=== PATIENT | male | born 1955 | race Caucasian/White ===

== ENCOUNTER → 2023-03-12 10:29 | Outpatient (REF) | payer MEDICARE, SELFPAY | LOC: RAD 10:29 | PROVIDERS: ATTENDING PHYSICIAN Family Medicine | DX: R05.9 Cough, unspecified (principal) | CPT/HCPCS: 71046 ==

== ENCOUNTER → 2023-03-16 10:35 | Outpatient (REF) | payer MEDICARE, SELFPAY ==
[2023-03-16 11:30] LABS: % Basophils 0.3 % (0-2); % Eosinophils 0.1 % (0-6); % Immature Granulocytes 4.2 % (0-0.5); % Lymphocytes 2.5 % (20.5-51.1); % Monocytes 6.2 % (1.7-9.3); % Neutrophils 86.7 % (42.2-75.2); Absolute Basophils 0.1 10^3/uL (0-0.2); Absolute Immature Granulocytes 0.8 10^3/uL (0-0.05); Absolute Lymphocytes 0.5 10^3/uL (1.2-3.4); Absolute Monocytes 1.1 10^3/uL (0.1-0.6); Absolute Neutrophils 15.3 10^3/uL (1.4-6.5); Hematocrit 38.5 % (39.0-52.0); Hemoglobin 12.8 g/dL (13.0-18.0); Mean Corp Hgb Conc. 33.2 g/dL (33.0-37.0); Mean Corpuscular Hgb 32.2 pg (27.0-31.0); Mean Platelet Volume 9.4 fL (7.4-10.4); Nucleated Red Blood Cells % 0 % (-); Platelet Count 159 10^3/uL (130-400); Red Blood Cell Count 3.97 10^6/uL (4.70-6.10); Red Cell Dist. Width 14.1 % (11.5-14.5); White Blood Cell Count 17.7 10^3/uL (4.8-10.8)
[2023-03-16 11:59] LABS: Iron 88 ug/dl (49-181)
[2023-03-16 12:08] LABS: Percent Saturation 44 % (20-50); Total Iron Binding Capacity 197 ug/dl (261-462)
== END ==
LOC: RAD 10:35
PROVIDERS: ATTENDING PHYSICIAN Surgery Vascular Surgery; FAMILY PHYSICIAN Family Medicine; REFERRING PHYSICIAN Internal Medicine Hematology & Oncology
DX: D63.8 Anemia in other chronic diseases classified elsewhere (principal); D63.1 Anemia in chronic kidney disease; D50.0 Iron deficiency anemia secondary to blood loss (chronic); N18.4 Chronic kidney disease, stage 4 (severe); I65.23 Occlusion and stenosis of bilateral carotid arteries
CPT/HCPCS: 36415; 82728; 83540; 83550; 85025; 93880

== ENCOUNTER 2023-04-22 14:27 | Inpatient (IN) | payer MEDICARE, SELFPAY ==
[2023-04-22] VITALS (14 sets, daily range): BP systolic 97–136; BP diastolic 48–71
--- NOTE | 2023-04-22 10:29 | ED.GENMED ---
History of Present Illness
<Josiah Waters PA-C - Last Filed: 04/22/23 12:35>
General
Chief Complaint: Breathing Problem
Source: patient
Exam Limitations: none
Time Seen by Provider: 04/22/23 10:01
Travel History
Have you had any contact with someone who has COVID-19?: No
Do you have any symptoms of coronavirus? Fever > 100 degrees, chills, cough, shortness of breath, sore throat, loss of taste or smell, muscle aches, or headache?: No
History of Present Illness
History of Present Illness:
68-year-old male with history of scleroderma, A-fib status post watchman's procedure, CHF presents complaining of fatigue shortness of breath and nausea worsening over the past several days. He has been losing weight. He notes increasing
difficulty swallowing secondary to scleroderma. No known sick contacts. No fever. No other complaints at this time. He has 1 functional kidney remaining secondary to his scleroderma
Past History
<Josiah Waters PA-C - Last Filed: 04/22/23 12:35>
Past History
ED Past Medical History: Arrthythmia, CAD, CHF, COPD, HTN, Hypercholesterolemia, Renal failure, Psychiatric (scleroderma, RA, CREST, Reynauds.) and Other (Scleroderma, crest syndrome)
ED Past Surgical History: Bowel resection, Cardiac (Watchman) and Orthopedic
Social History
Tobacco: Former smoker (Quit 6 years ago)
Alcohol: None
Drug: None
Personal:
Living: with family
Employment: Disabled
Family History
Family History: Other
Phy Exam
<Josiah Waters PA-C - Last Filed: 04/22/23 12:35>
Physical Exam
Physical Exam:
General: Well-appearing male no acute respiratory distress
HEENT: Normocephalic atraumatic
Heart: Regular rate and rhythm no murmurs
Lungs: Clear to auscultation bilaterally no wheezing
Abdomen is soft mildly diffusely tender no guarding or rebound normal bowel sounds
Extremities: No cyanosis or edema
Scores
<Josiah Waters PA-C - Last Filed: 04/22/23 12:35>
Heart Failure Risk
Heart Failure Risk Score: Not Applicable
Course
<Josiah Waters PA-C - Last Filed: 04/22/23 12:35>
Orders/Labs/Results
Orders:
Orders
04/22/23 10:03
Electrocardiogram (*1) Urgent
Reason for Study: Shortness of Breath
EKG- Treatment ONCE
04/22/23 10:28
CR Chest - 2 Views Urgent
Comment:
Reason For Exam: sob
04/22/23 10:37
COVID-19 Antigen Urgent
Source: Nasal Swab
Influenza A+B Rapid Molecular Urgent
GERTRUDE Source: Nasal Swab
Specimen Description:
04/22/23 10:42
Complete Blood Count/With Diff Urgent
Comprehensive Metabolic Panel Urgent
Lipase Urgent
NT-proBNP Urgent
04/22/23 12:11
Ondansetron Injectable [Zofran] 4 mg IV NOW STA
04/22/23 12:12
Electrocardiogram (*1) Urgent
Reason for Study: Fatigue / Weakness
04/22/23 12:16
ABG [Arterial Blood Gas] Urgent
%Oxygen/Room Air: room air
04/22/23 12:30
Dextrose 5%/Water 1000 ml [D5w] 1,000 ml Sodium Bicarbonate 150 meq IV 250 mls/hr
04/22/23 13:00
Dextrose 5%/0.45%Sodchl 500 ml [D5/0.45%NaCl] 500 ml IV 250 mls/hr
Abnormal Lab Results
04/22/23
10:42
RBC 3.31 L 10^6/uL
(4.70-6.10)
Hgb 10.4 L g/dL
(13.0-18.0)
Hct 31.3 L %
(39.0-52.0)
MCV 94.6 H fL
(80.0-94.0)
MCH 31.4 H pg
(27.0-31.0)
RDW 14.9 H %
(11.5-14.5)
Abs Immat Gran (auto) 0.3 H 10^3/uL
(0-0.05)
Absolute Neuts (auto) 8.5 H 10^3/uL
(1.4-6.5)
Absolute Lymphs (auto) 0.2 L 10^3/uL
(1.2-3.4)
Absolute Monos (auto) 0.8 H 10^3/uL
(0.1-0.6)
Immature Gran % 3.0 H %
(0-0.5)
Neutrophils % 86.2 H %
(42.2-75.2)
Lymphocytes % 2.3 L %
(20.5-51.1)
Sodium 131 L mmol/L
(135-145)
Carbon Dioxide 11 L* mmol/L
(22-30)
BUN 65 H mg/dl
(9-20)
Creatinine 2.3 H mg/dL
(0.7-1.3)
Glucose 64 L mg/dl
(70-99)
Total Protein 5.1 L g/dl
(6.3-8.2)
Albumin 3.1 L g/dl
(3.5-5.0)
04/22/23 10:42
04/22/23 10:42
Vital Signs
Initial and Last Documented VS:
Initial Vital Signs
Temp Pulse Resp BP Pulse Ox
99.1 F 76 18 136/59 97
04/22/23 09:45 04/22/23 09:45 04/22/23 09:45 04/22/23 09:45 04/22/23 09:45
Last Documented Vital Signs
Temp Pulse Resp BP Pulse Ox
99.1 F 64 16 110/50 97
04/22/23 09:45 04/22/23 11:48 04/22/23 11:48 04/22/23 11:48 04/22/23 11:48
<Sohan Mccain, DO - Last Filed: 04/22/23 12:30>
Orders/Labs/Results
Orders:
Orders
04/22/23 10:03
Electrocardiogram (*1) Urgent
Reason for Study: Shortness of Breath
EKG- Treatment ONCE
04/22/23 10:28
CR Chest - 2 Views Urgent
Comment:
Reason For Exam: sob
04/22/23 10:37
COVID-19 Antigen Urgent
Source: Nasal Swab
Influenza A+B Rapid Molecular Urgent
GERTRUDE Source: Nasal Swab
Specimen Description:
04/22/23 10:42
Complete Blood Count/With Diff Urgent
Comprehensive Metabolic Panel Urgent
Lipase Urgent
NT-proBNP Urgent
04/22/23 12:11
Ondansetron Injectable [Zofran] 4 mg IV NOW STA
04/22/23 12:12
Electrocardiogram (*1) Urgent
Reason for Study: Fatigue / Weakness
04/22/23 12:16
ABG [Arterial Blood Gas] Urgent
%Oxygen/Room Air: room air
04/22/23 12:30
Dextrose 5%/Water 1000 ml [D5w] 1,000 ml Sodium Bicarbonate 150 meq IV 250 mls/hr
04/22/23 13:00
Dextrose 5%/0.45%Sodchl 500 ml [D5/0.45%NaCl] 500 ml IV 250 mls/hr
Abnormal Lab Results
04/22/23
10:42
RBC 3.31 L 10^6/uL
(4.70-6.10)
Hgb 10.4 L g/dL
(13.0-18.0)
Hct 31.3 L %
(39.0-52.0)
MCV 94.6 H fL
(80.0-94.0)
MCH 31.4 H pg
(27.0-31.0)
RDW 14.9 H %
(11.5-14.5)
Abs Immat Gran (auto) 0.3 H 10^3/uL
(0-0.05)
Absolute Neuts (auto) 8.5 H 10^3/uL
(1.4-6.5)
Absolute Lymphs (auto) 0.2 L 10^3/uL
(1.2-3.4)
Absolute Monos (auto) 0.8 H 10^3/uL
(0.1-0.6)
Immature Gran % 3.0 H %
(0-0.5)
Neutrophils % 86.2 H %
(42.2-75.2)
Lymphocytes % 2.3 L %
(20.5-51.1)
Sodium 131 L mmol/L
(135-145)
Carbon Dioxide 11 L* mmol/L
(22-30)
BUN 65 H mg/dl
(9-20)
Creatinine 2.3 H mg/dL
(0.7-1.3)
Glucose 64 L mg/dl
(70-99)
Total Protein 5.1 L g/dl
(6.3-8.2)
Albumin 3.1 L g/dl
(3.5-5.0)
04/22/23 10:42
04/22/23 10:42
Vital Signs
Initial and Last Documented VS:
Initial Vital Signs
Temp Pulse Resp BP Pulse Ox
99.1 F 76 18 136/59 97
04/22/23 09:45 04/22/23 09:45 04/22/23 09:45 04/22/23 09:45 04/22/23 09:45
Last Documented Vital Signs
Temp Pulse Resp BP Pulse Ox
99.1 F 64 16 110/50 97
04/22/23 09:45 04/22/23 11:48 04/22/23 11:48 04/22/23 11:48 04/22/23 11:48
<Josiah Waters PA-C - Last Filed: 04/22/23 12:35>
MDM/Problems Addressed
Differential Diagnosis Includes:
Shortness of breath nausea and fatigue. Consider viral illness for CHF flare versus pancreatitis. Consider dehydration as well. Will check labs test for COVID and flu, BNP and chest x-ray
<Sohan Mccain DO - Last Filed: 04/22/23 12:30>
MDM/Problems Addressed
Chronic conditions affecting care: Kidney disease
Acute Exacerbation and/or Progression of Chronic Illness: Kidney disease
<Sohan Mccain DO - Last Filed: 04/22/23 12:30>
*Pulse Oximetry
Patient hypoxic: no
*Critical Care Note
Total Time (30-74mins, 75-104mins- exclusive of procedures): 30
<Josiah Waters PA-C - Last Filed: 04/22/23 12:35>
Update Note
Update Note:
Patient with complicated medical history. Labs demonstrate acute on chronic kidney disease with a creatinine of 2.3. He is acidotic with a bicarb of 11. Looks quite dry but chest x-ray shows cardiomegaly with increased pulmonary edema and BNP is
elevated. Patient does have a history of heart failure. Discussed with emergency room attending. Nephrology involved. D5W with 150 mill equivalents of sodium bicarbonate was ordered. Will admit to hospital for further evaluation
ED Attending Note
<Josiah Waters PA-C - Last Filed: 04/22/23 12:35>
-
Portions of this chart may have been created with voice recognition software.� Occasional wrong word or��sound alike� substitutions may have occurred due to the inherent limitations of voice recognition software.
<Sohan Mccain DO - Last Filed: 04/22/23 12:30>
ED Attending Note
Patient seen and examined by attending physician: Yes
I performed the substantive portion of visit, reviewed & personally made and approve the management plan that is documented in note by myself or EVERETT.: Yes
ED Attending Note:
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 intake, here looks dry looks like his metabolic acidosis, blood pressure soft,
will require admission, briefly reviewed with nephrology message sent to hospitalist family updated
Discharge Plan
Departure
Patient Disposition: Admit
Date of Disposition: 04/22/23
Time of Disposition: 12:34
Admit to: Telemetry
Presentation/result/management discussed w/ accepting MD/DO: Hospitalist
Discharge Problem:
SOLEDAD (acute kidney injury)
Prescriptions:
No Action
ferrous sulfate [FeroSul] 325 MG tablet
325 mg PO MOWEFR@2200
polyethylene glycol 3350 17 GRAMS powder in packet
17 grams PO DAILYPRN PRN (Reason: constipation)
methadone 10 MG tablet
10 mg PO TID
Patient Comments:
11/18/2022: last filled 10/21/22, 120 tabs for 30 days from [facility]
rosuvastatin 10 MG tablet
10 mg PO HS
tamsulosin 0.4 MG capsule
0.4 mg PO QPM
ondansetron HCl 4 MG tablet
4 mg PO DAILY
pentoxifylline 400 MG tablet extended release
400 mg PO HS
aspirin 81 MG tablet,chewable
81 mg PO DAILY
hydrocodone-acetaminophen 7.5-325 mg tablet
1 tab PO TID
Patient Comments:
11/18/2022: last filled 10/21/22, 135 tabs for 17 days from [facility]
prednisone 10 mg Tablet
10 mg PO BID
Hold Instructions: Resume on 09/22/22.
methadone 10 mg Tablet
10 mg PO DAILY PRN (Reason: severe pain)
Patient Comments:
11/18/2022: last filled 10/21/22, 120 tabs for 30 days from [facility]
diltiazem HCl 240 mg Capsule,Extended Release 24hr
240 mg PO DAILY
nitroglycerin 0.4 MG tablet, sublingual
0.4 mg sublingual [id number] PRN (Reason: chest pain ) Qty: 25 3RF
levalbuterol tartrate [Xopenex HFA] 45 mcg/actuation Hfa Aerosol Inhaler
1 puff INHALATION R Q6HPRN PRN (Reason: sob)
ipratropium-albuterol 0.5 mg-3 mg(2.5 mg base)/3 mL solution for nebulization
3 ml inhalation R QIDPRN PRN (Reason: sob)
sertraline 50 MG tablet
50 mg PO DAILY
ondansetron HCl 4 mg tablet
4 mg PO TID PRN (Reason: nausea/vomiting)
hydrocodone-acetaminophen 7.5-325 mg tablet
1 tab PO DAILY PRN (Reason: breakthrough pain)
Patient Comments:
11/18/2022: last filled 10/21/22, 135 tabs for 17 days from [facility]
metoprolol succinate 50 mg tablet extended release 24 hr
50 mg PO DAILY
furosemide 20 mg tablet
20 mg PO DAILY PRN (Reason: sob/weight gain)
famotidine 20 mg tablet
20 mg PO HS
hydralazine 50 mg Tablet
100 mg PO TID 30 Days Qty: 180 0RF
ciprofloxacin HCl 0.3 % Drops
4 drp otic (ear) BID 14 Days Qty: 10 0RF
Rx Instructions:
f/u ENT recs for continuation of otic drops
Referrals:
Arun Ibrahim DO [Family Provider] -
Interventions
Interventions:
*Risk Screen - Suicide Last Done: 04/22/23 09:48
*General Assessment Last Done: 04/22/23 09:48
*Neglect/Abuse Screening Last Done: 04/22/23 09:48
*ED COVID-19 Vaccine History Last Done: 04/22/23 09:54
ED- Cardiac Assessment Last Done: 04/22/23 10:00
ED- Pulmonary Assessment Last Done: 04/22/23 10:00
[2023-04-22 10:52] LABS: % Basophils 0.3 % (0-2); % Eosinophils 0.3 % (0-6); % Lymphocytes 2.3 % (20.5-51.1); % Monocytes 7.9 % (1.7-9.3); % Neutrophils 86.2 % (42.2-75.2); Absolute Immature Granulocytes 0.3 10^3/uL (0-0.05); Absolute Lymphocytes 0.2 10^3/uL (1.2-3.4); Absolute Monocytes 0.8 10^3/uL (0.1-0.6); Absolute Neutrophils 8.5 10^3/uL (1.4-6.5); Hematocrit 31.3 % (39.0-52.0); Hemoglobin 10.4 g/dL (13.0-18.0); Mean Corp Hgb Conc. 33.2 g/dL (33.0-37.0); Mean Corpuscular Hgb 31.4 pg (27.0-31.0); Mean Corpuscular Volume 94.6 fL (80.0-94.0); Mean Platelet Volume 8.8 fL (7.4-10.4); Nucleated Red Blood Cells % 0 % (-); Platelet Count 143 10^3/uL (130-400); Red Blood Cell Count 3.31 10^6/uL (4.70-6.10); Red Cell Dist. Width 14.9 % (11.5-14.5); White Blood Cell Count 9.9 10^3/uL (4.8-10.8)
[2023-04-22 11:05] LABS: COVID-19 Antigen Negative (Negative)
[2023-04-22 11:10] LABS: ALT (SGPT) 13 U/L (0-50); AST (SGOT) 17 U/L (17-59); Albumin 3.1 g/dl (3.5-5.0); Alkaline Phosphatase 116 U/L (38-126); Blood Urea Nitrogen 65 mg/dl (9-20); Calcium 8.4 mg/dl (8.4-10.2); Glucose 64 mg/dl (70-99); Total Bilirubin 0.7 mg/dl (0.2-1.3); Total Protein 5.1 g/dl (6.3-8.2); eGFR 30.17
[2023-04-22 11:14] LABS: Carbon Dioxide 11 mmol/L (22-30)
[2023-04-22 11:16] LABS: NT-proBNP 12300 pg/ml
[2023-04-22 11:40] LABS: Chloride 103 mmol/L (98-107); Lipase 43 U/L (23-300); Potassium 4.4 mmol/L (3.5-5.1); Sodium 131 mmol/L (135-145)
[2023-04-22] MEDS: ZOFRAN 4 MG IV (12:22)
[2023-04-22] MEDS: D5/0.45%NACL 500 IV (12:23)
[2023-04-22] MEDS: SODIUM BICARBONATE 1150 MEQ IV ×2 (12:45→18:48)
[2023-04-22 13:09] LABS: B.E. -14.3 mmol/L; O2 Saturation % 98.4 % (94-98); PCO2 23 mmHg (35-48); PO2 134 mmHg (83-108); pH 7.28 (7.35-7.45)
[2023-04-22 13:11] LABS: HCO3 10.8 mmol/L (21-28)
--- NOTE | 2023-04-22 14:05 | HPS.HSE ---
Family Physician
-
Family Physician: Arun Ibrahim
Chief Complaint
-
nausea and weakness
History of Present Illness
68-year-old male past medical history who was presented with nausea and abdominal discomfort. Patient stated symptoms ongoing for the past few days. Mild epigastric discomfort. Denies any vomiting. Had regular solid bowel movement yesterday. No
sick contact at home. Denies any fevers or chills. States of dyspnea on exertion. Denies any chest pain. History of chronic PND. Denies lower extremity edema. Also states of chronic dysphagia due to scleroderma.
Medical History
Past Medical History
Past Medical History: Reports Other
Additional Past Medical History:
Scleroderma / CREST / Raynaud's
Rheumatoid Arthritis
Paroxysmal Atrial Fibrillation
Essential Hypertension
Chronic Hyponatremia
Peripheral Arterial Disease s/p Left Subclavian Stent
Chronic Opioid Dependence
COPD, not acute exacerbation
Depression
Chronic opiate dependent daily basis
Past Surgical History: Reports Other
Additional Past Surgical History:
CAD s/p stents
R shoulder surgery
B/L Hand fingers amputation
Social History
Tobacco: Former Smoker
Alcohol: None
Personal:
Living: With Family
Family History
Family History: Not pertinent
Allergies / Home Medications
Allergies reflects when Allergies were last updated in [employer].
Home Medications with original date entered in [employer]
Allergy/Medication List:
Allergies
Allergy/AdvReac Type Severity Reaction Status Date / Time
morphine Allergy severe Verified 04/22/23 09:45
itching
Home Medications
ferrous sulfate 325 mg (65 mg iron) tablet (FeroSul) 325 mg PO MOWEFR@2200 Supplement 12/30/18
methadone 10 mg tablet 10 mg PO BID Pain 04/05/19
polyethylene glycol 3350 17 gram oral powder packet 17 grams PO DAILYPRN PRN constipation 04/05/19
rosuvastatin 10 mg tablet 10 mg PO HS High cholesterol 04/05/19
tamsulosin 0.4 mg capsule 0.4 mg PO QPM Urinary issue 09/29/19
pentoxifylline 400 mg tablet,extended release 400 mg PO BID CIRCULATION 08/14/20
methadone 10 mg tablet 10 mg PO BIDPRN PRN severe pain 07/23/22
prednisone 10 mg tablet 15 mg PO DAILY Anti-Inflammatory 07/23/22
ipratropium 0.5 mg-albuterol 3 mg (2.5 mg base)/3 mL nebulization soln 3 ml inhalation R Q6HPRN PRN sob 10/09/22
sertraline 50 mg tablet 50 mg PO DAILY Depression 10/09/22
furosemide 20 mg tablet 20 mg PO DAILY PRN sob/weight gain 11/18/22
hydrocodone 7.5 mg-acetaminophen 325 mg tablet 1 tab PO Q6HPRN PRN severe pain 11/18/22
metoprolol succinate 50 mg tablet,extended release 24 hr 50 mg PO DAILY Blood Pressure 11/18/22
albuterol sulfate 90 mcg/actuation aerosol inhaler 2 puff inhalation R Q4HPRN PRN sob 04/22/23
aspirin 81 mg tablet,delayed release 81 mg PO DAILY 04/22/23
diltiazem HCl 240 mg capsule,extended release 24 hr, controlled (DILT-XR) 240 mg PO DAILY 04/22/23
famotidine 40 mg tablet 40 mg PO QPM 04/22/23
hydralazine 100 mg tablet 100 mg PO TID 04/22/23
levalbuterol tartrate 45 mcg/actuation aerosol inhaler 2 inh inhalation R Q6HPRN PRN sob 04/22/23
ondansetron 8 mg disintegrating tablet 8 mg PO TIDPRN PRN nausea/vomiting 04/22/23
tizanidine 2 mg tablet 2 mg PO TID PRN muscle spasms 04/22/23
Review of Systems
-
A 12 point ROS was completed and negative except as noted: Yes
Physical Exam
Vital Signs
Vital Signs
Temp Pulse Resp BP Pulse Ox
99.1 F 61 14 117/70 100
04/22/23 09:45 04/22/23 13:00 04/22/23 13:00 04/22/23 13:00 04/22/23 12:45
Physical Exam
General: Well Developed, Well Nourished and No Apparent Distress
HEENT: NormoCephalic, Moist mucous membranes and Atraumatic
Respiratory: Clear
Cardiac: S1/S2 and Regular Rhythm; No Murmur or Rub
GI: Soft, Non Tender, Non Distended and Normal Bowel Sounds; No Organomegaly
Rectal: Deferred by Provider
Musculoskeletal: No Clubbing, No Cyanosis and No Edema
Skin: No Rash
Neuro: Awake, Alert, Oriented, No Motor Deficits and Nonfocal/grossly intact
Psych: Calm
Laboratory Results
-
04/22/23 10:42
04/22/23 10:42
Laboratory Results
pH 7.28 (7.35-7.45) L 04/22/23 12:45
pCO2 23 mmHg (35-48) L 04/22/23 12:45
pO2 134 mmHg (83-108) H 04/22/23 12:45
HCO3 10.8 mmol/L (21-28) L* 04/22/23 12:45
Total Bilirubin 0.7 mg/dl (0.2-1.3) 04/22/23 10:42
AST 17 U/L (17-59) 04/22/23 10:42
ALT 13 U/L (0-50) 04/22/23 10:42
Alkaline Phosphatase 116 U/L (38-126) 04/22/23 10:42
Lipase 43 U/L (23-300) 04/22/23 10:42
Impression/Plan
-
#Nausea and epigastric discomfort
#Chronic dysphagia
-on chronic opioids
-Check abdominal x-ray
-Start diet and monitor for tolerance
-Pepcid
-If no improvement can consider CT scan abd w/o IV contrast
#SOLEDAD on CKD3b
#Severe metabolic acidosis
#Mild hyponatremia
-Patient started on bicarbonate infusion per nephrology
-Trend creatinine at 2.3 from 1.3 03/04
-Monitor urinary output
-Bladder scan protocol
-States only has solitary renal function as other kidney damage due to scleroderma
-Nephrology consulted by ER-await further recs.
#Mild dyspnea
#Chronic HFpEF
-Diuretics on hold in setting of SOLEDAD
-Monitor I's and O's and daily weights
-Currently dry on exam. Hold diuretics.
#Primary HTN
-Continue metoprolol and Cardizem
-Hydralazine 100 mg 3 times daily with hold parameters
-Holding diuretics
#Paroxysmal Atrial Fibrillation
-Continue metoprolol and diltiazem for rate control
-Patient is not on anticoagulation as outpatient
-Follows with [facility] cardiology
#Scleroderma / CREST / Raynaud's
#Rheumatoid Arthritis
-Patient is not on any disease modifying agents
-Continue prednisone
Peripheral Arterial Disease s/p Left Subclavian Stent
-Continue aspirin
-Continue pentoxifylline
Chronic Opioid Dependence
-Continue methadone standing and as needed.
-Continue with bowel regimen.
-Continue with hydrocodone.
COPD, not acute exacerbation
-Continue bronchodilators prn
Depression
-Continue sertraline
DVT Proph: SC Heparin
Code Status: Full Code
I spent a total of 78 minutes with the patient or on the floor. More than 50% of this time involved counseling and coordination of care.
--- NOTE | 2023-04-22 15:37 | W.CON.NEPH ---
Consultation
-
Date/Time Consultation Requested: 04/22/2023
Date/Time Consultation Performed: 04/22/2023
Requesting Provider: Philippe Cruz
Performing Provider: Ailyn Atkins
Reason for Consultation: SOLEDAD on CKD
Medical History
-
Chief Complaint: nausea and wekaness
History of Present Illness:
Mr. Salgado is a 68YOM with PMH of scleroderma/CREST, RA, pAfib, HTN, hyponatremia (bl Na 125-130), HTN, PAD s/p L subclavian stent, chronic opiod dependence, COPD, depression, chronic opiate dependence who presnets to the hospital for nausea and
weakness since Thursday. The patient states that he has not had a meal since Thursday. Denies vomitting or diarrhea. Denies fevers or chills. Does have some TORRES and a cough with mucous production for 1-2days. States that he has a history of bronchitis.
Has a history of PND, denies LE edema. He has noted that his blood pressures have been low, he typically runs quite high. Has chronic back pain, does not take NSAIDs but has been taking hydrocodone. Yesterday, he took a dose of lasix for SOB and did
not urinate as much as normal. Denies trouble emptying his bladder. Recently saw his marbleizing machine tender for scleroderma and stated everything is stable.
Nephrology is consulted for his acidosis and SOLEDAD on CKD (bl Cr around 1.5).
Past Medical History
Scleroderma / CREST / Raynaud's
Rheumatoid Arthritis
Paroxysmal Atrial Fibrillation
Essential Hypertension
Chronic Hyponatremia
Peripheral Arterial Disease s/p Left Subclavian Stent
Chronic Opioid Dependence
COPD, not acute exacerbation
Depression
Chronic opiate dependent daily basis
Past Surgical History: Other (CAD s/p stent, R shoulder surgery, finger amputations)
Social History
Tobacco: Former Smoker (quit 14 years ago)
Alcohol: None
Drug: None
Personal:
Living: With Family
Family History
no one with CKD
Allergies / Home Medications
Allergy/AdvReac Type Severity Reaction Status Date / Time
morphine Allergy severe Verified 04/22/23 09:45
itching
Medication Instructions Recorded Confirmed Type
ferrous sulfate 325 mg (65 mg 325 mg PO MOWEFR@2200 Supplement 12/30/18 04/22/23 History
iron) tablet (FeroSul)
methadone 10 mg tablet 10 mg PO BID Pain 04/05/19 04/22/23 History
polyethylene glycol 3350 17 gram 17 grams PO DAILYPRN PRN 04/05/19 04/22/23 History
oral powder packet constipation
rosuvastatin 10 mg tablet 10 mg PO HS High cholesterol 04/05/19 04/22/23 History
tamsulosin 0.4 mg capsule 0.4 mg PO QPM Urinary issue 09/29/19 04/22/23 History
pentoxifylline 400 mg 400 mg PO BID CIRCULATION 08/14/20 04/22/23 History
tablet,extended release
methadone 10 mg tablet 10 mg PO BIDPRN PRN severe pain 07/23/22 04/22/23 History
prednisone 10 mg tablet 15 mg PO DAILY Anti-Inflammatory 07/23/22 04/22/23 History
ipratropium 0.5 mg-albuterol 3 mg 3 ml inhalation R Q6HPRN PRN sob 10/09/22 04/22/23 History
(2.5 mg base)/3 mL nebulization
soln
sertraline 50 mg tablet 50 mg PO DAILY Depression 10/09/22 04/22/23 History
furosemide 20 mg tablet 20 mg PO DAILY PRN sob/weight gain 11/18/22 04/22/23 History
hydrocodone 7.5 mg-acetaminophen 1 tab PO Q6HPRN PRN severe pain 11/18/22 04/22/23 History
325 mg tablet
metoprolol succinate 50 mg 50 mg PO DAILY Blood Pressure 11/18/22 04/22/23 History
tablet,extended release 24 hr
albuterol sulfate 90 mcg/actuation 2 puff inhalation R Q4HPRN PRN sob 04/22/23 04/22/23 History
aerosol inhaler
aspirin 81 mg tablet,delayed 81 mg PO DAILY 04/22/23 04/22/23 History
release
diltiazem HCl 240 mg 240 mg PO DAILY 04/22/23 04/22/23 History
capsule,extended release 24 hr,
controlled (DILT-XR)
famotidine 40 mg tablet 40 mg PO QPM 04/22/23 04/22/23 History
hydralazine 100 mg tablet 100 mg PO TID 04/22/23 04/22/23 History
levalbuterol tartrate 45 2 inh inhalation R Q6HPRN PRN sob 04/22/23 04/22/23 History
mcg/actuation aerosol inhaler
ondansetron 8 mg disintegrating 8 mg PO TIDPRN PRN nausea/vomiting 04/22/23 04/22/23 History
tablet
tizanidine 2 mg tablet 2 mg PO TID PRN muscle spasms 04/22/23 04/22/23 History
Review of Systems
-
History Source: Patient
All other systems: Negative unless noted
Constitutional: Fatigue
Respiratory: Cough
Abdomen/GI: Nausea
Neurological: Weakness
Physical Exam
Vital Signs
Vital Signs
Temp Pulse Resp BP Pulse Ox
99.1 F 51 17 97/55 97
04/22/23 09:45 04/22/23 14:15 04/22/23 14:15 04/22/23 14:00 04/22/23 13:15
Lab Results
WBC 9.9 10^3/uL (4.8-10.8) 04/22/23 10:42
RBC 3.31 10^6/uL (4.70-6.10) L 04/22/23 10:42
Hgb 10.4 g/dL (13.0-18.0) L 04/22/23 10:42
Hct 31.3 % (39.0-52.0) L 04/22/23 10:42
Plt Count 143 10^3/uL (130-400) 04/22/23 10:42
Sodium 131 mmol/L (135-145) L 04/22/23 10:42
Potassium 4.4 mmol/L (3.5-5.1) 04/22/23 10:42
Chloride 103 mmol/L (98-107) 04/22/23 10:42
Carbon Dioxide 11 mmol/L (22-30) L* 04/22/23 10:42
BUN 65 mg/dl (9-20) H 04/22/23 10:42
Creatinine 2.3 mg/dL (0.7-1.3) H 04/22/23 10:42
eGFR 30.17 04/22/23 10:42
Glucose 64 mg/dl (70-99) L 04/22/23 10:42
Calcium 8.4 mg/dl (8.4-10.2) 04/22/23 10:42
Vik-I-Hnhcmyfbfcx Pept 20212 pg/ml 04/22/23 10:42
Albumin 3.1 g/dl (3.5-5.0) L 04/22/23 10:42
Physical Exam
General: AOx3
HEENT: PERRL, EOMI, Anicteric, Conjunctivae Clear, Ear/Nose Intact and Hearing Normal
Respiratory: Clear and Normal Excursion
Cardiac: S1/S2 and Regular Rate/Rhythm
Breast: N/A
Abdomen: Soft, Nontender, Nondistended and Normal Bowel Sounds
Rectal: Deferred by Provider
Musculoskeletal: No Edema
Skin: No Rash, Warm and Dry
Neuro: Nonfocal/Grossly Intact
Psych: Mood/afflect pleasant and Insight/judgement good
Assessment/Plan
-
Assessment:
Nausea
Chronic dysphagia
SOLEDAD on CKD3b
HAGMA + NAGMA
chronic hyponatremia
chronic HFpEF
HTN
PAfib
Scleroderma
RA
PAD
chronic opiod dependence
COPD
Depression
Plan:
SOLEDAD
- known solitary functioning R kidney given L kidney atrophy. follows with Dr. Jain in outpatient
- Cr baseline 1.5, currently 2.3. most likely ATN vs pre-renal injury
- encouraged sodium bicarbonate fluids at 65cc/hr. please continue until tomorrow AM
- OK with bladder scan
- if no improvement with fluids, can consider renal ultrasound
- monitor I/Os
Hyponatremia
- chronic, at baseline
HAGMA + NAGMA
- HAGMA likely in the setting of ARF
- NAGMA --> noted to have some form of acidosis since 2022 as well as urine pH 6.0. --> distal RTA in the setting of CREST/scleroderma/RA?
- sodium bicarbonate will assist in treatment
Data Reviewed
-
Radiology: Image Personally Visualized and interpreted (CXR with some concern for PNA in R lung base) and Report Reviewed by me (abd xray with large stool burden)
[2023-04-22] MEDS: MILK OF MAGNESIA 30 ML PO (17:02)
[2023-04-22] MEDS: FLOMAX 0.400000000000000022 MG PO (18:50)
[2023-04-22] MEDS: APRESOLINE PO (19:06)
[2023-04-22] MEDS: HEPARIN 5000 UNITS SC (20:53)
[2023-04-22] MEDS: SENOKOT-S 1 TABLET PO (20:53)
[2023-04-22] MEDS: DOLOPHINE 10 MG PO (21:57)
[2023-04-22] MEDS: APRESOLINE 100 MG PO (21:57)
[2023-04-22] MEDS: CRESTOR 10 MG PO (21:57)
[2023-04-22] MEDS: TRENTAL 400 MG PO (22:57)
[2023-04-23] VITALS (7 sets, daily range): BP systolic 114–160; BP diastolic 52–76; BMI 17.6
[2023-04-23 05:52] LABS: % Basophils 0.3 % (0-2); % Eosinophils 0.9 % (0-6); % Immature Granulocytes 2.8 % (0-0.5); % Lymphocytes 4.5 % (20.5-51.1); % Monocytes 10.1 % (1.7-9.3); % Neutrophils 81.4 % (42.2-75.2); Absolute Eosinophils 0.1 10^3/uL (0-0.7); Absolute Immature Granulocytes 0.2 10^3/uL (0-0.05); Absolute Lymphocytes 0.3 10^3/uL (1.2-3.4); Absolute Monocytes 0.7 10^3/uL (0.1-0.6); Absolute Neutrophils 5.7 10^3/uL (1.4-6.5); Hematocrit 27.7 % (39.0-52.0); Hemoglobin 9.5 g/dL (13.0-18.0); Mean Corp Hgb Conc. 34.3 g/dL (33.0-37.0); Mean Corpuscular Hgb 31.1 pg (27.0-31.0); Mean Corpuscular Volume 90.8 fL (80.0-94.0); Nucleated Red Blood Cells % 0 % (-); Platelet Count 152 10^3/uL (130-400); Red Blood Cell Count 3.05 10^6/uL (4.70-6.10); Red Cell Dist. Width 14.8 % (11.5-14.5)
[2023-04-23 06:12] LABS: Blood Urea Nitrogen 68 mg/dl (9-20); Calcium 7.1 mg/dl (8.4-10.2); Carbon Dioxide 30 mmol/L (22-30); Chloride 94 mmol/L (98-107); Estimated Creatinine Clearance 21 ml/min; Glucose 90 mg/dl (70-99); Potassium 3.8 mmol/L (3.5-5.1); Sodium 127 mmol/L (135-145); eGFR 28.67
[2023-04-23] MEDS: SENOKOT-S 1 TABLET PO ×2 (08:41→20:57)
[2023-04-23] MEDS: CARDIZEM CD 240 MG PO (08:41)
[2023-04-23] MEDS: ASPIR LOW (ENTERIC COATED) 81 MG PO (08:41)
[2023-04-23] MEDS: TRENTAL 400 MG PO ×2 (08:42→20:57)
[2023-04-23] MEDS: PEPCID 20 MG PO (08:42)
[2023-04-23] MEDS: DELTASONE 15 MG PO (08:42)
[2023-04-23] MEDS: DOLOPHINE 10 MG PO ×2 (08:43→21:01)
[2023-04-23] MEDS: TOPROL XL 50 MG PO (08:43)
[2023-04-23] MEDS: HEPARIN 5000 UNITS SC ×2 (08:43→21:01)
[2023-04-23] MEDS: APRESOLINE 100 MG PO ×3 (08:43→23:22)
[2023-04-23] MEDS: ZOLOFT 50 MG PO (08:43)
--- NOTE | 2023-04-23 10:00 | W.PN.HOSP.TC ---
Today's Communication/Plan
-
Bowel regimen
Repeat two-view chest x-ray
Will defer diuretics to nephrology
Monitor creatinine
Renal bladder ultrasound
Assessment / Plan
Assessment / Plan
General: Well Developed, Well Nourished and No Apparent Distress
HEENT: NormoCephalic, Moist mucous membranes and Atraumatic
Respiratory: Dec aeration. no wheezing
Cardiac: S1/S2 and Regular Rhythm; No Murmur or Rub
GI: Soft, Non Tender, Non Distended and Normal Bowel Sounds; No Organomegaly
Rectal: Deferred by Provider
Musculoskeletal: No Clubbing, No Cyanosis and No Edema, digital amputation of B/L hands
Skin: No Rash
Neuro: Awake, Alert, Oriented, No Motor Deficits and Nonfocal/grossly intact
Psych: Calm
#Nausea and epigastric discomfort 2/2 severe constipation 2/2 opiates
#Chronic dysphagia
-on� chronic opioids
-abdominal x-ray-Large colonic stool burden, which can be seen with constipation.
-Start diet and monitor for tolerance
-Pepcid
-Senna/colace/miralax. Dose of dulcolax today.
#SOLEDAD on CKD3b
#Severe metabolic acidosis
#Mild hyponatremia
-Status post bicarb infusion.
-Trend creatinine at 2.4 from 1.3 03/04
-Monitor urinary output
-Bladder scan protocol
-States only has solitary renal function as other kidney damage due to scleroderma
- acidosis resolved.
-Renal bladder ultrasound pending.
-proBNP elevated. Nephrology recs.
#Mild dyspnea
#Chronic HFpEF
-Diuretics on hold in setting of SOLEDAD
-Monitor I's and O's and daily weights
-Chest x-ray two-view post fluid infusion.
#Primary HTN
-Continue metoprolol and Cardizem
-Hydralazine 100 mg 3 times daily with hold parameters
-Holding diuretics
#Paroxysmal Atrial Fibrillation
-Continue metoprolol and diltiazem for rate control
-Patient is not on anticoagulation as outpatient
-Follows with [facility] cardiology
#Scleroderma / CREST / Raynaud's
#Rheumatoid Arthritis
-Patient is not on any disease modifying agents
-Continue prednisone
Peripheral Arterial Disease s/p Left Subclavian Stent
History of fusiform aneurysm of descending aorta
-Continue aspirin
-Continue pentoxifylline
Chronic Opioid Dependence
-Continue methadone standing and as needed.
-Continue with bowel regimen.
-Continue with hydrocodone.
COPD, with moderate emphysema/chronic fibrotic changes bilateral
Right lower lobe lung malignancy 3 cm
-Continue bronchodilators�standing/prn
Depression
-Continue sertraline
DVT Proph: SC Heparin
Code Status: Full Code
Anticipated Discharge: > 48 hours
Subjective/Interval History
-
Date of Service: April 23, 2023
Head bowel movement earlier today
States of shortness of breath
Denies cough
States of decreased appetite
Objective Data
-
Labs:
Laboratory Results
04/23/23
05:29
WBC 7.0
Hgb 9.5 L
Hct 27.7 L
Plt Count 152
Sodium 127 L
Potassium 3.8
Chloride 94 L
Carbon Dioxide 30
BUN 68 H
Creatinine 2.4 H
Glucose 90
Calcium 7.1 L
Vital Signs:
Vital Signs
Temp Pulse Resp BP Pulse Ox
98.1 F 82 16 160/70 99
04/23/23 07:45 04/23/23 08:41 04/23/23 07:45 04/23/23 08:43 04/23/23 07:45
I&O
04/22/23 04/23/23 04/24/23
06:59 06:59 06:59
Output Total 200 / 200
Balance -200 / -200
Data Reviewed
-
Total Time Spent with Patient (in minutes): 56
[2023-04-23] MEDS: DULCOLAX 10 MG PO (10:25)
[2023-04-23] MEDS: MIRALAX 17 GRAMS PO ×2 (10:25→20:57)
--- NOTE | 2023-04-23 10:32 | W.PN.NEPH.PH ---
Today's Communication / Plan
-
- KUS, UA
Assessment/Plan
-
Assessment:
Nausea
Chronic dysphagia
SOLEDAD on CKD3b
HAGMA + NAGMA
chronic hyponatremia
chronic HFpEF
HTN
PAfib
Scleroderma
RA
PAD
chronic opiod dependence
COPD
Depression
Plan:
SOLEDAD
- known solitary functioning R kidney given L kidney atrophy. follows with Dr. Jain in outpatient
- Cr baseline 1.5, currently 2.3. most likely ATN vs pre-renal injury
- s/p sodium bicarbonate, only 200cc UOP
- OK with bladder scan
- KUS, UA today
- monitor I/Os
Hyponatremia
- chronic, at baseline
HAGMA + NAGMA
- HAGMA likely in the setting of ARF
- NAGMA --> noted to have some form of acidosis since 2022 as well as urine pH 6.0. --> distal RTA in the setting of CREST/scleroderma/RA?
- s/p sodium bicarbonate with significant improvement
-
-
Date of Service: April 23, 2023
CC / HPI / ROS
-
Chief Complaint:
SOLEDAD on CKD
History of Present Illness:
Cr increase to 2.4, bl 1.5
endorsing some SOB
minimal UOP
Review of Systems:
feels nauseous this AM
Labs
-
Labs:
WBC 7.0 10^3/uL (4.8-10.8) 04/23/23 05:29
RBC 3.05 10^6/uL (4.70-6.10) L 04/23/23 05:29
Hgb 9.5 g/dL (13.0-18.0) L 04/23/23 05:29
Hct 27.7 % (39.0-52.0) L 04/23/23 05:29
Plt Count 152 10^3/uL (130-400) 04/23/23 05:29
Sodium 127 mmol/L (135-145) L 04/23/23 05:29
Potassium 3.8 mmol/L (3.5-5.1) 04/23/23 05:29
Chloride 94 mmol/L (98-107) L 04/23/23 05:29
Carbon Dioxide 30 mmol/L (22-30) 04/23/23 05:29
BUN 68 mg/dl (9-20) H 04/23/23 05:29
Creatinine 2.4 mg/dL (0.7-1.3) H 04/23/23 05:29
eGFR 28.67 04/23/23 05:29
Glucose 90 mg/dl (70-99) 04/23/23 05:29
Calcium 7.1 mg/dl (8.4-10.2) L 04/23/23 05:29
Mgj-M-Aoirhuiosfz Pept [id number] pg/ml 04/22/23 10:42
Albumin 3.1 g/dl (3.5-5.0) L 04/22/23 10:42
Physical Exam
-
Vital Signs:
Vital Signs
Temp Pulse Resp BP Pulse Ox
98.1 F 82 16 160/70 99
04/23/23 07:45 04/23/23 08:41 04/23/23 07:45 04/23/23 08:43 04/23/23 07:45
Cardiovascular:: Regular rate and rhythm
Respiratory:: Bilateral: Coarse
Lung Excursion:: Normal
Abdomen:: Nontender and Soft
Bowel Sounds:: Normal
Extremity Edema:: None: Bilateral:
Gupta Catheter: No
--- NOTE | 2023-04-23 10:44 | CM ---
Reviewed the chart notes and spoke with the patient the bedside. The patient resides with his spouse in a two story home with one step to enter. The patient reports having in the home a cane, shower chair, and rails. The patient has had [facility] in
the past, but no SNF. The patient confirmed his pharmacy of choice is the [facility]. continues to be available to patient/family and is monitoring medical plan for needs at discharge.
Plan: Discharge plans will depend on the patient's progress.
[2023-04-23] MEDS: DUONEB 3 ML INH ×3 (11:27→19:20)
--- NOTE | 2023-04-23 11:49 | PTOTSP ---
Speech Therapy Swallowing Assessment
Very limited assessment of swallowing due to nausea and patient request for only a few sips of thin liquid. Low risk for significant oral/pharyngeal dysphagia based on functional oral motor skills and tolerance with liquid trials. However, he does
exhibit symptoms of esophageal dysphagia associated with scleroderma.
Recommend
1. No changes to diet - allow regular solids and thin liquids.
2. Meds with liquid as tolerated.
3. ST will assess solids as able once patient is less nauseous and accepting of trials.
4. Reflux precautions.
5. Alternate sip of liquid after every 2-3 bites of solid.
6. Rest breaks as needed when feeling sternal retention.
7. Upright during meals and for at least 30 minutes after.
[2023-04-23 14:34] LABS: Urine Albumin Trace (Neg - Trace); Urine Bilirubin 1+ (Negative); Urine Character Clear (Clear); Urine Color Yellow; Urine Glucose Negative (Negative); Urine Ketone 1+ (Negative); Urine Leukocyte 1+ (Negative); Urine Nitrite Negative (Negative); Urine Occult Blood Negative (Negative); Urine Urobilinogen Negative (Neg - 1+)
[2023-04-23 14:46] LABS: Urine Bacteria Few (Negative); Urine Squamous Cell 21-25 /LPF (Few)
[2023-04-23 14:47] LABS: Urine Hyaline Cast 0-2 /LPF (0-2)
[2023-04-23 14:49] LABS: Urine Red Blood Cell 0-2 /HPF (0-2)
[2023-04-23] MEDS: FLOMAX 0.400000000000000022 MG PO (17:17)
[2023-04-23] MEDS: CRESTOR 10 MG PO (23:22)
[2023-04-24] VITALS (7 sets, daily range): BP systolic 118–156; BP diastolic 57–84; PULSE 86; O2SAT 99; BMI 17.3
[2023-04-24 06:47] LABS: % Basophils 0.2 % (0-2); % Eosinophils 0.3 % (0-6); % Immature Granulocytes 2.2 % (0-0.5); % Lymphocytes 3.8 % (20.5-51.1); % Monocytes 9.8 % (1.7-9.3); % Neutrophils 83.7 % (42.2-75.2); Absolute Immature Granulocytes 0.1 10^3/uL (0-0.05); Absolute Lymphocytes 0.2 10^3/uL (1.2-3.4); Absolute Monocytes 0.6 10^3/uL (0.1-0.6); Absolute Neutrophils 5.2 10^3/uL (1.4-6.5); Hematocrit 28.8 % (39.0-52.0); Hemoglobin 9.8 g/dL (13.0-18.0); Mean Corpuscular Hgb 31.5 pg (27.0-31.0); Mean Corpuscular Volume 92.6 fL (80.0-94.0); Mean Platelet Volume 9.4 fL (7.4-10.4); Nucleated Red Blood Cells % 0 % (-); Platelet Count 163 10^3/uL (130-400); Red Blood Cell Count 3.11 10^6/uL (4.70-6.10); Red Cell Dist. Width 14.7 % (11.5-14.5); White Blood Cell Count 6.2 10^3/uL (4.8-10.8)
[2023-04-24 06:53] LABS: Blood Urea Nitrogen 66 mg/dl (9-20); Calcium 7.7 mg/dl (8.4-10.2); Carbon Dioxide 29 mmol/L (22-30); Chloride 94 mmol/L (98-107); Estimated Creatinine Clearance 24 ml/min; Glucose 86 mg/dl (70-99); Sodium 127 mmol/L (135-145); eGFR 35.68
[2023-04-24] MEDS: DUONEB 3 ML INH ×4 (07:20→19:17)
[2023-04-24] MEDS: TRENTAL 400 MG PO ×2 (08:57→19:37)
[2023-04-24] MEDS: DELTASONE 15 MG PO (08:57)
[2023-04-24] MEDS: SENOKOT-S 1 TABLET PO ×2 (08:57→19:37)
[2023-04-24] MEDS: ASPIR LOW (ENTERIC COATED) 81 MG PO (08:57)
[2023-04-24] MEDS: DOLOPHINE 10 MG PO ×2 (08:58→19:37)
[2023-04-24] MEDS: APRESOLINE 100 MG PO ×3 (08:58→21:51)
[2023-04-24] MEDS: HEPARIN 5000 UNITS SC ×2 (08:58→19:37)
[2023-04-24] MEDS: CARDIZEM CD 240 MG PO (08:58)
[2023-04-24] MEDS: MIRALAX 17 GRAMS PO ×2 (08:58→19:39)
[2023-04-24] MEDS: TOPROL XL 50 MG PO (08:58)
[2023-04-24] MEDS: ZOLOFT 50 MG PO (09:07)
--- NOTE | 2023-04-24 09:50 | W.PN.HOSP.TC ---
Today's Communication/Plan
-
Cont with bowel regimen
Nephro recs
trend bmp
Assessment / Plan
Assessment / Plan
General: Well Developed, Well Nourished and No Apparent Distress
HEENT: NormoCephalic, Moist mucous membranes and Atraumatic
Respiratory: Dec aeration. no wheezing
Cardiac: S1/S2 and Regular Rhythm; No Murmur or Rub
GI: Soft, Non Tender, Non Distended and Normal Bowel Sounds; No Organomegaly
Rectal: Deferred by Provider
Musculoskeletal: No Clubbing, No Cyanosis and No Edema, digital amputation of B/L hands
Skin: No Rash
Neuro: Awake, Alert, Oriented, No Motor Deficits and Nonfocal/grossly intact
Psych: Calm
#Nausea and epigastric discomfort 2/2 severe constipation 2/2 opiates
#Chronic dysphagia
-on� chronic opioids
-abdominal x-ray-Large colonic stool burden, which can be seen with constipation.
-Start diet and monitor for tolerance
-Pepcid
-Senna/colace/miralax.
-Improved.
#SOLEDAD on CKD3b
#Severe metabolic acidosis
#Mild hyponatremia
-Status post bicarb infusion.
-Trend creatinine at 2 from 1.3 03/04
-Monitor urinary output
-Bladder scan protocol
-States only has solitary renal function as other kidney damage due to scleroderma
-acidosis resolved.
-Renal bladder ultrasound neg for hydro.
-proBNP elevated.
-Na remains at 127. Nephrology recs.
#Mild dyspnea
#Chronic HFpEF
-Diuretics on hold in setting of SOLEDAD
-Monitor I's and O's and daily weights
-Chest x-ray two-view post fluid infusion.
#Primary HTN
-Continue metoprolol and Cardizem
-Hydralazine 100 mg 3 times daily with hold parameters
-Holding diuretics
#Paroxysmal Atrial Fibrillation
-Continue metoprolol and diltiazem for rate control
-Patient is not on anticoagulation as outpatient
-Follows with [facility] cardiology
#Scleroderma / CREST / Raynaud's
#Rheumatoid Arthritis
-Patient is not on any disease modifying agents
-Continue prednisone
Peripheral Arterial Disease s/p Left Subclavian Stent
History of fusiform aneurysm of descending aorta
-Continue aspirin
-Continue pentoxifylline
Chronic Opioid Dependence
-Continue methadone standing and as needed.
-Continue with bowel regimen.
-Continue with hydrocodone.
COPD, with moderate emphysema/chronic fibrotic changes bilateral
Right lower lobe lung malignancy 3 cm
-Continue bronchodilators�standing/prn
Depression
-Continue sertraline
DVT Proph: SC Heparin
Code Status: Full Code
Anticipated Discharge: > 48 hours
Subjective/Interval History
-
Date of Service: April 24, 2023
states breathing has improved
tolerating diet
had couple of BM yesterday
Objective Data
-
Labs:
Laboratory Results
04/24/23
05:54
WBC 6.2
Hgb 9.8 L
Hct 28.8 L
Plt Count 163
Sodium 127 L
Potassium 4.0
Chloride 94 L
Carbon Dioxide 29
BUN 66 H
Creatinine 2.0 H
Glucose 86
Calcium 7.7 L
Vital Signs:
Vital Signs
Temp Pulse Resp BP Pulse Ox
97.6 F 93 17 129/72 97
04/24/23 07:46 04/24/23 07:46 04/24/23 07:46 04/24/23 08:58 04/24/23 07:46
I&O
04/23/23 04/24/23 04/25/23
06:59 06:59 06:59
Intake Total 1580 / 1580
Output Total 200 / 200
Balance -200 / -200 1580 / 1580
--- NOTE | 2023-04-24 12:21 | PN.CDI ---
CDI
- -
CDI:
Physician Documentation Request
Admit Date: 04/22/23 14:27
Dear Doctor Anthony,
Please review the following and provide your response in the progress notes.
Clinical Indicators:
Pt admitted with SOLEDAD likely ATN on CKD 3b /BMI 17.3
Documented per Nutrition note 04/23, ' ...weight loss from reported UBW 112-116lb. CBW (04/22) 109lb BMI 17.9 underwt/ht. Wt hx per records- (11/22/22) 105lb, (11/18/22) 101lb. Unclear wt loss per records...... Pt meets criteria for severe protein
malnutrition of chronic illness with prolonged inadequate po intake prior to hospital admission resulting in low BMI, observed severe loss subcutaneous fat (tricep, orbital) and severe loss of muscle (temporal, buccal, clavicle). RD encouraged pt to
increase caloric intake of meals, snacks and/or try supplementing intake with Ensure.... Refused Ensure supplementation at this time. Will try ordering fortified pudding BId with lunch and dinner in effort to increase calories, protein provided.
Nutrition to follow as per level of care.....'
Based on the information, which of the following most accurately represents the patient's nutritional status?
Severe Protein Calorie Malnutrition
Other ( Please Specify)
Unable to determine
[place] Criteria ([employer] Hospitalist 2017)
2 or more criteria must be present for either
non severe or severe malnutrition
Note that the criteria differs related to the
presence of an acute or chronic illness
Acute Illness Chronic Illness
Energy Intake Non Severe: <75% for >7 days Non Severe: <75% for >1 month
Severe: <50% for >5 days Severe: <75% for >1 month
Weight Loss Non Severe: 1-2% over 1 week Non Severe: 5% over 1 month
5% over 1 month 7.5% over 3 months
7.5% over 3 months 10% over 6 months
1 year N/A 20% over 1 year
Severe: >2% over 1 week Severe: >5% over 1 month
>5% over 1 month >7.5% over 3 months
>7.5% over 3 months >10% over 6 months
1 year N/A >20% over 1 year
Body Fat Non Severe: Mild Decrease Non Severe: Mild Loss
Severe: Moderate Decrease Severe: Severe Loss
Muscle Mass Non Severe: Mild Decrease Non Severe: Mild Loss
Severe: Moderate Decrease Severe: Severe Loss
Fluid Accumulation Non Severe: Mild Accumulation Non Severe: Mild Accumulation
Severe: Moderate to severe Severe: Moderate to severe
accumulation accumulation
Reduced [employer] Vehicle [employer] Strength Non Severe: N/A Non Severe: N/A
Severe: Measurably reduced Severe: Measurably reduced
Use of terms such as suspected, likely, concern for, or probable (associated with a specific diagnosis that is being evaluated, monitored, or treated as if it exists) are acceptable and can be coded in the inpatient setting, when documented at the
time of discharge.
Thank you,
Laura Garcia RN
CDI Specialist
[facility]
Please use your independent medical judgment in providing your response.
--- NOTE | 2023-04-24 12:36 | CM ---
Patient seen at bedside. Patient to be assessed by PT/OT for level of care needs. Patient reported that he was being followed at home by [facility] and would like to have them again if appropriate. CM will follow for discharge planning needs.
Plan; home with family; [facility] re[facility] referral pending PT/OT assessment
--- NOTE | 2023-04-24 12:53 | W.PN.NEPH.PH ---
Addendum entered and electronically signed by Ela Landry MD 04/24/23 13:03:
bladder scan only 109cc, wt decreasing
Original Note:
Today's Communication / Plan
-
observe with FR
Assessment/Plan
-
Assessment:
Nausea
Chronic dysphagia
SOLEDAD on CKD3b
HAGMA + NAGMA
chronic hyponatremia
chronic HFpEF
HTN
PAfib
Scleroderma
RA
PAD
chronic opiod dependence
COPD
Depression
3cm right lung mass chronic present 2014?-noted on CXR
Plan:
SOLEDAD-suspect prerenal UA bland
- known solitary functioning R kidney given L kidney atrophy. follows with Dr. Jain in outpatient
- Cr baseline 1.5, slowly improving cr to 2 with IVF
renal US no hydro and symmetric size
met acidosis improved with bicarb IVF now off, U pH 5
CXR shows no change from old cephalization of pulm vasculature
also 3cm right lung mass chronic present 2014?-noted on CXR
Hyponatremia-multifactorial, monitor with FR 48 ounces/day
may need samsca once cr improves
BP stable on meds
-
-
Date of Service: April 24, 2023
CC / HPI / ROS
-
Chief Complaint:
SOLEDAD on CKD
History of Present Illness:
Cr better at 2, bl 1.5
UOP not measured, BP stable
Review of Systems:
no cp or sob
feels at his baseline
Labs
-
Labs:
WBC 6.2 10^3/uL (4.8-10.8) 04/24/23 05:54
RBC 3.11 10^6/uL (4.70-6.10) L 04/24/23 05:54
Hgb 9.8 g/dL (13.0-18.0) L 04/24/23 05:54
Hct 28.8 % (39.0-52.0) L 04/24/23 05:54
Plt Count 163 10^3/uL (130-400) 04/24/23 05:54
Sodium 127 mmol/L (135-145) L 04/24/23 05:54
Potassium 4.0 mmol/L (3.5-5.1) 04/24/23 05:54
Chloride 94 mmol/L (98-107) L 04/24/23 05:54
Carbon Dioxide 29 mmol/L (22-30) 04/24/23 05:54
BUN 66 mg/dl (9-20) H 04/24/23 05:54
Creatinine 2.0 mg/dL (0.7-1.3) H 04/24/23 05:54
eGFR 35.68 04/24/23 05:54
Glucose 86 mg/dl (70-99) 04/24/23 05:54
Calcium 7.7 mg/dl (8.4-10.2) L 04/24/23 05:54
Ngb-M-Uhotzfxvufw Pept [id number] pg/ml 04/22/23 10:42
Albumin 3.1 g/dl (3.5-5.0) L 04/22/23 10:42
Physical Exam
-
Vital Signs:
Vital Signs
Temp Pulse Resp BP Pulse Ox
98.0 F 80 16 134/72 96
04/24/23 11:03 04/24/23 11:14 04/24/23 11:14 04/24/23 11:03 04/24/23 11:03
Cardiovascular:: Regular rate and rhythm
Lung Excursion:: Normal (decreased)
Abdomen:: Nontender and Soft
Extremity Edema:: None: Bilateral:
Gupta Catheter: No
[2023-04-24] MEDS: ZOFRAN 4 MG IV ×2 (13:11→21:58)
[2023-04-24 15:46] LABS: Osmolality Urine 518 mOsm/kg (300-900)
[2023-04-24 16:04] LABS: Urine Sodium 62 mmol/L (30-90)
[2023-04-24] MEDS: FLOMAX 0.400000000000000022 MG PO (17:19)
[2023-04-24] MEDS: CRESTOR 10 MG PO (21:55)
[2023-04-25 06:00] VITALS: BMI 17.2
[2023-04-25 07:25] VITALS: BP 159/79
[2023-04-25] MEDS: DUONEB 3 ML INH ×4 (07:25→19:53)
[2023-04-25 07:45] LABS: % Eosinophils 0.5 % (0-6); % Immature Granulocytes 2.5 % (0-0.5); % Lymphocytes 4.7 % (20.5-51.1); % Neutrophils 81.3 % (42.2-75.2); Absolute Immature Granulocytes 0.2 10^3/uL (0-0.05); Absolute Lymphocytes 0.3 10^3/uL (1.2-3.4); Absolute Monocytes 0.7 10^3/uL (0.1-0.6); Hematocrit 30.6 % (39.0-52.0); Hemoglobin 9.9 g/dL (13.0-18.0); Mean Corp Hgb Conc. 32.4 g/dL (33.0-37.0); Mean Corpuscular Hgb 30.5 pg (27.0-31.0); Mean Corpuscular Volume 94.2 fL (80.0-94.0); Mean Platelet Volume 8.7 fL (7.4-10.4); Nucleated Red Blood Cells % 0 % (-); Platelet Count 162 10^3/uL (130-400); Red Blood Cell Count 3.25 10^6/uL (4.70-6.10); Red Cell Dist. Width 14.6 % (11.5-14.5); White Blood Cell Count 6.1 10^3/uL (4.8-10.8)
[2023-04-25 08:19] LABS: Blood Urea Nitrogen 55 mg/dl (9-20); Carbon Dioxide 28 mmol/L (22-30); Chloride 95 mmol/L (98-107); Estimated Creatinine Clearance 27 ml/min; Glucose 86 mg/dl (70-99); Potassium 4.1 mmol/L (3.5-5.1); Sodium 127 mmol/L (135-145); eGFR 40.49
[2023-04-25] MEDS: APRESOLINE 100 MG PO ×3 (09:55→21:36)
[2023-04-25] MEDS: ASPIR LOW (ENTERIC COATED) 81 MG PO (09:59)
[2023-04-25] MEDS: ZOLOFT 50 MG PO (10:00)
[2023-04-25] MEDS: DELTASONE 15 MG PO (10:00)
[2023-04-25] MEDS: CARDIZEM CD 240 MG PO (10:00)
[2023-04-25] MEDS: TOPROL XL 50 MG PO (10:00)
[2023-04-25] MEDS: DOLOPHINE 10 MG PO ×2 (10:01→20:11)
[2023-04-25] MEDS: TRENTAL 400 MG PO ×2 (10:01→20:11)
[2023-04-25] MEDS: SENOKOT-S 1 TABLET PO (10:01)
[2023-04-25] MEDS: HEPARIN 5000 UNITS SC ×2 (10:01→20:11)
[2023-04-25] MEDS: PEPCID 20 MG PO (10:01)
[2023-04-25] MEDS: MIRALAX 17 GRAMS PO (10:02)
[2023-04-25] MEDS: ZOFRAN 4 MG IV (10:15)
--- NOTE | 2023-04-25 10:53 | W.PN.HOSP.TC ---
Today's Communication/Plan
-
Trend BMP
FR
PT/OT
Nephro recs
Bowel regimen
Assessment / Plan
Assessment / Plan
General: Well Developed, Well Nourished and No Apparent Distress
HEENT: NormoCephalic, Moist mucous membranes and Atraumatic
Respiratory: Dec aeration. no wheezing
Cardiac: S1/S2 and Regular Rhythm; No Murmur or Rub
GI: Soft, Non Tender, Non Distended and Normal Bowel Sounds; No Organomegaly
Rectal: Deferred by Provider
Musculoskeletal: No Clubbing, No Cyanosis and No Edema, digital amputation of B/L hands
Skin: No Rash
Neuro: Awake, Alert, Oriented, No Motor Deficits and Nonfocal/grossly intact
Psych: Calm
#Nausea and epigastric discomfort 2/2 severe constipation 2/2 opiates
#Chronic dysphagia
-on� chronic opioids
-abdominal x-ray-Large colonic stool burden, which can be seen with constipation.
-Start diet and monitor for tolerance
-Pepcid
-Senna/colace/miralax.
-Improved.
#SOLEDAD on CKD3b
#Severe metabolic acidosis
#Mild acute on chronic hyponatremia
-Status post bicarb infusion.
-Trend creatinine at 1.8 from 1.3 03/04
-Monitor urinary output
-Bladder scan protocol
-States only has solitary renal function as other kidney damage due to scleroderma
-acidosis resolved.
-Renal bladder ultrasound neg for hydro.
-proBNP elevated. FR 480z
-Na remains at 127. Nephrology recs.
#Mild dyspnea
#Chronic HFpEF
-Diuretics on hold in setting of SOLEDAD
-Monitor I's and O's and daily weights
-Chest x-ray two-view post fluid infusion.
#Primary HTN
-Continue metoprolol and Cardizem
-Hydralazine 100 mg 3 times daily with hold parameters
-Holding diuretics
#Paroxysmal Atrial Fibrillation
-Continue metoprolol and diltiazem for rate control
-Patient is not on anticoagulation as outpatient
-Follows with [facility] cardiology
#Scleroderma / CREST / Raynaud's
#Rheumatoid Arthritis
-Patient is not on any disease modifying agents
-Continue prednisone
Peripheral Arterial Disease s/p Left Subclavian Stent
History of fusiform aneurysm of descending aorta
-Continue aspirin
-Continue pentoxifylline
Chronic Opioid Dependence
-Continue methadone standing and as needed.
-Continue with bowel regimen.
-Continue with hydrocodone.
COPD, with moderate emphysema/chronic fibrotic changes bilateral
Right lower lobe lung malignancy 3 cm
-Continue bronchodilators�standing/prn
Depression
-Continue sertraline
severe protein malnutrition of chronic illness�
-Dietary on board
DVT Proph: SC Heparin
Code Status: Full Code
Anticipated Discharge: 24 - 48 hours
Subjective/Interval History
-
Date of Service: April 25, 2023
having bm
feeling better
Objective Data
-
Labs:
Laboratory Results
04/25/23
07:18
WBC 6.1
Hgb 9.9 L
Hct 30.6 L
Plt Count 162
Sodium 127 L
Potassium 4.1
Chloride 95 L
Carbon Dioxide 28
BUN 55 H
Creatinine 1.8 H
Glucose 86
Calcium 8.0 L
Vital Signs:
Vital Signs
Temp Pulse Resp BP Pulse Ox
97.9 F 94 16 159/79 96
04/25/23 07:25 04/25/23 10:00 04/25/23 07:27 04/25/23 10:00 04/25/23 07:27
I&O
04/24/23 04/25/23 04/26/23
06:59 06:59 06:59
Intake Total 1580 / 1580 660 / 660
Output Total 1075 / 1075
Balance 1580 / 1580 -415 / -415
[2023-04-25 13:04] VITALS: PULSE 90
[2023-04-25] MEDS: NORCO 7.5/325 1 TABLET PO (13:19)
[2023-04-25 14:13] VITALS: BP 168/79
--- NOTE | 2023-04-25 15:18 | W.PN.NEPH.PH ---
Today's Communication / Plan
-
sasmca
labs in am
Assessment/Plan
-
Assessment:
Nausea
Chronic dysphagia
SOLEDAD on CKD3b
HAGMA + NAGMA
chronic hyponatremia
chronic HFpEF
HTN
PAfib
Scleroderma
RA
PAD
chronic opiod dependence
COPD
Depression
3cm right lung mass chronic present 2014?-noted on CXR
Plan:
SOLEDAD-suspect prerenal UA bland
- known solitary functioning R kidney given L kidney atrophy. follows with Dr. Jain in outpatient
- Cr baseline 1.5, slowly improving cr to 1.8
renal US no hydro and symmetric size
met acidosis improved with bicarb IVF now off, U pH 5
CXR shows no change from old cephalization of pulm vasculature
also 3cm right lung mass chronic present 2014?-noted on CXR
Hyponatremia-multifactorial, monitor with FR 48 ounces/day , will give samsca today
BP stable on meds
-
-
Date of Service: April 25, 2023
CC / HPI / ROS
-
Chief Complaint:
SOLEDAD on CKD
History of Present Illness:
Cr better at 1.8, bl 1.5
UOP not measured, BP stable
wt stable
sodium low at 127
Review of Systems:
no cp or sob
feels at his baseline
Labs
-
Labs:
WBC 6.1 10^3/uL (4.8-10.8) 04/25/23 07:18
RBC 3.25 10^6/uL (4.70-6.10) L 04/25/23 07:18
Hgb 9.9 g/dL (13.0-18.0) L 04/25/23 07:18
Hct 30.6 % (39.0-52.0) L 04/25/23 07:18
Plt Count 162 10^3/uL (130-400) 04/25/23 07:18
Sodium 127 mmol/L (135-145) L 04/25/23 07:18
Potassium 4.1 mmol/L (3.5-5.1) 04/25/23 07:18
Chloride 95 mmol/L (98-107) L 04/25/23 07:18
Carbon Dioxide 28 mmol/L (22-30) 04/25/23 07:18
BUN 55 mg/dl (9-20) H 04/25/23 07:18
Creatinine 1.8 mg/dL (0.7-1.3) H 04/25/23 07:18
eGFR 40.49 04/25/23 07:18
Glucose 86 mg/dl (70-99) 04/25/23 07:18
Calcium 8.0 mg/dl (8.4-10.2) L 04/25/23 07:18
Cax-I-Fviereejdbf Pept [id number] pg/ml 04/22/23 10:42
Albumin 3.1 g/dl (3.5-5.0) L 04/22/23 10:42
Physical Exam
-
Vital Signs:
Vital Signs
Temp Pulse Resp BP Pulse Ox
97.9 F 100 16 159/79 96
04/25/23 07:25 04/25/23 11:29 04/25/23 11:29 04/25/23 10:00 04/25/23 14:07
Cardiovascular:: Regular rate and rhythm
Respiratory:: Bilateral: CTA
Lung Excursion:: Normal
Abdomen:: Nontender and Soft
Extremity Edema:: None: Bilateral:
Gupta Catheter: No
[2023-04-25 15:40] VITALS: BP 144/67
[2023-04-25] MEDS: SAMSCA 15 MG PO (16:17)
[2023-04-25] MEDS: MYLICON 80 MG PO (16:36)
[2023-04-25] MEDS: FLOMAX 0.400000000000000022 MG PO (17:23)
[2023-04-25] MEDS: CRESTOR 10 MG PO (21:36)
[2023-04-25 21:56] VITALS: BP 164/94
[2023-04-26 07:20] VITALS: BP 116/69
[2023-04-26] MEDS: DUONEB 3 ML INH ×2 (07:44→11:46)
[2023-04-26] MEDS: CARDIZEM CD 240 MG PO (07:54)
[2023-04-26] MEDS: APRESOLINE 100 MG PO (07:54)
[2023-04-26] MEDS: ZOLOFT 50 MG PO (07:54)
[2023-04-26] MEDS: ASPIR LOW (ENTERIC COATED) 81 MG PO (07:54)
[2023-04-26] MEDS: DELTASONE 15 MG PO (07:55)
[2023-04-26] MEDS: TOPROL XL 50 MG PO (07:56)
[2023-04-26] MEDS: TRENTAL 400 MG PO (07:56)
[2023-04-26] MEDS: HEPARIN 5000 UNITS SC (07:56)
[2023-04-26] MEDS: DOLOPHINE 10 MG PO (07:56)
[2023-04-26 07:57] LABS: % Basophils 0.2 % (0-2); % Eosinophils 0.7 % (0-6); % Lymphocytes 4.7 % (20.5-51.1); % Monocytes 7.2 % (1.7-9.3); % Neutrophils 85.2 % (42.2-75.2); Absolute Eosinophils 0.1 10^3/uL (0-0.7); Absolute Immature Granulocytes 0.2 10^3/uL (0-0.05); Absolute Lymphocytes 0.4 10^3/uL (1.2-3.4); Absolute Monocytes 0.6 10^3/uL (0.1-0.6); Absolute Neutrophils 7.4 10^3/uL (1.4-6.5); Hematocrit 33.6 % (39.0-52.0); Hemoglobin 10.9 g/dL (13.0-18.0); Mean Corp Hgb Conc. 32.4 g/dL (33.0-37.0); Mean Corpuscular Hgb 31.1 pg (27.0-31.0); Mean Platelet Volume 8.9 fL (7.4-10.4); Nucleated Red Blood Cells % 0 % (-); Platelet Count 173 10^3/uL (130-400); Red Cell Dist. Width 14.8 % (11.5-14.5); White Blood Cell Count 8.7 10^3/uL (4.8-10.8)
[2023-04-26 08:50] LABS: Blood Urea Nitrogen 45 mg/dl (9-20); Calcium 8.7 mg/dl (8.4-10.2); Carbon Dioxide 28 mmol/L (22-30); Chloride 98 mmol/L (98-107); Estimated Creatinine Clearance 30 ml/min; Glucose 98 mg/dl (70-99); Potassium 4.4 mmol/L (3.5-5.1); Sodium 134 mmol/L (135-145); eGFR 46.64
--- NOTE | 2023-04-26 10:58 | W.PN.HOSP.TC ---
Addendum entered and electronically signed by Philippe Cruz MD 04/26/23 11:19:
In regards lung lesion patient is being followed by pulmonary and rheumatology as outpatient. Patient states due to his scleroderma. Has not increased in size and he notes a size of 3 cm.
Original Note:
Today's Communication/Plan
-
dc home
OP bmp
bowel regimen
Assessment / Plan
Assessment / Plan
General: Well Developed, Well Nourished and No Apparent Distress
HEENT: NormoCephalic, Moist mucous membranes and Atraumatic
Respiratory: Dec aeration. no wheezing
Cardiac: S1/S2 and Regular Rhythm; No Murmur or Rub
GI: Soft, Non Tender, Non Distended and Normal Bowel Sounds; No Organomegaly
Rectal: Deferred by Provider
Musculoskeletal: No Clubbing, No Cyanosis and No Edema, digital amputation of B/L hands
Skin: No Rash
Neuro: Awake, Alert, Oriented, No Motor Deficits and Nonfocal/grossly intact
Psych: Calm
#Nausea and epigastric discomfort 2/2 severe constipation 2/2 opiates
#Chronic dysphagia
-on� chronic opioids
-abdominal x-ray-Large colonic stool burden, which can be seen with constipation.
-Start diet and monitor for tolerance
-Pepcid
-Senna/colace/miralax.
-Improved.
#SOLEDAD on CKD3b
#Severe metabolic acidosis
#Mild acute on chronic hyponatremia
-Status post bicarb infusion.
-Trend creatinine at 1.6 from 1.3 03/04
-Monitor urinary output
-Bladder scan protocol
-States only has solitary renal function as other kidney damage due to scleroderma
-acidosis resolved.
-Renal bladder ultrasound neg for hydro.
-proBNP elevated. FR 480z
-Na improved to 134 s/p samsca.
-Await nephro recs
#Mild dyspnea
#Chronic HFpEF
-Takes lasix 20mg prn at home.
-Monitor I's and O's and daily weights
-resolved.
#Primary HTN
-Continue metoprolol and Cardizem
-Hydralazine 100 mg 3 times daily with hold parameters
#Paroxysmal Atrial Fibrillation
-Continue metoprolol and diltiazem for rate control
-Patient is not on anticoagulation as outpatient
-Follows with [facility]
#Scleroderma / CREST / Raynaud's
#Rheumatoid Arthritis
-Patient is not on any disease modifying agents
-Continue prednisone
Peripheral Arterial Disease s/p Left Subclavian Stent
History of fusiform aneurysm of descending aorta
-Continue aspirin
-Continue pentoxifylline
Chronic Opioid Dependence
-Continue methadone standing and as needed.
-Continue with bowel regimen.
-Continue with hydrocodone.
COPD, with moderate emphysema/chronic fibrotic changes bilateral
Right lower lobe lung malignancy 3 cm
-Continue bronchodilators�standing/prn
Depression
-Continue sertraline
severe protein malnutrition of chronic illness�
-Dietary on board
DVT Proph: SC Heparin
Code Status: Full Code
Discussed with nephrology okay for discharge.
PT Home VN.
More than 30 minutes spent in discharge including
Final examination of the patient
Summarizing hospital stay
Instructions for continuing care to all relevant caregivers
Preparation of discharge records, prescriptions, and referral forms
Total time spent (in minutes): 40
Anticipated Discharge: Today
Subjective/Interval History
-
Date of Service: April 26, 2023
Abd cramps resolved
tolerating diet
had multiple bm yesterday
Patient eager to go home
Objective Data
-
Labs:
Laboratory Results
04/26/23
07:48
WBC 8.7
Hgb 10.9 L
Hct 33.6 L
Plt Count 173
Sodium 134 L
Potassium 4.4
Chloride 98
Carbon Dioxide 28
BUN 45 H
Creatinine 1.6 H
Glucose 98
Calcium 8.7
Vital Signs:
Vital Signs
Temp Pulse Resp BP Pulse Ox
98.3 F 103 16 116/69 100
04/26/23 07:20 04/26/23 07:56 04/26/23 07:45 04/26/23 07:56 04/26/23 07:20
I&O
04/25/23 04/26/23 04/27/23
06:59 06:59 06:59
Intake Total 660 / 660 600 / 600
Output Total 1075 / 1075 1640 / 1640
Balance -415 / -415 -1040 / -1040
--- NOTE | 2023-04-26 11:16 | W.DCSUMMARY ---
Discharge Summary
Discharge Data
Date of Admission: 04/22/23
Date of Discharge: 04/26/23
-
Pending Results: No
Hospital Course
68-year-old male past medical history of scleroderma, crest, Raynaud's, atrial fibrillation, hypertension, chronic HFpEF, CKD 3B, solitary functioning kidney, chronic dysphagia, chronic opioid dependent daily basis, COPD who is presenting from home
with nausea and epigastric discomfort and decreased oral intake. Abdominal x-ray with large colonic stool burden. Patient was on aggressive bowel regimen with resolution of constipation. Patient was also found to have a acute kidney injury.
Renal bladder ultrasound was negative for hydronephrosis. Nephrology was consulted. Patient creatinine slowly down trended. Patient also with hyponatremia and fluid restriction was implemented. Without much improvement in sodium patient received
Samsca. Sodium stabilized at 134. Patient complaining of dyspnea which resolved with bronchodilators. Patient was eval by physical and Occupational Therapy for discharge home with VN. Patient was recommended repeat BMP in 1 week and follow-up
with primary doctor and Dr. Jain his primary tube builder airplane.
Discharge Plan
-
Patient Disposition: Home with Home Care
Discharge Diagnosis/Procedures: Nausea and epigastric discomfort secondary to severe constipation
Acute kidney injury on chronic kidney disease
Severe metabolic acidosis
Mild acute on chronic hyponatremia
Condition: Fair
Diet: Regular
Activity: With assistance and As tolerated
Driving Restrictions: As prior to admission
Blood Work: Repeat BMP in 1 week with primary doctor
Other Services: VN
Referrals:
Arun Ibrahim DO [Family Provider] - in less than 1 week
Additional Discharge Medication Instructions: Pepcid dose has been decreased to 20 mg every 2 days.
Prescriptions:
New
bisacodyl [Dulcolax (bisacodyl)] 5 mg tablet,delayed release (DR/EC)
10 mg PO DAILY PRN (Reason: Constipation) 14 Days Qty: 28 0RF
Continued
ferrous sulfate [FeroSul] 325 MG tablet
325 mg PO MOWEFR@2200
methadone 10 MG tablet
10 mg PO BID
Patient Comments:
04/22/2023, pt. filled this med. on 04/17/2023 for 120 tablets per PDMP.
rosuvastatin 10 MG tablet
10 mg PO HS
tamsulosin 0.4 MG capsule
0.4 mg PO QPM
pentoxifylline 400 MG tablet extended release
400 mg PO BID
prednisone 10 mg Tablet
15 mg PO DAILY
Hold Instructions: Resume on 09/22/22.
methadone 10 mg Tablet
10 mg PO BIDPRN PRN (Reason: severe pain)
Patient Comments:
04/22/2023, pt. filled this med. on 04/17/2023 for 120 tablets per PDMP.
sertraline 50 MG tablet
50 mg PO DAILY
hydrocodone-acetaminophen 7.5-325 mg tablet
1 tab PO Q6HPRN PRN (Reason: severe pain)
Patient Comments:
04/22/2023, pt. filled this med. on 04/17/2023 for 135 tablets per PDMP.
metoprolol succinate 50 mg tablet extended release 24 hr
50 mg PO DAILY
furosemide 20 mg tablet
20 mg PO DAILY PRN (Reason: sob/weight gain)
tizanidine 2 mg Tablet
2 mg PO TID PRN (Reason: muscle spasms)
diltiazem HCl [DILT-XR] 240 mg Capsule,Ext.Rel 24h Degradable
240 mg PO DAILY
aspirin 81 mg Tablet,Delayed Release (Dr/Ec)
81 mg PO DAILY
ondansetron 8 mg Tablet,Disintegrating
8 mg PO TIDPRN PRN (Reason: nausea/vomiting)
albuterol sulfate 90 mcg/actuation Hfa Aerosol Inhaler
2 puff INHALATION R Q4HPRN PRN (Reason: sob)
ipratropium-albuterol 0.5 mg-3 mg(2.5 mg base)/3 mL solution for nebulization
3 ml inhalation R Q6HPRN PRN (Reason: sob) Qty: 90 0RF
hydralazine 100 mg Tablet
100 mg PO TID Qty: 90 0RF
levalbuterol tartrate 45 mcg/actuation Hfa Aerosol Inhaler
2 inh INHALATION R Q6HPRN PRN (Reason: sob) 30 Days Qty: 15 0RF
Changed
polyethylene glycol 3350 17 GRAMS powder in packet
17 grams PO DAILY Qty: 0 0RF
famotidine 40 mg Tablet
20 mg PO Q48H Qty: 0 0RF
Discharge Orders:
Discharge Patient (As Directed); Ordered 04/26/23
Ordered By: Philippe Cruz
Discharge Date and Time
Discharge Date/Time: 04/26/23 13:35
--- NOTE | 2023-04-26 13:04 | W.PN.NEPH.PH ---
Addendum entered and electronically signed by Ela Landry MD 04/28/23 21:48:
hyponatremia high ADH mediated from underlying copd, chr pain, chf-probably SIADH component
Original Note:
Today's Communication / Plan
-
ok to d/c
Assessment/Plan
-
Assessment:
Nausea
Chronic dysphagia
SOLEDAD on CKD3b
HAGMA + NAGMA
chronic hyponatremia
chronic HFpEF
HTN
PAfib
Scleroderma
RA
PAD
chronic opiod dependence
COPD
Depression
3cm right lung mass chronic present 2014?-noted on CXR
Plan:
SOLEDAD-suspect prerenal UA bland
- known solitary functioning R kidney given L kidney atrophy. follows with Dr. Dixon in outpatient
- Cr baseline 1.5, slowly improving cr to 1.6
renal US no hydro and symmetric size
CXR shows no change from old cephalization of pulm vasculature
also 3cm right lung mass chronic present 2014?-noted on CXR
Hyponatremia-multifactorial, monitor with FR 48 ounces/day , improved with samsca 04/24
BP stable on meds
ok to d/c today
BMP in 1week
f/u Dr Dixon
d/w pt and at bedside
-
-
Date of Service: April 26, 2023
CC / HPI / ROS
-
Chief Complaint:
SOLEDAD on CKD
History of Present Illness:
Cr better at 1.6, bl 1.5
UOP not measured, BP stable
wt was stable
sodium better at 134 post samsca 04/24
Review of Systems:
no cp or sob
feels at his baseline
Labs
-
Labs:
WBC 8.7 10^3/uL (4.8-10.8) 04/26/23 07:48
RBC 3.50 10^6/uL (4.70-6.10) L 04/26/23 07:48
Hgb 10.9 g/dL (13.0-18.0) L 04/26/23 07:48
Hct 33.6 % (39.0-52.0) L 04/26/23 07:48
Plt Count 173 10^3/uL (130-400) 04/26/23 07:48
Sodium 134 mmol/L (135-145) L 04/26/23 07:48
Potassium 4.4 mmol/L (3.5-5.1) 04/26/23 07:48
Chloride 98 mmol/L (98-107) 04/26/23 07:48
Carbon Dioxide 28 mmol/L (22-30) 04/26/23 07:48
BUN 45 mg/dl (9-20) H 04/26/23 07:48
Creatinine 1.6 mg/dL (0.7-1.3) H 04/26/23 07:48
eGFR 46.64 04/26/23 07:48
Glucose 98 mg/dl (70-99) 04/26/23 07:48
Calcium 8.7 mg/dl (8.4-10.2) 04/26/23 07:48
Kxf-S-Ljujllywbjm Pept 63024 pg/ml 04/22/23 10:42
Albumin 3.1 g/dl (3.5-5.0) L 04/22/23 10:42
Physical Exam
-
Vital Signs:
Vital Signs
Temp Pulse Resp BP Pulse Ox
98.3 F 100 20 116/69 100
04/26/23 07:20 04/26/23 11:45 04/26/23 11:45 04/26/23 07:56 04/26/23 11:15
Cardiovascular:: Regular rate and rhythm
Respiratory:: Bilateral: CTA
Lung Excursion:: Normal
Abdomen:: Nontender and Soft
Extremity Edema:: None: Bilateral:
Gupta Catheter: No
--- NOTE | 2023-04-26 13:27 | PTCARENOTE ---
Patient discharged home. Case management consult placed; patient to have VN through [facility]. This RN reviewed patient's discharge instructions and medications, patient and spouse at bedside both verbalized understanding. Patient requesting scripts
be sent to pharmacy on file for PO hydralazine, ipratropium-albuterol nebulizer solution, and levalbuterol tartrate inhaler; MD made aware, electronic scripts sent. IV removed by this RN, patient dressed and belongings gathered by spouse. Patient
taken down to spouse's car at main lobby via staff escort and wheelchair.
--- NOTE | 2023-04-26 13:27 | CM ---
Patient seen at bedside, [facility] completed and signed form placed on chart. Patient requesting [facility] PT/OT and no VN. CM sent referral to [facility] via all scripts. Patient for transport home with family. CM will continue to follow for discharge planning
needs.
Plan; home with [facility]
--- NOTE | 2023-04-27 10:02 | PN.CDI ---
CDI
- -
CDI:
Physician Documentation Request
Admit Date: 04/22/23 14:27
Dear Doctor ,
Please review the following and provide your response in the progress notes.
Clinical Indicators:
Pt admitted with SOLEDAD on CKD 3b
Documented HX of chronic Hyponatremia
Progress notes 04/23 & 04/24, ' Hyponatremia-multifactorial, monitor with FR 48 ounces/day ...'
Progress note 04/25 ,'Hyponatremia-multifactorial, monitor with FR 48 ounces/day , improved with samsca 04/24...'
04/24/23
15:33
Urine Osmolality 518
Urine Sodium 62
Please provide the Suspected Etiology of the documented Hyponatremia:
SIADH
Chronic Hyponatremia due to
Other
Use of terms such as suspected, likely, concern for, or probable (associated with a specific diagnosis that is being evaluated, monitored, or treated as if it exists) are acceptable and can be coded in the inpatient setting, when documented at the
time of discharge.
Thank you,
Laura Garcia RN
CDI Specialist
[place] [facility]
Please use your independent medical judgment in providing your response.
== END 2023-04-26 13:35 | disposition home health service (06) | DRG 682 ==
LOC: 2 NORTH 14:27
PROVIDERS: Internal Medicine; Physician Assistant; ADMITTING PHYSICIAN Hospitalist; CONSULT PHYSICIAN Student in an Organized Health Care Education/Training Program; EMERGENCY PHYSICIAN Emergency Medicine; FAMILY PHYSICIAN Family Medicine
DX: N17.9 Acute kidney failure, unspecified (principal); E43 Unspecified severe protein-calorie malnutrition; I50.32 Chronic diastolic (congestive) heart failure; I13.0 Hypertensive heart and chronic kidney disease with heart failure and stage 1 through stage 4 chronic kidney disease, or unspecified chronic kidney disease; E87.20 Acidosis, unspecified; F11.20 Opioid dependence, uncomplicated; Z68.1 Body mass index [BMI] 19.9 or less, adult; E22.2 Syndrome of inappropriate secretion of antidiuretic hormone; M34.81 Systemic sclerosis with lung involvement; I48.0 Paroxysmal atrial fibrillation; R13.10 Dysphagia, unspecified; E78.00 Pure hypercholesterolemia, unspecified; N18.32 Chronic kidney disease, stage 3b; I25.10 Atherosclerotic heart disease of native coronary artery without angina pectoris; G89.29 Other chronic pain; J43.9 Emphysema, unspecified; M54.9 Dorsalgia, unspecified; M34.89 Other systemic sclerosis; N26.1 Atrophy of kidney (terminal); M34.1 CR(E)ST syndrome; I73.9 Peripheral vascular disease, unspecified; K59.03 Drug induced constipation; F32.A Depression, unspecified; M06.9 Rheumatoid arthritis, unspecified; Z79.82 Long term (current) use of aspirin; Z79.52 Long term (current) use of systemic steroids; Z87.891 Personal history of nicotine dependence; Z95.5 Presence of coronary angioplasty implant and graft; Z88.5 Allergy status to narcotic agent; Z11.52 Encounter for screening for COVID-19; Z95.818 Presence of other cardiac implants and grafts
CPT/HCPCS: 71046; 74019; 76770; 80048; 80053; 81003; 81015; 82570; 82805; 83690; 83880; 83935; 84300; 85025; 87502; 87811; 92526; 92610; 93005; 94640; 96365; 96366; 96375; 97116; 97162; 97166; 99291

== ENCOUNTER → 2023-05-05 11:58 | Outpatient (REF) | payer MEDICARE, SELFPAY ==
[2023-05-05 13:38] LABS: Blood Urea Nitrogen 57 mg/dl (9-20); Carbon Dioxide 22 mmol/L (22-30); Chloride 105 mmol/L (98-107); Glucose 116 mg/dl (70-99); Potassium 5.4 mmol/L (3.5-5.1); Sodium 135 mmol/L (135-145); eGFR 54.75
== END ==
LOC: REG 11:58
PROVIDERS: ATTENDING PHYSICIAN Family Medicine
DX: N17.9 Acute kidney failure, unspecified (principal); E87.20 Acidosis, unspecified
CPT/HCPCS: 36415; 80048

== ENCOUNTER → 2023-05-13 13:55 | Outpatient (REF) | payer MEDICARE, SELFPAY ==
[2023-05-13 19:12] LABS: Potassium 4.7 mmol/L (3.5-5.1)
== END ==
LOC: CLAB 13:55
PROVIDERS: ATTENDING PHYSICIAN Family Medicine
DX: E87.5 Hyperkalemia (principal)
CPT/HCPCS: 36415; 84132

== ENCOUNTER → 2023-06-15 13:52 | Outpatient (REF) | payer MEDICARE, SELFPAY ==
[2023-06-15 15:02] LABS: % Basophils 0.2 % (0-2); % Eosinophils 0.3 % (0-6); % Immature Granulocytes 3.8 % (0-0.5); % Lymphocytes 2.3 % (20.5-51.1); % Monocytes 5.8 % (1.7-9.3); % Neutrophils 87.6 % (42.2-75.2); Absolute Immature Granulocytes 0.5 10^3/uL (0-0.05); Absolute Lymphocytes 0.3 10^3/uL (1.2-3.4); Absolute Monocytes 0.7 10^3/uL (0.1-0.6); Absolute Neutrophils 10.9 10^3/uL (1.4-6.5); Hematocrit 31.5 % (39.0-52.0); Mean Corp Hgb Conc. 31.7 g/dL (33.0-37.0); Mean Corpuscular Hgb 32.2 pg (27.0-31.0); Mean Corpuscular Volume 101.3 fL (80.0-94.0); Mean Platelet Volume 9.1 fL (7.4-10.4); Nucleated Red Blood Cells % 0 % (-); Platelet Count 192 10^3/uL (130-400); Red Blood Cell Count 3.11 10^6/uL (4.70-6.10); Red Cell Dist. Width 14.6 % (11.5-14.5); White Blood Cell Count 12.4 10^3/uL (4.8-10.8)
[2023-06-15 15:37] LABS: ALT (SGPT) 12 U/L (0-50); AST (SGOT) 16 U/L (17-59); Albumin 3.7 g/dl (3.5-5.0); Alkaline Phosphatase 109 U/L (38-126); Blood Urea Nitrogen 44 mg/dl (9-20); Calcium 9.1 mg/dl (8.4-10.2); Carbon Dioxide 24 mmol/L (22-30); Chloride 102 mmol/L (98-107); Glucose 106 mg/dl (70-99); Potassium 4.9 mmol/L (3.5-5.1); Sodium 137 mmol/L (135-145); Total Bilirubin 0.4 mg/dl (0.2-1.3); Total Protein 5.9 g/dl (6.3-8.2); eGFR 54.75
== END ==
LOC: REG 13:52
PROVIDERS: ATTENDING PHYSICIAN Internal Medicine Cardiovascular Disease; FAMILY PHYSICIAN Specialist
DX: I25.10 Atherosclerotic heart disease of native coronary artery without angina pectoris (principal); R06.09 Other forms of dyspnea; I34.0 Nonrheumatic mitral (valve) insufficiency
CPT/HCPCS: 36415; 80053; 85025

== ENCOUNTER 2023-06-20 12:31 | Emergency (ER) | payer MEDICARE, SELFPAY ==
[2023-06-20 12:32] VITALS: BMI 18.2
[2023-06-20 12:36] VITALS: BP 145/71
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
[2023-06-20 14:30] VITALS: BP 127/83
[2023-06-20 15:21] VITALS: BP 128/83
== END 2023-06-20 15:22 | disposition home or self-care (01) ==
LOC: EMR 12:31
PROVIDERS: EMERGENCY PHYSICIAN Emergency Medicine; FAMILY PHYSICIAN Family Medicine
DX: S01.01XA Laceration without foreign body of scalp, initial encounter (principal); S09.90XA Unspecified injury of head, initial encounter; V00.811A Fall from moving wheelchair (powered), initial encounter; Z87.891 Personal history of nicotine dependence
CPT/HCPCS: 99284; 12001; 70450; 72110

== ENCOUNTER → 2023-06-22 13:10 | Outpatient (REF) | payer MEDICARE, SELFPAY | LOC: HWRCS 13:10 | PROVIDERS: ATTENDING PHYSICIAN Nurse Practitioner; FAMILY PHYSICIAN Family Medicine | DX: Z95.5 Presence of coronary angioplasty implant and graft (principal); I25.10 Atherosclerotic heart disease of native coronary artery without angina pectoris; R06.09 Other forms of dyspnea; N18.32 Chronic kidney disease, stage 3b; I48.19 Other persistent atrial fibrillation; I34.0 Nonrheumatic mitral (valve) insufficiency | CPT/HCPCS: 93306 ==

== ENCOUNTER 2023-06-29 06:18 | Day surgery (SDC) | payer MEDICARE, SELFPAY ==
[2023-06-29] VITALS (12 sets, daily range): BP systolic 128–179; BP diastolic 63–80; BMI 17.7
[2023-06-29] MEDS: NSS 149 ML IV (07:21)
[2023-06-29 08:56] LABS: ACT-LR - POC 334 Seconds (116-155)
--- NOTE | 2023-06-29 09:00 | ITS.CL.CATH ---
[employer] - Catheterization
Cardiac Catheterization
Procedure Report:
CARDIAC CATHETERIZATION REPORT
Date of Procedure: 06/29/2023
Referring: JOSE EDUARDO Mayorga
Indication: Known ASCVD, dyspnea on exertion.
PROCEDURE:
1. Right heart catheterization.
2. Left heart catheterization.
3. Coronary angiography.
4. Successful IFR of the proximal circumflex.
ACCESS:
6 Cambodian right radial artery.
5 Cambodian right antecubital vein.
CATHETERS:
1. 5 Cambodian balloon wedge.
2. 5 Cambodian JL 3.5.
3. 5 Cambodian JR4.
4. 6 Cambodian JL 3.5 guiding catheter.
HEMODYNAMIC DATA
Weight (kg): 49.8
AO (s/d/x mmHg): 169/79/113
LV (s/x mmHg): 171/21
PCWP (a/v/x mmHg): 32/27/22
PA (s/d/x mmHg): 48/24/32
RV (s/x mmHg): 48/12
RA (a/v/x mmHg): 15//12
SVC SvO2 (%): 68.7
PA SvO2 (%): 60.5
SaO2 (%): 93.6
Hbg (g/dL): 10.2
CO (L/min): 5.25
CI (L/min/m2): 3.38
TPG (mmHg): 10
PVR (Kim Units): 1.90
SVR (dynes*seconds*cm^-5): 1539
AVO2 Diff (Volume %): 4.59
AV gradient (x, mmHg): None.
AV area (cm2): Normal.
LEFT VENTRICULOGRAPHY: Not performed.
CORONARY ANGIOGRAPHY
Dominance: Right.
Left Main: Normal size, trifurcating vessel. There is a 30% ostial tapering
LAD: Normal size vessel giving rise to several small diagonals. There are minor luminal irregularities.
Ramus: Relatively small vessel which quickly bifurcates into 2 subsequent daughter vessels. There is no coronary artery disease.
Circumflex: Normal size, nondominant vessel giving rise to 1 significant marginal before terminating as several vestigial branches. There is a 70% lesion in the ostial/proximal circumflex.
RCA: Large size, dominant vessel with a large posterolateral arcade. There is a densely calcified, 30% lesion in the proximal vessel, immediately proximal to the downward turn.
INTERVENTIONS
1. Successful IFR of the 70% ostial/proximal circumflex lesion, demonstrating nonocclusive disease (IFR = 0.95).
Narrative:
The decision was made to perform physiologic testing. The diagnostic catheter was removed over a wire and exchanged for a(n) 6 Cambodian JL 3.5 guiding catheter. The guiding catheter was advanced into the ascending aorta and seated in the left main
coronary artery. An iFR wire was zeroed outside of the body, then inserted into the guiding sheath. The wire was advanced and the transducer was normalized just outside of the guiding catheter tip. The wire was advanced into the LAD repeatedly, in
spite of multiple reshaping's. A BMW wire was advanced through the guide and advanced into the LAD to maintain catheter and wire position. The Omni wire was withdrawn and reshaped with a large primary and secondary curve. The wire was readvanced.
The guide was slightly backed out of the artery. With this improved guide position and the curve on the wire, the Omni wire was able to advance into the left circumflex. The wire was renormalized in the left main then advanced into the distal
vessel. Three iFR measurements were taken. The lesion was determined to be nonocclusive (0.95).
Closure Device: Vascular band for the right radial artery, manual pressure for the right antecubital vein.
Radiation dose (mGy): 558.57
DAP (cm2.Gy): 37.3664
Fluoroscopy time (minutes): 11.6
Sedation time (minutes): 32
CONCLUSIONS:
1. Right dominant circulation with a densely calcified, 30% proximal RCA lesion, luminal irregularities in the LAD, a 30% tapering of the ostial left main and a nonocclusive 70% ostial/proximal circumflex lesion (IFR = 0.95).
2. Moderately elevated filling pressures (LVEDP = 21 mmHg, PCWP = 22 mmHg at 49.8 kg).
3. Mild postcapillary pulmonary hypertension (mean PAP = 32 mmHg, PCWP = 22 mmHg, PVR = 1.90 Kim units), WHO group 2.
RECOMMENDATIONS:
1. Expectant management after cardiac catheterization via right radial/right antecubital approach.
2. Limited weight bearing on the right wrist for one week.
3. Increase furosemide to 20 mg daily.
4. Aggressive primary prevention. Increase rosuvastatin to 20 mg daily. Goal LDL <55.
5. Continue to treat other causes of dyspnea, including severe primary pulmonary disease.
Copy to: Arun Ibrahim D.O., JOSE EDUARDO Mayorga
Calvin Baxter, DO, FACC, FACP
[2023-06-29] MEDS: NSS 225 IV (09:41)
[2023-06-29] MEDS: DOLOPHINE 10 MG PO (10:53)
== END 2023-06-29 13:26 | disposition home or self-care (01) ==
LOC: CATH 06:18
PROVIDERS: ATTENDING PHYSICIAN Internal Medicine Cardiovascular Disease; FAMILY PHYSICIAN Family Medicine; OTHER PHYSICIAN Nurse Practitioner
DX: I25.10 Atherosclerotic heart disease of native coronary artery without angina pectoris (principal); Z95.5 Presence of coronary angioplasty implant and graft; R06.09 Other forms of dyspnea; I48.19 Other persistent atrial fibrillation; I34.0 Nonrheumatic mitral (valve) insufficiency; I12.9 Hypertensive chronic kidney disease with stage 1 through stage 4 chronic kidney disease, or unspecified chronic kidney disease; N18.32 Chronic kidney disease, stage 3b; I27.29 Other secondary pulmonary hypertension; J44.9 Chronic obstructive pulmonary disease, unspecified; K21.9 Gastro-esophageal reflux disease without esophagitis; Z87.891 Personal history of nicotine dependence; Z79.82 Long term (current) use of aspirin
CPT/HCPCS: C1769 ×2; C1894; 85347; 93460; 93571; Q9967

== ENCOUNTER → 2023-08-10 08:30 | Outpatient (REF) | payer MEDICARE, SELFPAY | LOC: MRI 08:30 | PROVIDERS: ATTENDING PHYSICIAN Student in an Organized Health Care Education/Training Program; FAMILY PHYSICIAN Family Medicine | DX: S32.000A Wedge compression fracture of unspecified lumbar vertebra, initial encounter for closed fracture (principal) | CPT/HCPCS: 72148 ==

== ENCOUNTER → 2023-09-03 11:03 | Outpatient (REF) | payer MEDICARE, SELFPAY | LOC: RAD 11:03 | PROVIDERS: ATTENDING PHYSICIAN Internal Medicine Rheumatology; FAMILY PHYSICIAN Family Medicine | DX: M81.0 Age-related osteoporosis without current pathological fracture (principal) | CPT/HCPCS: 77080; 77081 ==

== ENCOUNTER → 2023-09-19 11:25 | Outpatient (REF) | payer MEDICARE, SELFPAY ==
[2023-09-19 12:40] LABS: % Basophils 0.3 % (0-2); % Eosinophils 0.3 % (0-6); % Immature Granulocytes 1.8 % (0-0.5); % Monocytes 6.5 % (1.7-9.3); % Neutrophils 88.1 % (42.2-75.2); Absolute Basophils 0.1 10^3/uL (0-0.2); Absolute Immature Granulocytes 0.3 10^3/uL (0-0.05); Absolute Lymphocytes 0.5 10^3/uL (1.2-3.4); Absolute Neutrophils 13.9 10^3/uL (1.4-6.5); Hematocrit 28.5 % (39.0-52.0); Hemoglobin 9.4 g/dL (13.0-18.0); Mean Corpuscular Volume 96.9 fL (80.0-94.0); Mean Platelet Volume 8.7 fL (7.4-10.4); Nucleated Red Blood Cells % 0 % (-); Platelet Count 195 10^3/uL (130-400); Red Blood Cell Count 2.94 10^6/uL (4.70-6.10); Red Cell Dist. Width 14.6 % (11.5-14.5); White Blood Cell Count 15.8 10^3/uL (4.8-10.8)
[2023-09-19 13:05] LABS: ALT (SGPT) < 10 U/L (0-50); AST (SGOT) 16 U/L (17-59); Albumin 3.6 g/dl (3.5-5.0); Alkaline Phosphatase 99 U/L (38-126); Blood Urea Nitrogen 34 mg/dl (9-20); Calcium 9.1 mg/dl (8.4-10.2); Carbon Dioxide 25 mmol/L (22-30); Chloride 101 mmol/L (98-107); Glucose 100 mg/dl (70-99); Iron 49 ug/dl (49-181); Potassium 4.1 mmol/L (3.5-5.1); Sodium 137 mmol/L (135-145); Total Bilirubin 0.4 mg/dl (0.2-1.3); Total Protein 5.6 g/dl (6.3-8.2); eGFR 54.75
[2023-09-19 13:14] LABS: Percent Saturation 24 % (20-50); Total Iron Binding Capacity 203 ug/dl (261-462)
== END ==
LOC: REG 11:25
PROVIDERS: ATTENDING PHYSICIAN Internal Medicine Hematology & Oncology; FAMILY PHYSICIAN Family Medicine
DX: D63.8 Anemia in other chronic diseases classified elsewhere (principal); D63.1 Anemia in chronic kidney disease; D50.0 Iron deficiency anemia secondary to blood loss (chronic); N18.4 Chronic kidney disease, stage 4 (severe)
CPT/HCPCS: 36415; 80053; 82728; 83540; 83550; 85025

== ENCOUNTER 2023-09-28 09:56 | Emergency (ER) | payer MEDICARE, SELFPAY ==
[2023-09-28 10:04] VITALS: BP 150/78
[2023-09-28] MEDS: NSS 1000 IV ×2 (11:31→13:32)
[2023-09-28 11:37] VITALS: BP 133/77
[2023-09-28 11:39] LABS: % Basophils 0.1 % (0-2); % Eosinophils 0.1 % (0-6); % Immature Granulocytes 1.2 % (0-0.5); % Lymphocytes 2.4 % (20.5-51.1); % Monocytes 4.9 % (1.7-9.3); % Neutrophils 91.3 % (42.2-75.2); Absolute Immature Granulocytes 0.2 10^3/uL (0-0.05); Absolute Lymphocytes 0.4 10^3/uL (1.2-3.4); Absolute Monocytes 0.7 10^3/uL (0.1-0.6); Absolute Neutrophils 13.3 10^3/uL (1.4-6.5); Hematocrit 31.3 % (39.0-52.0); Hemoglobin 9.9 g/dL (13.0-18.0); Mean Corp Hgb Conc. 31.6 g/dL (33.0-37.0); Mean Corpuscular Hgb 30.9 pg (27.0-31.0); Mean Corpuscular Volume 97.8 fL (80.0-94.0); Mean Platelet Volume 8.4 fL (7.4-10.4); Nucleated Red Blood Cells % 0.2 % (-); Platelet Count 231 10^3/uL (130-400); Red Cell Dist. Width 16.3 % (11.5-14.5); White Blood Cell Count 14.6 10^3/uL (4.8-10.8)
--- NOTE | 2023-09-28 11:40 | ED.GENMED ---
History of Present Illness
General
Chief Complaint: Failure to Thrive
Time Seen by Provider: 09/28/23 10:51
History of Present Illness
History of Present Illness:
68-year-old male with history of scleroderma, hypertension, crest syndrome on chronic steroids, rheumatoid arthritis, CHF, CAD, COPD, A-fib status post watchman's procedure presenting to the emergency department for concern of dehydration. Patient
reports for the past week he has had decreased appetite and decreased p.o. intake. He notes that he has had this in the past. He reports generalized weakness and fatigue. Denies any specific symptoms such as chest pain, difficulty breathing.
Does note some palpitations. Denies abdominal pain. Denies any known sick contacts. Reports that he takes Lasix Thursday and Thursday, which often contributes to fluid imbalance. Denies additional acute medical complaints.
Past History
Past History
ED Past Medical History: Arrthythmia, CAD, CHF, COPD, HTN, Hypercholesterolemia, Renal failure, Psychiatric (scleroderma, RA, CREST, Reynauds.) and Other (Scleroderma, crest syndrome)
ED Past Surgical History: Bowel resection, Cardiac (Watchman) and Orthopedic
Social History
Tobacco: Former smoker (Quit 6 years ago)
Alcohol: None
Drug: None
Personal:
Living: with family
Employment: Disabled
Family History
Family History: Other
Phy Exam
Physical Exam
Physical Exam:
General: Well-appearing, no clinical signs of dehydration, nontoxic and in no acute distress
HEENT: protecting airway
Neck: appears supple
CV: Normal heart rate, irregularly irregular rhythm, no evidence of cyanosis
Resp: No accessory muscle use, no increased work of breathing, lungs clear to auscultation bilaterally
Abd: Soft and non-distended, no tenderness to palpation, normal bowel sounds
Extremities: No deformities, no swelling, no erythema, amputations of bilateral digits of the hands
Neuro: alert, no focal neurologic deficit
: deferred
Rectal: deferred
Psych: Normal affect
Skin: Intact
Course
Orders/Labs/Results
Orders:
Orders
09/28/23 10:06
ECG [Electrocardiogram (*1)] Urgent
Reason for Study: Atrial Fibrillation
09/28/23 10:07
EKG- Treatment ONCE
09/28/23 11:10
0.9% Sodium Chloride 1000 ml [Nss] 1,000 ml IV BOLUS
09/28/23 11:25
COVID-19 Antigen Urgent
Source: Nasal Swab
Complete Blood Count/With Diff Urgent
Comprehensive Metabolic Panel Urgent
Magnesium Urgent
Troponin I Urgent
Urinalysis Reflex To Culture Urgent
Date Specimen was Collected: 09/28/23
Time Specimen was Collected: 11:14
09/28/23 12:56
Calcium Gluconate 1 gram/100mL [Calcium Gluconate] 1 gram in 100 ml IV ONCE
09/28/23 13:18
0.9% Sodium Chloride 1000 ml [Nss] 1,000 ml IV BOLUS
Abnormal Lab Results
09/28/23
11:25
WBC 14.6 H 10^3/uL
(4.8-10.8)
RBC 3.20 L 10^6/uL
(4.70-6.10)
Hgb 9.9 L g/dL
(13.0-18.0)
Hct 31.3 L %
(39.0-52.0)
MCV 97.8 H fL
(80.0-94.0)
MCHC 31.6 L g/dL
(33.0-37.0)
RDW 16.3 H %
(11.5-14.5)
Abs Immat Gran (auto) 0.2 H 10^3/uL
(0-0.05)
Absolute Neuts (auto) 13.3 H 10^3/uL
(1.4-6.5)
Absolute Lymphs (auto) 0.4 L 10^3/uL
(1.2-3.4)
Absolute Monos (auto) 0.7 H 10^3/uL
(0.1-0.6)
Immature Gran % 1.2 H %
(0-0.5)
Neutrophils % 91.3 H %
(42.2-75.2)
Lymphocytes % 2.4 L %
(20.5-51.1)
BUN 28 H mg/dl
(9-20)
Creatinine 1.6 H mg/dL
(0.7-1.3)
Glucose 110 H mg/dl
(70-99)
Calcium 7.0 L mg/dl
(8.4-10.2)
Total Protein 5.8 L g/dl
(6.3-8.2)
09/28/23 11:25
09/28/23 11:25
Vital Signs
Initial and Last Documented VS:
Initial Vital Signs
Temp Pulse Resp BP Pulse Ox
99 F 80 18 150/78 99
09/28/23 10:04 09/28/23 10:04 09/28/23 10:04 09/28/23 10:04 09/28/23 10:04
Last Documented Vital Signs
Temp Pulse Resp BP Pulse Ox
99 F 64 19 133/77 97
09/28/23 10:04 09/28/23 13:45 09/28/23 12:45 09/28/23 11:37 09/28/23 13:00
MDM/Problems Addressed
MDM/Problems Addressed:
68-year-old male with history of scleroderma, hypertension, crest syndrome on chronic steroids, rheumatoid arthritis, CHF, CAD, COPD, A-fib status post watchman's procedure presenting to the emergency department for generalized fatigue and concern
for dehydration. Vital signs are normal.
On exam, patient is in no acute distress or discomfort. He does appear cachectic, however suspect chronicity to this. is at bedside, reports that he has had this issue before with fluid balance, is on Lasix, and has history of CHF so often
has issues with fluid retention versus fluid loss. Patient otherwise afebrile, nontoxic with lower suspicion for systemic cause of symptoms. Will obtain laboratory analysis and start patient on gentle fluids. EKG shows A-fib, without change from
prior. Patient notes that he has been in A-fib for a while.
13:00 -patient's labs are relatively unremarkable. Slight leukocytosis, however patient is on daily steroids, again afebrile, nontoxic without infectious symptoms. Kidney function appears to be at baseline. Normal sodium. No signs of urinary
tract infection. Patient's calcium is low, has been low in the past. Will administer calcium gluconate. Patient would prefer to go home, feels better after IV fluids. Would like second liter of fluids.
14:40 - After second liter fluids, continues to report improvement. Feel stable for discharge, is able to tolerate p.o. Encouraged continued hydration and nutrition. Also advise close outpatient primary care follow-up. Return precautions
discussed and patient verbalized understanding
*EKG
Interpreted by ED Provider?: Yes
EKG Intrepretation Date: 09/28/23
EKG Intrepretation Time: 11:45
Interpretation: normal
Comparison EKG: no changes (04/22/23)
Heart Rate: 85
Rate: normal
Rhythm: a-fib
[place]: normal axis
Interval: long QT
QRS Pattern: normal QRS
Ischemia: no ischemia
*Critical Care Note
Total Time (30-74mins, 75-104mins- exclusive of procedures): Not Applicable
ED Attending Note
-
Portions of this chart may have been created with voice recognition software.� Occasional wrong word or��sound alike� substitutions may have occurred due to the inherent limitations of voice recognition software.
Discharge Plan
Departure
Prescriptions:
No Action
ferrous sulfate [FeroSul] 325 MG tablet
325 mg PO MOWEFR@2200
methadone 10 MG tablet
10 mg PO BID
tamsulosin 0.4 MG capsule
0.4 mg PO QPM
pentoxifylline 400 MG tablet extended release
400 mg PO BID
prednisone 10 mg Tablet
15 mg PO DAILY
methadone 10 mg Tablet
10 mg PO BIDPRN PRN (Reason: severe pain)
sertraline 50 MG tablet
50 mg PO DAILY
hydrocodone-acetaminophen 7.5-325 mg tablet
1 tab PO Q6HPRN PRN (Reason: severe pain)
metoprolol succinate 50 mg tablet extended release 24 hr
50 mg PO DAILY
tizanidine 2 mg Tablet
2 mg PO TIDPRN PRN (Reason: muscle spasms)
diltiazem HCl [DILT-XR] 240 mg Capsule,Ext.Rel 24h Degradable
240 mg PO DAILY
aspirin 81 mg Tablet,Delayed Release (Dr/Ec)
81 mg PO DAILY
ondansetron 8 mg Tablet,Disintegrating
8 mg PO TIDPRN PRN (Reason: nausea/vomiting)
albuterol sulfate 90 mcg/actuation Hfa Aerosol Inhaler
2 puff INHALATION R Q4HPRN PRN (Reason: sob)
polyethylene glycol 3350 17 GRAMS powder in packet
17 grams PO DAILY Qty: 0 0RF
famotidine 40 mg Tablet
20 mg PO Q48H Qty: 0 0RF
bisacodyl [Dulcolax (bisacodyl)] 5 mg tablet,delayed release (DR/EC)
10 mg PO DAILY PRN (Reason: Constipation) 14 Days Qty: 28 0RF
ipratropium-albuterol 0.5 mg-3 mg(2.5 mg base)/3 mL solution for nebulization
3 ml inhalation R Q6HPRN PRN (Reason: sob) Qty: 90 0RF
levalbuterol tartrate 45 mcg/actuation Hfa Aerosol Inhaler
2 inh INHALATION R Q6HPRN PRN (Reason: sob) 30 Days Qty: 15 0RF
lisinopril 10 mg Tablet
10 mg PO DAILY
hydralazine 100 mg tablet
100 mg PO BID
rosuvastatin 20 mg tablet
20 mg PO DAILY Qty: 90 3RF
furosemide 20 mg tablet
20 mg PO DAILY Qty: 90 3RF
Referrals:
Arun Ibrahim DO [Family Provider] -
Interventions
Interventions:
*Risk Screen - Suicide Last Done: 09/28/23 10:04
*General Assessment Last Done: 09/28/23 10:04
*Neglect/Abuse Screening Last Done: 09/28/23 10:04
*ED COVID-19 Vaccine History Last Done: 09/28/23 11:38
Discharge Date and Time
Print Language: SLOVAK
[2023-09-28 11:51] LABS: Urine Albumin Negative (Neg - Trace); Urine Bilirubin Negative (Negative); Urine Character Clear (Clear); Urine Color Yellow; Urine Glucose Negative (Negative); Urine Ketone Negative (Negative); Urine Leukocyte Negative (Negative); Urine Nitrite Negative (Negative); Urine Occult Blood Negative (Negative); Urine Urobilinogen Negative (Neg - 1+); Urine pH 6.5 (5.0-9.0)
[2023-09-28 11:54] LABS: ALT (SGPT) 12 U/L (0-50); AST (SGOT) 17 U/L (17-59); Albumin 3.7 g/dl (3.5-5.0); Alkaline Phosphatase 76 U/L (38-126); Blood Urea Nitrogen 28 mg/dl (9-20); Carbon Dioxide 25 mmol/L (22-30); Chloride 104 mmol/L (98-107); Glucose 110 mg/dl (70-99); Magnesium 1.6 mg/dl (1.6-2.3); Potassium 4.2 mmol/L (3.5-5.1); Sodium 137 mmol/L (135-145); Total Bilirubin 0.5 mg/dl (0.2-1.3); Total Protein 5.8 g/dl (6.3-8.2); eGFR 46.64
[2023-09-28 12:01] LABS: COVID-19 Antigen Negative (Negative)
[2023-09-28 12:09] LABS: Troponin I 0.013 ng/ml
[2023-09-28] MEDS: CALCIUM GLUCONATE 100 IV (13:05)
[2023-09-28 14:49] VITALS: BP 155/90
== END 2023-09-28 15:12 | disposition home or self-care (01) ==
LOC: EMR 09:56
PROVIDERS: EMERGENCY PHYSICIAN Student in an Organized Health Care Education/Training Program; FAMILY PHYSICIAN Family Medicine
DX: E86.0 Dehydration (principal); E83.51 Hypocalcemia; I11.0 Hypertensive heart disease with heart failure; I50.9 Heart failure, unspecified; I25.10 Atherosclerotic heart disease of native coronary artery without angina pectoris; J44.9 Chronic obstructive pulmonary disease, unspecified; I48.91 Unspecified atrial fibrillation; M34.1 CR(E)ST syndrome; E78.00 Pure hypercholesterolemia, unspecified; M06.9 Rheumatoid arthritis, unspecified; Z79.52 Long term (current) use of systemic steroids; Z87.891 Personal history of nicotine dependence
CPT/HCPCS: 99283; 96374; 96361; 80053; 81003; 83735; 84484; 85025; 87811; 93005

== ENCOUNTER → 2023-10-03 11:34 | Outpatient (REF) | payer MEDICARE, SELFPAY ==
[2023-10-03 12:40] LABS: % Basophils 0.2 % (0-2); % Eosinophils 0.2 % (0-6); % Immature Granulocytes 0.5 % (0-0.5); % Lymphocytes 1.9 % (20.5-51.1); % Monocytes 5.7 % (1.7-9.3); % Neutrophils 91.5 % (42.2-75.2); Absolute Immature Granulocytes 0.1 10^3/uL (0-0.05); Absolute Lymphocytes 0.3 10^3/uL (1.2-3.4); Absolute Monocytes 0.8 10^3/uL (0.1-0.6); Absolute Neutrophils 12.5 10^3/uL (1.4-6.5); Hemoglobin 10.3 g/dL (13.0-18.0); Mean Corp Hgb Conc. 33.2 g/dL (33.0-37.0); Mean Corpuscular Hgb 30.9 pg (27.0-31.0); Mean Corpuscular Volume 93.1 fL (80.0-94.0); Mean Platelet Volume 8.9 fL (7.4-10.4); Nucleated Red Blood Cells % 0 % (-); Platelet Count 222 10^3/uL (130-400); Red Blood Cell Count 3.33 10^6/uL (4.70-6.10); Red Cell Dist. Width 16.2 % (11.5-14.5); White Blood Cell Count 13.7 10^3/uL (4.8-10.8)
== END ==
LOC: REG 11:34
PROVIDERS: ATTENDING PHYSICIAN Internal Medicine Hematology & Oncology; FAMILY PHYSICIAN Family Medicine
DX: D63.8 Anemia in other chronic diseases classified elsewhere (principal); D63.1 Anemia in chronic kidney disease; D50.0 Iron deficiency anemia secondary to blood loss (chronic); N18.4 Chronic kidney disease, stage 4 (severe)
CPT/HCPCS: 36415; 85025

== ENCOUNTER → 2023-10-29 09:58 | Outpatient (REF) | payer MEDICARE, SELFPAY ==
[2023-10-29 10:41] LABS: % Basophils 0.2 % (0-2); % Eosinophils 0.1 % (0-6); % Immature Granulocytes 0.7 % (0-0.5); % Lymphocytes 1.4 % (20.5-51.1); % Monocytes 6.3 % (1.7-9.3); % Neutrophils 91.3 % (42.2-75.2); Absolute Immature Granulocytes 0.1 10^3/uL (0-0.05); Absolute Lymphocytes 0.3 10^3/uL (1.2-3.4); Absolute Monocytes 1.2 10^3/uL (0.1-0.6); Absolute Neutrophils 16.8 10^3/uL (1.4-6.5); Hematocrit 38.7 % (39.0-52.0); Hemoglobin 12.4 g/dL (13.0-18.0); Mean Corpuscular Hgb 30.8 pg (27.0-31.0); Mean Corpuscular Volume 96.3 fL (80.0-94.0); Mean Platelet Volume 9.3 fL (7.4-10.4); Nucleated Red Blood Cells % 0 % (-); Platelet Count 193 10^3/uL (130-400); Red Blood Cell Count 4.02 10^6/uL (4.70-6.10); Red Cell Dist. Width 15.4 % (11.5-14.5); White Blood Cell Count 18.4 10^3/uL (4.8-10.8)
== END ==
LOC: REG 09:58
PROVIDERS: ATTENDING PHYSICIAN Internal Medicine Hematology & Oncology; FAMILY PHYSICIAN Family Medicine; REFERRING PHYSICIAN Internal Medicine Rheumatology
DX: D63.8 Anemia in other chronic diseases classified elsewhere (principal); D63.1 Anemia in chronic kidney disease; D50.0 Iron deficiency anemia secondary to blood loss (chronic); N18.4 Chronic kidney disease, stage 4 (severe)
CPT/HCPCS: 36415; 85025

== ENCOUNTER → 2023-11-14 11:35 | Outpatient (REF) | payer MEDICARE, SELFPAY ==
[2023-11-14 12:16] LABS: % Basophils 0.4 % (0-2); % Eosinophils 0.9 % (0-6); % Immature Granulocytes 0.7 % (0-0.5); % Lymphocytes 5.4 % (20.5-51.1); % Monocytes 11.5 % (1.7-9.3); % Neutrophils 81.1 % (42.2-75.2); Absolute Eosinophils 0.1 10^3/uL (0-0.7); Absolute Immature Granulocytes 0.1 10^3/uL (0-0.05); Absolute Lymphocytes 0.6 10^3/uL (1.2-3.4); Absolute Monocytes 1.3 10^3/uL (0.1-0.6); Absolute Neutrophils 9.3 10^3/uL (1.4-6.5); Hematocrit 37.9 % (39.0-52.0); Hemoglobin 12.4 g/dL (13.0-18.0); Mean Corp Hgb Conc. 32.7 g/dL (33.0-37.0); Mean Corpuscular Hgb 30.5 pg (27.0-31.0); Mean Corpuscular Volume 93.1 fL (80.0-94.0); Mean Platelet Volume 9.6 fL (7.4-10.4); Nucleated Red Blood Cells % 0 % (-); Platelet Count 206 10^3/uL (130-400); Red Blood Cell Count 4.07 10^6/uL (4.70-6.10); Red Cell Dist. Width 15.2 % (11.5-14.5); White Blood Cell Count 11.4 10^3/uL (4.8-10.8)
== END ==
LOC: REG 11:35
PROVIDERS: ATTENDING PHYSICIAN Internal Medicine Hematology & Oncology; FAMILY PHYSICIAN Family Medicine
DX: D63.8 Anemia in other chronic diseases classified elsewhere (principal); D63.1 Anemia in chronic kidney disease; D50.0 Iron deficiency anemia secondary to blood loss (chronic); N18.4 Chronic kidney disease, stage 4 (severe)
CPT/HCPCS: 36415; 85025

== ENCOUNTER → 2023-11-24 10:25 | Outpatient (REF) | payer MEDICARE, SELFPAY | LOC: DHVS 10:25 | PROVIDERS: ATTENDING PHYSICIAN Registered Nurse; FAMILY PHYSICIAN Family Medicine; OTHER PHYSICIAN Surgery Vascular Surgery | DX: I77.1 Stricture of artery (principal); I65.23 Occlusion and stenosis of bilateral carotid arteries | CPT/HCPCS: 93880; 93923; 93930 ==

== ENCOUNTER → 2023-12-05 11:23 | Outpatient (REF) | payer MEDICARE, SELFPAY ==
[2023-12-05 11:44] LABS: % Basophils 0.4 % (0-2); % Eosinophils 0.7 % (0-6); % Lymphocytes 7.2 % (20.5-51.1); % Monocytes 10.8 % (1.7-9.3); % Neutrophils 79.9 % (42.2-75.2); Absolute Basophils 0.1 10^3/uL (0-0.2); Absolute Eosinophils 0.1 10^3/uL (0-0.7); Absolute Immature Granulocytes 0.1 10^3/uL (0-0.05); Absolute Monocytes 1.5 10^3/uL (0.1-0.6); Absolute Neutrophils 10.9 10^3/uL (1.4-6.5); Hematocrit 36.9 % (39.0-52.0); Hemoglobin 11.7 g/dL (13.0-18.0); Mean Corp Hgb Conc. 31.7 g/dL (33.0-37.0); Mean Corpuscular Hgb 29.5 pg (27.0-31.0); Mean Corpuscular Volume 92.9 fL (80.0-94.0); Mean Platelet Volume 8.8 fL (7.4-10.4); Nucleated Red Blood Cells % 0 % (-); Platelet Count 182 10^3/uL (130-400); Red Blood Cell Count 3.97 10^6/uL (4.70-6.10); Red Cell Dist. Width 15.1 % (11.5-14.5); White Blood Cell Count 13.7 10^3/uL (4.8-10.8)
== END ==
LOC: REG 11:23
PROVIDERS: ATTENDING PHYSICIAN Internal Medicine Hematology & Oncology; FAMILY PHYSICIAN Family Medicine
DX: D63.8 Anemia in other chronic diseases classified elsewhere (principal); D63.1 Anemia in chronic kidney disease; D50.0 Iron deficiency anemia secondary to blood loss (chronic); N18.4 Chronic kidney disease, stage 4 (severe)
CPT/HCPCS: 36415; 85025

== ENCOUNTER → 2023-12-19 11:14 | Outpatient (REF) | payer MEDICARE, SELFPAY ==
[2023-12-19 12:06] LABS: Urine Albumin Negative (Neg - Trace); Urine Bilirubin Negative (Negative); Urine Character Clear (Clear); Urine Color Yellow; Urine Glucose Negative (Negative); Urine Ketone Negative (Negative); Urine Leukocyte Negative (Negative); Urine Nitrite Negative (Negative); Urine Occult Blood Negative (Negative); Urine Urobilinogen Negative (Neg - 1+)
[2023-12-19 12:19] LABS: % Basophils 0.4 % (0-2); % Eosinophils 0.6 % (0-6); % Immature Granulocytes 1.2 % (0-0.5); % Lymphocytes 3.9 % (20.5-51.1); % Monocytes 8.3 % (1.7-9.3); % Neutrophils 85.6 % (42.2-75.2); Absolute Basophils 0.1 10^3/uL (0-0.2); Absolute Eosinophils 0.1 10^3/uL (0-0.7); Absolute Immature Granulocytes 0.2 10^3/uL (0-0.05); Absolute Lymphocytes 0.5 10^3/uL (1.2-3.4); Absolute Monocytes 1.2 10^3/uL (0.1-0.6); Absolute Neutrophils 11.9 10^3/uL (1.4-6.5); Hematocrit 34.9 % (39.0-52.0); Mean Corp Hgb Conc. 31.5 g/dL (33.0-37.0); Mean Corpuscular Volume 92.1 fL (80.0-94.0); Mean Platelet Volume 8.8 fL (7.4-10.4); Nucleated Red Blood Cells % 0 % (-); Platelet Count 212 10^3/uL (130-400); Red Blood Cell Count 3.79 10^6/uL (4.70-6.10); Red Cell Dist. Width 15.4 % (11.5-14.5); White Blood Cell Count 13.9 10^3/uL (4.8-10.8)
[2023-12-19 12:32] LABS: Protein/creatinine Ratio 0.3; Urine Protein 9 mg/dl
[2023-12-19 12:33] LABS: Erythrocyte Sed Rate 9 mm/hour (0-20)
[2023-12-20 23:27] LABS: Complement C3 96 mg/dl (88-165)
[2023-12-22 00:24] LABS: ANA, IgG Reflex to HEp-2 Detected (None Detected)
[2023-12-22 06:35] LABS: Scleroderma Antibody (Scl-70) 18 AU/mL (0-40)
== END ==
LOC: REG 11:14
PROVIDERS: ATTENDING PHYSICIAN Physician Assistant; FAMILY PHYSICIAN Family Medicine; REFERRING PHYSICIAN Internal Medicine Hematology & Oncology
DX: D63.8 Anemia in other chronic diseases classified elsewhere (principal); G89.4 Chronic pain syndrome; I25.10 Atherosclerotic heart disease of native coronary artery without angina pectoris; I50.9 Heart failure, unspecified; I70.90 Unspecified atherosclerosis; I73.9 Peripheral vascular disease, unspecified; M06.9 Rheumatoid arthritis, unspecified; M25.511 Pain in right shoulder; M25.572 Pain in left ankle and joints of left foot; M34.1 CR(E)ST syndrome; M34.89 Other systemic sclerosis; M34.9 Systemic sclerosis, unspecified; M80.00XS Age-related osteoporosis with current pathological fracture, unspecified site, sequela; M94.1 Relapsing polychondritis; R06.02 Shortness of breath; R11.0 Nausea; R53.81 Other malaise; R63.4 Abnormal weight loss; R69 Illness, unspecified; R76.0 Raised antibody titer; T45.515D Adverse effect of anticoagulants, subsequent encounter; U07.1 COVID-19; Z22.1 Carrier of other intestinal infectious diseases; Z68.1 Body mass index [BMI] 19.9 or less, adult; Z68.20 Body mass index [BMI] 20.0-20.9, adult; Z71.89 Other specified counseling; Z79.891 Long term (current) use of opiate analgesic; D63.1 Anemia in chronic kidney disease; D50.0 Iron deficiency anemia secondary to blood loss (chronic); N18.4 Chronic kidney disease, stage 4 (severe)
CPT/HCPCS: 36415; 81003; 82570; 84156; 85025; 85652; 86038; 86140; 86147; 86160; 86225; 86235

== ENCOUNTER → 2024-01-02 11:37 | Outpatient (REF) | payer MEDICARE, SELFPAY ==
[2024-01-02 12:34] LABS: % Basophils 0.2 % (0-2); % Eosinophils 0.7 % (0-6); % Immature Granulocytes 1.2 % (0-0.5); % Lymphocytes 3.5 % (20.5-51.1); % Monocytes 9.1 % (1.7-9.3); % Neutrophils 85.3 % (42.2-75.2); Absolute Eosinophils 0.1 10^3/uL (0-0.7); Absolute Immature Granulocytes 0.2 10^3/uL (0-0.05); Absolute Lymphocytes 0.6 10^3/uL (1.2-3.4); Absolute Monocytes 1.5 10^3/uL (0.1-0.6); Absolute Neutrophils 14.1 10^3/uL (1.4-6.5); Hematocrit 34.4 % (39.0-52.0); Hemoglobin 11.2 g/dL (13.0-18.0); Mean Corp Hgb Conc. 32.6 g/dL (33.0-37.0); Mean Corpuscular Hgb 29.9 pg (27.0-31.0); Mean Corpuscular Volume 91.7 fL (80.0-94.0); Nucleated Red Blood Cells % 0 % (-); Platelet Count 211 10^3/uL (130-400); Red Blood Cell Count 3.75 10^6/uL (4.70-6.10); Red Cell Dist. Width 15.5 % (11.5-14.5); White Blood Cell Count 16.6 10^3/uL (4.8-10.8)
== END ==
LOC: REG 11:37
PROVIDERS: ATTENDING PHYSICIAN Internal Medicine Hematology & Oncology; FAMILY PHYSICIAN Family Medicine
DX: D63.8 Anemia in other chronic diseases classified elsewhere (principal); D63.1 Anemia in chronic kidney disease; D50.0 Iron deficiency anemia secondary to blood loss (chronic); N18.4 Chronic kidney disease, stage 4 (severe)
CPT/HCPCS: 36415; 85025

== ENCOUNTER → 2024-01-15 18:26 | Outpatient (REF) | payer MEDICARE, SELFPAY | LOC: MRI 18:26 | PROVIDERS: ATTENDING PHYSICIAN Podiatrist; FAMILY PHYSICIAN Family Medicine; REFERRING PHYSICIAN Internal Medicine Rheumatology | DX: M86.9 Osteomyelitis, unspecified (principal) | CPT/HCPCS: 73718 ==

== ENCOUNTER 2024-02-04 09:02 | Day surgery (SDC) | payer MEDICARE, SELFPAY ==
--- NOTE | 2024-01-29 13:55 | PTCARENOTE ---
Abnormal EKG 10/30/[address] Armas, no further testing needed.
[2024-02-04] VITALS (14 sets, daily range): BP systolic 104–164; BP diastolic 51–95; BMI 17.9
[2024-02-04 09:30] LABS: Hematocrit 34.4 % (39.0-52.0); Hemoglobin 11.1 g/dL (13.0-18.0); Mean Corp Hgb Conc. 32.3 g/dL (33.0-37.0); Mean Corpuscular Hgb 30.1 pg (27.0-31.0); Mean Corpuscular Volume 93.2 fL (80.0-94.0); Mean Platelet Volume 8.7 fL (7.4-10.4); Platelet Count 219 10^3/uL (130-400); Red Blood Cell Count 3.69 10^6/uL (4.70-6.10); Red Cell Dist. Width 15.6 % (11.5-14.5); White Blood Cell Count 15.1 10^3/uL (4.8-10.8)
[2024-02-04 09:38] LABS: INR 0.98; PT 13.5 Sec (11.4-14.6)
[2024-02-04 09:39] LABS: APTT 31.5 Sec (23.4-35.0)
[2024-02-04 09:40] LABS: Blood Urea Nitrogen 40 mg/dl (9-20); Carbon Dioxide 28 mmol/L (22-30); Estimated Creatinine Clearance 33 ml/min; Glucose 87 mg/dl (70-99); eGFR 50.08
--- NOTE | 2024-02-04 10:00 | W.SUR.PREOP ---
Pre-Operative Surgical Note
-
I have examined this patient prior to the performance of the scheduled procedure.
The patient's condition is unchanged from the time of the current History and
Physical and the patient is able to undergo the scheduled procedure.
[2024-02-04] MEDS: NSS 500 IV (10:01)
[2024-02-04 10:06] LABS: Chloride 100 mmol/L (98-107); Potassium 4.5 mmol/L (3.5-5.1); Sodium 137 mmol/L (135-145)
--- NOTE | 2024-02-04 12:33 | W.SUR.POST ---
Surgical Immediate Post Op
Note
Pre Op Diagnosis: PAD
Post Op Diagnosis: PAD
Procedure Performed: Bilateral femoral puncture under ultrasound guidance, aortogram, bilateral common iliac kissing balloon and stent placement, left lower extremity angiogram
Primary Surgeon: Dionicio Toro MD
Secondary Surgeons: N/A
Anesthesia: MAC
Estimated Blood Loss: 2 mL
Fluids: See anesthesia flowsheet
Drains/Shunts: N/A
Specimens/Cultures: N/A
Doppler/Duplex/Angio (Y/N):
Complications: None
Operative Findings: Successful stenting of bilateral common iliac arterial disease
[2024-02-04] MEDS: NSS 1000 IV (12:45)
[2024-02-04] MEDS: PLAVIX 150 MG PO (13:02)
--- NOTE | 2024-02-04 13:39 | OR.RPT ---
Operative Report
Operative Report
PROCEDURE DATE: 02/04/2024
Preoperative diagnosis: Chronic limb threatening ischemia left lower extremity
Postoperative diagnosis: Same
Procedure:
1. Duplex assisted right common femoral artery cannulation.
2. Aortogram and pelvic angiogram.
3. Left lower extremity arteriogram via right common femoral artery puncture.
4. Duplex assisted left common femoral artery cannulation.
5. Kissing balloon angioplasty of bilateral common iliac artery stenosis with 4 mm and 6 mm angioplasty balloons.
6. Kissing balloon expandable covered stent placement bilateral common iliac arteries with Gilbert VBX 7 mm x 39 mm kissing covered stents.
7. Supervision and interpretation.
Surgeon: Cortez
[employer] Front Desk Attendant: None
Complications: None
Anesthesia: Local, sedation
Fluoroscopy:
14.5 min
73 mGy
14.79 Gy.cm2
Indications for procedure:
Osteomyelitis with tissue loss left foot. Risk/benefit/alternatives of angiography/attempted revascularization were all fully discussed. Patient understood all to proceed.
Description of procedure:
Patient was identified, brought to the operating room. Placed on the table in the supine position. After the adequate administration of anesthesia, the patient was prepped and draped in the standard surgical fashion. A standard preoperative
timeout was undertaken and everybody was in agreement with the plan.
The right common femoral artery was accessed with a micropuncture kit under direct duplex ultrasound guidance. A 5 Gibraltarian sheath was then advanced over a 0.035 inch wire, and a wade's hook catheter was advanced into the abdominal aorta.
Getting the wade's the catheter into the abdominal aorta was very challenging. The proximal right common iliac artery had significant plaque and there was moderate plaque in the external iliac artery. I had great difficulty maneuvering wire
initially through the common iliac artery, but finally using a flopping of hydrophilic wire and a glide catheter was able to gain wire access into the abdominal aorta. Aortogram and pelvic angiogram was obtained. Findings as follows:
Infrarenal aorta: Patent with diffuse severe eccentric calcifications. Mildly ectatic in its proximal course, but at the distal abdominal aorta/bifurcation it was not ectatic. There is a mild stenosis at the bifurcation.
Right common iliac artery: Extensive eccentric plaque with severe proximal right common iliac artery stenosis. Diffuse eccentric plaque noted.
Right external iliac artery: Likely moderate stenosis with diffuse luminal irregularities in the mid to distal segment. The internal iliac artery origin was not well-visualized and may have been occluded.
Left common iliac artery: Patent with severe bulky plaque at the origin resulting in a severe stenosis that spilled into a couple centimeters beyond the origin. Tortuous beyond here. But no severe stenosis beyond there.
Left external iliac artery: Patent with no significant stenosis, but luminal irregularities noted. At this point, I had great difficulty cannulating through the left common iliac artery origin stenosis. But was finally able to pass a flopping on
hydrophilic wire and using a torque device was able to steer into the external iliac artery and then down through the common femoral into the SFA. However, I could not advance any catheters including a 4 Gib[place]tarian glide catheter, and even initially a
CXI catheter. Finally with some manipulation is able to get the CXI catheter into the external iliac artery but could not get it beyond there. Therefore performed runoff angiography through the catheter position and the external iliac artery.
Runoff demonstrated a patent left common femoral artery with some luminal irregularities and moderate plaque but no severe stenosis. Profundus patent. SFA appeared patent but in the mid to distal segment there is 1 focal area of at least moderate
stenosis relatively focally. Beyond here the above-knee, behind knee, below-knee popliteal artery was patent with no significant stenosis. Runoff consisted of anterior tibial and peroneal artery that were very diminutive and small and occluded
very shortly beyond the origins. The posterior tibial artery, however, was the dominant patent vessel to the foot. Across the ankle to give rise to some collaterals but there was no really well-formed plantar artery. There is no other real named
vessels in the foot. Therefore there was limited inframalleolar perfusion.
At this point I knew that I could not advance catheters up and over, and nor did I think it definitively needed to be done. There was an SFA stenosis that was moderate but not severe. Therefore I felt that treating the common iliac arteries may be
sufficient for enhancing perfusion for wound healing. Therefore at this point under duplex assisted guidance I was able to cannulate the left common femoral artery using a micropuncture kit (again after infiltrating the skin subcutaneous tissue
with 1% lidocaine as I had done on the other side). A 6 Gibraltarian sheath was then advanced over a 0.035 inch wire. My right sided wire access I had withdrawn out of the left's iliac system and advanced back into the aorta and exchanged for a Storq
wire. Now through the left sided 6 Gibraltarian system, I used a flopping of hydrophilic wire and a glide catheter and with some difficulty was finally able to gain wire access into the abdominal aorta and again with difficulty was finally able to
advance my glide catheter and then exchanged for a Storq wire. Now exchanged on the right side for a 6 Gib[place]tarian sheath as well. Therefore I had Storq wire access into the abdominal aorta from bilateral groin puncture sites with 6 Gibraltarian sheaths in
both groins at this point. The patient was given 4000 of intravenous heparin. Once this had circulated, I performed kissing balloon angioplasty of the severe bilateral common iliac artery proximal stenoses with a 4 mm angioplasty balloon to create
a flow channel. I felt that this was undersizing, however, and therefore then exchanged for a 6 mm angioplasty balloon on both sides to perform kissing angioplasty. Next, I exchanged on the left side for a 6 [place] 23 cm sheath that advanced into
the aorta. (I did this because the left sided catheters would not get held up on the plaque and I did not want to my balloon expandable stent to do so). I now advanced kissing 7 mm x 39 mm Gilbert VBX balloon mounted covered stents to the common
iliac arteries with the most proximal edge of the stents into the aorta. I then withdrew the left sided 23 cm sheath. I then simultaneously ballooned these into place (kissing stent placement). At this point I was very satisfied. Completion
angiogram demonstrated excellent result with no residual stenosis and excellent flow through the stented segments. Both common iliac arteries appeared widely patent. At this point is very satisfied.
The wires and sheaths were withdrawn from both groins and manual pressure simultaneously applied to both groin puncture sites. Hemostasis was achieved. The patient tolerated procedure well. Upon completion he had an excellent bilateral femoral
pulsations with 2+ left sided PT pulse.
[2024-02-04] MEDS: TYLENOL 650 MG PO (13:58)
--- NOTE | 2024-02-04 14:01 | PTCARENOTE ---
pt complains of chronic low back pain, see MAR for intervention. R groin site, C/D/I. No hematoma noted. Pt stated pain is same as chronic back issue. VSS.
== END 2024-02-04 18:43 | disposition home or self-care (01) ==
LOC: CATH 09:02
PROVIDERS: ATTENDING PHYSICIAN Surgery Vascular Surgery; FAMILY PHYSICIAN Family Medicine; OTHER PHYSICIAN Internal Medicine Cardiovascular Disease
DX: M86.9 Osteomyelitis, unspecified (principal); I70.245 Atherosclerosis of native arteries of left leg with ulceration of other part of foot; L97.529 Non-pressure chronic ulcer of other part of left foot with unspecified severity; I70.211 Atherosclerosis of native arteries of extremities with intermittent claudication, right leg; Z87.891 Personal history of nicotine dependence; J44.9 Chronic obstructive pulmonary disease, unspecified; K21.9 Gastro-esophageal reflux disease without esophagitis; I70.0 Atherosclerosis of aorta; I25.10 Atherosclerotic heart disease of native coronary artery without angina pectoris; I65.23 Occlusion and stenosis of bilateral carotid arteries
CPT/HCPCS: 37221; 75625; 75716; 80048; 85027; 85610; 85730; 86850; 86900; 86901; C1725; C1769; C1874; C1887; C1894; Q9967

== ENCOUNTER → 2024-02-18 10:56 | Outpatient (REF) | payer MEDICARE, SELFPAY | LOC: RAD 10:56 | PROVIDERS: ATTENDING PHYSICIAN Surgery Vascular Surgery; FAMILY PHYSICIAN Family Medicine | DX: I73.9 Peripheral vascular disease, unspecified (principal) | CPT/HCPCS: 93922 ==

== ENCOUNTER → 2024-02-22 14:19 | Outpatient (REF) | payer MEDICARE, SELFPAY ==
[2024-02-22 16:03] LABS: Albumin 3.7 g/dl (3.5-5.0); Blood Urea Nitrogen 50 mg/dl (9-20); Calcium 8.7 mg/dl (8.4-10.2); Carbon Dioxide 23 mmol/L (22-30); Chloride 98 mmol/L (98-107); Glucose 103 mg/dl (70-99); Phosphorus 3.8 mg/dl (2.5-4.5); Sodium 134 mmol/L (135-145); eGFR 33.45
[2024-02-23 11:41] LABS: Intact PTH 168.9 pg/ml (13.6-85.8)
== END ==
LOC: REG 14:19
PROVIDERS: ATTENDING PHYSICIAN Specialist
DX: D64.9 Anemia, unspecified (principal)
CPT/HCPCS: 36415; 80069; 83970

== ENCOUNTER → 2024-03-02 12:41 | Outpatient (REF) | payer MEDICARE, SELFPAY ==
[2024-03-02 15:04] LABS: % Basophils 0.2 % (0-2); % Eosinophils 0.1 % (0-6); % Immature Granulocytes 0.7 % (0-0.5); % Lymphocytes 2.3 % (20.5-51.1); % Monocytes 3.1 % (1.7-9.3); % Neutrophils 93.6 % (42.2-75.2); Absolute Immature Granulocytes 0.1 10^3/uL (0-0.05); Absolute Lymphocytes 0.3 10^3/uL (1.2-3.4); Absolute Monocytes 0.4 10^3/uL (0.1-0.6); Absolute Neutrophils 12.5 10^3/uL (1.4-6.5); Hematocrit 31.1 % (39.0-52.0); Hemoglobin 9.8 g/dL (13.0-18.0); Mean Corp Hgb Conc. 31.5 g/dL (33.0-37.0); Mean Corpuscular Hgb 30.4 pg (27.0-31.0); Mean Corpuscular Volume 96.6 fL (80.0-94.0); Mean Platelet Volume 9.2 fL (7.4-10.4); Nucleated Red Blood Cells % 0 % (-); Platelet Count 220 10^3/uL (130-400); Red Blood Cell Count 3.22 10^6/uL (4.70-6.10); Red Cell Dist. Width 14.6 % (11.5-14.5); White Blood Cell Count 13.4 10^3/uL (4.8-10.8)
[2024-03-02 15:33] LABS: Blood Urea Nitrogen 53 mg/dl (9-20); Calcium 8.3 mg/dl (8.4-10.2); Carbon Dioxide 24 mmol/L (22-30); Chloride 100 mmol/L (98-107); Glucose 96 mg/dl (70-99); Potassium 4.9 mmol/L (3.5-5.1); Sodium 136 mmol/L (135-145); eGFR 35.46
== END ==
LOC: SDSPAT 12:41
PROVIDERS: ATTENDING PHYSICIAN Podiatrist Foot Surgery; FAMILY PHYSICIAN Family Medicine
DX: Z01.818 Encounter for other preprocedural examination (principal)
CPT/HCPCS: 36415; 80048; 85025

== ENCOUNTER 2024-03-04 06:39 | Day surgery (SDC) | payer MEDICARE, SELFPAY ==
[2024-03-02 14:29] VITALS: BMI 30.4
--- NOTE | 2024-03-03 15:38 | PTCARENOTE ---
Abn ECG, Dr Schumacher notified, no additional instructions received.
[2024-03-04 11:18] VITALS: BMI 30.4
[2024-03-04 11:35] VITALS: BP 169/98
[2024-03-04] MEDS: NORMOSOL-R/PLASMALYTE-A 1000 IV (11:59)
[2024-03-04 12:01] VITALS: BMI 17.1
[2024-03-04 13:09] VITALS: BP 138/86
[2024-03-04 13:15] VITALS: BP 122/70
[2024-03-04 13:30] VITALS: BP 127/77
[2024-03-04 13:38] VITALS: BP 126/81
== END 2024-03-04 14:00 | disposition home or self-care (01) ==
LOC: SDS 06:39
PROVIDERS: ATTENDING PHYSICIAN Podiatrist Foot Surgery; FAMILY PHYSICIAN Family Medicine
DX: M86.9 Osteomyelitis, unspecified (principal)
CPT/HCPCS: 28820; 88305; 88311; 87070; 87075; 87077; 87147; 87176; 87186; 87205

== ENCOUNTER 2024-04-01 06:18 | Day surgery (SDC) | payer MEDICARE, SELFPAY ==
[2024-04-01] VITALS (8 sets, daily range): BP systolic 11–120; BP diastolic 57–77; BMI 16.8
[2024-04-01] MEDS: NORMOSOL-R/PLASMALYTE-A 1000 IV (13:30)
== END 2024-04-01 15:55 | disposition home or self-care (01) ==
LOC: SDS 06:18
PROVIDERS: ATTENDING PHYSICIAN Podiatrist Foot Surgery
DX: M86.172 Other acute osteomyelitis, left ankle and foot (principal)
CPT/HCPCS: 28113; 88304; 88311; 73630

== ENCOUNTER 2024-04-16 16:15 | Inpatient (IN) | payer MEDICARE, SELFPAY ==
[2024-04-16] VITALS (11 sets, daily range): BP systolic 90–125; BP diastolic 43–63; BMI 17.0
--- NOTE | 2024-04-16 12:13 | ED.GENMED ---
History of Present Illness
General
Chief Complaint: Weakness
Time Seen by Provider: 04/16/24 11:50
History of Present Illness
History of Present Illness:
69-year-old male with history of chronic A-fib, CHF, CAD, hypertension, hyperlipidemia, and systemic scleroderma presents to the emergency department for evaluation of weakness and fatigue secondary to poor p.o. intake. Notes frequent bouts of
vomiting and inability to tolerate p.o. that is presumed to be due to his underlying scleroderma. Has been on essentially unable to eat and drink for the past 7 days. Was advised as an outpatient to perform a gastric emptying study however due to
complications of osteomyelitis with the lower extremities as well as lumbar disc disease making supine positioning to painful he has been unable to have the study performed
Past History
Past History
ED Past Medical History: Arrthythmia, CAD, CHF, COPD, HTN, Hypercholesterolemia, Renal failure, Psychiatric (scleroderma, RA, CREST, Reynauds.) and Other (Scleroderma, crest syndrome)
ED Past Surgical History: Bowel resection, Cardiac (Watchman) and Orthopedic
Social History
Tobacco: Former smoker (Quit 6 years ago)
Alcohol: None
Drug: None
Personal:
Living: with family
Employment: Disabled
Family History
Family History: Other
Review of Systems
Review of Systems
Allergies reviewed?: Yes
All Other Systems: ROS reviewed and negative except as documented in HPI and ROS
Phy Exam
Physical Exam
Physical Exam:
GEN: Chronically ill-appearing, cachectic and malnourished appearing
HEENT: Oral mucosa moist, no scleral icterus
Cardiac: Irregular rhythm, controlled rate
Lung: No respiratory distress, no tachypnea, lungs CTAB
MSK: Extremity/hand/feet deformities compatible with scleroderma
Skin: Good color, no pallor or jaundice, no rashes
Neuro: AO x3, moves all extremities freely
Psych: Calm, cooperative
Course
Orders/Labs/Results
Orders:
Orders
04/16/24 12:12
Electrocardiogram (*1) Urgent
Reason for Study: QTc Monitoring
Urinalysis Reflex To Culture Urgent
Date Specimen was Collected: 04/16/24
Time Specimen was Collected: 12:16
0.9% Sodium Chloride 1000 ml [Nss] 1,000 ml IV BOLUS
04/16/24 12:13
EKG- Treatment ONCE
04/16/24 12:20
Basic Metabolic Panel Urgent
Complete Blood Count/With Diff Urgent
04/16/24 13:07
CMP [Comprehensive Metabolic Panel] Urgent
04/16/24 13:38
Venous Blood Gas Urgent
%Oxygen/Room Air: 96
04/16/24 13:45
Calcium Gluconate 2 gram/100mL [Calcium Gluconate] 2 gram in 100 ml IV ONCE
04/16/24 15:00
Admit/Transfer Patient As Directed
Co-Sign Provider:
Level of Care: Inpatient admission
Assign to:: Telemetry
Physician / Group: silverio
Diagnosis: gastroparesis
Reason for Telemetry: Arrhythmia
Date to Stop Telemetry: 04/19/24
Time to Stop Telemetry: 11:00
Reason for Hospitalization: gastroparesis
Expected length of stay greater than two midnights?: Yes
ELOS- Estimated Length of Stay in days: 2
I certify the patient meets the requirements for IP care: Yes
PRN Pain Medication Management As Directed
May give lesser potent ordered pain med per pt: Yes
preference::
Protocol:: Medication orders for pain may be administered in a
manner that supports deferring to patient preference
when the pt is:
- Requesting an ordered lesser potent pain medication.
Least to most potent pain medications are defined
as: acetaminophen < NSAID < tramadol < opioids
(morphine, oxycodone, hydromorphone).
- Requesting a lesser dose of the same medication IF
ORDERED.
- Requesting a less intrusive route of administration
if both routes are prescribed by the provider (PO <
IV).
04/16/24 15:01
Code Status As Directed
Resuscitation Status: Full Code
04/16/24 15:15
0.9% Sodium Chloride 1000 ml [Nss] 1,000 ml IV 100 mls/hr
04/19/24 11:00
DC Protocol for Telemetry ONCE
Abnormal Lab Results
04/16/24 04/16/24 04/16/24
12:20 13:07 13:38
WBC 18.9 H 10^3/uL
(4.8-10.8)
RBC 3.15 L 10^6/uL
(4.70-6.10)
Hgb 9.6 L g/dL
(13.0-18.0)
Hct 28.6 L %
(39.0-52.0)
Abs Immat Gran (auto) 0.1 H 10^3/uL
(0-0.05)
Absolute Neuts (auto) 17.2 H 10^3/uL
(1.4-6.5)
Absolute Lymphs (auto) 0.2 L 10^3/uL
(1.2-3.4)
Absolute Monos (auto) 1.3 H 10^3/uL
(0.1-0.6)
Immature Gran % 0.6 H %
(0-0.5)
Neutrophils % 90.9 H %
(42.2-75.2)
Lymphocytes % 1.2 L %
(20.5-51.1)
VBG pH 7.29 L
(7.32-7.43)
VBG pO2 67 H mmHg
(30-50)
VBG HCO3 19.2 L mmol/L
(22-27)
Sodium 128 L mmol/L 127 L mmol/L
(135-145) (135-145)
Chloride 95 L mmol/L 97 L mmol/L
(98-107) (98-107)
Carbon Dioxide 18 L mmol/L 17 L mmol/L
(22-30) (22-30)
BUN 101 H* mg/dl 97 H mg/dl
(9-20) (9-20)
Creatinine 4.4 H* mg/dL 4.5 H* mg/dL
(0.7-1.3) (0.7-1.3)
Calcium 6.7 L* mg/dl 6.1 L* mg/dl
(8.4-10.2) (8.4-10.2)
AST 16 L U/L
(17-59)
Total Protein 4.4 L g/dl
(6.3-8.2)
Albumin 2.6 L g/dl
(3.5-5.0)
04/16/24 12:20
04/16/24 13:07
Vital Signs
Initial and Last Documented VS:
Initial Vital Signs
Temp Pulse Resp BP Pulse Ox
98 F 73 16 96/47 93
04/16/24 10:55 04/16/24 10:55 04/16/24 10:55 04/16/24 10:55 04/16/24 10:55
Last Documented Vital Signs
Temp Pulse Resp BP Pulse Ox
98 F 68 13 94/55 97
04/16/24 10:55 04/16/24 14:30 04/16/24 14:30 04/16/24 14:00 04/16/24 14:15
MDM/Problems Addressed
MDM/Problems Addressed:
Patient presenting in acute renal failure secondary to prerenal azotemia/dehydration. Mild anion gap however potassium is normal. Will admit to the hospitalist service for further management
*Critical Care Note
Total Time (30-74mins, 75-104mins- exclusive of procedures): Not Applicable
ED Attending Note
-
Portions of this chart may have been created with voice recognition software.� Occasional wrong word or��sound alike� substitutions may have occurred due to the inherent limitations of voice recognition software.
Discharge Plan
Departure
Patient Disposition: Admit
Date of Disposition: 04/16/24
Time of Disposition: 13:47
Admit to: Telemetry
Presentation/result/management discussed w/ accepting MD/DO: Hospitalist
Discharge Problem:
Acute renal failure (ARF), Hypocalcemia
Prescriptions:
No Action
methadone 10 MG tablet
10 mg PO QID
tamsulosin 0.4 MG capsule
0.4 mg PO HS
pentoxifylline 400 MG tablet extended release
400 mg PO HS
prednisone 10 mg Tablet
10 mg PO DAILY
sertraline 50 MG tablet
50 mg PO DAILY
hydrocodone-acetaminophen 7.5-325 mg tablet
1 tab PO Q6H
Rx Instructions:
spouse says he is taking it BID
metoprolol succinate 50 mg tablet extended release 24 hr
50 mg PO DAILY
diltiazem HCl [DILT-XR] 240 mg Capsule,Ext.Rel 24h Degradable
240 mg PO HS
aspirin 81 mg Tablet,Delayed Release (Dr/Ec)
81 mg PO DAILY
ondansetron 8 mg Tablet,Disintegrating
8 mg PO TIDPRN PRN (Reason: nausea/vomiting)
lisinopril 10 mg Tablet
10 mg PO DAILY
hydralazine 100 mg tablet
100 mg PO BID
polyethylene glycol 3350 17 GRAMS powder in packet
17 grams PO DAILYPRN PRN (Reason: constipation)
famotidine 40 mg tablet
40 mg PO HS
rosuvastatin 20 mg tablet
20 mg PO HS
metoprolol succinate 25 mg Tablet Extended Release 24 Hr
25 mg PO HS
ipratropium-albuterol 0.5 mg-3 mg(2.5 mg base)/3 mL solution for nebulization
3 ml inhalation R BID
ibuprofen 200 mg Tablet
400 mg PO DAILYPRN PRN (Reason: mild pain)
furosemide 20 mg Tablet
20 mg PO DAILYPRN PRN (Reason: sob/weight gain)
Prolia 60 mg/mL Syringe
60 mg SC [id number]
clopidogrel 75 mg tablet
75 mg PO HS
Referrals:
Arun Ibrahim DO [Family Provider] -
Interventions
Interventions:
*Risk Screen - Suicide Last Done: 04/16/24 10:55
*General Assessment Last Done: 04/16/24 10:55
*Neglect/Abuse Screening Last Done: 04/16/24 10:55
*ED- Fall Risk Assessment Last Done: 04/16/24 13:01
*ED COVID-19 Vaccine History Last Done: 04/16/24 13:01
ED- Cardiac Assessment Last Done: 04/16/24 13:01
ED- Neurological Assessment Last Done: 04/16/24 13:01
ED- Pulmonary Assessment Last Done: 04/16/24 13:01
Discharge Date and Time
Print Language: HUNGARIAN
[2024-04-16] MEDS: NSS 1000 IV ×2 (12:18→15:20)
[2024-04-16 12:27] LABS: % Basophils 0.1 % (0-2); % Eosinophils 0.1 % (0-6); % Immature Granulocytes 0.6 % (0-0.5); % Lymphocytes 1.2 % (20.5-51.1); % Monocytes 7.1 % (1.7-9.3); % Neutrophils 90.9 % (42.2-75.2); Absolute Immature Granulocytes 0.1 10^3/uL (0-0.05); Absolute Lymphocytes 0.2 10^3/uL (1.2-3.4); Absolute Monocytes 1.3 10^3/uL (0.1-0.6); Absolute Neutrophils 17.2 10^3/uL (1.4-6.5); Hematocrit 28.6 % (39.0-52.0); Hemoglobin 9.6 g/dL (13.0-18.0); Mean Corp Hgb Conc. 33.6 g/dL (33.0-37.0); Mean Corpuscular Hgb 30.5 pg (27.0-31.0); Mean Corpuscular Volume 90.8 fL (80.0-94.0); Mean Platelet Volume 9.1 fL (7.4-10.4); Nucleated Red Blood Cells % 0 % (-); Platelet Count 219 10^3/uL (130-400); Red Blood Cell Count 3.15 10^6/uL (4.70-6.10); White Blood Cell Count 18.9 10^3/uL (4.8-10.8)
[2024-04-16 12:46] LABS: Carbon Dioxide 18 mmol/L (22-30); Chloride 95 mmol/L (98-107); Glucose 70 mg/dl (70-99); Sodium 128 mmol/L (135-145); eGFR 13.77
[2024-04-16 12:47] LABS: Blood Urea Nitrogen 101 mg/dl (9-20); Calcium 6.7 mg/dl (8.4-10.2)
[2024-04-16 13:41] LABS: ALT (SGPT) 14 U/L (0-50); AST (SGOT) 16 U/L (17-59); Albumin 2.6 g/dl (3.5-5.0); Alkaline Phosphatase 58 U/L (38-126); Blood Urea Nitrogen 97 mg/dl (9-20); Calcium 6.1 mg/dl (8.4-10.2); Carbon Dioxide 17 mmol/L (22-30); Chloride 97 mmol/L (98-107); Glucose 87 mg/dl (70-99); Potassium 3.9 mmol/L (3.5-5.1); Sodium 127 mmol/L (135-145); Total Bilirubin 0.4 mg/dl (0.2-1.3); Total Protein 4.4 g/dl (6.3-8.2)
[2024-04-16] MEDS: CALCIUM GLUCONATE 100 IV ×2 (13:41→20:20)
[2024-04-16 13:46] LABS: Venous Blood Gas B.E. -6.9 mmol/L (-4 to +4); Venous Blood Gas HCO3 19.2 mmol/L (22-27); Venous Blood Gas O2 Sat % 93.4 %; Venous Blood Gas pCO2 40 mmHg (35-48); Venous Blood Gas pH 7.29 (7.32-7.43); Venous Blood Gas pO2 67 mmHg (30-50)
--- NOTE | 2024-04-16 15:04 | HPS.HSE ---
Addendum entered and electronically signed by Laurence Samuel MD 04/16/24 16:35:
BP 90. Hold antihypertensives. Started stress dose steroids hydrocortisone 50q6.
Original Note:
Family Physician
-
Family Physician: Arun Ibrahim
Chief Complaint
-
inability to tolerate PO
History of Present Illness
69-year-old male past medical history of scleroderma, crest, Raynaud's, rheumatoid arthritis, atrial fibrillation, hypertension, chronic HFpEF, CKD 3B, solitary functioning kidney, chronic dysphagia, chronic opiate dependence, COPD, PAD status post
left subclavian stent, fusiform aneurysm of descending aorta presenting for inability to tolerate p.o. for the past week. He has chronic difficulty swallowing, and motility difficulties with eating due to scleroderma. When he normally eats food
sits in his stomach for a long time and is not excreted in a time efficient manner.
Over the past week he has not been able to eat due to nausea and feeling sick. It is described more as an aversion to food rather than inability to consume food. No vomiting. No abdominal pain although he sometimes has acid reflux. He has had
minimal bowel movements in the past week. He has been urinating less and not drinking of fluids.
He has chronic shortness of breath. No chest pain.
He had left toe resected a month ago due to osteomyelitis from inadequate blood flow from scleroderma. He had vascular stent placed in his left lower extremity a month ago.
He denies smoking or alcohol use.
He spoke with his supervisor knitting Dr. Strange who recommended gastric emptying study however due to compression fracture in his back from which she was recovering from he has not been able to get this done.
Medical History
Past Medical History
Past Medical History: Reports Other (scleroderma, crest, Raynaud's, rheumatoid arthritis, atrial fibrillation, hypertension, chronic HFpEF, CKD 3B, solitary functioning kidney, chronic dysphagia, chronic opiate dependence, COPD, PAD status post left
subclavian stent, fusiform aneurysm of descending aorta)
Past Surgical History: Reports Other ( Bowel resection, Cardiac (Watchman) and Orthopedic)
Social History
Tobacco: Non-smoker
Alcohol: None
Drug: None
Family History
Family History: Not pertinent
Allergies / Home Medications
Allergies reflects when Allergies were last updated in [facility].
Home Medications with original date entered in [facility]
Allergy/Medication List:
Allergies
Allergy/AdvReac Type Severity Reaction Status Date / Time
morphine Allergy severe Verified 04/16/24 10:55
itching/rash
Home Medications
methadone 10 mg tablet 10 mg PO QID Pain 04/05/19
tamsulosin 0.4 mg capsule 0.4 mg PO HS Urinary issue 09/29/19
pentoxifylline 400 mg tablet,extended release 400 mg PO HS CIRCULATION 08/14/20
prednisone 10 mg tablet 10 mg PO DAILY Anti-Inflammatory 07/23/22
sertraline 50 mg tablet 50 mg PO DAILY Depression 10/09/22
hydrocodone 7.5 mg-acetaminophen 325 mg tablet 1 tab PO Q6H 11/18/22
metoprolol succinate 50 mg tablet,extended release 24 hr 50 mg PO DAILY Blood Pressure 11/18/22
aspirin 81 mg tablet,delayed release 81 mg PO DAILY 04/22/23
diltiazem HCl 240 mg capsule,extended release 24 hr, controlled (DILT-XR) 240 mg PO HS 04/22/23
ondansetron 8 mg disintegrating tablet 8 mg PO TIDPRN PRN nausea/vomiting 04/22/23
hydralazine 100 mg tablet 100 mg PO BID 06/29/23
lisinopril 10 mg tablet 10 mg PO DAILY 06/29/23
famotidine 40 mg tablet 40 mg PO HS 02/04/24
polyethylene glycol 3350 17 gram oral powder packet 17 grams PO DAILYPRN PRN constipation 02/04/24
rosuvastatin 20 mg tablet 20 mg PO HS 02/04/24
metoprolol succinate 25 mg tablet,extended release 24 hr 25 mg PO HS 02/26/24
ipratropium 0.5 mg-albuterol 3 mg (2.5 mg base)/3 mL nebulization soln 3 ml inhalation R BID 03/31/24
clopidogrel 75 mg tablet 75 mg PO HS 04/16/24
denosumab 60 mg/mL subcutaneous syringe (Prolia) 60 mg SC [id number] 04/16/24
furosemide 20 mg tablet 20 mg PO DAILYPRN PRN sob/weight gain 04/16/24
ibuprofen 200 mg tablet 400 mg PO DAILYPRN PRN mild pain 04/16/24
Review of Systems
-
History Source: Patient
A 12 point ROS was completed and negative except as noted: Yes
Constitutional: Reports No Symptoms
EENT: Reports No Symptoms
Respiratory: Reports See HPI
Cardiac: Reports See HPI
Abdomen/GI: Reports See HPI
: Reports No Symptoms
Musculoskeletal: Reports No Symptoms
Skin: Reports No Symptoms
Neurological: Reports No Symptoms
Endocrine: Reports No Symptoms
Hematologic/Lymphatic: Reports No Symptoms
Psych: Reports No Symptoms
Physical Exam
Vital Signs
Vital Signs
Temp Pulse Resp BP Pulse Ox
98 F 68 13 94/55 97
04/16/24 10:55 04/16/24 14:30 04/16/24 14:30 04/16/24 14:00 04/16/24 14:15
Physical Exam
General: Well Developed, Well Nourished and No Apparent Distress
HEENT: NormoCephalic, Moist mucous membranes and Atraumatic
Respiratory: Clear
Cardiac: S1/S2 and Regular Rhythm; No Murmur or Rub
GI: Soft, Non Tender, Non Distended and Normal Bowel Sounds; No Organomegaly
Rectal: Deferred by Provider
Musculoskeletal: No Clubbing, No Cyanosis and No Edema
Skin: No Rash
Neuro: Nonfocal/grossly intact
Laboratory Results
-
04/16/24 12:20
04/16/24 13:07
Laboratory Results
Total Bilirubin 0.4 mg/dl (0.2-1.3) 04/16/24 13:07
AST 16 U/L (17-59) L 04/16/24 13:07
ALT 14 U/L (0-50) 04/16/24 13:07
Alkaline Phosphatase 58 U/L (38-126) 04/16/24 13:07
Data Reviewed
-
Lab Data: Labs Reviewed by me
Old Records: Reviewed
Impression/Plan
-
IMPRESSION:
PLAN:
# Likely gastroparesis secondary to scleroderma
-Unable to get outpatient gastric emptying study as outpatient
-Continue Pepcid, add Protonix 40 daily
-GI consulted to see if inpatient gastric emptying study can be arranged
-Clear liquid diet for now
#SOLEDAD on CKD 3B likely prerenal
# Metabolic acidosis
# Solitary functioning kidney due to scleroderma
-Creatinine of 4.5 from 2 previously
-IV fluids
-Hold Lasix
-Hold lisinopril
-Hold ibuprofen
-Nephrology consult
# Hypocalcemia secondary to renal disease
# QTc prolongation secondary to hypocalcemia
-EKG shows atrial fibrillation, LVH,
-Replete calcium
# Hyponatremia secondary to decreased solute intake
-Monitor with IV fluids
Paroxysmal atrial fibrillation
-Continue metoprolol
-Continue diltiazem
-Not on anticoagulation
Chronic HFpEF
Scleroderma
Raynaud's
Rheumatoid arthritis
CREST syndrome
-Continue prednisone
Peripheral arterial disease status post left subclavian stent, recent left lower extremity stent
-Continue aspirin, Plavix, statin
-Continue pentoxifylline
History of left fifth toe osteomyelitis status post amputation in February
Chronic back pain secondary to compression fracture/osteoporosis
-Continue Vicodin
History of fusiform aneurysm of descending aorta
Essential hypertension
-Continue hydralazine
Chronic dysphagia
Chronic pain/opiate dependence
-Continue methadone
COPD
-Continue inhalers
Depression
-Continue sertraline
Chronic anemia
-Stable
Full code
DVT prophylaxis�SCDs
Clear liquid diet
--- NOTE | 2024-04-16 16:45 | W.CON.NEPH ---
Consultation
-
Date/Time Consultation Requested: 04/16/24 1600
Date/Time Consultation Performed: 04/16/24 1630
Requesting Provider: Laurence Nathan
Performing Provider: Ela Bourne
Reason for Consultation: SOLEDAD with CKD
Medical History
-
Chief Complaint: nausea and wekaness
History of Present Illness:
Mr. Salgado is a 69YOM with PMH of scleroderma/CREST chr dysphagia, RA on prednisone, pAfib, HTN on multiple meds diltiazem, lisinopril,metoprolol, hydralazine, solitary function kidney CKD 3 a baseline cr 1.[address] Jain, CHFpEF on prn lasix, PAD
s/p L subclavian stent, bilat common iliac angioplasty with stent, chronic opiod dependence on methadone, HLD on statin, BPH on Flomax, COPD, depression on sertraline, who presents to the hospital for nausea and weakness since 1week. He has chronic
difficulty swallowing, and motility difficulties with eating due to scleroderma. When he normally eats food sits in his stomach for a long time and is not excreted in a time efficient manner. Over week it got worse and he also lost 5lbs of wt. No
abdominal pain but had minimal bowel movements in the past week. Decreased UOP too due to poor intake. But no dysuria. No CP but has chronic shortness of breath. Today his lab show cr 4.5, k 3.9, bicarb 17, bun 97, justin 6.1. Nephrology consulted for
SOLEDAD.
recently he had left toe resected in Feb due to osteomyelitis from inadequate blood flow from scleroderma. He had vascular stent placed in his left lower extremity in Feb as well. His cr was at 2 at that time.
Past Medical History
Scleroderma / CREST / Raynaud's
Rheumatoid Arthritis
Paroxysmal Atrial Fibrillation
Essential Hypertension
Chronic Hyponatremia
Peripheral Arterial Disease s/p Left Subclavian Stent
Chronic Opioid Dependence
COPD, not acute exacerbation
Depression
Chronic opiate dependent daily basis
Past Surgical History: Other (CAD s/p stent, R shoulder surgery, finger, toe amputations, PAD bilat common iliac stents , left SC stent)
Social History
Tobacco: Former Smoker (quit 14 years ago)
Alcohol: None
Drug: None
Personal:
Living: With Family
Family History
no one with CKD
Allergies / Home Medications
Allergy/AdvReac Type Severity Reaction Status Date / Time
morphine Allergy severe Verified 04/16/24 10:55
itching/rash
�Medication �Instructions �Recorded �Confirmed �Type
methadone 10 mg tablet 10 mg PO QID Pain 04/05/19 04/16/24 History
tamsulosin 0.4 mg capsule 0.4 mg PO HS Urinary issue 09/29/19 04/16/24 History
pentoxifylline 400 mg 400 mg PO HS CIRCULATION 08/14/20 04/16/24 History
tablet,extended release
prednisone 10 mg tablet 10 mg PO DAILY Anti-Inflammatory 07/23/22 04/16/24 History
sertraline 50 mg tablet 50 mg PO DAILY Depression 10/09/22 04/16/24 History
hydrocodone 7.5 mg-acetaminophen 1 tab PO Q6H 11/18/22 04/16/24 History
325 mg tablet
metoprolol succinate 50 mg 50 mg PO DAILY Blood Pressure 11/18/22 04/16/24 History
tablet,extended release 24 hr
aspirin 81 mg tablet,delayed 81 mg PO DAILY 04/22/23 04/16/24 History
release
diltiazem HCl 240 mg 240 mg PO HS 04/22/23 04/16/24 History
capsule,extended release 24 hr,
controlled (DILT-XR)
ondansetron 8 mg disintegrating 8 mg PO TIDPRN PRN nausea/vomiting 04/22/23 04/16/24 History
tablet
hydralazine 100 mg tablet 100 mg PO BID 06/29/23 04/16/24 History
lisinopril 10 mg tablet 10 mg PO DAILY 06/29/23 04/16/24 History
famotidine 40 mg tablet 40 mg PO HS 02/04/24 04/16/24 History
polyethylene glycol 3350 17 gram 17 grams PO DAILYPRN PRN 02/04/24 04/16/24 History
oral powder packet constipation
rosuvastatin 20 mg tablet 20 mg PO HS 02/04/24 04/16/24 History
metoprolol succinate 25 mg 25 mg PO HS 02/26/24 04/16/24 History
tablet,extended release 24 hr
ipratropium 0.5 mg-albuterol 3 mg 3 ml inhalation R BID 03/31/24 04/16/24 History
(2.5 mg base)/3 mL nebulization
soln
clopidogrel 75 mg tablet 75 mg PO HS 04/16/24 04/16/24 History
denosumab 60 mg/mL subcutaneous 60 mg SC [id number] 04/16/24 04/16/24 History
syringe (Prolia)
furosemide 20 mg tablet 20 mg PO DAILYPRN PRN sob/weight 04/16/24 04/16/24 History
gain
ibuprofen 200 mg tablet 400 mg PO DAILYPRN PRN mild pain 04/16/24 04/16/24 History
Review of Systems
-
All complete 12 point ROS have been inquired and found negative other than stated in HPI
Physical Exam
Vital Signs
Vital Signs
Temp Pulse Resp BP Pulse Ox
98 F 70 17 91/63 97
04/16/24 10:55 04/16/24 16:00 04/16/24 16:00 04/16/24 16:00 04/16/24 14:15
Lab Results
WBC 18.9 10^3/uL (4.8-10.8) H 04/16/24 12:20
RBC 3.15 10^6/uL (4.70-6.10) L 04/16/24 12:20
Hgb 9.6 g/dL (13.0-18.0) L 04/16/24 12:20
Hct 28.6 % (39.0-52.0) L 04/16/24 12:20
Plt Count 219 10^3/uL (130-400) 04/16/24 12:20
Sodium 127 mmol/L (135-145) L 04/16/24 13:07
Potassium 3.9 mmol/L (3.5-5.1) 04/16/24 13:07
Chloride 97 mmol/L (98-107) L 04/16/24 13:07
Carbon Dioxide 17 mmol/L (22-30) L 04/16/24 13:07
BUN 97 mg/dl (9-20) H 04/16/24 13:07
Creatinine 4.5 mg/dL (0.7-1.3) H* 04/16/24 13:07
eGFR 13.40 04/16/24 13:07
Glucose 87 mg/dl (70-99) 04/16/24 13:07
Calcium 6.1 mg/dl (8.4-10.2) L* 04/16/24 13:07
Albumin 2.6 g/dl (3.5-5.0) L 04/16/24 13:07
Physical Exam
General: Awake, Alert, Oriented, AOx3, No Distress and Nontoxic
HEENT: EOMI, Facial Symmetry and Neck Supple
Respiratory: Normal Excursion, Nonlabored Respirations and Other (decreased bs)
Cardiac: S1/S2, Regular Rate/Rhythm and Murmur
Breast: Deferred by me
Abdomen: Soft, Nontender and Nondistended
Musculoskeletal: No Edema
Skin: No Rash and Warm
Neuro: Nonfocal/Grossly Intact
Psych: Insight/judgement good and Appropriate
Assessment/Plan
-
Assessment:
Likely gastroparesis secondary to scleroderma
SOLEDAD on CKD 3B-baseline cr 1.5 Dr Jain
Metabolic acidosis
Solitary functioning kidney due to scleroderma given L kidney atrophy.
Hypocalcemia
QTc prolongation secondary to hypocalcemia
Hyponatremia
Paroxysmal atrial fibrillation
Chronic HFpEF
Scleroderma
Raynaud's
Rheumatoid arthritis
CREST syndrome
Peripheral arterial disease status post left subclavian stent, recent left lower extremity stent
History of left fifth toe osteomyelitis status post amputation in February
Chronic back pain secondary to compression fracture/osteoporosis
History of fusiform aneurysm of descending aorta
Essential hypertension
Chronic dysphagia
Chronic pain/opiate dependence
COPD
Depression
Chronic anemia
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
Plan:
SOLEDAD-suspect prerenal check UA , Fena
follow bladder scan, low threshold for corea
BPs are soft, ok for stress steroids, prn pressors
cont IVF but cautious with CHF history
check renal US
hypocalcemia-check vit D, also check phos, PTH , cont IV justin riders, check I justin
Hyponatremia-possible hypovolemic-check U osm, U na
monitor with FR 48 ounces/day
no emergent indication of HD however at high risk, pt aware would not oppose if needed
d/w pt and primary
cc time spent 40min
--- NOTE | 2024-04-16 18:03 | PTCARENOTE ---
Pt was received from ED at 1730. Pt took a few steps to transfer to the unit bed. Pt complaining of mild nausea on arrival. IVF infusing. Pt resting in bed, ordering clear liquids for dinner.
[2024-04-16] MEDS: DUONEB 3 ML INH (19:09)
[2024-04-16] MEDS: TRENTAL 400 MG PO (21:50)
[2024-04-16] MEDS: FLOMAX 0.4 MG PO (21:50)
[2024-04-16] MEDS: CRESTOR 20 MG PO (21:50)
[2024-04-16] MEDS: PLAVIX 75 MG PO (21:50)
[2024-04-16] MEDS: DOLOPHINE 10 MG PO (22:03)
[2024-04-16] MEDS: PEPCID 10 MG PO (22:03)
[2024-04-16] MEDS: NORCO 7.5/325 1 TABLET PO (22:03)
[2024-04-17] VITALS (7 sets, daily range): BP systolic 94–130; BP diastolic 50–86; BMI 17.6
[2024-04-17] MEDS: SOLU-CORTEF 50 MG IV ×4 (00:12→23:25)
[2024-04-17] MEDS: NSS 1000 IV (01:13)
[2024-04-17 06:21] LABS: Ionized Calcium 0.91 mMOL/L (1.15-1.33)
[2024-04-17 06:24] LABS: % Basophils 0.1 % (0-2); % Immature Granulocytes 0.6 % (0-0.5); % Lymphocytes 0.7 % (20.5-51.1); % Monocytes 3.8 % (1.7-9.3); % Neutrophils 94.8 % (42.2-75.2); Absolute Immature Granulocytes 0.1 10^3/uL (0-0.05); Absolute Lymphocytes 0.1 10^3/uL (1.2-3.4); Absolute Monocytes 0.6 10^3/uL (0.1-0.6); Absolute Neutrophils 15.5 10^3/uL (1.4-6.5); Hematocrit 28.5 % (39.0-52.0); Hemoglobin 9.6 g/dL (13.0-18.0); Mean Corp Hgb Conc. 33.7 g/dL (33.0-37.0); Mean Corpuscular Hgb 30.7 pg (27.0-31.0); Mean Corpuscular Volume 91.1 fL (80.0-94.0); Mean Platelet Volume 8.8 fL (7.4-10.4); Nucleated Red Blood Cells % 0 % (-); Platelet Count 209 10^3/uL (130-400); Red Blood Cell Count 3.13 10^6/uL (4.70-6.10); Red Cell Dist. Width 13.9 % (11.5-14.5); White Blood Cell Count 16.4 10^3/uL (4.8-10.8)
[2024-04-17 06:56] LABS: ALT (SGPT) 14 U/L (0-50); AST (SGOT) 13 U/L (17-59); Albumin 2.7 g/dl (3.5-5.0); Alkaline Phosphatase 65 U/L (38-126); Blood Urea Nitrogen 91 mg/dl (9-20); Calcium 6.9 mg/dl (8.4-10.2); Carbon Dioxide 12 mmol/L (22-30); Chloride 97 mmol/L (98-107); Estimated Creatinine Clearance 10 ml/min; Glucose 82 mg/dl (70-99); Phosphorus 6.3 mg/dl (2.5-4.5); Potassium 4.5 mmol/L (3.5-5.1); Sodium 128 mmol/L (135-145); Total Bilirubin 0.7 mg/dl (0.2-1.3); Total Protein 4.8 g/dl (6.3-8.2); eGFR 12.72
[2024-04-17 07:51] LABS: Vitamin D, 25-OH*** < 12.8 ng/mL (30-80)
[2024-04-17] MEDS: CALCIUM GLUCONATE 1000 MG IV (07:53)
[2024-04-17] MEDS: ZOLOFT 50 MG PO (07:55)
[2024-04-17] MEDS: ASPIR LOW (ENTERIC COATED) 81 MG PO (07:55)
[2024-04-17] MEDS: SODIUM BICARBONATE 1300 MG PO ×3 (07:55→20:48)
[2024-04-17] MEDS: DUONEB 3 ML INH ×2 (08:08→19:44)
[2024-04-17] MEDS: ROCALTROL 0.25 MCG PO (08:10)
[2024-04-17] MEDS: DOLOPHINE 10 MG PO ×4 (08:11→20:50)
[2024-04-17] MEDS: NORCO 7.5/325 1 TABLET PO ×2 (08:11→20:48)
--- NOTE | 2024-04-17 09:53 | CON.GI ---
Consultation
-
Date/Time Consultation Requested: 04/16/24 at 11am
Date/Time Consultation Performed: 04/17/24 at 8am
Requesting Provider: Tianna
Performing Provider: kojo
Reason for Consultation: n/v
Medical History
Chief Complaint / HPI
Chief Complaint: nausea/vomiting
History of Present Illness:
This patient is a 69-year-old man with a history of scleroderma, Raynaud's, rheumatoid arthritis, atrial fibrillation, chronic kidney disease with a solitary kidney and hypertension. He has been feeling ill over the last week and has been having
nausea without vomiting. He has not had any abdominal pain. He is most concerned because his urine output has decreased. He does have a history of iron deficiency and was taking oral iron in the past. An endoscopy done in 2020 does show black
mucosa as well as iron residue and small bowel biopsies. Both were felt to be due to oral iron. He has not taken oral iron in the last 6 months. He has been seen in our office for his GERD and questionable gastroparesis. He was scheduled for a
gastric emptying study but did not complete it. According to our office note he had a hard time lying flat. He does state that his upper GI symptoms are stable right now. He does think that his kidney issues may be causing his nausea.
Past Medical History
Past Medical History: Other (Scleroderma, Raynaud's, rheumatoid arthritis, atrial fibrillation, chronic kidney disease, COPD, peripheral artery disease)
Past Surgical History: Other (Bowel resection, Watchman procedure)
Social History
Tobacco: Non-Smoker
Family History
Family History: Reviewed & Not Pertinent
Allergies / Home Medications
Allergy/AdvReac Type Severity Reaction Status Date / Time
morphine Allergy severe Verified 04/16/24 10:55
itching/rash
�Medication �Instructions �Recorded
methadone 10 mg tablet 10 mg PO QID Pain 04/05/19
tamsulosin 0.4 mg capsule 0.4 mg PO HS Urinary issue 09/29/19
pentoxifylline 400 mg 400 mg PO HS CIRCULATION 08/14/20
tablet,extended release
prednisone 10 mg tablet 10 mg PO DAILY Anti-Inflammatory 07/23/22
sertraline 50 mg tablet 50 mg PO DAILY Depression 10/09/22
hydrocodone 7.5 mg-acetaminophen 1 tab PO Q6H 11/18/22
325 mg tablet
metoprolol succinate 50 mg 50 mg PO DAILY Blood Pressure 11/18/22
tablet,extended release 24 hr
aspirin 81 mg tablet,delayed 81 mg PO DAILY 04/22/23
release
diltiazem HCl 240 mg 240 mg PO HS 04/22/23
capsule,extended release 24 hr,
controlled (DILT-XR)
ondansetron 8 mg disintegrating 8 mg PO TIDPRN PRN nausea/vomiting 04/22/23
tablet
hydralazine 100 mg tablet 100 mg PO BID 06/29/23
lisinopril 10 mg tablet 10 mg PO DAILY 06/29/23
famotidine 40 mg tablet 40 mg PO HS 02/04/24
polyethylene glycol 3350 17 gram 17 grams PO DAILYPRN PRN 02/04/24
oral powder packet constipation
rosuvastatin 20 mg tablet 20 mg PO HS 02/04/24
metoprolol succinate 25 mg 25 mg PO HS 02/26/24
tablet,extended release 24 hr
ipratropium 0.5 mg-albuterol 3 mg 3 ml inhalation R BID 03/31/24
(2.5 mg base)/3 mL nebulization
soln
clopidogrel 75 mg tablet 75 mg PO HS 04/16/24
denosumab 60 mg/mL subcutaneous 60 mg SC [id number] 04/16/24
syringe (Prolia)
furosemide 20 mg tablet 20 mg PO DAILYPRN PRN sob/weight 04/16/24
gain
ibuprofen 200 mg tablet 400 mg PO DAILYPRN PRN mild pain 04/16/24
Review of Systems
-
All other systems: A 12 pt ROS was Negative except as stated above in HPI
Vital Signs
Temp Pulse Resp BP Pulse Ox
97.8 F 74 16 94/51 96
04/17/24 07:13 04/17/24 08:10 04/17/24 08:10 04/17/24 07:13 04/17/24 08:10
Physical Exam
Exam
General: No Apparent Distress
Cardiac: S1/S2
GI: Soft, Non Tender and Non Distended
Skin: Warm
Psych: Calm
Results
WBC 16.4 10^3/uL (4.8-10.8) H 04/17/24 06:13
Hgb 9.6 g/dL (13.0-18.0) L 04/17/24 06:13
Hct 28.5 % (39.0-52.0) L 04/17/24 06:13
MCV 91.1 fL (80.0-94.0) 04/17/24 06:13
Plt Count 209 10^3/uL (130-400) 04/17/24 06:13
Absolute Neuts (auto) 15.5 10^3/uL (1.4-6.5) H 04/17/24 06:13
Sodium 128 mmol/L (135-145) L 04/17/24 06:13
Potassium 4.5 mmol/L (3.5-5.1) 04/17/24 06:13
Chloride 97 mmol/L (98-107) L 04/17/24 06:13
Carbon Dioxide 12 mmol/L (22-30) L* 04/17/24 06:13
BUN 91 mg/dl (9-20) H 04/17/24 06:13
Creatinine 4.7 mg/dL (0.7-1.3) H* 04/17/24 06:13
Calcium 6.9 mg/dl (8.4-10.2) L* 04/17/24 06:13
Total Bilirubin 0.7 mg/dl (0.2-1.3) 04/17/24 06:13
AST 13 U/L (17-59) L 04/17/24 06:13
ALT 14 U/L (0-50) 04/17/24 06:13
Alkaline Phosphatase 65 U/L (38-126) 04/17/24 06:13
Assessment / Plan
-
This patient is a 69-year-old man with extensive past medical history most notable for scleroderma, rheumatoid arthritis, chronic kidney disease with 1 functioning kidney who was admitted with suspected acute kidney injury and dehydration. He does
have chronic GI issues due to his scleroderma including GERD and presumed gastroparesis. He is on chronic opioids as well as anticoagulation. He did have an endoscopy in 2020 which showed iron residue in biopsies. For now would do the following:
1. Clear liquid diet and advance as tolerated to low fat diet
2. Would not pursue an inpatient gastric emptying study which would be highly inaccurate as he is on opioids and has other active issues going on right now.
3. Would pursue an upper endoscopy as a first step but would ideally be off anticoagulation in order to take biopsies. The patient does want to defer this at this time regardless. He is most concerned about his kidneys.
4. He should stay off oral iron which she is currently doing.
5. GERD precautions and PPI therapy
If he improves he can follow-up with Dr. Santizo as an outpatient otherwise we will consider inpatient evaluation.
-
-
Thank you for consultation and allowing me to participate in the patient's care. Please call the c application developer GI physician during the after hours with any questions or concerns.
--- NOTE | 2024-04-17 11:21 | W.PN.HOSP.TC ---
Addendum entered and electronically signed by José Manuel Wynn MD 04/17/24 13:57:
UA concerning for UTI, with SOLEDAD - reasonable to treat
Original Note:
Today's Communication/Plan
-
see PN
Assessment / Plan
Assessment / Plan
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
Has no nausea or vomiting, but no appetitie to eat. Can keep liquds down. Also found hyponatremia. Managed for worsening CKD
A/P:
#SOLEDAD on CKD stage 4 with solitary functioning R kidney (L kidney atrophy) with hypotension on admission
#SIADH with hyponatremia
#CREST
#hypocalcemia
Calcitriol
no concern for scleroderma renal crisis as BP not elevated
Nephrology for fluid and electrolyte mgmt
High dose steroids
#Anemia
anemia w/u
check FOBT
#Loss of appetite
#Gastroparesis
#Manutrition
BMI 17.6
Ensure suppl
GI consult: will need eventual EGD, most likely outpatient, but if patient will get worse - will conider inpatient
most likely 2/2 progressive CKD
#Leukocytosis
most liekly 2/2 steroids
monitor WBC and fever trend
#R lung mass
stable since 2014
supposed to be followed with pulm as outpatient as per previous notes
#PAD s/p LE stent
#SUbclavian stenosis s/p stent
#HLD
#Afib, unspesified s/p watchman due to HX of GIB
#Essentia HTN
#BPH
#Anxiety d/o
#Chronic pain syndrome 2/2 osteoporosis
#COPD not in exacerbation
Cont home meds
Watch for retention
Telemetry
DVT ppx SCDs
Full code
I have spent at least 57min reviewing chart, test results, communitaction with family and providing direct patient care
Anticipated Discharge: > 48 hours
Subjective/Interval History
-
Date of Service: April 17, 2024
Objective Data
-
Labs:
Laboratory Results
04/17/24
06:13
WBC 16.4 H
Hgb 9.6 L
Hct 28.5 L
Plt Count 209
Sodium 128 L
Potassium 4.5
Chloride 97 L
Carbon Dioxide 12 L*
BUN 91 H
Creatinine 4.7 H*
Glucose 82
Calcium 6.9 L*
Total Bilirubin 0.7
AST 13 L
ALT 14
Alkaline Phosphatase 65
Vital Signs:
Vital Signs
Temp Pulse Resp BP Pulse Ox
97.8 F 74 16 94/51 96
04/17/24 07:13 04/17/24 08:10 04/17/24 08:10 04/17/24 07:13 04/17/24 08:10
Review of Systems
-
History Source: Patient
All other systems: Reviewed and negative
Physical Exam
-
General: No Apparent Distress and Cachectic
HEENT: Normocephalic
Respiratory: Clear to Auscultation
GI: Soft, Nontender and Nondistended
Musculoskeletal: No Clubbing, No Cyanosis and No Edema
Neuro: Awake, Alert, Oriented and AO x 3
Psych: Calm
[2024-04-17 11:30] LABS: Reticulocyte Count 0.8 % (0.4-2.8)
--- NOTE | 2024-04-17 12:29 | CM ---
Initial assessment completed with pt at bedside.
At baseline, pt lives with his in a 2 level home with 1 cee.
Pts bedroom is on the 2nd floor with a stairglide.
Pt uses a walker for walking and receives aide from his with all transfers and ADLs
Pts aides with all meds, meals, and IADLs.
Pt has a shower chair, a commode upstairs, and an elevated toilet downstairs.
Pt has used [facility] and [facility] and has no hx with SNF.
Pt would like VN at dc vs SNF.
PCP; Arun Ibrahim
Pharm; Yaya Rivero
PLAN; dc to home with [facility]
[2024-04-17 13:25] LABS: Urine Bilirubin Negative (Negative); Urine Character Clear (Clear); Urine Color Yellow; Urine Glucose Negative (Negative); Urine Ketone Negative (Negative); Urine Urobilinogen Negative (Neg - 1+)
[2024-04-17 13:44] LABS: Urine Sodium 28 mmol/L (30-90)
[2024-04-17 13:50] LABS: Urine Squamous Cell 16-20 /LPF (Few)
[2024-04-17 13:52] LABS: Urine Red Blood Cell 0-2 /HPF (0-2)
[2024-04-17 13:57] LABS: Osmolality Urine 381 mOsm/kg (300-900)
--- NOTE | 2024-04-17 13:57 | W.PN.NEPH.PH ---
Today's Communication / Plan
-
see plan
Assessment/Plan
-
Assessment:
Likely gastroparesis secondary to scleroderma
SOLEDAD on CKD 3B-baseline cr 1.5 Dr Jain
Metabolic acidosis
Solitary functioning kidney due to scleroderma given L kidney atrophy.
Hypocalcemia
QTc prolongation secondary to hypocalcemia
Hyponatremia
Paroxysmal atrial fibrillation
Chronic HFpEF
Scleroderma
Raynaud's
Rheumatoid arthritis
CREST syndrome
Peripheral arterial disease status post left subclavian stent, recent left lower extremity stent
History of left fifth toe osteomyelitis status post amputation in February
Chronic back pain secondary to compression fracture/osteoporosis
History of fusiform aneurysm of descending aorta
Essential hypertension
Chronic dysphagia
Chronic pain/opiate dependence
COPD
Depression
Chronic anemia
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
Plan:
SOLEDAD-suspect prerenal UTI sample, check U cx , U na low
follow bladder scan 319cc but able to urinate 200cc
cr still increasing trend at 4.7, oliguric
renal US no change from baseline, left K atrophy
worsening met acidosis-start bicarb IVF , looks dry still with known h./o CHF
po bicarb added per primary
hyponatremia possible hypovolemic , U osmo high 381, maintain FR
BPs are soft, stress steroids, holding anti HTN meds, lasix
hypocalcemia-vit D def, start D2 weekly, prn IV justin riders
no emergent indication of HD however at high risk, pt aware would not oppose if needed
d/w pt and
d/w nursing , labs later today
high risk encounter
-
-
Date of Service: April 17, 2024
CC / HPI / ROS
-
Chief Complaint:
SOLEDAD, CKD
History of Present Illness:
cr up at 4.7, bicarb worse at 12
sodium no cahnge 128
BP soft, urinated only 200cc
justin 6.9
Review of Systems:
able to tolerate po liquids
wants to eat solid
no change in chr sob
no pain
no fever
Labs
-
Labs:
WBC 16.4 10^3/uL (4.8-10.8) H 04/17/24 06:13
RBC 3.13 10^6/uL (4.70-6.10) L 04/17/24 06:13
Hgb 9.6 g/dL (13.0-18.0) L 04/17/24 06:13
Hct 28.5 % (39.0-52.0) L 04/17/24 06:13
Plt Count 209 10^3/uL (130-400) 04/17/24 06:13
Sodium 128 mmol/L (135-145) L 04/17/24 06:13
Potassium 4.5 mmol/L (3.5-5.1) 04/17/24 06:13
Chloride 97 mmol/L (98-107) L 04/17/24 06:13
Carbon Dioxide 12 mmol/L (22-30) L* 04/17/24 06:13
BUN 91 mg/dl (9-20) H 04/17/24 06:13
Creatinine 4.7 mg/dL (0.7-1.3) H* 04/17/24 06:13
eGFR 12.72 04/17/24 06:13
Glucose 82 mg/dl (70-99) 04/17/24 06:13
Calcium 6.9 mg/dl (8.4-10.2) L* 04/17/24 06:13
Phosphorus 6.3 mg/dl (2.5-4.5) H 04/17/24 06:13
Albumin 2.7 g/dl (3.5-5.0) L 04/17/24 06:13
Physical Exam
-
Vital Signs:
Vital Signs
Temp Pulse Resp BP Pulse Ox
97.7 F 83 18 110/58 99
04/17/24 11:53 04/17/24 11:53 04/17/24 11:53 04/17/24 11:53 04/17/24 11:53
Cardiovascular:: Regular rate and rhythm
Respiratory:: Bilateral: CTA (decreased)
Lung Excursion:: Normal
Abdomen:: Nontender and Soft
Extremity Edema:: None: Bilateral:
Gupta Catheter: No
[2024-04-17 14:10] LABS: Urine Granular Cast 0-2 /LPF (0)
[2024-04-17] MEDS: ROCEPHIN 1000 MG IV (14:14)
[2024-04-17] MEDS: STERILE WATER FOR INJECTION 10 ML IV (14:14)
[2024-04-17 14:42] LABS: Urine Albumin 2+ (Neg - Trace); Urine Leukocyte 2+ (Negative); Urine Nitrite Negative (Negative); Urine Occult Blood Negative (Negative)
[2024-04-17] MEDS: SODIUM BICARBONATE 1150 MEQ IV (15:00)
[2024-04-17] MEDS: DRISDOL (VITAMIN D2) 50000 UNITS PO (15:00)
[2024-04-17 15:28] LABS: Urine White Cell 40-50 /HPF (0-5)
[2024-04-17] MEDS: FLOMAX 0.4 MG PO (20:48)
[2024-04-17] MEDS: CRESTOR 20 MG PO (20:49)
[2024-04-17] MEDS: TRENTAL 400 MG PO (20:49)
[2024-04-17] MEDS: PEPCID 10 MG PO (20:49)
[2024-04-17] MEDS: PLAVIX 75 MG PO (20:52)
[2024-04-17 21:59] LABS: Blood Urea Nitrogen 90 mg/dl (9-20); Calcium 6.9 mg/dl (8.4-10.2); Carbon Dioxide 19 mmol/L (22-30); Chloride 94 mmol/L (98-107); Estimated Creatinine Clearance 12 ml/min; Glucose 205 mg/dl (70-99); Sodium 126 mmol/L (135-145); eGFR 15.44
[2024-04-17] MEDS: CALCIUM GLUCONATE 100 IV (23:24)
[2024-04-18] VITALS (9 sets, daily range): BP systolic 102–146; BP diastolic 56–79; BMI 18.2
[2024-04-18] MEDS: SODIUM BICARBONATE 1075 MEQ IV (00:43)
[2024-04-18] MEDS: ZOFRAN 4 MG PO (04:16)
[2024-04-18 06:37] LABS: % Basophils 0.1 % (0-2); % Immature Granulocytes 1.1 % (0-0.5); % Lymphocytes 1.2 % (20.5-51.1); % Monocytes 6.4 % (1.7-9.3); % Neutrophils 91.2 % (42.2-75.2); Absolute Immature Granulocytes 0.1 10^3/uL (0-0.05); Absolute Lymphocytes 0.1 10^3/uL (1.2-3.4); Absolute Monocytes 0.7 10^3/uL (0.1-0.6); Absolute Neutrophils 10.3 10^3/uL (1.4-6.5); Hematocrit 25.7 % (39.0-52.0); Hemoglobin 8.6 g/dL (13.0-18.0); Mean Corp Hgb Conc. 33.5 g/dL (33.0-37.0); Mean Corpuscular Volume 89.5 fL (80.0-94.0); Mean Platelet Volume 8.9 fL (7.4-10.4); Nucleated Red Blood Cells % 0 % (-); Platelet Count 208 10^3/uL (130-400); Red Blood Cell Count 2.87 10^6/uL (4.70-6.10); Red Cell Dist. Width 13.6 % (11.5-14.5); White Blood Cell Count 11.3 10^3/uL (4.8-10.8)
[2024-04-18 07:05] LABS: ALT (SGPT) 18 U/L (0-50); AST (SGOT) 19 U/L (17-59); Albumin 2.6 g/dl (3.5-5.0); Alkaline Phosphatase 65 U/L (38-126); Blood Urea Nitrogen 84 mg/dl (9-20); Calcium 7.3 mg/dl (8.4-10.2); Carbon Dioxide 20 mmol/L (22-30); Chloride 97 mmol/L (98-107); Estimated Creatinine Clearance 14 ml/min; Glucose 106 mg/dl (70-99); Iron 20 ug/dl (49-181); LDH 136 U/L (120-246); Potassium 3.9 mmol/L (3.5-5.1); Sodium 128 mmol/L (135-145); Total Bilirubin 0.3 mg/dl (0.2-1.3); Total Protein 4.5 g/dl (6.3-8.2); eGFR 17.52
[2024-04-18 07:31] LABS: Percent Saturation 12 % (20-50); Total Iron Binding Capacity 156 ug/dl (261-462)
[2024-04-18] MEDS: DUONEB 3 ML INH ×2 (07:46→20:09)
[2024-04-18 08:06] LABS: Folate 8.1 ng/ml (2.76-20); Vitamin B12 758 pg/ml (239-931)
[2024-04-18] MEDS: NORCO 7.5/325 1 TABLET PO ×2 (08:18→19:42)
[2024-04-18] MEDS: SODIUM BICARBONATE 1300 MG PO ×3 (08:18→21:32)
[2024-04-18] MEDS: DOLOPHINE 10 MG PO ×4 (08:18→21:33)
[2024-04-18] MEDS: ASPIR LOW (ENTERIC COATED) 81 MG PO (08:18)
[2024-04-18] MEDS: ZOLOFT 50 MG PO (08:18)
[2024-04-18] MEDS: ROCALTROL 0.25 MCG PO (08:18)
[2024-04-18] MEDS: SOLU-CORTEF 50 MG IV ×2 (08:18→16:11)
[2024-04-18] MEDS: CARDIZEM CD 120 MG PO (10:45)
[2024-04-18] MEDS: NITROSTAT (SUBLINGUAL) 0.4 MG SL (10:49)
--- NOTE | 2024-04-18 10:55 | CON.CAR ---
Addendum entered and electronically signed by Leonel Robertson MD 04/18/24 12:01:
The COOK MAYONNAISE's note was reviewed and I agree with the note. we wer both withthe bedside during th rapid response and then both reassessed in ICU after arrival
Comment: 69-year-old male with complex medical history including coronary artery disease, LAD stent 2019, HFpEF, CKD, systemic sclerosis, PAD, left subclavian stent , hiatal hernia and COPD patient presented because he had inability to take p.o. for
approximately 1 week prior to admission. Patient apparently has some chronic issues with swallowing. Patient noted to have SOLEDAD (acute on chronic) with creatinine up to 4.7 and also had associated metabolic acidosis. Nephrology was consulted.
Patient also noted to have lower blood pressures so Cardizem had been held. This morning patient with increased shortness of breath which became progressively worse. Also patient had accelerated rates of atrial fibrillation. With combination of
both rapid response was called. Responded to rapid response patient is sitting up tachypneic on nonrebreather with SBP in the 130s. A-fib at 1 point was as high as the 170s but was in the 130s. Patient had just received oral Cardizem prior to me
getting to the bedside on exam patient with bilateral wheezes and crackles on exam.�Chest x-ray with new left lower lung opacity taking up half the lung field. Radiology reported moderate pleural effusion and mild pulmonary edema pulmonary raised
question of new pneumonia and possible airway obstruction. Labs notable for creatinine 3.4, sodium 129 and hemoglobin of 7.7. In addition to the above patient has had chest tightness. May be consistent with patient's pulmonary issues and
wheezing. Patient had last cath 06/2024. Issues communicated with hospitalist, nephrology and pulmonary/critical care
-Transfer to ICU
-IV Cardizem for rate control of A-fib. If blood pressure limits use of Cardizem then can consider short-term use of IV amiodarone.
-Additional assessment of new chest x-ray abnormality by pulmonary.
-Aspiration precautions
-Antibiotics as directed by pulmonary and hospitalist.
-Would consider administration of additional diuretic. Will confer with nephrology
-Check follow-up hemoglobinI saw and examined the patient.
Original Note:
Consultation
Consultation Request
Date/Time Consultation Requested: 04/18/24 1047
Date/Time Consultation Performed: 04/18/24 1050
Requesting Provider: Brooke Martin
Performing Provider: Emma WHITT for Dr. Robertson
Reason for Consultation: chest pain
Medical History
-
Chief Complaint: nausea
History of Present Illness:
69 y/o male (former patient of Dr. Cagle, will be patient of Dr. Baptiste) with CAD with hx stenting (2018), HFpEF, PAD/subclavian artery stenosis, prior tobacco, COPD, PAF with watchman in place 2020, CKDIII, systemic sclerosis/CREST syndrome,
CK/solitary functioning kidney who is here for evaluation of poor PO intake and weakness per chart. He is seen to have SOLEDAD, hyponatremia, possible UTI, and anemia. We were consulted for chest pain, but came up with rapid response. Patient with SOB
requiring NRB. In this setting, had AFIB with RVR. He was placed on diltiazem drip. BP stable 130/92 manually on right side per nursing.
Past Medical History
Past Medical History: Arrhythmias, CAD, CHF and Other (as above)
Social History
Tobacco: Former Smoker
Personal:
Family History
Family History: Reviewed & Not Pertinent
Allergies / Home Medications
Allergy/AdvReac Type Severity Reaction Status Date / Time
morphine Allergy severe Verified 04/16/24 10:55
itching/rash
�Medication �Instructions �Recorded �Confirmed �Type
methadone 10 mg tablet 10 mg PO QID Pain 04/05/19 04/16/24 History
tamsulosin 0.4 mg capsule 0.4 mg PO HS Urinary issue 09/29/19 04/16/24 History
pentoxifylline 400 mg 400 mg PO HS CIRCULATION 08/14/20 04/16/24 History
tablet,extended release
prednisone 10 mg tablet 10 mg PO DAILY Anti-Inflammatory 07/23/22 04/16/24 History
sertraline 50 mg tablet 50 mg PO DAILY Depression 10/09/22 04/16/24 History
hydrocodone 7.5 mg-acetaminophen 1 tab PO Q6H 11/18/22 04/16/24 History
325 mg tablet
metoprolol succinate 50 mg 50 mg PO DAILY Blood Pressure 11/18/22 04/16/24 History
tablet,extended release 24 hr
aspirin 81 mg tablet,delayed 81 mg PO DAILY 04/22/23 04/16/24 History
release
diltiazem HCl 240 mg 240 mg PO HS 04/22/23 04/16/24 History
capsule,extended release 24 hr,
controlled (DILT-XR)
ondansetron 8 mg disintegrating 8 mg PO TIDPRN PRN nausea/vomiting 04/22/23 04/16/24 History
tablet
hydralazine 100 mg tablet 100 mg PO BID 06/29/23 04/16/24 History
lisinopril 10 mg tablet 10 mg PO DAILY 06/29/23 04/16/24 History
famotidine 40 mg tablet 40 mg PO HS 02/04/24 04/16/24 History
polyethylene glycol 3350 17 gram 17 grams PO DAILYPRN PRN 02/04/24 04/16/24 History
oral powder packet constipation
rosuvastatin 20 mg tablet 20 mg PO HS 02/04/24 04/16/24 History
metoprolol succinate 25 mg 25 mg PO HS 02/26/24 04/16/24 History
tablet,extended release 24 hr
ipratropium 0.5 mg-albuterol 3 mg 3 ml inhalation R BID 03/31/24 04/16/24 History
(2.5 mg base)/3 mL nebulization
soln
clopidogrel 75 mg tablet 75 mg PO HS 04/16/24 04/16/24 History
denosumab 60 mg/mL subcutaneous 60 mg SC [id number] 04/16/24 04/16/24 History
syringe (Prolia)
furosemide 20 mg tablet 20 mg PO DAILYPRN PRN sob/weight 04/16/24 04/16/24 History
gain
ibuprofen 200 mg tablet 400 mg PO DAILYPRN PRN mild pain 04/16/24 04/16/24 History
Review of Systems
-
History Source: Patient and Other (and chart)
Constitutional: Other (weakness, poor appetite)
Respiratory: Trouble Breathing
Cardiac: Chest Pain
Physical Exam
Vital Signs
Temp Pulse Resp BP Pulse Ox
97.8 F 120 18 110/65 93
04/18/24 08:24 04/18/24 10:47 04/18/24 10:47 04/18/24 10:49 04/18/24 10:47
Lab Results
04/18/24 06:04
04/18/24 06:04
Physical Exam
General: Respiratory Distress (now on NRB and improving)
HEENT: Normocephalic
Respiratory: Wheezes, Crackles (b/l bases) and Other (on NRB)
Cardiac: Irregular Rhythm (tachycardia)
Musculoskeletal: No Edema
Neuro: Awake, Alert and Oriented
Psych: Calm
Impression / Plan
-
SOB, respiratory distress, chest discomfort:
-improving on NRB
-CXR official read is pending- pulmonary/sound recording technician to consult
-trop unremarkable, echo ordered
HFpEF:
-chronic versus [id number]
-assess CXR, monitor volume, discuss with nephro
-on PRN lasix as OP
AFIB with RVR: persistent
-agree with IV diltiazem, which requires intensive monitoring
-not on OAC. Watchman in place.
CAD with hx stenting:
-most recent cath as below
-on ASA, Plavix, statin
Anemia:
-management per primary
SOLEDAD on CKD, solitary functioning kidney, hyponatremia:
-nephrology on the case
Poor appetite:
-GI following
Poss UTI:
-on abx
PAD
CREST
Data:
Echo 06/22/23: Normal biventricular size and systolic function without regional wall motion abnormality. Mild concentric left ventricular hypertrophy. Biatrial enlargement.No significant valvular disease. Mild pulmonary hypertension.
Cath 06/29/23: 1. Right dominant circulation with a densely calcified, 30% proximal RCA lesion, luminal irregularities in the LAD, a 30% tapering of the ostial left main and a nonocclusive 70% ostial/proximal circumflex lesion (IFR = 0.95). 2.
Moderately elevated filling pressures (LVEDP = 21 mmHg, PCWP = 22 mmHg at 49.8 kg). 3. Mild postcapillary pulmonary hypertension (mean PAP = 32 mmHg, PCWP = 22 mmHg, PVR = 1.90 Kim units), WHO group 2.
Data Reviewed
-
EKG: Tracing Personally Visualized and interpreted (AFIB with RVR, ST/T abnormality)
Radiology: Image Personally Visualized and interpreted (left-sided opacity- awaiting details from radiology)
Medical Tests (Nuc Med, Echo etc): Report Reviewed by me (echo and cath as noted)
Labs: Labs Reviewed by me
[2024-04-18 11:07] LABS: Glucose - Point of Care 210 mg/dl (70-99)
[2024-04-18 11:35] LABS: % Basophils 0.1 % (0-2); % Immature Granulocytes 1.4 % (0-0.5); % Monocytes 8.6 % (1.7-9.3); % Neutrophils 86.9 % (42.2-75.2); Absolute Immature Granulocytes 0.2 10^3/uL (0-0.05); Absolute Lymphocytes 0.4 10^3/uL (1.2-3.4); Absolute Monocytes 1.2 10^3/uL (0.1-0.6); Absolute Neutrophils 11.9 10^3/uL (1.4-6.5); Hematocrit 22.9 % (39.0-52.0); Hemoglobin 7.7 g/dL (13.0-18.0); Mean Corp Hgb Conc. 33.6 g/dL (33.0-37.0); Mean Corpuscular Hgb 30.7 pg (27.0-31.0); Mean Corpuscular Volume 91.2 fL (80.0-94.0); Mean Platelet Volume 9.2 fL (7.4-10.4); Nucleated Red Blood Cells % 0 % (-); Platelet Count 273 10^3/uL (130-400); Red Blood Cell Count 2.51 10^6/uL (4.70-6.10); Red Cell Dist. Width 13.8 % (11.5-14.5); White Blood Cell Count 13.7 10^3/uL (4.8-10.8)
--- NOTE | 2024-04-18 11:35 | PTCARENOTE ---
At 1014 reached out to Hospitalist about pt HR sustaining 120s-150s in A.fib. Pt with known hx of A.fib. Upon tele review HRs were controlled yesterday with HRs 70s-80s. At this time pt denied CP, BP 102/69. PO Cardizem 120mg ordered and given, was
on hold for low BPs on admission. Shortly after pt did develop substernal CP / and associated SOB. 12 lead EKG obtained, confirming A.fib RVR, HR 150s. Placed on 4L nasal cannula. BP 110/65. SpO2 93%. Hospitalist called to bedside. SL nitro 0.4
mg ordered and given. Pt then became pale & diaphoretic with episode of emesis. Rapid Response called. Verbal order for 4mg IV Zofran given by Hospitalist. Medication administered through R FA PIV. Labs collected and sent. CXR obtained at bedside.
Pt placed on NRB mask. Pt transferred to ICU for closer observation.
[2024-04-18 11:39] LABS: ALT (SGPT) 21 U/L (0-50); AST (SGOT) 28 U/L (17-59); Albumin 2.6 g/dl (3.5-5.0); Alkaline Phosphatase 62 U/L (38-126); Blood Urea Nitrogen 84 mg/dl (9-20); Calcium 7.4 mg/dl (8.4-10.2); Carbon Dioxide 18 mmol/L (22-30); Chloride 96 mmol/L (98-107); Estimated Creatinine Clearance 15 ml/min; Glucose 187 mg/dl (70-99); Potassium 4.1 mmol/L (3.5-5.1); Sodium 129 mmol/L (135-145); Total Bilirubin 0.4 mg/dl (0.2-1.3); Total Protein 4.5 g/dl (6.3-8.2); eGFR 18.76
[2024-04-18 11:40] LABS: Lactic Acid 4.9 mmol/L (0.7-2.0)
--- NOTE | 2024-04-18 11:40 | W.PN.UPDATE ---
Update Note
Progress Note Update
69-year-old male with complex medical history including coronary artery disease, LAD stent 2019, HFpEF, CKD, systemic sclerosis, PAD, left subclavian stent , hiatal hernia and COPD patient presented because he had inability to take p.o. for
approximately 1 week prior to admission. Patient apparently has some chronic issues with swallowing. Patient noted to have SOLEDAD (acute on chronic) with creatinine up to 4.7 and also had associated metabolic acidosis. Nephrology was consulted.
Patient also noted to have lower blood pressures so Cardizem had been held. This morning patient with increased shortness of breath which became progressively worse. Also patient had accelerated rates of atrial fibrillation. With combination of
both rapid response was called. Responded to rapid response patient is sitting up tachypneic on nonrebreather with SBP in the 130s. A-fib at 1 point was as high as the 170s but was in the 130s. Patient had just received oral Cardizem prior to me
getting to the bedside on exam patient with bilateral wheezes and crackles on exam.�Chest x-ray with new left lower lung opacity taking up half the lung field. Radiology reported moderate pleural effusion and mild pulmonary edema pulmonary raised
question of new pneumonia and possible airway obstruction. Labs notable for creatinine 3.4, sodium 129 and hemoglobin of 7.7. In addition to the above patient has had chest tightness. May be consistent with patient's pulmonary issues and
wheezing. Patient had last cath 06/2024. Issues communicated with hospitalist, nephrology and pulmonary/critical care
-Transfer to ICU
-IV Cardizem for rate control of A-fib. If blood pressure limits use of Cardizem then can consider short-term use of IV amiodarone.
-Additional assessment of new chest x-ray abnormality by pulmonary.
-Aspiration precautions
-Antibiotics as directed by pulmonary and hospitalist.
-Would consider administration of additional diuretic. Will confer with nephrology
-Check follow-up hemoglobin
Critical care time 55
see full consult note
--- NOTE | 2024-04-18 11:42 | W.PN.GI.CBS2 ---
Today's Communication / Plan
-
no change in management
Assessment / Plan
-
This patient is a 69-year-old man with extensive past medical history most notable for scleroderma, rheumatoid arthritis, chronic kidney disease with 1 functioning kidney who was admitted with suspected acute kidney injury and dehydration. He does
have chronic GI issues due to his scleroderma including GERD and presumed gastroparesis. He is on chronic opioids as well as anticoagulation. He did have an endoscopy in 2020 which showed iron residue in biopsies. Afib with rapid rate today with
transfer to the ICU. For now would do the following:
1. GI w/u was all elective as he is a patient known as an outpatient to our group (pt of dr. Strange)
2. No role for inpatient gastric emptying study
3. Endoscopy electively outpatient unless needed inpatient
Subjective
Subjective
Date of Service: April 18, 2024
Pt with scleroderma, chronic gi issues.
This am with afib/rapid rate transferred to intensive care
Objective
Data Reviewed
Laboratory Data:
Laboratory Results
04/18/24 11:05
04/18/24 11:05
Laboratory Results
Phosphorus 6.3 mg/dl (2.5-4.5) H 04/17/24 06:13
Magnesium 2.0 mg/dl (1.6-2.3) 04/18/24 11:05
Total Bilirubin 0.4 mg/dl (0.2-1.3) 04/18/24 11:05
AST 28 U/L (17-59) 04/18/24 11:05
ALT 21 U/L (0-50) 04/18/24 11:05
Alkaline Phosphatase 62 U/L (38-126) 04/18/24 11:05
Vital Signs and I&O:
Vital Signs
Temp Pulse Resp BP Pulse Ox
97.8 F 120 18 143/85 93
04/18/24 08:24 04/18/24 10:47 04/18/24 10:47 04/18/24 10:54 04/18/24 10:47
I&O
04/17/24 04/18/24 04/19/24
06:59 06:59 06:59
Intake Total 720 / 720
Output Total 1050 / 1050
Balance -330 / -330
Physical Exam
Physical Exam
HEENT: Anicteric
Neuro: Non Focal
--- NOTE | 2024-04-18 11:44 | CON.INTV ---
Consultation
Consultation Request
Date/Time Consultation Requested: 04/18/24 11:30 AM
Date/Time Consultation Performed: 04/18/24 12 PM
Medical History
-
Chief Complaint: Chest pain
History of Present Illness:
69-year-old male with past medical history of scleroderma, crest, Raynaud's, rheumatoid arthritis, chronic A-fib, hypertension, chronic HFpEF, CKD 3B, solitary functioning kidney, chronic dysphagia, chronic opioid dependence, COPD, PAD status post
left subclavian stent, fusiform aneurysm presents to [facility] for inability to tolerate orally for 1 week. Patient was initially admitted to the floors for management of SOLEDAD (creatinine of 4.7) and oliguria. Patient's Cardizem had been
held due to low blood pressure. Today, patient began to feel chest pain and diaphoretic, telemetry showed uncontrolled A-fib�144. Rate increased to 170s at 1 point. Patient transferred to ICU for management of rate control of A-fib.
Past medical history�scleroderma, crest, Raynaud's, toyed arthritis, chronic A-fib, hypertension, chronic HFpEF, CKD, solitary functioning kidney, chronic dysphagia, chronic opioid dependence, COPD, PAD, fusiform aneurysm
Past surgical history�bowel resection, Watchman procedure, orthopedic
Past Medical History
Past Medical History: Arrhythmias (Chronic A-fib), CAD, CHF, HTN, Renal Failure and Other (Hyperlipidemia and systemic scleroderma)
Past Surgical History: Other (Bowel resection, watchman, orthopedic)
Social History
Tobacco: Former Smoker
Alcohol: None
Drug: None
Personal:
Living: With Family
Employment: Disabled
Family History
Family History: Reviewed & Not Pertinent
Allergies / Home Medications
Allergies
Allergy/AdvReac Type Severity Reaction Status Date / Time
morphine Allergy severe Verified 04/16/24 10:55
itching/rash
Home Medications
�Medication �Instructions �Recorded �Confirmed �Last Taken �Type
methadone 10 mg tablet 10 mg PO QID Pain 04/05/19 04/16/2425 History
tamsulosin 0.4 mg capsule 0.4 mg PO HS Urinary issue 09/29/19 04/16/24 04/15/24 History
pentoxifylline 400 mg 400 mg PO HS CIRCULATION 08/14/20 04/16/24 04/15/24 History
tablet,extended release
prednisone 10 mg tablet 10 mg PO DAILY Anti-Inflammatory 07/23/22 04/16/24 04/16/24 History
sertraline 50 mg tablet 50 mg PO DAILY Depression 10/09/22 04/16/24 04/16/24 History
hydrocodone 7.5 mg-acetaminophen 1 tab PO Q6H 11/18/22 04/16/24 04/16/24 History
325 mg tablet
metoprolol succinate 50 mg 50 mg PO DAILY Blood Pressure 11/18/22 04/16/24 04/16/24 History
tablet,extended release 24 hr
aspirin 81 mg tablet,delayed 81 mg PO DAILY 04/22/23 04/16/24 04/16/24 History
release
diltiazem HCl 240 mg 240 mg PO HS 04/22/23 04/16/24 04/15/24 History
capsule,extended release 24 hr,
controlled (DILT-XR)
ondansetron 8 mg disintegrating 8 mg PO TIDPRN PRN nausea/vomiting 04/22/23 04/16/24 04/01/24 06:30 History
tablet
hydralazine 100 mg tablet 100 mg PO BID 06/29/23 04/16/24 04/16/24 History
lisinopril 10 mg tablet 10 mg PO DAILY 06/29/23 04/16/24 04/16/24 History
famotidine 40 mg tablet 40 mg PO HS 02/04/24 04/16/24 04/15/24 History
polyethylene glycol 3350 17 gram 17 grams PO DAILYPRN PRN 02/04/24 04/16/24 04/15/24 History
oral powder packet constipation
rosuvastatin 20 mg tablet 20 mg PO HS 02/04/24 04/16/24 04/15/24 History
metoprolol succinate 25 mg 25 mg PO HS 02/26/24 04/16/24 04/15/24 History
tablet,extended release 24 hr
ipratropium 0.5 mg-albuterol 3 mg 3 ml inhalation R BID 03/31/24 04/16/24 04/16/24 History
(2.5 mg base)/3 mL nebulization
soln
clopidogrel 75 mg tablet 75 mg PO HS 04/16/24 04/16/24 04/15/24 History
denosumab 60 mg/mL subcutaneous 60 mg SC [id number] 04/16/24 04/16/24 Unknown History
syringe (Prolia)
furosemide 20 mg tablet 20 mg PO DAILYPRN PRN sob/weight 04/16/24 04/16/24 04/14/24 History
gain
ibuprofen 200 mg tablet 400 mg PO DAILYPRN PRN mild pain 04/16/24 04/16/24 04/09/24 History
Review of Systems
-
History Source: Patient
Constitutional: No Symptoms
EENT: No Symptoms
Respiratory: Trouble Breathing
Cardiac: Chest Pain
Abdomen/GI: No Symptoms
: Difficulty Voiding
Musculoskeletal: Other (History of systemic sclerosis)
Neuro: Numbness (In upper extremities)
Vitals / Labs / Diagnostic Testing
Vital Signs
Temp Pulse Resp BP Pulse Ox
97.8 F 120 18 143/85 93
04/18/24 08:24 04/18/24 10:47 04/18/24 10:47 04/18/24 10:54 04/18/24 10:47
Lab Data
04/18/24 11:05
04/18/24 11:05
Microbiology
04/17/24 12:33 Urine Urine Culture - Preliminary
Pseudomonas aeruginosa
Diagnostic Testing:
Physical Exam
-
HEENT: Normocephalic, Anicteric and Moist Mucous Membranes
Cardiovascular: S1/S2 and Irregular Rhythm
Respiratory: Wheeze and Other (Mild crackles)
GI: Soft and Non Distended
Neurology: AO x 3
Skin: Warm and Dry
General: Comfortable
Assessment
-
69-year-old male past medical history of chronic A-fib transferred to the ICU from floors for rate control management of A-fib.
Last 24 hours:
� Patient transferred to ICU
� WBC 13.7, RBC 2.5, hemoglobin 7.7, platelets 273
� Creatinine 3.4, BUN 84
� Not rate controlled, SBP 144.
#Chronic A-fib
Transfer to ICU
Restart IV Cardizem. Per cardiology, if blood pressure is not able to tolerate Cardizem can consider IV amiodarone
Consider adding diuretic, pending nephrology input
Echo pending
Appreciate nephrology and cardiology inputs.
#SOLEDAD on CKD with solitary functioning right kidney
Continue bicarb
Continue to trend creatinine and ins and outs
Nephrology on board, appreciate input
#Aspiration pneumonia/pneumonitis
Start cefepime
Consult speech for aspiration risk
Repeat chest x-ray in a.m. evaluate for fluid collection.
#Lactic acidosis
Trend lactic acid every 6H
#Poor oral intake/gastroparesis
BMI 17.6
Continue Ensure supplementation
GI following
Outpatient elective endoscopy
#Anemia
Continue to trend hemoglobin, if stable start heparin in the morning
Monitor CBC
#Leukocytosis
Likely secondary to steroid use
Continue to monitor white blood cell count and fevers
#Right lung mass
Stable since 2014
DVT prophylaxis�SCDs. If hemoglobin stable in the morning start 5000 every 12 heparin
Full code
Data Reviewed
-
Radiology: Report reviewed by me
Labs: Labs reviewed by me and Discussed with Physician
Old Records: Reviewed
Critical Care Time (in minutes): 50
[2024-04-18 11:46] LABS: INR 1.14; PT 14.9 Sec (11.4-14.6)
[2024-04-18 11:47] LABS: APTT 28.7 Sec (23.4-35.0)
[2024-04-18 11:50] LABS: Troponin I 0.015 ng/ml
[2024-04-18 11:57] LABS: Glucose - Point of Care 259 mg/dl (70-99)
[2024-04-18] MEDS: DOLOPHINE PO (12:33)
[2024-04-18] MEDS: CARDIZEM 10 MG IV (12:37)
[2024-04-18] MEDS: CARDIZEM 125 IV (12:38)
[2024-04-18] MEDS: UNASYN IV (12:38)
--- NOTE | 2024-04-18 13:15 | PTOTSP ---
Dysphagia Evaluation
Patient with acute on chronic dysphagia risk factors (i.e., SOB with acute PNA; scleroderma, rheumatoid arthritis, GERD, gastroparesis, COPD, lung mass) without significant signs concerning for oral/pharyngeal dysphagia or aspiration during clinical
bedside swallowing evaluation.
Recommend:
1. Regular (pick soft/moist foods), Thin Liquids
2. Medications: whole in puree or 1 at a time with sips of liquid
3. Distant supervision, assist as needed
4. Strategies: upright to 90 degrees, PO only when RR less than 30 and SpO2 greater than 90%, small sips/bites, slow rate, chew well, alternate sips/bites, reflux precautions
5. Oral care 3-5x daily
6. Brief dysphagia f/u at the acute care level for instruction/carry over of compensations annd to determine if further instrumental testing warranted
--- NOTE | 2024-04-18 13:23 | W.PN.HOSP.TC ---
Addendum entered and electronically signed by Philippe Cruz MD 04/19/24 11:42:
Late addendum - pt was examined too on 04/18/24
General: in distress, chest pain
HEENT: Normocephalic, Atraumatic, Moist Mucous Membranes and Oxygen
Respiratory: Decreased Breath Sounds, oxygen
Cardiac: S1/S2, Irregular Rhythm and Tachycardic; Negative Murmur, Rub or Gallop
GI: Soft, Nontender, Nondistended and Normal Bowel Sounds; Negative Organomegaly
Rectal: Deferred by Provider
Musculoskeletal: No Clubbing, No Cyanosis and No Edema
Skin: Negative Rash
Neuro: Awake, AO x 3, No Motor Deficits and Nonfocal/Grossly Intact
Psych: Calm
Original Note:
Today's Communication/Plan
-
Transferred to the ICU
Cardizem infusion
Monitor blood pressure
Start pressors if needed
Agree with IV cefepime
Monitor blood pressure
Chest ultrasound versus thoracentesis
Assessment / Plan
Assessment / Plan
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
Has no nausea or vomiting, but no appetitie to eat. Can keep liquds down. Also found hyponatremia. Managed for worsening CKD
A/P:
#SOLEDAD on CKD stage 4 with solitary functioning R kidney (L kidney atrophy) with hypotension on admission
#SIADH with hyponatremia
#CREST
#hypocalcemia
Calcitriol
no concern for scleroderma renal crisis as BP not elevated
Nephrology for fluid and electrolyte mgmt
Patient creatinine improving
Diuretics on hold
# Persistent atrial fibrillation with rapid ventricular response
Restarted on p.o. Cardizem 120 mg however persistently tachycardic
Patient was started on Cardizem infusion per cardiology
Patient transferred to the ICU
Patient with crest syndrome and elevated creatinine thus options were limited. Can consider IV amiodarone for short term usage only
IF Patient with hypotension than start vasopressin or phenylephrine
Monitor chest pain
Monitor heart rate
Status post Watchman device has history of GI bleeding
# Acute hypoxic respiratory insufficiency
#COPD
Chest x-ray portable showing with left pleural effusion
Consider chest ultrasound once hemodynamically stable and can consider thoracentesis if enough fluid
Will await further operation manager input
# Chest pain likely secondary symptomatic tachycardia
Nitroglycerin as needed
A-fib management as above
Cardiology following
# Pseudomonas UTI
DC ceftriaxone started on cefepime
#Anemia
anemia w/u
Iron deficient
#Mild hyponatremia
monitor for now
#Lactic acidosis
trend for now
#Loss of appetite
#Gastroparesis
#Manutrition
BMI 17.6
Ensure suppl
GI consult: will need eventual EGD, most likely outpatient, but if patient will get worse - will consider inpatient
most likely 2/2 progressive CKD
#Leukocytosis
most liekly 2/2 steroids
monitor WBC and fever trend
#R lung mass
stable since 2014
supposed to be followed with pulm as outpatient as per previous notes
#Chronic pain syndrome 2/2 osteoporosis
On methadone and Sulphur
Bowel regimen
#PAD s/p LE stent
#Subclavian stenosis s/p stent
#HLD
#Essential HTN
#BPH
#Anxiety d/o
DVT ppx SCDs
Full code
Discussed case with cardiology, operation manager
Spouse was updated over the phone in details
Total Critical Care Time_ 35 minutes. I was immediately available to the patient and staff. I personally examined, reviewed labs, diagnostic images/reports, interpretations, treatment plans, discussed patient care with other providers and family
or caregivers (if patient is unable to make decisions), entered orders as appropriate and documented the medical record.
Anticipated Discharge: > 48 hours
Subjective/Interval History
-
Date of Service: April 18, 2024
EXCAVATING SUPERVISOR was called earlier today
Patient was found to be in atrial fibrillation with rapid ventricular response
Patient was also complaining of chest tightness
Patient with episode of nausea and vomiting
Also state of palpitation and having shortness of breath
Objective Data
-
Labs:
Laboratory Results
04/18/24 04/18/24 04/18/24
06:04 11:05 16:00
WBC 11.3 H 13.7 H
Hgb 8.6 L 7.7 L
Hct 25.7 L 22.9 L
Plt Count 208 273 D
PT 14.9 H
INR 1.14
APTT 28.7
Sodium 128 L 129 L Pending
Potassium 3.9 4.1 Pending
Chloride 97 L 96 L Pending
Carbon Dioxide 20 L 18 L Pending
BUN 84 H 84 H Pending
Creatinine 3.6 H 3.4 H Pending
Glucose 106 H 187 H Pending
Calcium 7.3 L 7.4 L Pending
Total Bilirubin 0.3 0.4
AST 19 28
ALT 18 21
Alkaline Phosphatase 65 62
Vital Signs:
Vital Signs
Temp Pulse Resp BP Pulse Ox
96.8 F L 130 18 119/82 93
04/18/24 12:03 04/18/24 12:37 04/18/24 10:47 04/18/24 12:37 04/18/24 10:47
I&O
04/17/24 04/18/24 04/19/24
06:59 06:59 06:59
Intake Total 720 / 720
Output Total 1050 / 1050
Balance -330 / -330
--- NOTE | 2024-04-18 13:42 | W.PN.NEPH.PH ---
Today's Communication / Plan
-
cap IVF
Assessment/Plan
-
Assessment:
Likely gastroparesis secondary to scleroderma
SOLEDAD on CKD 3B-baseline cr 1.5 Dr Jain
Metabolic acidosis
Solitary functioning kidney due to scleroderma given L kidney atrophy.
Hypocalcemia
QTc prolongation secondary to hypocalcemia
Hyponatremia
Paroxysmal atrial fibrillation
Chronic HFpEF
Scleroderma
Raynaud's
Rheumatoid arthritis
CREST syndrome
Peripheral arterial disease status post left subclavian stent, recent left lower extremity stent
History of left fifth toe osteomyelitis status post amputation in February
Chronic back pain secondary to compression fracture/osteoporosis
History of fusiform aneurysm of descending aorta
Essential hypertension
Chronic dysphagia
Chronic pain/opiate dependence
COPD
Depression
Chronic anemia
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
Plan:
no IVF for now
eval of left effusion
follow BMP
can use po bicarb tomorrow
stress dose steroid
cardizen gtt continues
follow lactate
keep MAP>65
critical care time 31 minutes
-
-
Date of Service: April 18, 2024
CC / HPI / ROS
-
Chief Complaint:
SOLEDAD, CKD
History of Present Illness:
SOLEDAD/Cr down to 3.4
Acidosis persists 18
Na low 129 stable
BP low stable
on stress dose steroids
new left effusion
rapid Afib, on cardizen gtt.
critically ill in ICU
Review of Systems:
able to tolerate po liquids
no change in chr sob
no pain
no fever
Labs
-
Labs:
WBC 13.7 10^3/uL (4.8-10.8) H 04/18/24 11:05
RBC 2.51 10^6/uL (4.70-6.10) L 04/18/24 11:05
Hgb 7.7 g/dL (13.0-18.0) L 04/18/24 11:05
Hct 22.9 % (39.0-52.0) L 04/18/24 11:05
Plt Count 273 10^3/uL (130-400) D 04/18/24 11:05
eGFR 18.76 04/18/24 11:05
Phosphorus 6.3 mg/dl (2.5-4.5) H 04/17/24 06:13
Albumin 2.6 g/dl (3.5-5.0) L 04/18/24 11:05
Physical Exam
-
Vital Signs:
Vital Signs
Temp Pulse Resp BP Pulse Ox
96.8 F L 130 18 119/82 93
04/18/24 12:03 04/18/24 12:37 04/18/24 10:47 04/18/24 12:37 04/18/24 10:47
Cardiovascular:: Irregular rate and rhythm
Respiratory:: Bilateral: Coarse and Left: Coarse
Lung Excursion:: Normal
Abdomen:: Nontender and Soft
Bowel Sounds:: Normal
Extremity Edema:: None: Bilateral:
--- NOTE | 2024-04-18 14:35 | W.PN.UPDATE ---
Update Note
Progress Note Update
Patient reassessed. Feels and looks better. On 5L NC and resting comfortably. On diltiazem drip at 5 mg/hr and HR 100's and BP's 100's/60's.
--- NOTE | 2024-04-18 15:49 | PN.CDI ---
CDI
- -
CDI:
Physician Documentation Request
Admit Date: 04/16/24 16:15
Dear Doctor Anthony,
Clinical Indicators:
Patient admitted with SOLEDAD.
04/17 RD note, 'Patient meets AND and ASPEN criteria for severe calorie protein malnutrition of acute disease due to a loss of more than 2% BW over 1 week and less than 50% of estimated nutrition needs met for over 5 days.
04/18 PN,'Manutrition'
If possible, please provide in your progress notes, additional specificity regarding the severity of the malnutrition:
Severe Protein Calorie Malnutrition
Other (please specify)
Hamilton Criteria ([facility] Hospitalist 2017)
2 or more criteria must be present for either
non severe or severe malnutrition
Note that the criteria differs related to the
presence of an acute or chronic illness
Acute Illness Chronic Illness
Energy Intake Non Severe: <75% for >7 days Non Severe: <75% for >1 month
Severe: <50% for >5 days Severe: <75% for >1 month
Weight Loss Non Severe: 1-2% over 1 week Non Severe: 5% over 1 month
5% over 1 month 7.5% over 3 months
7.5% over 3 months 10% over 6 months
1 year N/A 20% over 1 year
Severe: >2% over 1 week Severe: >5% over 1 month
>5% over 1 month >7.5% over 3 months
>7.5% over 3 months >10% over 6 months
1 year N/A >20% over 1 year
Body Fat Non Severe: Mild Decrease Non Severe: Mild Loss
Severe: Moderate Decrease Severe: Severe Loss
Muscle Mass Non Severe: Mild Decrease Non Severe: Mild Loss
Severe: Moderate Decrease Severe: Severe Loss
Fluid Accumulation Non Severe: Mild Accumulation Non Severe: Mild Accumulation
Severe: Moderate to severe Severe: Moderate to severe
accumulation accumulation
Reduced Python Engineer Strength Non Severe: N/A Non Severe: N/A
Severe: Measurably reduced Severe: Measurably reduced
Additional criteria that can be used to Determine if Mild or Moderate Malnutrition (Merck Manual 2018)
Mild Moderate Severe
Albumin gm/dl <3.0 gm/dl <2.5 gm/dl <2.0 gm/dl
Pre Albumin mg/dl <15 gm/dl <10 mg/dl <5.0 mg/dl
BMI <18.5 <17 <16
Use of terms such as suspected, likely, concern for, or probable (associated with a specific diagnosis that is being evaluated, monitored, or treated as if it exists) are acceptable and can be coded in the inpatient setting, when documented at the
time of discharge.
Thank you,
Kamla Del Toro RN BSN
CDI Specialist
available via tiger text
Please use your independent medical judgment in providing your response.
[2024-04-18 16:08] LABS: Glucose - Point of Care 165 mg/dl (70-99)
[2024-04-18] MEDS: NOVOLIN N vial 0.08 UNITS SC (16:10)
[2024-04-18] MEDS: STERILE WATER FOR INJECTION 10 ML IV (16:11)
[2024-04-18] MEDS: MAXIPIME 1000 MG IV (16:11)
[2024-04-18 16:25] LABS: Lactic Acid 2.3 mmol/L (0.7-2.0)
[2024-04-18 16:38] LABS: Blood Urea Nitrogen 88 mg/dl (9-20); Calcium 6.8 mg/dl (8.4-10.2); Carbon Dioxide 18 mmol/L (22-30); Chloride 94 mmol/L (98-107); Estimated Creatinine Clearance 16 ml/min; Glucose 144 mg/dl (70-99); Potassium 3.9 mmol/L (3.5-5.1); Sodium 127 mmol/L (135-145); eGFR 20.18
--- NOTE | 2024-04-18 17:04 | CM ---
Transferred to ICU s/p rapid.
--- NOTE | 2024-04-18 17:17 | PTCARENOTE ---
Received pt into ICU rm 3363 @ approx 1200 s/p RR r/t suspect aspiration episode following eating/drinking meal; followed by afib rvr and chest pain- see RR sheet. Upon arrival to unit pt. Ox3, reporting chest pain improving from 10 down to 5 s/p
ntiro admin during RR. Cardiology, Dr. Robertson, and Hot Die Press Operator Dr. Wynne to bedside. Further orders received. Admin 1x IV Cardizem push and initiated IV Cardizem gtt per orders. S/p interventions HR improved into 90-100's; BP stable; rhythm
remains in afib. Elevated blood sugar- 259- on admit to unit as well; Dr. Wynne and pharmacy aware- further orders received- see APR. Complete hygiene provided. Pt. able to turn self in bed and make needs known. Instructed on how to report
care concerns and call gutierrez in reach.
[2024-04-18] MEDS: CALCIUM GLUCONATE 100 IV (17:35)
[2024-04-18 17:41] LABS: Glucose - Point of Care 113 mg/dl (70-99)
[2024-04-18 17:56] LABS: Hematocrit 19.1 % (39.0-52.0); Hemoglobin 6.5 g/dL (13.0-18.0); Mean Corpuscular Hgb 30.8 pg (27.0-31.0); Mean Corpuscular Volume 90.5 fL (80.0-94.0); Mean Platelet Volume 9.2 fL (7.4-10.4); Platelet Count 193 10^3/uL (130-400); Red Blood Cell Count 2.11 10^6/uL (4.70-6.10); Red Cell Dist. Width 13.8 % (11.5-14.5); White Blood Cell Count 13.8 10^3/uL (4.8-10.8)
[2024-04-18 20:14] LABS: Lactic Acid 1.5 mmol/L (0.7-2.0)
[2024-04-18] MEDS: KCL ELIXIR 20 MEQ PO (20:31)
[2024-04-18] MEDS: FLOMAX 0.4 MG PO (21:32)
[2024-04-18] MEDS: CRESTOR 20 MG PO (21:32)
[2024-04-18] MEDS: TRENTAL 400 MG PO (21:32)
[2024-04-18] MEDS: PLAVIX 75 MG PO (21:32)
[2024-04-18] MEDS: PEPCID 10 MG PO (21:33)
[2024-04-18] MEDS: LANTUS 0.12 UNITS SC (21:33)
[2024-04-19] VITALS (25 sets, daily range): BP systolic 104–156; BP diastolic 57–89; BMI 18.6
[2024-04-19] MEDS: SOLU-CORTEF 50 MG IV ×3 (00:22→17:30)
[2024-04-19 03:11] LABS: % Basophils 0.1 % (0-2); % Immature Granulocytes 0.6 % (0-0.5); % Lymphocytes 0.5 % (20.5-51.1); % Monocytes 4.7 % (1.7-9.3); % Neutrophils 94.1 % (42.2-75.2); Absolute Immature Granulocytes 0.1 10^3/uL (0-0.05); Absolute Lymphocytes 0.1 10^3/uL (1.2-3.4); Absolute Monocytes 0.8 10^3/uL (0.1-0.6); Absolute Neutrophils 16.1 10^3/uL (1.4-6.5); Hematocrit 23.6 % (39.0-52.0); Hemoglobin 8.1 g/dL (13.0-18.0); Mean Corp Hgb Conc. 34.3 g/dL (33.0-37.0); Mean Corpuscular Volume 87.4 fL (80.0-94.0); Mean Platelet Volume 9.1 fL (7.4-10.4); Nucleated Red Blood Cells % 0 % (-); Platelet Count 173 10^3/uL (130-400); White Blood Cell Count 17.1 10^3/uL (4.8-10.8)
[2024-04-19 03:23] LABS: Blood Urea Nitrogen 91 mg/dl (9-20); Calcium 7.4 mg/dl (8.4-10.2); Carbon Dioxide 20 mmol/L (22-30); Chloride 98 mmol/L (98-107); Estimated Creatinine Clearance 16 ml/min; Glucose 63 mg/dl (70-99); Magnesium 1.8 mg/dl (1.6-2.3); Phosphorus 5.7 mg/dl (2.5-4.5); Sodium 131 mmol/L (135-145); eGFR 20.18
--- NOTE | 2024-04-19 03:31 | PTCARENOTE ---
On AM labs, glucose = 63. Fingerstick 73 at this time. Asymptomatic.
[2024-04-19 03:42] LABS: Glucose - Point of Care 73 mg/dl (70-99)
[2024-04-19] MEDS: MAXIPIME 1000 MG IV ×2 (04:59→17:29)
[2024-04-19] MEDS: STERILE WATER FOR INJECTION 10 ML IV ×2 (04:59→17:29)
--- NOTE | 2024-04-19 05:27 | PTCARENOTE ---
Bladder scan for no urine output, >292ml. Encouraged void, pt states minimal urge but will attempt.
[2024-04-19] MEDS: DUONEB 3 ML INH ×2 (07:35→19:48)
[2024-04-19] MEDS: DOLOPHINE 10 MG PO ×4 (07:53→21:51)
[2024-04-19] MEDS: ROCALTROL 0.25 MCG PO (07:53)
[2024-04-19] MEDS: SODIUM BICARBONATE 1300 MG PO ×3 (07:53→21:52)
[2024-04-19] MEDS: ASPIR LOW (ENTERIC COATED) 81 MG PO (07:53)
[2024-04-19] MEDS: ZOLOFT 50 MG PO (07:54)
[2024-04-19] MEDS: NORCO 7.5/325 1 TABLET PO ×2 (07:54→19:52)
[2024-04-19 08:11] LABS: Glucose - Point of Care 85 mg/dl (70-99)
--- NOTE | 2024-04-19 08:36 | W.PN.INTV ---
Today's Communication / Plan
Recommendations
Chest ultrasound pending
Reduce Lantus to 8
Start home Cardizem 240 p.o.
Assessment
-
69-year-old male with past medical history of chronic A-fib, crest syndrome, RA, CKD admitted to [facility] with inability to tolerate oral food or water for 1 week prior to arrival. Patient initially managed for SOLEDAD but developed
uncontrolled A-fib and transferred to ICU.
Last 24 hours
� White blood cell count elevated from yesterday, 17. 1. Hemoglobin stable at 8.1 after 1 unit of blood. Platelets 173.
� Sodium up to 131. BUN elevated at 91. Creatinine stable at 2.2.
- Glucose 63
- Lactic acid normalized to 1.5
�SBP down to 100-110s from 130-170s
#Chronic A-fib
Transfer to ICU
Transition IV Cardizem to oral Cardizem (240).
Echo showed left ventricular is small with moderate to severe left concentric ventricular hypertrophy. Left ventricular ejection fraction is greater than 75%. Normal right ventricle size and function. Severely dilated left atrium and right atrium.
Appreciate nephrology and cardiology inputs.
#SOLEDAD on CKD with solitary functioning right kidney
Transition IV bicarb to oral bicarb
Continue to trend creatinine and ins and outs
Nephrology on board, appreciate input
#Aspiration pneumonia/pneumonitis
Continue cefepime
Consult speech for aspiration risk
Continue nasal cannula 5 L, titrate but ensure over 90% saturation
Repeat chest imaging to evaluate for fluid collection for consideration of thoracentesis. Chest ultrasound pending
#Lactic acidosis
Normalized to 1.5. Continue to monitor
#Hypoglycemia
Reduce Lantus to 8
Continue moderate sliding scale
#Poor oral intake/gastroparesis
BMI 17.6
Continue Ensure supplementation
GI following
Outpatient elective endoscopy
#Anemia
Hemoglobin dropped to below 8 overnight, given 1 unit of packed red blood cells. Hemoglobin 8.1 today
Repeat CBC at 4 PM today
If hemoglobin stable tomorrow morning, consider heparin addition for DVT prophylaxis
Monitor CBC
#Leukocytosis
Likely secondary to steroid use
Continue to monitor white blood cell count and fevers
#Right lung mass
Stable since 2014
DVT prophylaxis�SCDs. Consider addition of heparin if H&H stable in a.m.
Subjective Dataa
Subjective Data
Date of Service:
Date of Service: April 19, 2024
No acute events overnight. Patient states that his chest pain has improved significantly since yesterday. Shortness of breath remains the same, still on 5 L nasal cannula. Reports no headaches, abdominal pain, numbness or tingling extremities.
Had a bowel movement yesterday. Still has mild nausea, improved from yesterday.
Chief Complaint: Base Brander Follow Up
Review of Systems
Cardiopulmonary: Dyspnea
Objective Data
Data Reviewed
Vital Signs / I&O / Oxygen:
Vital Signs
Temp Pulse Resp BP Pulse Ox
97.5 F 103 11 108/67 95
04/19/24 07:37 04/19/24 07:37 04/19/24 07:37 04/19/24 06:00 04/19/24 07:37
Intake and Output
04/18/24 04/19/24 04/20/24
06:59 06:59 06:59
Intake Total 720 / 720 635 / 650 150 / 150
Output Total 1050 / 1050
Balance -330 / -330 635 / 650 150 / 150
SaO2 95
Nasal Cannula flow liters per 5
minute
Physical Exam
Cardiovascular: S1-S2 and Irregular Rhythm
Respiratory: Crackles
GI: Soft
Neurology: AO x 3
Skin: Warm and Dry
Labs/Micro/Reports
Lab Data
04/19/24 02:52
04/19/24 02:52
Laboratory Results
04/18/24
11:05
PT 14.9 H
INR 1.14
APTT 28.7
Microbiology
04/17/24 12:33 Urine Urine Culture - Preliminary
Pseudomonas aeruginosa
--- NOTE | 2024-04-19 09:00 | PTCARENOTE ---
Assumed care of pt @ 0900- assessment per charting- see flow sheet. Remains on Cardizem gtt- see flow sheet. Assisted w AM hygiene and ordering breakfast. Pt. instructed on how to report care concerns and call gutierrez in reach.
--- NOTE | 2024-04-19 09:21 | W.PN.NEPH.PH ---
Today's Communication / Plan
-
follow BMP
Assessment/Plan
-
Assessment:
Likely gastroparesis secondary to scleroderma
SOLEDAD on CKD 3B-baseline cr 1.5 Dr Jain
Metabolic acidosis
Solitary functioning kidney due to scleroderma given L kidney atrophy.
Hypocalcemia
QTc prolongation secondary to hypocalcemia
Hyponatremia
Paroxysmal atrial fibrillation
Chronic HFpEF
Scleroderma
Raynaud's
Rheumatoid arthritis
CREST syndrome
Peripheral arterial disease status post left subclavian stent, recent left lower extremity stent
History of left fifth toe osteomyelitis status post amputation in February
Chronic back pain secondary to compression fracture/osteoporosis
History of fusiform aneurysm of descending aorta
Essential hypertension
Chronic dysphagia
Chronic pain/opiate dependence
COPD
Depression
Chronic anemia
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
Plan:
no IVF for now
eval of left effusion
follow BMP
continue po bicarb
stress dose steroids
cardizem gtt continues
swallow eval
critical care time 31 minutes
-
-
Date of Service: April 19, 2024
CC / HPI / ROS
-
Chief Complaint:
SOLEDAD, CKD
History of Present Illness:
SOLEDAD/Cr down to 3.2
Acidosis persists 20 better on bicarb po
Na low 131 stable
BP low stable
on stress dose steroids
new left effusion
rapid Afib controlled, on cardizen gtt.
critically ill in ICU
Review of Systems:
able to tolerate po liquids
no change in chr sob
no pain
no fever
Labs
-
Labs:
WBC 17.1 10^3/uL (4.8-10.8) H 04/19/24 02:52
RBC 2.70 10^6/uL (4.70-6.10) L 04/19/24 02:52
Hgb 8.1 g/dL (13.0-18.0) L D 04/19/24 02:52
Hct 23.6 % (39.0-52.0) L 04/19/24 02:52
Plt Count 173 10^3/uL (130-400) 04/19/24 02:52
Sodium 131 mmol/L (135-145) L 04/19/24 02:52
Potassium 4.0 mmol/L (3.5-5.1) 04/19/24 02:52
Chloride 98 mmol/L (98-107) 04/19/24 02:52
Carbon Dioxide 20 mmol/L (22-30) L 04/19/24 02:52
BUN 91 mg/dl (9-20) H 04/19/24 02:52
Creatinine 3.2 mg/dL (0.7-1.3) H 04/19/24 02:52
eGFR 20.18 04/19/24 02:52
Glucose 63 mg/dl (70-99) L 04/19/24 02:52
Calcium 7.4 mg/dl (8.4-10.2) L 04/19/24 02:52
Phosphorus 5.7 mg/dl (2.5-4.5) H 04/19/24 02:52
Albumin 2.6 g/dl (3.5-5.0) L 04/18/24 11:05
Physical Exam
-
Vital Signs:
Vital Signs
Temp Pulse Resp BP Pulse Ox
97.5 F 103 11 108/67 95
04/19/24 07:37 04/19/24 07:37 04/19/24 07:37 04/19/24 06:00 04/19/24 07:37
Cardiovascular:: Irregular rate and rhythm
Respiratory:: Bilateral: Coarse and Left: Coarse
Lung Excursion:: Normal
Abdomen:: Nontender and Soft
Bowel Sounds:: Normal
Extremity Edema:: None: Bilateral:
[2024-04-19] MEDS: CARDIZEM 125 IV (11:08)
--- NOTE | 2024-04-19 11:29 | W.PN.HOSP.TC ---
Today's Communication/Plan
-
wean off cardizem gtt
po regimen
Chest US
wean o2
may require thora
Assessment / Plan
Assessment / Plan
69yo M nay CREJOSE MIGUEL on chronic prednisone managed by , Hx of SIADH, pulmonary nodule, Afib s/p watchman, osteoarthritis, gastroparesis, HTN, chronic pain, BPH and anxiety d/o came with poor oral intake for past week and progressive weakness.
Has no nausea or vomiting, but no appetitie to eat. Can keep liquds down. Also found hyponatremia. Managed for worsening CKD
A/P:
#SOLEDAD on CKD stage 4 with solitary functioning R kidney (L kidney atrophy) with hypotension on admission
#SIADH with hyponatremia
#CREST
#hypocalcemia
Calcitriol
no concern for scleroderma renal crisis as BP not elevated
Nephrology for fluid and electrolyte mgmt
Patient creatinine holding
Diuretics on hold
No IVF
# Persistent atrial fibrillation with rapid ventricular response
Patient was started on Cardizem infusion per cardiology
currently on 5mg/hr. consider weaning off gtt to po cardizem
Patient with crest syndrome and elevated creatinine thus options were limited. Can consider IV amiodarone for short term usage only
BP holding
Monitor chest pain
Monitor heart rate
Status post Watchman device has history of GI bleeding
# Acute hypoxic respiratory failure
#COPD
#Left pleural effusion
Chest x-ray portable showing with left pleural effusion
Chest ultrasound. If significant fluid then plan for thoracentesis
Wean oxygen as tolerated
# Chest pain likely secondary symptomatic tachycardia
Nitroglycerin as needed
A-fib management as above
Cardiology following
# Pseudomonas UTI
DC ceftriaxone started on cefepime. Completed course. Can switch to p.o. Cipro if possible on discharge.
Renally dosed cefepime.
#Anemia Iron deficient
s/p 1U of PRBC. Hgb improved.
#Dysphagia
eventual VSE
cont current diet per Speech
#Mild hyponatremia
monitor for now
#Lactic acidosis
trend for now
#Loss of appetite
#Gastroparesis
#Manutrition
BMI 17.6
Ensure suppl
GI consult: will need eventual EGD, most likely outpatient, but if patient will get worse - will consider inpatient
most likely 2/2 progressive CKD
#Leukocytosis
most liekly 2/2 steroids
monitor WBC and fever trend
#R lung mass
stable since 2014
supposed to be followed with pulm as outpatient as per previous notes
#Chronic pain syndrome 2/2 osteoporosis
On methadone and Scott
Bowel regimen
#PAD s/p LE stent
#Subclavian stenosis s/p stent
#HLD
#Essential HTN
#BPH
#Anxiety d/o
DVT ppx SCDs
Full code
Discussed case with clinical advisor
Spouse was updated over the phone in details on 04/18/2024
Anticipated Discharge: > 48 hours
Subjective/Interval History
-
Date of Service: April 19, 2024
States of mild chest tightness
Remains in A-fib but heart rate has improved
Remains on oxygen
Denies any nausea or vomiting
Objective Data
-
Labs:
Laboratory Results
04/19/24 04/19/24
02:52 16:00
WBC 17.1 H Pending
Hgb 8.1 L D Pending
Hct 23.6 L Pending
Plt Count 173 Pending
Sodium 131 L
Potassium 4.0
Chloride 98
Carbon Dioxide 20 L
BUN 91 H
Creatinine 3.2 H
Glucose 63 L
Calcium 7.4 L
Vital Signs:
Vital Signs
Temp Pulse Resp BP Pulse Ox
97.5 F 103 11 108/67 95
04/19/24 07:37 04/19/24 07:37 04/19/24 07:37 04/19/24 06:00 04/19/24 07:37
I&O
04/18/24 04/19/24 04/20/24
06:59 06:59 06:59
Intake Total 720 / 720 635 / 650 150 / 150
Output Total 1050 / 1050
Balance -330 / -330 635 / 650 150 / 150
Physical Exam
-
General: No Apparent Distress and Cachectic
HEENT: Normocephalic, Atraumatic, Moist Mucous Membranes and Oxygen
Respiratory: Decreased Breath Sounds
Cardiac: S1/S2, Irregular Rhythm and Tachycardic; Negative Murmur, Rub or Gallop
GI: Soft, Nontender, Nondistended and Normal Bowel Sounds; Negative Organomegaly
Rectal: Deferred by Provider
Musculoskeletal: No Clubbing, No Cyanosis and No Edema
Skin: Negative Rash
Neuro: Awake, AO x 3, No Motor Deficits and Nonfocal/Grossly Intact
Psych: Calm
Data Reviewed
-
Total Time Spent with Patient (in minutes): 55
--- NOTE | 2024-04-19 11:35 | W.PN.GI.CBS2 ---
Today's Communication / Plan
-
GI will sign off. Please call back with questions or if we can help or if he does not improve otherwise outpatient management with Dr. Strange
Assessment / Plan
-
This patient is a 69-year-old man with extensive past medical history most notable for scleroderma, rheumatoid arthritis, chronic kidney disease with 1 functioning kidney who was admitted with suspected acute kidney injury and dehydration possibly
after a gastroparesis flare. He has chronic iron deficiency anemia and is followed with Dr. Castillo outpatient. His last IV iron infusion was over a year ago and he has been off oral iron since his last endoscopy showed iron induced gastritis and
duodenitis. He does have chronic GI issues due to his scleroderma including GERD and presumed gastroparesis. He is on chronic opioids as well as anticoagulation including aspirin and Plavix after recent vascular stent. He did have an endoscopy in
2020 which showed iron residue in biopsies. During this admission went into rapid A-fib
1. GI w/u was all elective as he is a patient known as an outpatient to our group (pt of dr. Strange)
2. No role for inpatient gastric emptying study
3. Endoscopy electively outpatient unless needed inpatient
4. Could consider very low doses of Reglan -which have to be dosed based on his kidney function -only if his QTc is normalized
5. When he is ready advance to a gastroparesis diet, 6 small low roughage meals throughout the day
6. Focus on liquid and soft nutrition
7. His anemia is chronic and he has no overt bleeding. This hemoglobin drop is slightly new perhaps since starting Plavix -stools are brown. Status post 1 unit of blood and stable -follows with Dr. Lopez outpatient and last IV iron was over a
year ago
Please call us back if he is not improving from a GI standpoint
Subjective
Subjective
Date of Service: April 19, 2024
Patient does state mild improvement in nausea and was able to tolerate his coffee this morning. No signs of overt bleeding
Last episode of dry heaving was yesterday
Objective
Data Reviewed
Laboratory Data:
Laboratory Results
04/19/24 02:52
Laboratory Results
PT 14.9 Sec (11.4-14.6) H 04/18/24 11:05
INR 1.14 04/18/24 11:05
APTT 28.7 Sec (23.4-35.0) 04/18/24 11:05
Phosphorus 5.7 mg/dl (2.5-4.5) H 04/19/24 02:52
Magnesium 1.8 mg/dl (1.6-2.3) 04/19/24 02:52
Total Bilirubin 0.4 mg/dl (0.2-1.3) 04/18/24 11:05
AST 28 U/L (17-59) 04/18/24 11:05
ALT 21 U/L (0-50) 04/18/24 11:05
Alkaline Phosphatase 62 U/L (38-126) 04/18/24 11:05
Vital Signs and I&O:
Vital Signs
Temp Pulse Resp BP Pulse Ox
97.5 F 103 11 108/67 95
04/19/24 07:37 04/19/24 07:37 04/19/24 07:37 04/19/24 06:00 04/19/24 07:37
I&O
04/18/24 04/19/24 04/20/24
06:59 06:59 06:59
Intake Total 720 / 720 635 / 650 150 / 150
Output Total 1050 / 1050
Balance -330 / -330 635 / 650 150 / 150
Physical Exam
Physical Exam
HEENT: Anicteric
Cardiology: Irregular Rate/Rhythm
GI: Soft, Non Distended and Non Tender
Neuro: Non Focal
--- NOTE | 2024-04-19 12:00 | PTCARENOTE ---
Pt. assisted OOB to chair w RW x2; steady gait, generalized weakness; TORRES, recovers w rest. Remains on cardizem gtt, titrated down per orders- see flow sheet. Remains on 6LNC w SpO2 92%, difficult POX to obtain. Call brenda w/in reach.
[2024-04-19] MEDS: CARDIZEM CD 240 MG PO (12:44)
[2024-04-19 12:54] LABS: Glucose - Point of Care 88 mg/dl (70-99)
--- NOTE | 2024-04-19 13:15 | W.PN.CD ---
Today's Communication / Plan
-
Stop dilt gtt
restart PO dilt and increase as able
Impression / Plan
-
SOB, respiratory distress, chest discomfort:
-improving on NRB
-CXR official read is pending- pulmonary/sample grinder to consult
-trop unremarkable, echo ordered
HFpEF:
-chronic versus [id number]
-assess CXR, monitor volume, discuss with nephro
-on PRN lasix as OP
AFIB with RVR: persistent
-stop dilt gtt, start dilt 240, increase as able
-not on OAC. Watchman in place.
CAD with hx stenting:
-most recent cath as below
-on ASA, Plavix, statin
Anemia:
-management per primary
SOLEDAD on CKD, solitary functioning kidney, hyponatremia:
-nephrology on the case
Poor appetite:
-GI following
Poss UTI:
-on abx
PAD
CREST
Subjective: Feeling overall improved from yesterday
Data:
Echo 06/22/23: Normal biventricular size and systolic function without regional wall motion abnormality. Mild concentric left ventricular hypertrophy. Biatrial enlargement.No significant valvular disease. Mild pulmonary hypertension.
Cath 06/29/23: 1. Right dominant circulation with a densely calcified, 30% proximal RCA lesion, luminal irregularities in the LAD, a 30% tapering of the ostial left main and a nonocclusive 70% ostial/proximal circumflex lesion (IFR = 0.95). 2.
Moderately elevated filling pressures (LVEDP = 21 mmHg, PCWP = 22 mmHg at 49.8 kg). 3. Mild postcapillary pulmonary hypertension (mean PAP = 32 mmHg, PCWP = 22 mmHg, PVR = 1.90 Kim units), WHO group 2.
Physical Exam
Vital Signs/Labs
Vital Signs
Temp Pulse Resp BP Pulse Ox
97.9 F 103 11 108/67 95
04/19/24 12:45 04/19/24 07:37 04/19/24 07:37 04/19/24 06:00 04/19/24 07:37
04/18/24 04/19/24 04/20/24
06:59 06:59 06:59
Actual Weight 112 lb 7 oz 115 lb 1.301 oz
04/19/24 02:52
PT 14.9 Sec (11.4-14.6) H 04/18/24 11:05
INR 1.14 04/18/24 11:05
APTT 28.7 Sec (23.4-35.0) 04/18/24 11:05
Magnesium 1.8 mg/dl (1.6-2.3) 04/19/24 02:52
LAB Results
04/18/24 04/18/24
10:48 11:05
Troponin I Cancelled 0.015
Physical Exam
Constitutional: No acute distress and Other (chronically ill appearing )
EENT: Anicteric
Cardiovascular: Rhythm/rate is irregular
Respiratory: Other (decreased b/s at left lower lung base )
Neuro/Psych: Alert and Oriented
Data Reviewed
-
Date of Service: April 19, 2024
EKG: Tracing Personally Visualized and interpreted (af)
Labs: Labs Reviewed by me
--- NOTE | 2024-04-19 17:24 | PTCARENOTE ---
IRAD note: Patient had left thoracentesis done. only able to removed 2 ml thick bloody fluid. Dr. Soria notified. per Dr. Soria, he wants cell ct with diff and fluid culture from this sample as a priority for fluid analysis. sample sent to
lab.
[2024-04-19 17:43] LABS: Hematocrit 22.1 % (39.0-52.0); Hemoglobin 7.7 g/dL (13.0-18.0); Mean Corp Hgb Conc. 34.8 g/dL (33.0-37.0); Mean Corpuscular Hgb 30.3 pg (27.0-31.0); Mean Platelet Volume 9.2 fL (7.4-10.4); Platelet Count 166 10^3/uL (130-400); Red Blood Cell Count 2.54 10^6/uL (4.70-6.10); Red Cell Dist. Width 15.2 % (11.5-14.5); White Blood Cell Count 14.8 10^3/uL (4.8-10.8)
[2024-04-19 17:45] LABS: Glucose - Point of Care 101 mg/dl (70-99)
--- NOTE | 2024-04-19 17:55 | PTCARENOTE ---
Pt. transported to IR and back to rm [id number], no event during procedure/transport. Minimal fluid obtain during thora per IR RN. Cardizem gtt tapered to off per orders- see flow sheet. Remains on 6LNC, SpO2 95%, TORRES persists but recovers w rest. Pt.
repositions self in bed. Call gutierrez w in reach.
[2024-04-19 18:17] LABS: Body Fluid WBC 545 /CUMM
[2024-04-19 18:35] LABS: Body Fluid Second Tech FB
[2024-04-19 19:59] LABS: Cortisol, Random 39.6 ug/dl
[2024-04-19 21:47] LABS: Glucose - Point of Care 122 mg/dl (70-99)
[2024-04-19] MEDS: CRESTOR 20 MG PO (21:52)
[2024-04-19] MEDS: TRENTAL 400 MG PO (21:52)
[2024-04-19] MEDS: PLAVIX 75 MG PO (22:47)
[2024-04-19] MEDS: FLOMAX 0.4 MG PO (22:47)
[2024-04-19] MEDS: PEPCID 10 MG PO (22:50)
[2024-04-20] VITALS (26 sets, daily range): BP systolic 96–170; BP diastolic 61–91; BMI 19.0
[2024-04-20] MEDS: SOLU-CORTEF 50 MG IV (00:47)
[2024-04-20] MEDS: VENTOLIN NEBULES 2.5 MG INH ×3 (03:12→23:19)
[2024-04-20] MEDS: MAXIPIME 1000 MG IV ×2 (03:25→17:05)
[2024-04-20] MEDS: STERILE WATER FOR INJECTION 10 ML IV ×2 (03:25→17:05)
[2024-04-20] MEDS: CARDIZEM CD 240 MG PO (03:28)
[2024-04-20 03:31] LABS: % Immature Granulocytes 0.8 % (0-0.5); % Lymphocytes 0.8 % (20.5-51.1); % Monocytes 6.1 % (1.7-9.3); % Neutrophils 92.3 % (42.2-75.2); Absolute Immature Granulocytes 0.1 10^3/uL (0-0.05); Absolute Lymphocytes 0.1 10^3/uL (1.2-3.4); Absolute Neutrophils 14.4 10^3/uL (1.4-6.5); Hematocrit 24.5 % (39.0-52.0); Hemoglobin 8.5 g/dL (13.0-18.0); Mean Corp Hgb Conc. 34.7 g/dL (33.0-37.0); Mean Corpuscular Hgb 30.6 pg (27.0-31.0); Mean Corpuscular Volume 88.1 fL (80.0-94.0); Nucleated Red Blood Cells % 0 % (-); Platelet Count 179 10^3/uL (130-400); Red Blood Cell Count 2.78 10^6/uL (4.70-6.10); Red Cell Dist. Width 15.2 % (11.5-14.5); White Blood Cell Count 15.6 10^3/uL (4.8-10.8)
[2024-04-20 04:00] LABS: Blood Urea Nitrogen 90 mg/dl (9-20); Calcium 7.2 mg/dl (8.4-10.2); Carbon Dioxide 22 mmol/L (22-30); Chloride 97 mmol/L (98-107); Estimated Creatinine Clearance 16 ml/min; Glucose 105 mg/dl (70-99); LDH 173 U/L (120-246); Magnesium 1.9 mg/dl (1.6-2.3); Potassium 4.4 mmol/L (3.5-5.1); Sodium 132 mmol/L (135-145); eGFR 19.44
--- NOTE | 2024-04-20 05:36 | PTCARENOTE ---
Approx 03:00, pt with episode of tachypnea accompanied with wheezing and tachycardia. HR up to 150s and RR into 30s. PRN albuterol neb given by respiratory. EKG completed, afib w/ RVR. Scheduled cardizem PO given early as ordered by provider. Pt RR
now WNL and wheezing no longer present. HR remains elevated, 110s-120s. Pt now resting comfortably.
[2024-04-20] MEDS: DUONEB 3 ML INH ×2 (07:42→19:15)
--- NOTE | 2024-04-20 08:34 | W.PN.INTV ---
Today's Communication / Plan
Recommendations
Start metoprolol
Downgrade to IMU
Assessment
-
69-year-old male with past medical history of chronic A-fib, crest syndrome, RA, CKD admitted to [facility] with inability to tolerate oral food or water for 1 week prior to arrival. Patient initially managed for SOLEDAD but developed
uncontrolled A-fib and transferred to ICU.
Last 24 hours
� White blood cell count elevated from yesterday, 15.6. Hemoglobin stable at 8.5. Platelets 179.
� Sodium up to 131. BUN elevated at 91. Creatinine stable at 2.2.
- Glucose 137
- Lactic acid normalized to 1.5
�SBP 120s
-Currently on 6 L mid flow
� Stable, downgrade to IMU
#Chronic A-fib
Transition IV Cardizem to oral Cardizem (240).
resume metoprolol 50 mg AM and 25 mg PM
Echo showed left ventricular is small with moderate to severe left concentric ventricular hypertrophy. Left ventricular ejection fraction is greater than 75%. Normal right ventricle size and function. Severely dilated left atrium and right atrium.
Watchman device in place.
Appreciate nephrology and cardiology inputs.
#HFpEF
continue to monitor volume status
on lasix OP
Nephrology given single dose of IV 40 mg Lasix
#SOLEDAD on CKD with solitary functioning right kidney
Continue oral bicarb
Continue to trend creatinine and ins and outs
Nephrology on board, appreciate input
#Aspiration pneumonia/pneumonitis
Continue cefepime
Consult speech for aspiration risk
Continue nasal cannula 6 L, titrate but ensure over 90% saturation
Thoracentesis attempted yesterday, yielding 2 cc of dark bloody pleural fluid.
#Lactic acidosis
Normalized to 1.5 on 04/19
#Hypoglycemia
Reduce Lantus to 8
Continue moderate sliding scale
#Poor oral intake/gastroparesis
BMI 17.6
Continue Ensure supplementation
GI following
Outpatient elective endoscopy
#Anemia
Hemoglobin dropped to 7.7 on 04/19 PM. Up to 8.5 today AM
Monitor CBC
#Leukocytosis
Likely secondary to steroid use
Continue to monitor white blood cell count and fevers
#Right lung mass
Stable since 2014
DVT prophylaxis�SCDs. Consider addition of heparin if H&H stable in a.m.
Subjective Dataa
Subjective Data
Date of Service:
Date of Service: April 20, 2024
Reports that overnight he experienced significant shortness of breath and was given a breathing treatment. He feels better this morning, without chest pain. Some mild nausea persists, awaiting breakfast.
Chief Complaint: Data Administrator Follow Up
Review of Systems
Cardiopulmonary: Dyspnea
GI: Nausea
Objective Data
Data Reviewed
Vital Signs / I&O / Oxygen:
Vital Signs
Temp Pulse Resp BP Pulse Ox
97.5 F 129 15 115/73 93
04/20/24 07:30 04/20/24 07:43 04/20/24 07:43 04/20/24 05:00 04/20/24 03:13
Intake and Output
04/19/24 04/20/24 04/21/24
06:59 06:59 06:59
Intake Total 635 / 650 730 / 730
Output Total 350 / 350
Balance 635 / 650 380 / 380
SaO2 93
Nasal Cannula flow liters per 6
minute
Physical Exam
General: Comfortable
HEENT: Normocephalic
Cardiovascular: S1-S2 and Irregular Rhythm
Respiratory: Crackles
GI: Soft
Neurology: AO x 3
Skin: Warm and Dry
Labs/Micro/Reports
Lab Data
04/20/24 03:24
04/20/24 03:24
Microbiology
04/19/24 17:21 Pleural Fluid Fungal Culture - Preliminary
Culture in progress.
Positive cultures are reported as soon as detected.
Final report to follow in four to five weeks.
04/19/24 17:22 Pleural Fluid Gram Stain - Final
04/17/24 12:33 Urine Urine Culture - Final
Pseudomonas aeruginosa
--- NOTE | 2024-04-20 08:42 | W.PN.CD ---
Today's Communication / Plan
-
Continue diltiazem 240 mg daily
Resume home metoprolol 50 mg AM and 25 mg p.m. for additional rate control
Consider diuresis. Will discuss with nephrology.
Impression / Plan
-
69-year-old male with complex medical history including coronary artery disease, LAD stent 2019, HFpEF, CKD, systemic sclerosis, PAD, left subclavian stent , hiatal hernia and COPD patient presented because he had inability to take p.o. for
approximately 1 week prior to admission. Cardiology is consulted for afib w RVR.
AFIB with RVR: persistent
-Continue dilt 240 daily
-Resume home metoprolol 50 mg AM and 25 mg p.m.
-not on OAC. Watchman in place.
Acute hypoxic respiratory failure:
-known L pleural effusion, s/p diagnostic thoracentesis. Per IR note, would need chest tube for further evacuation
-consider diuretics; will discuss with nephrology
HFpEF:
-chronic versus [id number]
-TTE 04/18/2024: small LV, LVEF >75%, normal RV, aortic sclerosis, mild/mod TR, PASP 25-30 mmHg, trivial effusion
-on PRN lasix as OP
-consider diuresis as above
CAD with hx stenting:
-most recent cath as below
-on ASA, Plavix, statin
Anemia:
-management per primary
SOLEDAD on CKD, solitary functioning kidney, hyponatremia:
-nephrology on the case
Poor appetite:
-GI following
Poss UTI:
-on abx
PAD
CREST
Subjective: Feeling overall improved from yesterday
Data:
Echo 06/22/23: Normal biventricular size and systolic function without regional wall motion abnormality. Mild concentric left ventricular hypertrophy. Biatrial enlargement.No significant valvular disease. Mild pulmonary hypertension.
Cath 06/29/23: 1. Right dominant circulation with a densely calcified, 30% proximal RCA lesion, luminal irregularities in the LAD, a 30% tapering of the ostial left main and a nonocclusive 70% ostial/proximal circumflex lesion (IFR = 0.95). 2.
Moderately elevated filling pressures (LVEDP = 21 mmHg, PCWP = 22 mmHg at 49.8 kg). 3. Mild postcapillary pulmonary hypertension (mean PAP = 32 mmHg, PCWP = 22 mmHg, PVR = 1.90 Kim units), WHO group 2.
Subjective: Had some difficulty overnight due to persistent shortness of breath. No chest pain. Does have some palpitations.
Physical Exam
Vital Signs/Labs
Vital Signs
Temp Pulse Resp BP Pulse Ox
97.5 F 129 15 115/73 93
04/20/24 07:30 04/20/24 07:43 04/20/24 07:43 04/20/24 05:00 04/20/24 03:13
04/19/24 04/20/24 04/21/24
06:59 06:59 06:59
Actual Weight 52.2 kg 53.3 kg
04/20/24 03:24
04/20/24 03:24
PT 14.9 Sec (11.4-14.6) H 04/18/24 11:05
INR 1.14 04/18/24 11:05
APTT 28.7 Sec (23.4-35.0) 04/18/24 11:05
Magnesium 1.9 mg/dl (1.6-2.3) 04/20/24 03:24
LAB Results
04/18/24 04/18/24
10:48 11:05
Troponin I Cancelled 0.015
Physical Exam
Constitutional: No acute distress, Comfortable and Other (cachectic)
Cardiovascular: Rhythm/rate is irregular, Pedal edema present (1+ LLE edema), S1S2 is normal and Murmur/rub/gallop absent
Respiratory: Respiratory effort normal (decreased breath sounds at L base)
Neuro/Psych: AO x 3
Data Reviewed
-
Date of Service: April 20, 2024
Medical Decision Making: Reviewed Test Results, Independent Historian Assessment, Test Interpretation and Review of Case with other Provider
EKG: Tracing Personally Visualized and interpreted
Echo: Report Reviewed by me
X-Ray/CT/US/MRI/NUC/PET: Image Personally Visualized and interpreted
Labs: Labs Reviewed by me
--- NOTE | 2024-04-20 09:15 | PTCARENOTE ---
Rec'd pt at 0800 awake alert and oriented resting in bed. States he had a rough night but overall is just tired this morning. Admits to generalized achiness- takes [place] and Methadone for the pain. [place]. Pt with multiple digits missing on hands
bilaterally and L foot. L foot with recent amputation of 4-5th toes- dressing changed- incision approximated with sutures intact. Cleansed with saline and redressed with 4x4 and [place]. Pt with bruising on arms. Wounds as documented. Skin otherwise
is wm and dry. Respirs are shallow and pt does tend to get sl TORRES. Rec'd pt on 6L midlfow- sats are difficult to consistently get but when they do pickling solution maker are in the 91-93% range. BS are decreased throughout. Occasional moist cough. Monitor Afib
with rates 115-130's. Denies chest pain. VS as documented. Tr gen anasarca. Pulses. Unable to get a R DP Pulse with the doppler but Bilat PT pulses present with the doppler and L DP. Feet/legs are warm. Abd is round sl distended with hypoactive BS.
Denies nausea. Admits to chronic issues with swallowing. Was able to swallow small pills intact in applesauce and larger ones crushed in applesauce. No coughing noted with taking pills. Condom cath intact- voided a small amt of gianna urine. Capped
ints intact R and L arms as documented. Repositioned. Updated on plan of care and verbalized understanding. Call gutierrez in reach.
[2024-04-20] MEDS: SODIUM BICARBONATE 1300 MG PO ×3 (09:19→21:25)
[2024-04-20] MEDS: NORCO 7.5/325 1 TABLET PO ×2 (09:19→21:24)
[2024-04-20] MEDS: DELTASONE 10 MG PO (09:19)
[2024-04-20] MEDS: ASPIR LOW (ENTERIC COATED) 81 MG PO (09:19)
[2024-04-20] MEDS: ZOLOFT 50 MG PO (09:19)
[2024-04-20] MEDS: ROCALTROL 0.25 MCG PO (09:20)
[2024-04-20] MEDS: DOLOPHINE 10 MG PO ×3 (09:20→18:39)
[2024-04-20 09:26] LABS: Glucose - Point of Care 137 mg/dl (70-99)
[2024-04-20] MEDS: TOPROL XL 50 MG PO (09:28)
--- NOTE | 2024-04-20 09:37 | W.PN.NEPH.PH ---
Today's Communication / Plan
-
lasix
Assessment/Plan
-
Assessment:
Likely gastroparesis secondary to scleroderma
SOLEDAD on CKD 3B-baseline cr 1.5 Dr Jain
Metabolic acidosis
Solitary functioning kidney due to scleroderma given L kidney atrophy.
Hypocalcemia
QTc prolongation secondary to hypocalcemia
Hyponatremia
Paroxysmal atrial fibrillation
Chronic HFpEF
Scleroderma
Raynaud's
Rheumatoid arthritis
CREST syndrome
Peripheral arterial disease status post left subclavian stent, recent left lower extremity stent
History of left fifth toe osteomyelitis status post amputation in February
Chronic back pain secondary to compression fracture/osteoporosis
History of fusiform aneurysm of descending aorta
Essential hypertension
Chronic dysphagia
Chronic pain/opiate dependence
COPD
Depression
Chronic anemia
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
Plan:
SOLEDAD-cr stable and possibly non oliguric
wt increasing and more sob from baseline- will dose lasix
monitor UOP, follow bladder scan
remains in afib with RVR, med adjustment per cards
not enough to tap left pleural effusion, only had diagnostic 2cc
met acidosis improving with po bciarb
back on pred, off stress dose steroids
avoid nephrotoxins and hold ACEI
d/w pt and nursing
-
-
Date of Service: April 20, 2024
CC / HPI / ROS
-
Chief Complaint:
SOLEDAD, CKD
History of Present Illness:
SOLEDAD/Cr up at 3.3
Acidosis better at 22 on bicarb po
Na low 132stable
BP soft, with afib RVR
new left effusion
critically ill in ICU
on 6lit o2
Review of Systems:
able to tolerate po
more sob from baseline
no pain
no fever
Labs
-
Labs:
WBC 15.6 10^3/uL (4.8-10.8) H 04/20/24 03:24
RBC 2.78 10^6/uL (4.70-6.10) L 04/20/24 03:24
Hgb 8.5 g/dL (13.0-18.0) L 04/20/24 03:24
Hct 24.5 % (39.0-52.0) L 04/20/24 03:24
Plt Count 179 10^3/uL (130-400) 04/20/24 03:24
Sodium 132 mmol/L (135-145) L 04/20/24 03:24
Potassium 4.4 mmol/L (3.5-5.1) 04/20/24 03:24
Chloride 97 mmol/L (98-107) L 04/20/24 03:24
Carbon Dioxide 22 mmol/L (22-30) 04/20/24 03:24
BUN 90 mg/dl (9-20) H 04/20/24 03:24
Creatinine 3.3 mg/dL (0.7-1.3) H 04/20/24 03:24
eGFR 19.44 04/20/24 03:24
Glucose 105 mg/dl (70-99) H 04/20/24 03:24
Calcium 7.2 mg/dl (8.4-10.2) L 04/20/24 03:24
Phosphorus 5.7 mg/dl (2.5-4.5) H 04/19/24 02:52
Albumin 2.6 g/dl (3.5-5.0) L 04/18/24 11:05
Physical Exam
-
Vital Signs:
Vital Signs
Temp Pulse Resp BP Pulse Ox
97.5 F 133 15 119/76 93
04/20/24 07:30 04/20/24 09:28 04/20/24 07:43 04/20/24 09:28 04/20/24 03:13
Cardiovascular:: Irregular rate and rhythm
Respiratory:: Bilateral: Coarse (left base decreased )
Lung Excursion:: Normal
Abdomen:: Nontender and Soft
Bowel Sounds:: Normal
Extremity Edema:: None: Bilateral:
Gupta Catheter: No
[2024-04-20] MEDS: LASIX 40 MG IV (10:47)
--- NOTE | 2024-04-20 10:51 | PTCARENOTE ---
OVerall good appetite for breakfast. Took am meds with applesauce. Needs pills that are either small or able to be crushed or else he has difficulty swallowig them. Currently Lasix 40 mg IV given. Pt states he is comfortable currently and just wants
to rest.
--- NOTE | 2024-04-20 11:17 | W.PN.HOSP.TC ---
Today's Communication/Plan
-
IV diuresis
monitor BP/HR
may need BB adjustment
Wean o2 as tolerated
VSE
Assessment / Plan
Assessment / Plan
General: No Apparent Distress and Cachectic
HEENT: Normocephalic, Atraumatic, Moist Mucous Membranes and Oxygen
Respiratory: Decreased Breath Sounds
Cardiac: S1/S2, Irregular Rhythm and Tachycardic; Negative Murmur, Rub or Gallop
GI: Soft, Nontender, Nondistended and Normal Bowel Sounds; Negative Organomegaly
Rectal: Deferred by Provider
Musculoskeletal: No Clubbing, No Cyanosis and No Edema
Skin: Negative Rash
Neuro: Awake, AO x 3, No Motor Deficits and Nonfocal/Grossly Intact
Psych: Calm
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
Has no nausea or vomiting, but no appetitie to eat. Can keep liquds down. Also found hyponatremia. Managed for worsening CKD
A/P:
#SOLEDAD on CKD stage 4 with solitary functioning R kidney (L kidney atrophy) with hypotension on admission
#SIADH with hyponatremia
#CREST
#hypocalcemia
Calcitriol
no concern for scleroderma renal crisis as BP not elevated
Nephrology for fluid and electrolyte mgmt
Patient creatinine at 3.3
Diuretics restarted
No IVF
# Persistent atrial fibrillation with rapid ventricular response
Patient was started on Cardizem infusion per cardiology
Status post Cardizem infusion. Restarted on Cardizem and Metoprolol. Adjust as needed if BP can tolerate it.
Patient with crest syndrome and elevated creatinine thus options were limited. Can consider IV amiodarone for short term usage only
BP holding
Monitor chest pain
Monitor heart rate
Status post Watchman device has history of GI bleeding
# Acute hypoxic respiratory failure
#COPD
#Left pleural effusion
Chest x-ray portable showing with left pleural effusion
Chest ultrasound and only able for dx thora 2cc fluid removed.
Diuresis
?Chest tube for complex pleural effusion
Wean oxygen as tolerated
# Chest pain likely secondary symptomatic tachycardia
Nitroglycerin as needed
A-fib management as above
Cardiology following
# Pseudomonas UTI
DC ceftriaxone started on cefepime. Completed course. Can switch to p.o. Cipro if possible on discharge.
Renally dosed cefepime.
#Anemia Iron deficient
s/p 1U of PRBC. Hgb improved. Hgb 8.5
#Dysphagia
VSE ordered
cont current diet per Speech
#Mild hyponatremia
monitor for now
#Lactic acidosis
trend for now
#Loss of appetite
#Severe protein caloric malnutrition due to acute on chronic illness
#Gastroparesis
BMI 17.6
Ensure suppl
GI consult: will need eventual EGD, most likely outpatient, but if patient will get worse - will consider inpatient
most likely 2/2 progressive CKD
#Leukocytosis
most liekly 2/2 steroids
monitor WBC and fever trend
#R lung mass
stable since 2014
supposed to be followed with pulm as outpatient as per previous notes
#Chronic pain syndrome 2/2 osteoporosis
On methadone and [place]
Bowel regimen
#PAD s/p LE stent
#Subclavian stenosis s/p stent
#HLD
#Essential HTN
#BPH
#Anxiety d/o
DVT ppx SCDs
Full code
Anticipated Discharge: > 48 hours
Subjective/Interval History
-
Date of Service: April 20, 2024
states of SOB overnight
mild improvement
Hr slowly improving
Objective Data
-
Labs:
Laboratory Results
04/20/24
03:24
WBC 15.6 H
Hgb 8.5 L
Hct 24.5 L
Plt Count 179
Sodium 132 L
Potassium 4.4
Chloride 97 L
Carbon Dioxide 22
BUN 90 H
Creatinine 3.3 H
Glucose 105 H
Calcium 7.2 L
Vital Signs:
Vital Signs
Temp Pulse Resp BP Pulse Ox
97.5 F 93 13 106/61 96
04/20/24 07:30 04/20/24 10:47 04/20/24 09:00 04/20/24 10:47 04/20/24 08:00
I&O
04/19/24 04/20/24 04/21/24
06:59 06:59 06:59
Intake Total 635 / 650 730 / 730
Output Total 350 / 350
Balance 635 / 650 380 / 380
Data Reviewed
-
Total Time Spent with Patient (in minutes): 55
--- NOTE | 2024-04-20 13:00 | PTCARENOTE ---
CHG bath given, pt repositioned. Wants to eat lunch first and then get oob. Admits to feeling winded if laid flat but ok sitting up. Voided 200 of urine post Lasix- bladder scanned for 121 mls. Repositioned. VS as documented. Call gutierrez in reach.
[2024-04-20 13:29] LABS: Glucose - Point of Care 141 mg/dl (70-99)
--- NOTE | 2024-04-20 14:38 | CM ---
CM following re: discharge planning.
Reviewed pt' chart, met with pt. Pt currently requires 5L NC of O2,continue supportive care. Pt stated he does not have home O2.
Pt reports he lives with spouse in a townhouse, has a son who lives out of state. Pt reports he ambulates with a walker, has a Rollator and has been receiving outpatient home therapy with [facility].
Pt stated his optimal goal is to return back home with [facility] and per pt if he needs SNF level of care he will be open to it.
PT and OT will evaluate the pt to determine a level of acre at discharge.
D/C plan: home with resumptions of [facility] vs SNF if recommended by PT/OT.
CM will follow with discharge plan updates as hospitalization progresses
--- NOTE | 2024-04-20 15:30 | PTCARENOTE ---
Ate lunch and currently is resting. States he is just tired. Did not want to get oob into the chair. Started to get upset at the thought of it and how much it would make him short of breath. Repositioned. In bed. BS overall are clear just sl
decreased. Sats all day have been difficult to consistently get- mostly running 89-91%. VS as documented. HR in the 80's A fib.
[2024-04-20 17:20] LABS: Glucose - Point of Care 125 mg/dl (70-99)
--- NOTE | 2024-04-20 17:30 | PTCARENOTE ---
No changes in assessment other than feeling easily winded with activity. Changed out pulse ox- tried on finger but pt does not have much of a nail on any finger. New pulse ox on the ear giving somewhat of a better tracing and sats 88-89% and with pt
feeling winded [place] increased to 8L at 1645 and 10L at 1715 with sats 90-91%. No other changes. Repositioned.
[2024-04-20] MEDS: HEPARIN 5000 UNITS SC (21:23)
[2024-04-20] MEDS: FLOMAX 0.4 MG PO (21:25)
[2024-04-20] MEDS: PEPCID 10 MG PO (21:25)
[2024-04-20] MEDS: CRESTOR 20 MG PO (21:25)
[2024-04-20] MEDS: TRENTAL 400 MG PO (21:26)
[2024-04-20] MEDS: DOLOPHINE PO (21:26)
[2024-04-20] MEDS: PLAVIX 75 MG PO (21:26)
[2024-04-20] MEDS: TOPROL XL 25 MG PO (21:26)
[2024-04-20 22:05] LABS: Glucose - Point of Care 96 mg/dl (70-99)
[2024-04-21] VITALS (27 sets, daily range): BP systolic 106–144; BP diastolic 60–99; BMI 19.0
[2024-04-21] MEDS: VENTOLIN NEBULES 2.5 MG INH ×2 (03:50→23:37)
[2024-04-21] MEDS: STERILE WATER FOR INJECTION 10 ML IV ×2 (04:36→16:49)
[2024-04-21] MEDS: MAXIPIME 1000 MG IV ×2 (04:36→16:49)
[2024-04-21 05:00] LABS: % Basophils 0.1 % (0-2); % Lymphocytes 1.4 % (20.5-51.1); % Monocytes 5.1 % (1.7-9.3); % Neutrophils 92.4 % (42.2-75.2); Absolute Immature Granulocytes 0.2 10^3/uL (0-0.05); Absolute Lymphocytes 0.2 10^3/uL (1.2-3.4); Absolute Monocytes 0.8 10^3/uL (0.1-0.6); Absolute Neutrophils 14.8 10^3/uL (1.4-6.5); Hematocrit 21.7 % (39.0-52.0); Hemoglobin 7.4 g/dL (13.0-18.0); Mean Corp Hgb Conc. 34.1 g/dL (33.0-37.0); Mean Corpuscular Hgb 30.5 pg (27.0-31.0); Mean Corpuscular Volume 89.3 fL (80.0-94.0); Mean Platelet Volume 9.4 fL (7.4-10.4); Nucleated Red Blood Cells % 0 % (-); Platelet Count 163 10^3/uL (130-400); Red Blood Cell Count 2.43 10^6/uL (4.70-6.10); Red Cell Dist. Width 14.9 % (11.5-14.5)
[2024-04-21 05:28] LABS: Blood Urea Nitrogen 98 mg/dl (9-20); Calcium 6.6 mg/dl (8.4-10.2); Carbon Dioxide 23 mmol/L (22-30); Chloride 97 mmol/L (98-107); Estimated Creatinine Clearance 15 ml/min; Glucose 63 mg/dl (70-99); Potassium 4.7 mmol/L (3.5-5.1); Sodium 132 mmol/L (135-145); eGFR 17.52
--- NOTE | 2024-04-21 07:31 | PTCARENOTE ---
Addendum entered by Maureen Weeks RN 04/21/24 07:35:
Hospitalist notified of critical calcium level of 6.6.
Original Note:
Glucose level on am labs 63. Accucheck performed; 86. Patient assisted in ordering breakfast.
[2024-04-21 07:42] LABS: Glucose - Point of Care 86 mg/dl (70-99)
[2024-04-21] MEDS: DUONEB 3 ML INH ×2 (07:49→19:47)
--- NOTE | 2024-04-21 07:49 | W.PN.CD ---
Today's Communication / Plan
-
Cont metop and dilt
Impression / Plan
-
69-year-old male with complex medical history including coronary artery disease, LAD stent 2019, HFpEF, CKD, systemic sclerosis, PAD, left subclavian stent , hiatal hernia and COPD patient presented because he had inability to take p.o. for
approximately 1 week prior to admission. Cardiology is consulted for afib w RVR.
AFIB with RVR: persistent HRs improved
-Continue dilt 240 daily
-Resume home metoprolol 50 mg AM and 25 mg p.m.
-not on OAC. Watchman in place.
Acute hypoxic respiratory failure:
-known L pleural effusion, s/p diagnostic thoracentesis. Per IR note, would need chest tube for further evacuation
-consider diuretics; will discuss with nephrology
HFpEF:
-chronic versus [id number]
-TTE 04/18/2024: small LV, LVEF >75%, normal RV, aortic sclerosis, mild/mod TR, PASP 25-30 mmHg, trivial effusion
-on PRN lasix as OP
-consider diuresis as above
CAD with hx stenting:
-most recent cath as below
-on ASA, Plavix, statin
Anemia:
-management per primary
SOLEDAD on CKD, solitary functioning kidney, hyponatremia:
-nephrology on the case
Poor appetite:
-GI following
Poss UTI:
-on abx
PAD
CREST
Subjective: Feels worse today very anxious
Data:
Echo 06/22/23: Normal biventricular size and systolic function without regional wall motion abnormality. Mild concentric left ventricular hypertrophy. Biatrial enlargement.No significant valvular disease. Mild pulmonary hypertension.
Cath 06/29/23: 1. Right dominant circulation with a densely calcified, 30% proximal RCA lesion, luminal irregularities in the LAD, a 30% tapering of the ostial left main and a nonocclusive 70% ostial/proximal circumflex lesion (IFR = 0.95). 2.
Moderately elevated filling pressures (LVEDP = 21 mmHg, PCWP = 22 mmHg at 49.8 kg). 3. Mild postcapillary pulmonary hypertension (mean PAP = 32 mmHg, PCWP = 22 mmHg, PVR = 1.90 Kim units), WHO group 2.
Subjective: Had some difficulty overnight due to persistent shortness of breath. No chest pain. Does have some palpitations.
Physical Exam
Vital Signs/Labs
Vital Signs
Temp Pulse Resp BP Pulse Ox
98 F 104 12 123/71 88
04/20/24 19:29 04/21/24 07:00 04/21/24 07:00 04/21/24 07:00 04/21/24 06:00
04/20/24 04/21/24 04/22/24
06:59 06:59 06:59
Actual Weight 117 lb 8.102 oz 117 lb 15.157 oz
04/21/24 04:29
04/21/24 04:29
PT 14.9 Sec (11.4-14.6) H 04/18/24 11:05
INR 1.14 04/18/24 11:05
APTT 28.7 Sec (23.4-35.0) 04/18/24 11:05
Magnesium 2.0 mg/dl (1.6-2.3) 04/21/24 04:29
LAB Results
04/18/24 04/18/24
10:48 11:05
Troponin I Cancelled 0.015
Physical Exam
Constitutional: Other (mild respiratory distress)
EENT: Anicteric
Cardiovascular: Rhythm/rate is irregular
Respiratory: Lungs clear to auscul.
GI: Soft
Neuro/Psych: AO x 3
Data Reviewed
-
Date of Service: April 21, 2024
EKG: Tracing Personally Visualized and interpreted (af)
Echo: Report Reviewed by me
Labs: Labs Reviewed by me
[2024-04-21] MEDS: ZOLOFT 50 MG PO (07:59)
[2024-04-21] MEDS: LOW STRENGTH ASPIRIN 81 MG PO (08:00)
[2024-04-21] MEDS: ROCALTROL 0.25 MCG PO (08:00)
[2024-04-21] MEDS: NORCO 7.5/325 1 TABLET PO ×2 (08:00→21:42)
[2024-04-21] MEDS: TOPROL XL 50 MG PO (08:00)
[2024-04-21] MEDS: SODIUM BICARBONATE 1300 MG PO ×3 (08:00→21:42)
[2024-04-21] MEDS: DELTASONE 10 MG PO (08:00)
[2024-04-21] MEDS: DOLOPHINE 10 MG PO ×4 (08:00→21:41)
[2024-04-21] MEDS: HEPARIN 5000 UNITS SC ×2 (08:01→21:40)
[2024-04-21] MEDS: CARDIZEM CD 240 MG PO (08:03)
--- NOTE | 2024-04-21 08:30 | W.PN.PUL3 ---
Today's Communication / Plan
-
Change from midflow nasal cannula to high flow
Add IV vancomycin given new right upper lobe pneumonia due to suspected aspiration
Check MRSA swab
Continue strict aspiration precautions
Continue to diurese as per nephrology however given that the right upper lobe opacification is not due to volume, would not be as aggressive with diuresing
Continue to monitor UOP and defer initiation of HD to nephrology
Raise DuoNebs from BID to TID
Maintain goal BG 140�180
Continue with ASA + Plavix
Low threshold to intubate; if patient fails high flow nasal cannula then would be wary in starting PAP given his high aspiration risk
Pulmonary service will continue to follow along; low threshold to upgrade back to ICU
Assessment
-
Impression:
#Rapid A-fib likely due to sepsis from left lower lobe pneumonia with suspected parapneumonic effusion --> now rate controlled and off cardizem gtt since 04/19
#Sepsis from UTI and multifocal PNA --> involving LLL and now RUL
#Lactic acidosis - normalized as of 04/18
#Metabolic acidosis with increased anion gap due to SOLEDAD
#Acute on chronic anemia (baseline Hb 9.5-11 g/dL) s/p 1 unit PRBC transfused on 04/18
#Hypoalbuminemia
#Hypochloremic, hyponatremia likely due to reduced PO intake in the setting of suspected gastroparesis from CREST syndrome (sodium chronically low between 127�134)
#SOLEDAD on CKD
#Hypoglycemia
#Iron deficiency anemia
#Suspected UTI with urine culture from 04/17/2024 growing Pseudomonas aeruginosa
#GOLD Class II COPD via PFTs from 03/01/2024 with severe gas exchange capacity defect (DLco: 31%)
#Former tobacco smoker (57-bwhq-yaln history, quit 2012)
#PAD with history of left subclavian stent
#History of C. difficile colitis
#Chronic methadone use
#History of paroxysmal A-fib previously on Eliquis complicated by recurrent melena/GI bleed now s/p watchman ROSIE occlusion device (implanted 12/11/2020)
Plan:
-Patient was doing well on 04/20/2024, weaned off of Cardizem drip on 04/19 and was downgraded to IMU level of care
-Unfortunately today after nurses were doing their care, patient developed sudden shortness of breath and CXR showed opacification in the right upper lobe. Differential includes acute pulmonary edema versus aspiration
-Subsequent CT chest obtained and this confirmed pneumonia mainly in the right upper lobe as well as a large left lower lobe pneumonia with a adjacent parapneumonic effusion
-Continue aspiration precautions
-Maintain SpO2 88-95% using supplemental O2 and wean down as tolerated
-Continue DuoNebs BID --> raise to TID today
-prn nebulized bronchodilators - not currently bronchospastic
-If patient strong enough, would encourage him to use incentive spirometer 10x per hour for at least 4 hrs a day
-Given that he has been hospitalized for >48 hrs, will start IV vanco and check MRSA swab --> if swab is negative then can DC IV vanco
-May need to use Zyvox given his SOLEDAD
-Transition off midflow nasal cannula onto high flow nasal cannula; given the high concern for aspiration, would try to avoid any positive airway pressure as this will surely increase his risk of aspiration and worsen his hypoxia and may lead to
him being intubated
-Continue heart rate control
-Patient has been off Cardizem drip since 04/19/2024 evening
-Continue with Cardizem CD and add prn Cardizem versus Lopressor
-Cardiology on board - recs appreciated
-Maintain MAP>65
-Hold antihypertensives, and resume as BP tolerates going forward (takes lisinopril + hydralazine at home)
-Given that patient's BP is improved, we stopped hydrocortisone on 04/19 and resumed patient's home dose of prednisone 10 mg on 04/20; random cortisol was WNL at 39.6 on 04/19/2024
-Replete electrolytes with K>4, Mg>2
-Echo performed on 04/18/2024 showed moderate to severe concentric LVH with LVEF >75%, with normal RV size/function with severely dilated LA + severely dilated RA, with mild as moderate TR and normal PASP at 25-30 mmHg
-Continue to trend sCr and I/O/UOP
-Continue PO bicarb and continue to trend sHCO3 levels
-Defer initiation of HD to nephrology
-Continue Abx with cefepime given that Pseudomonas is seen on patient's urine culture from 04/17/2024
-Also adding IV vancomycin (see above)
-CT chest on 04/21/2024 shows a loculated left-sided pleural effusion � left-sided chest tube with lytics may be needed --> follow up official read on the CT Chest
-Trend WBC and monitor fever curve
-Left-sided chest ultrasound showed a moderate sized left-sided pleural effusion --> thoracentesis attempted by IR on 04/19 but only 2cc of bloody fluid was removed and sent for analysis; not enough for cultures or any other fluid studies. Fluid WBC
elevated at 545 and was PMN predominant. Empyema initially ruled out as fluid was not purulent, however on CT chest today the effusion appears loculated. Chest tube may be needed for definitive drainage. Continue with antibiotics as stated above;
he may need an extended course of Abx given this large parapneumonic effusion. Ultimately he will need repeat imaging as an outpatient with a CT chest
-Continue DAPT with ASA + plavix
-Trend H/H and transfuse if needed to keep Hb>7g/dL; keep plt>20k, unless there is concern for bleeding then keep plt>50k
-Maintain euglycemia with goal BG 140-180 --> - given that we are stopped hydrocortisone on 04/19 and since he has been hypoglycemic, lantus DC'd; continue ISS and monitor BG; can always resume lantus if BG starts to rise again into the 160-170s
-Nutrition - Diet as per [employer] MICROFILMING (currently on a cholesterol-lowering diet); GI has been following given concern for gastroparesis, and a gastric emptying study was pending --> deferred given chronic methadone use. Of note, this can be done as an
outpatient. As stated above, EGD with biopsy was also going to be performed, but this was deferred as patient is on DAPT
-DVT ppx: HSQ 5000 units q12hr for now given his low Hb and required 1 U PRBC on 04/18; Hb has remained >7.3 since that transfusion was given and no signs of bleeding currently
Pulmonary service will continue to follow along.
Total time spent today was 53 minutes for this encounter. Time includes reviewing laboratory test/imaging results, reviewing pertinent medical records, obtaining and reviewing medical history, performing an appropriate exam, ordering medications,
tests and procedures. Time also includes documentation of this encounter, coordinating patient care and communicating with other healthcare professionals. Total time does not include separately billed tests performed on this date of service.
Subjective Data
-
Date of Service:
Date of Service: April 21, 2024
Chief Complaint: Pulmonary Follow Up
Subjective:
Patient seen and evaluated this morning. Became very short of breath during nursing care, while patient was being turned. He is now on 15 L/min via mid flow nasal cannula and feels short of breath. Has mild accessory muscle use. at bedside
- alll questions were answered. Pt denies chest pain, MCRAE, abd pain, N/V/f/c.
Review of Systems
General: Other (Negative unless mentioned above)
Objective Data
Data Reviewed
Vital Signs / I&O / Oxygen:
Vital Signs
Temp Pulse Resp BP Pulse Ox
97.7 F 96 11 120/71 99
04/21/24 08:00 04/21/24 09:00 04/21/24 09:00 04/21/24 09:00 04/21/24 07:50
Intake and Output
04/20/24 04/21/24 04/22/24
06:59 06:59 06:59
Intake Total 730 / 730 990 / 990 340 / 340
Output Total 350 / 350 50 / 50
Balance 380 / 380 940 / 940 340 / 340
SaO2 99
Nasal Cannula flow liters per 6
minute
Physical Exam
General: Respiratory Distress (mild), Chills (n) and Sweats (n)
HEENT: Normocephalic and Anicteric
Cardiovascular: Irregular Rhythm and Peripheral Edema (n)
Respiratory: Wheeze (heard upon expiration bilaterally), Crackles (bilaterally), Rhonchi (n), Accessory Resp Muscle Use (mild, increased with exertion) and Stridor (n)
GI: Soft, Non Distended, Non Tender and Normal Bowel Sounds
Neurology: AO x 3, Tremors (n) and Other (anxious appearing)
Skin: Warm, Dry, Cyanosis (n) and Jaundice (n)
Labs/Micro/Reports
Lab Data
04/21/24 04:29
Microbiology
04/19/24 17:22 Pleural Fluid Body Fluid Culture - Preliminary
No Growth After 18-24 Hours
04/19/24 17:22 Pleural Fluid Gram Stain - Final
04/19/24 17:21 Pleural Fluid Fungal Culture - Preliminary
Culture in progress.
Positive cultures are reported as soon as detected.
Final report to follow in four to five weeks.
04/17/24 12:33 Urine Urine Culture - Final
Pseudomonas aeruginosa
[2024-04-21] MEDS: CALCIUM GLUCONATE 100 IV ×2 (09:25→17:22)
[2024-04-21] MEDS: ATIVAN 0.5 MG PO (09:25)
--- NOTE | 2024-04-21 10:05 | W.PN.NEPH.PH ---
Today's Communication / Plan
-
lasix 800mg BID
Assessment/Plan
-
Assessment:
Likely gastroparesis secondary to scleroderma
SOLEDAD on CKD 3B-baseline cr 1.5 Dr Jain
Metabolic acidosis
Solitary functioning kidney due to scleroderma given L kidney atrophy.
Hypocalcemia
QTc prolongation secondary to hypocalcemia
Hyponatremia
Paroxysmal atrial fibrillation
Chronic HFpEF
Scleroderma
Raynaud's
Rheumatoid arthritis
CREST syndrome
Peripheral arterial disease status post left subclavian stent, recent left lower extremity stent
History of left fifth toe osteomyelitis status post amputation in February
Chronic back pain secondary to compression fracture/osteoporosis
History of fusiform aneurysm of descending aorta
Essential hypertension
Chronic dysphagia
Chronic pain/opiate dependence
COPD
Depression
Chronic anemia
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
Plan:
SOLEDAD-cr up at 3.6 and oliguric
no great response to lasix on 04/20,increase to 80mg BID
keep checking bladder scan
wt increasing and more sob, CXR worse and O2 requirements are up
afib -med adjustment per cards
not enough to tap left pleural effusion, only had diagnostic 2cc on 04/19
met acidosis improving with po bciarb
hypocalcemia-replace IV justin, on ergocalciferol for def
back on pred, off stress dose steroids
avoid nephrotoxins and hold ACEI
d/w pt and family at bedside in detail
, DIL(who is MD), son
If he has poor response to diuretics need to consider dialysis-family aware
-
-
Date of Service: April 21, 2024
CC / HPI / ROS
-
Chief Complaint:
SOLEDAD, CKD
History of Present Illness:
SOLEDAD/Cr up at 3.6
Acidosis better at 23 on bicarb po
Na low 131stable
BP soft, with afib
CXR ;pulm edema and progressing left effusion
critically ill in ICU
on mid flow 10lit o2
Review of Systems:
able to tolerate po , mild nausea
more sob and feels tired
no fever
Labs
-
Labs:
WBC 16.0 10^3/uL (4.8-10.8) H 04/21/24 04:29
RBC 2.43 10^6/uL (4.70-6.10) L 04/21/24 04:29
Plt Count 163 10^3/uL (130-400) 04/21/24 04:29
Sodium 132 mmol/L (135-145) L 04/21/24 04:29
Potassium 4.7 mmol/L (3.5-5.1) 04/21/24 04:29
Chloride 97 mmol/L (98-107) L 04/21/24 04:29
Carbon Dioxide 23 mmol/L (22-30) 04/21/24 04:29
BUN 98 mg/dl (9-20) H 04/21/24 04:29
Creatinine 3.6 mg/dL (0.7-1.3) H 04/21/24 04:29
eGFR 17.52 04/21/24 04:29
Glucose 63 mg/dl (70-99) L 04/21/24 04:29
Calcium 6.6 mg/dl (8.4-10.2) L* 04/21/24 04:29
Phosphorus 6.0 mg/dl (2.5-4.5) H 04/21/24 04:29
Albumin 2.6 g/dl (3.5-5.0) L 04/18/24 11:05
Physical Exam
-
Vital Signs:
Vital Signs
Temp Pulse Resp BP Pulse Ox
97.7 F 96 11 120/71 99
04/21/24 08:00 04/21/24 09:00 04/21/24 09:00 04/21/24 09:00 04/21/24 07:50
Cardiovascular:: Irregular rate and rhythm
Respiratory:: Bilateral: Coarse (left base decreased )
Lung Excursion:: Normal
Abdomen:: Nontender and Soft
Bowel Sounds:: Normal
Extremity Edema:: None: Bilateral:
Gupta Catheter: No
[2024-04-21] MEDS: LASIX 80 MG IV ×2 (10:51→16:49)
--- NOTE | 2024-04-21 10:51 | W.PN.HOSP.TC ---
Today's Communication/Plan
-
Chest/abd/pelvis imaging pending
start bowel regimen
IV lasix
IV antibiotics
wean O2 as tolerated
Assessment / Plan
Assessment / Plan
General: No Apparent Distress and Cachectic
HEENT: Normocephalic, Atraumatic, Moist Mucous Membranes and Oxygen
Respiratory: Decreased Breath Sounds
Cardiac: S1/S2, Irregular Rhythm and Tachycardic; Negative Murmur, Rub or Gallop
GI: Soft, Nontender, Nondistended and Normal Bowel Sounds; Negative Organomegaly
Rectal: Deferred by Provider
Musculoskeletal: No Clubbing, No Cyanosis and No Edema
Skin: Negative Rash
Neuro: Awake, AO x 3, No Motor Deficits and Nonfocal/Grossly Intact
Psych: Calm
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
Has no nausea or vomiting, but no appetitie to eat. Can keep liquds down. Also found hyponatremia. Managed for worsening CKD
A/P:
#SOLEDAD on CKD stage 4 with solitary functioning R kidney (L kidney atrophy) with hypotension on admission
#SIADH with hyponatremia
#CREST
Calcitriol
no concern for scleroderma renal crisis as BP not elevated
Nephrology for fluid and electrolyte mgmt
Patient creatinine at 3.6
Diuretics restarted aggressively at 80 mg twice daily. Patient may be approaching with hemodialysis
No IVF
# Persistent atrial fibrillation with rapid ventricular response
Patient was started on Cardizem infusion per cardiology
Status post Cardizem infusion. Restarted on Cardizem and Metoprolol. Adjust as needed if BP can tolerate it.
Patient with crest syndrome and elevated creatinine thus options were limited. Can consider IV amiodarone for short term usage only
BP holding
Monitor chest pain
Monitor heart rate
Status post Watchman device has history of GI bleeding
# Acute hypoxic respiratory failure
#COPD
#Left pleural effusion
Chest x-ray Worsening interstitial and alveolar opacity within the right mid and upper lung zones, suggestive of developing pneumonia/interstitial pneumonitis. Atypical pulmonary edema should also be considered.Moderate left pleural effusion,
layering along the left lateral chest wall, unchanged. Hazy left basilar opacity, which may represent pneumonia or subsegmental atelectasis.
Chest ultrasound and only able for dx thora 2cc fluid removed. Await fluid culture and cytology.
?Chest tube for complex pleural effusion
Wean oxygen as tolerated
Video swallow eval will need to be held for today.
CT chest/pelvis pending for today
If with worsening hypoxemia (unable to get good pleth) check ABG. May require transition to HFNC if needed
Await further pulmonary input
# Chest pain likely secondary symptomatic tachycardia
Nitroglycerin as needed
A-fib management as above
Cardiology following
# Pseudomonas UTI
DC ceftriaxone started on cefepime.
Renally dosed cefepime.
#Anemia Iron deficient
s/p 1U of PRBC. Hgb improved. Hgb 7.4. Repeat H&H later today
#Hypocalcemia
-replete/monitor. Calcitriol
-check ionized calcium
#Dysphagia
VSE ordered . Will hold off for today as with tenous respiratory status
cont current diet per Speech
#Mild hyponatremia
monitor for now
#Lactic acidosis
trend for now
#Loss of appetite
#Severe protein caloric malnutrition due to acute on chronic illness
#Gastroparesis
BMI 17.6
Ensure suppl
GI consult: will need eventual EGD, most likely outpatient, but if patient will get worse - will consider inpatient
most likely 2/2 progressive CKD
#Leukocytosis
most liekly 2/2 steroids
monitor WBC and fever trend
#R lung mass
stable since 2014
supposed to be followed with pulm as outpatient as per previous notes
#Chronic pain syndrome 2/2 osteoporosis
On methadone and Hensel
Bowel regimen
#PAD s/p LE stent
#Subclavian stenosis s/p stent
#HLD
#Essential HTN
#BPH
#Anxiety d/o
DVT ppx hep sc
Full code
Discussed with patient DIL Talia SLOAN at bedside in detail for prolonged period of time. Talia Cell phone for update [phone]
also d/w with patient son and spouse at bedside
Anticipated Discharge: > 48 hours
Subjective/Interval History
-
Date of Service: April 21, 2024
Patient complained of shortness of breath this morning
Patient anxious
Patient called multiple family members
About to eat breakfast
Objective Data
-
Labs:
Laboratory Results
04/21/24 04/21/24 04/21/24
04:29 12:00 14:00
WBC 16.0 H
Hgb 7.4 L Pending
Hct 21.7 L Pending
Plt Count 163
Sodium 132 L Pending
Potassium 4.7 Pending
Chloride 97 L Pending
Carbon Dioxide 23 Pending
BUN 98 H Pending
Creatinine 3.6 H Pending
Glucose 63 L Pending
Calcium 6.6 L* Pending
Vital Signs:
Vital Signs
Temp Pulse Resp BP Pulse Ox
97.7 F 101 13 120/71 61
04/21/24 08:00 04/21/24 10:00 04/21/24 10:00 04/21/24 09:00 04/21/24 10:00
I&O
04/20/24 04/21/24 04/22/24
06:59 06:59 06:59
Intake Total 730 / 730 990 / 990 340 / 340
Output Total 350 / 350 50 / 50
Balance 380 / 380 940 / 940 340 / 340
Data Reviewed
-
Total Time Spent with Patient (in minutes): 58
[2024-04-21 12:00] LABS: Glucose - Point of Care 94 mg/dl (70-99)
--- NOTE | 2024-04-21 13:29 | PTCARENOTE ---
Patient placed on HFNC.
--- NOTE | 2024-04-21 14:53 | PTCARENOTE ---
Cut Roll Machine Operator up to bedside. Patient voided a total of 250 cc's since administration of Lasix. Plan to take patient for ct of c/a/p and place temporary HD catheter.
--- NOTE | 2024-04-21 14:54 | W.PN.UPDATE ---
Update Note
Progress Note Update
revisit pt , on high flow comfortable
only 250cc with lasix
awaiting CT and labs
d/w pt and family likely needing HD soon
will have IR place HD catheter
will give diuril and lasix
HD today vs tomorrow
d/w nursing
--- NOTE | 2024-04-21 15:00 | PTCARENOTE ---
Patient upgrade to ICU level.
[2024-04-21 15:02] LABS: Hematocrit 22.6 % (39.0-52.0); Hemoglobin 7.5 g/dL (13.0-18.0)
[2024-04-21 15:03] LABS: Ionized Calcium 0.89 mMOL/L (1.15-1.33)
[2024-04-21] MEDS: DIURIL 0.5 GRAM VIAL 0.5 GRAMS IV (15:16)
[2024-04-21] MEDS: STERILE WATER FOR INJECTION 18 ML IV (15:16)
[2024-04-21 15:26] LABS: Blood Urea Nitrogen 99 mg/dl (9-20); Calcium 6.9 mg/dl (8.4-10.2); Carbon Dioxide 20 mmol/L (22-30); Chloride 97 mmol/L (98-107); Estimated Creatinine Clearance 14 ml/min; Glucose 73 mg/dl (70-99); Potassium 4.9 mmol/L (3.5-5.1); Sodium 131 mmol/L (135-145); eGFR 16.95
--- NOTE | 2024-04-21 16:22 | PTOTSP ---
Per chart review, upgraded to ICU level of care. New BALL TRUING MACHINE OPERATOR orders required if/when medically appropriate.
--- NOTE | 2024-04-21 16:40 | PTCARENOTE ---
Patient back in room. Temporary HD cath in place. CT completed. Resting comfortably on HFNC 55L/60%. Pulse ox 92-94%.
--- NOTE | 2024-04-21 17:21 | PHA.VAN.IN ---
Assessment
- Assessment
Renal Function: Appears elevated from baseline (1.5)
Hemodialysis Schedule: Other (per nephrology, will likely start HD soon)
Concomitant Antimicrobials: cefepime
Plan
- Plan
Initial / Loading Dose: vanc 1250mg pending administration
Maintenance Regimen: dosing by level
Monitoring: random level 04/22 06
MRSA Screen: Ordered per protocol
Pharmacokinetics Vancomycin I
- -
Patient Age: 69
Patient Sex: Male
Vancomycin Day #: 1
Indication: Pulmonary/Respiratory
Requesting Provider: Dr. Wynne
Pertinent Antimicrobial Allergies:
no pertinent antimicrobial allergies
Height / Weight:
Height 5 ft 6 in
Actual Weight 53.5 kg
Pertinent Past Medical History: solitary kidney, CKD3b
- Vital Signs / Lab Results
Temp Pulse Resp BP Pulse Ox
98.2 F 89 14 125/83 76
04/21/24 15:41 04/21/24 17:01 04/21/24 17:01 04/21/24 17:01 04/21/24 16:46
Lab Results - Hematology
04/18/24 04/19/24 04/19/24
17:30 02:52 17:33
WBC 13.8 H 17.1 H 14.8 H
04/20/24 04/21/24
03:24 04:29
WBC 15.6 H 16.0 H
Lab Results - Chemistry
04/19/24 04/20/24 04/21/24
02:52 03:24 04:29
BUN 91 H 90 H 98 H
Creatinine 3.2 H 3.3 H 3.6 H
Estimated Creat Clear 16 16 15
04/21/24
14:48
BUN 99 H
Creatinine 3.7 H
Estimated Creat Clear 14
04/18/24
19:48
Lactic Acid 1.5
Microbiology Results
04/19/24 17:22 Body Fluid Culture - Preliminary
Pleural Fluid No Growth After 48 Hours
Gram Stain - Final
04/19/24 17:21 Fungal Culture - Preliminary
Pleural Fluid Culture in progress.
Positive cultures are reported as soon as detected.
Final report to follow in four to five weeks.
[2024-04-21 17:39] LABS: Glucose - Point of Care 84 mg/dl (70-99)
[2024-04-21] MEDS: VANCOCIN 275 MG IV (17:59)
[2024-04-21] MEDS: FLOMAX 0.4 MG PO (21:41)
[2024-04-21] MEDS: TOPROL XL 25 MG PO (21:41)
[2024-04-21] MEDS: PEPCID 10 MG PO (21:41)
[2024-04-21] MEDS: SENOKOT-S 1 TABLET PO (21:42)
[2024-04-21] MEDS: TRENTAL 400 MG PO (21:42)
[2024-04-21] MEDS: PLAVIX 75 MG PO (21:43)
[2024-04-21] MEDS: DULCOLAX 10 MG PO (21:43)
[2024-04-21] MEDS: CRESTOR 20 MG PO (21:43)
[2024-04-21 21:56] LABS: Glucose - Point of Care 91 mg/dl (70-99)
[2024-04-22] VITALS (50 sets, daily range): BP systolic 83–121; BP diastolic 17–101; BMI 18.8
--- NOTE | 2024-04-22 00:45 | PTCARENOTE ---
Late entry: assumed care of pt at 1900. Pt is A/O x4, pleasant and cooperative with care, [facility]. Received pt on HFNC 60% 55LPM, which was changed to 80% 50LPM by respiratory therapist at start of shift. Pt AFib 90s on monitor. Lungs with coarse
rhonchi and inspiratory/expiratory wheezing throughout all lung givens. Pt is tachypneic with accessory muscle use, orthopneic and has been sitting in high fowlers position. SpO2 ranging from 88-95% when pt sitting still. Productive cough noted. See
nursing shift assessment flowsheet for further physical assessment details.
0000: Midnight assessment unchanged. Remains on same HFNC settings. CT results from earlier in the day called to Luc WHITT just before midnight, concerning for ruptured aortic aneurysm. He relayed the results to both the vascular and
nephrology providers consulted on patient, as well as communications writer. Pt and his (who is in the room) updated by ICU EMERGENCY MANAGEMENT SYSTEM DIRECTOR, pt to have stat CT angio tonight to further assess. Pt is currently AFib 80s-90s on monitor, SpO2 94%, BP has been WNL.
--- NOTE | 2024-04-22 00:57 | W.PN.UPDATE ---
Addendum entered and electronically signed by JOSE EDUARDO Valadez 04/22/24 02:56:
IR consulted for large volume left sided hemothorax.
Original Note:
Update Note
Progress Note Update
0000 Notified by radiology that patient has an acute rupture of the large descending thoracic aortic aneurysm. Immediately�notified vascular surgery, plan for CTA angiogram of the chest, abdomen and pelvis to confirm that it is a true rupture.
Nephrology notified and updated, instruct me that patient will lose their kidney function and will need dialysis if CTA is done. Updated at bedside of possible rupture and risks involved. She was agreeable to CT angiogram with the knowledge
that the patient will require dialysis. �
0147 Dr. Villafuerte reviewed CTA scan did not see rupture.
[2024-04-22] MEDS: ATIVAN 0.5 MG PO (02:14)
--- NOTE | 2024-04-22 02:21 | PTCARENOTE ---
Pt back from CT at approx 0145. Awaiting official read from radiologist. CHG cloth bath done and all linens changed, condom cath replaced. Pt requesting more Ativan, which he had during dayshift and had helped him. x1 dose ordered by ICU KELP OR SEAGRASS GATHERER, see
EMAR. Pt now resting with eyes closed.
[2024-04-22] MEDS: VENTOLIN NEBULES 2.5 MG INH (03:42)
[2024-04-22] MEDS: STERILE WATER FOR INJECTION 10 ML IV (04:15)
[2024-04-22] MEDS: MAXIPIME 1000 MG IV (04:16)
--- NOTE | 2024-04-22 04:50 | PTCARENOTE ---
0400 assessment unchanged from previous assessment. Remains on same HFNC settings. SpO2 does not always pick pulling machine tender accurately but when pleth is reading well pt has been satting in low/mid 90s. Pt has been resting with eyes closed since receiving
Ativan, although breathing still appears labored with accessory muscle use. AM labs drawn/sent, pending at this time.
[2024-04-22 04:56] LABS: % Basophils 0.1 % (0-2); % Immature Granulocytes 1.2 % (0-0.5); % Lymphocytes 0.7 % (20.5-51.1); Absolute Immature Granulocytes 0.3 10^3/uL (0-0.05); Absolute Lymphocytes 0.2 10^3/uL (1.2-3.4); Absolute Monocytes 1.1 10^3/uL (0.1-0.6); Absolute Neutrophils 19.9 10^3/uL (1.4-6.5); Hematocrit 23.4 % (39.0-52.0); Hemoglobin 7.5 g/dL (13.0-18.0); Mean Corp Hgb Conc. 32.1 g/dL (33.0-37.0); Mean Corpuscular Hgb 29.8 pg (27.0-31.0); Mean Corpuscular Volume 92.9 fL (80.0-94.0); Mean Platelet Volume 9.8 fL (7.4-10.4); Nucleated Red Blood Cells % 0 % (-); Platelet Count 168 10^3/uL (130-400); Red Blood Cell Count 2.52 10^6/uL (4.70-6.10); Red Cell Dist. Width 15.2 % (11.5-14.5); White Blood Cell Count 21.4 10^3/uL (4.8-10.8)
[2024-04-22 05:24] LABS: Blood Urea Nitrogen 98 mg/dl (9-20); Carbon Dioxide 18 mmol/L (22-30); Chloride 95 mmol/L (98-107); Estimated Creatinine Clearance 12 ml/min; Glucose 80 mg/dl (70-99); Potassium 4.7 mmol/L (3.5-5.1); Sodium 132 mmol/L (135-145); eGFR 14.56
[2024-04-22 05:27] LABS: Vancomycin Random 13.9 ug/ml
[2024-04-22] MEDS: CALCIUM CHLORIDE 10% SYRINGE 60 MG IV (06:31)
--- NOTE | 2024-04-22 07:00 | PTCARENOTE ---
report received from previous RN. walking rounds completed. pt had large loose bowel movement on bed guerrero. A fib on telemetry heart rate in 80s. trace generalized edema. doppler dp pulses. pt on high flow nasal cannula 80% 50L. very difficult to
obtain pulse ox- tried on ears, toes and used different pulse oxs. lung sounds coarse, with scattered rhonchi. active bowel sounds. pt reports some abdominal pain. incontinent of urine- condom cath in place. protective foam to sacrum. left toe
amputation site covered with gauze. see worklist for full nursing assessment and interventions. pt and family updated on plan of care.
[2024-04-22] MEDS: DUONEB 3 ML INH ×3 (07:10→20:26)
--- NOTE | 2024-04-22 07:50 | W.PN.CD ---
Today's Communication / Plan
-
HRs controlled
Continue meds
We will sign off; pleasae call with questions/concerns
Impression / Plan
-
69-year-old male with complex medical history including coronary artery disease, LAD stent 2019, HFpEF, CKD, systemic sclerosis, PAD, left subclavian stent , hiatal hernia and COPD patient presented because he had inability to take p.o. for
approximately 1 week prior to admission. Cardiology is consulted for afib w RVR.
AFIB with RVR: persistent HRs improved
-Continue dilt 240 daily
-Resume home metoprolol 50 mg AM and 25 mg p.m.
-not on OAC. Watchman in place.
Acute hypoxic respiratory failure:
-known L pleural effusion, s/p diagnostic thoracentesis. Per IR note, would need chest tube for further evacuation
-consider diuretics; will discuss with nephrology
HFpEF:
-chronic versus [id number]
-TTE 04/18/2024: small LV, LVEF >75%, normal RV, aortic sclerosis, mild/mod TR, PASP 25-30 mmHg, trivial effusion
-Now likely will be receiving HD per nephro
CAD with hx stenting:
-most recent cath as below
-on ASA, Plavix, statin
Anemia:
-management per primary
SOLEDAD on CKD, solitary functioning kidney, hyponatremia:
-nephrology on the case
Poor appetite:
-GI following
Poss UTI:
-on abx
PAD
CREST
Subjective: tired today HFNC in place
Data:
Echo 06/22/23: Normal biventricular size and systolic function without regional wall motion abnormality. Mild concentric left ventricular hypertrophy. Biatrial enlargement.No significant valvular disease. Mild pulmonary hypertension.
Cath 06/29/23: 1. Right dominant circulation with a densely calcified, 30% proximal RCA lesion, luminal irregularities in the LAD, a 30% tapering of the ostial left main and a nonocclusive 70% ostial/proximal circumflex lesion (IFR = 0.95). 2.
Moderately elevated filling pressures (LVEDP = 21 mmHg, PCWP = 22 mmHg at 49.8 kg). 3. Mild postcapillary pulmonary hypertension (mean PAP = 32 mmHg, PCWP = 22 mmHg, PVR = 1.90 Kim units), WHO group 2.
Subjective: Had some difficulty overnight due to persistent shortness of breath. No chest pain. Does have some palpitations.
Physical Exam
Vital Signs/Labs
Vital Signs
Temp Pulse Resp BP Pulse Ox
97.8 F 75 13 99/61 92
04/22/24 03:22 04/22/24 06:00 04/22/24 06:00 04/22/24 06:00 04/22/24 03:44
04/21/24 04/22/24 04/23/24
06:59 06:59 06:59
Actual Weight 117 lb 15.157 oz 116 lb 6.465 oz
04/22/24 04:22
04/22/24 04:22
PT 14.9 Sec (11.4-14.6) H 04/18/24 11:05
INR 1.14 04/18/24 11:05
APTT 28.7 Sec (23.4-35.0) 04/18/24 11:05
Magnesium 2.0 mg/dl (1.6-2.3) 04/21/24 04:29
Physical Exam
Constitutional: No acute distress
EENT: Anicteric
Cardiovascular: Rhythm/rate is irregular
Respiratory: Other (decreased b/s L base)
GI: Soft
Neuro/Psych: Alert and Oriented
Data Reviewed
-
Date of Service: April 22, 2024
EKG: Tracing Personally Visualized and interpreted (af)
Echo: Report Reviewed by me
Labs: Labs Reviewed by me
[2024-04-22] MEDS: ROCALTROL 0.25 MCG PO (07:58)
[2024-04-22] MEDS: DELTASONE 10 MG PO (07:58)
[2024-04-22] MEDS: DOLOPHINE 10 MG PO ×4 (07:58→21:27)
[2024-04-22] MEDS: LOW STRENGTH ASPIRIN 81 MG PO (07:58)
[2024-04-22] MEDS: SODIUM BICARBONATE 1300 MG PO ×3 (07:58→21:26)
[2024-04-22] MEDS: ZOLOFT 50 MG PO (07:59)
[2024-04-22] MEDS: CARDIZEM CD 240 MG PO (07:59)
[2024-04-22] MEDS: TOPROL XL 50 MG PO (07:59)
[2024-04-22] MEDS: HEPARIN 5000 UNITS SC ×2 (07:59→21:19)
[2024-04-22] MEDS: NORCO 7.5/325 1 TABLET PO ×2 (07:59→21:27)
[2024-04-22] MEDS: SENOKOT-S PO ×2 (08:00→21:20)
--- NOTE | 2024-04-22 08:10 | W.PN.INTV ---
Today's Communication / Plan
Recommendations
CT surgery consult and if not a VATS candidate then consult IR for left-sided chest tube
Maintain MAP >65 and continue holding antihypertensives with low threshold to start Levophed
Trend sCr and BUN --> would benefit from starting HD given BUN is now approaching 100 with concern for platelet dysfunction in the setting of his left-sided hemothorax
For now, continue with ASA + Plavix and Pentoxil filing while trending CBC
Transfuse for Hb >7 g/dL and keep platelets >50k
Patient is not a candidate for open surgical treatment of possible ruptured descending aortic aneurysm and he is not an ideal TEVAR candidate either as per vascular surgery
Continue high flow nasal cannula and titrate FiO2 + flow rate to maintain SpO2 88-95%
Continue aspiration precautions
Continue antibiotics
Continue ICU level care for this critically ill patient
Assessment
-
Impression:
#Rapid A-fib likely due to sepsis from left lower lobe pneumonia with suspected parapneumonic effusion --> now rate controlled and off cardizem gtt since 04/19
#Left sided hemothorax - likely traumatic after multiple falls per the family (last fall in June 2023)
#Sepsis from UTI and multifocal PNA --> involving LLL and now RUL
#Lactic acidosis - normalized as of 04/18
#Metabolic acidosis with increased anion gap due to SOLEDAD
#Acute on chronic anemia (baseline Hb 9.5-11 g/dL) s/p 1 unit PRBC transfused on 04/18 - suspected to be from left-sided hemothorax, with suspicion for acute on chronic process in setting of uremia
#Hypoalbuminemia
#Hypochloremic, hyponatremia likely due to reduced PO intake in the setting of suspected gastroparesis from CREST syndrome (sodium chronically low between 127�134)
#SOLEDAD on CKD with suspected uremia
#Hypoglycemia
#Iron deficiency anemia
#Suspected UTI with urine culture from 04/17/2024 growing Pseudomonas aeruginosa
#GOLD Class II COPD via PFTs from 03/01/2024 with severe gas exchange capacity defect (DLco: 31%)
#Former tobacco smoker ([id number] history, quit 2012)
#PAD with history of left subclavian stent
#History of C. difficile colitis
#Chronic methadone use
#History of paroxysmal A-fib previously on Eliquis complicated by recurrent melena/GI bleed now s/p watchman ROSIE occlusion device (implanted 12/11/2020)
Plan:
-Patient was doing well on 04/20/2024, weaned off of Cardizem drip on 04/19 and was downgraded to IMU level of care
-Unfortunately on 04/21, patient developed sudden shortness of breath and CXR showed opacification in the right upper lobe with CT chest showing evidence for pneumonia with a LLL hemothorax
-There also was concern for a descending aortic aneurysm with rupture on initial CT chest from 04/21, however subsequent CTA chest on 04/22 did not show any evidence of rupture. 8 cm aortic aneurysm. Vascular on board who reviewed imaging and a
thoracic aortic aneurysm rupture is a possibility but he is not an ideal TEVAR candidate given anatomical limitations, and that he is not an open surgical candidate. Vascular surgery recommended to continue observation with no surgical intervention
at this time
-Concern for L-sided hemothorax --> will consult cardiothoracic surgery to assess if an intervention is needed
- Will defer to vascular surgery if his plavix, ASA and pentoxifylline are still required in the setting of suspected left-sided hemothorax and acute anemia with recent transfusion on 04/18
-Given that his H&H has been stable since 04/21/2024, we will opt to continue with antiplatelet medications for now and continue to trend H&H
- If CT surgery does not offer VATS, then will consult IR for chest tube
-Continue aspiration precautions
-Maintain SpO2 88-95% using supplemental O2 and wean down as tolerated --> currently on high flow nasal cannula and there seems to be a discrepancy between his oxygen requirements and the pulse oximetry reading --> check ABG to assess pO2
-Continue DuoNebs TID
-prn nebulized bronchodilators - not currently bronchospastic
-Encourage him to use incentive spirometer 10x per hour for at least 4 hrs a day
-Given that he has been hospitalized for >48 hrs, on 04/21 we started IV vanco; MRSA swab now negative --> IV vanco DC'd; he remains on cefepime since 04/18
-Continue high flow nasal cannula; given the high concern for aspiration, would try to avoid any positive airway pressure as this will surely increase his risk of aspiration and worsen his hypoxia and may lead to him being intubated
-Continue heart rate control
-Patient has been off Cardizem drip since 04/19/2024 evening
-Continue with Cardizem CD and add prn Cardizem versus Lopressor
-Cardiology on board - recs appreciated
-Maintain MAP>65
-Hold antihypertensives, and resume as BP tolerates going forward (takes lisinopril + hydralazine at home)
-Given that patient's BP is improved on 04/19, we stopped hydrocortisone on 04/19 and resumed patient's home dose of prednisone 10 mg on 04/20; random cortisol was WNL at 39.6 on 04/19/2024
-Replete electrolytes with K>4, Mg>2
-Echo performed on 04/18/2024 showed moderate to severe concentric LVH with LVEF >75%, with normal RV size/function with severely dilated LA + severely dilated RA, with mild as moderate TR and normal PASP at 25-30 mmHg
-Continue to trend sCr and I/O/UOP
-Continue PO bicarb and continue to trend sHCO3 levels
-Defer initiation of HD to nephrology --> given that his BUN is now approaching 100 and there is concern for platelet dysfunction from uremia, HD may be appropriate to start in the next 24-48 hrs
-Continue Abx with cefepime given that Pseudomonas is seen on patient's urine culture from 04/17/2024
-CT chest from 04/21/2024 shows severe right upper lobe pneumonia as well as a right lower lobe pneumonia
-Trend WBC and monitor fever curve
-Left-sided chest ultrasound showed a moderate sized left-sided pleural effusion --> thoracentesis attempted by IR on 04/19 but only 2cc of bloody fluid was removed and sent for analysis; not enough for cultures or any other fluid studies. Fluid WBC
elevated at 545 and was PMN predominant. Empyema initially ruled out as fluid was not purulent - continue with antibiotics as stated above. Ultimately he will need repeat imaging as an outpatient with a CT chest
-Continue DAPT with ASA + plavix while trending CBC
-Trend H/H and transfuse if needed to keep Hb>7g/dL; keep plt>50k (given his L-sided hemothorax)
-Maintain euglycemia with goal BG 140-180 --> - given that we are stopped hydrocortisone on 04/19 and since he has been hypoglycemic, lantus DC'd; continue ISS and monitor BG; can always resume lantus if BG starts to rise again into the 160-170s
-Nutrition - Diet as per PIGMENT PROCESSOR (currently on a cholesterol-lowering diet); GI has been following given concern for gastroparesis, and a gastric emptying study was pending --> deferred given chronic methadone use. Of note, this can be done as an
outpatient. As stated above, EGD with biopsy was also going to be performed, but this was deferred as patient is on DAPT
-DVT ppx: Continue HSQ 5000 units q12hr for now given his low Hb and required 1 U PRBC on 04/18; Hb has remained >7.3 since that transfusion was given and no signs of bleeding currently
Continue ICU level care for this critically ill patient.
Critical care statement: A total of 37 minutes of critical care time was provided for this patient today. This includes management of unstable vital signs, evaluation of the patient at bedside, reviewing the patient's pertinent medical records
including radiographs, microbiology, laboratory evaluations, and discussion with primary team, consultants, pharmacy, nutrition, physical therapy, case management, charge nurse, critical care nursing, and respiratory therapy.
Subjective Dataa
Subjective Data
Date of Service:
Date of Service: April 22, 2024
Chief Complaint: Survey Chief Follow Up
Subjective:
Patient was seen and evaluated this morning. Currently on high flow nasal cannula at 50 L/min, 80% FiO2. Breathing comfortably. BP 91/58 and heart rate 83. Patient's son, Balbir, and at bedside, as well as the patient's [id number]. All
questions were answered.
Review of Systems
General: Other (Negative unless mentioned above)
Objective Data
Data Reviewed
Vital Signs / I&O / Oxygen:
Vital Signs
Temp Pulse Resp BP Pulse Ox
97.8 F 85 13 101/54 92
04/22/24 03:22 04/22/24 09:25 04/22/24 06:00 04/22/24 09:25 04/22/24 03:44
Intake and Output
04/21/24 04/22/24 04/23/24
06:59 06:59 06:59
Intake Total 990 / 990 1185 / 1185
Output Total 50 / 50 700 / 700
Balance 940 / 940 485 / 485
SaO2 92
Nasal Cannula flow liters per 50
minute
Physical Exam
General: Respiratory Distress (negative), Comfortable, Chills (negative), Sweats (negative) and Other (Tired today)
HEENT: Normocephalic and Anicteric
Cardiovascular: Irregular Rhythm and Peripheral Edema (negative)
Respiratory: Wheeze (negative), Crackles (Left base), Rhonchi (negative), Stridor (negative) and Other (Diminished breath sounds bilaterally)
GI: Soft, Non Distended, Non Tender and Normal Bowel Sounds
Neurology: Awake, Tremors (negative) and Other (Lethargic today but easily arousable to voice and answering my questions appropriately)
Skin: Warm, Dry, Cyanosis (negative) and Jaundice (negative)
Labs/Micro/Reports
Lab Data
04/22/24 04:22
04/22/24 04:22
Microbiology
04/21/24 17:25 Nose Nasal Screen MRSA (PCR) - Final
MRSA not detected - performed by PCR methodology.
04/19/24 17:22 Pleural Fluid Body Fluid Culture - Preliminary
No Growth After 48 Hours
04/19/24 17:22 Pleural Fluid Gram Stain - Final
04/19/24 17:21 Pleural Fluid Fungal Culture - Preliminary
Culture in progress.
Positive cultures are reported as soon as detected.
Final report to follow in four to five weeks.
04/17/24 12:33 Urine Urine Culture - Final
Pseudomonas aeruginosa
--- NOTE | 2024-04-22 09:16 | CON.VAS ---
Medical History
-
Chief Complaint: Back pain-resolved
History of Present Illness:
69-year-old male with past medical history CAD with stenting, CHF, PAD, former smoker, COPD, PAF with watchman, CKD 3, crest syndrome, solitary kidney, chronic dysphagia, chronic opiate dependence, left subclavian stent, fusiform aneurysm of
descending aorta. Admitted on 04/16/2024 for weakness, poor p.o. intake, SOLEDAD.
Vascular consult for concern over ruptured thoracic aortic aneurysm. Patient seen at bedside this a.m. with Dr. Gupta. Patient without chest or back pain at this time.
Fluid left chest
Hemodynamically stable
CT angiogram shows large heavily calcified descending thoracic aortic aneurysm. Celiac artery originates from the aneurysm. Aneurysm terminates at the level of the superior mesenteric artery which appears to be occluded at its origin. Heavily
calcified renal artery disease bilaterally. Calcified infrarenal aorta. Large inferior mesenteric artery. Bilateral iliac artery stents. Calcified common femoral artery disease.
Past Medical History
Past Medical History: Other (See above)
Past Surgical History: Other (See above)
Social History
Tobacco: Former Smoker
Personal:
Allergies / Home Medications
Allergy/AdvReac Type Severity Reaction Status Date / Time
morphine Allergy severe Verified 04/16/24 10:55
itching/rash
�Medication �Instructions �Recorded �Confirmed �Type
methadone 10 mg tablet 10 mg PO QID Pain 04/05/19 04/16/24 History
tamsulosin 0.4 mg capsule 0.4 mg PO HS Urinary issue 09/29/19 04/16/24 History
pentoxifylline 400 mg 400 mg PO HS CIRCULATION 08/14/20 04/16/24 History
tablet,extended release
prednisone 10 mg tablet 10 mg PO DAILY Anti-Inflammatory 07/23/22 04/16/24 History
sertraline 50 mg tablet 50 mg PO DAILY Depression 10/09/22 04/16/24 History
hydrocodone 7.5 mg-acetaminophen 1 tab PO Q6H Pain 11/18/22 04/16/24 History
325 mg tablet
metoprolol succinate 50 mg 50 mg PO DAILY Blood Pressure 11/18/22 04/16/24 History
tablet,extended release 24 hr
aspirin 81 mg tablet,delayed 81 mg PO DAILY Blood Clot 04/22/23 04/16/24 History
release Prevention/Tx
diltiazem HCl 240 mg 240 mg PO HS Heart 04/22/23 04/16/24 History
capsule,extended release 24 hr, Disease/Condition
controlled (DILT-XR)
ondansetron 8 mg disintegrating 8 mg PO TIDPRN PRN nausea/vomiting 04/22/23 04/16/24 History
tablet
hydralazine 100 mg tablet 100 mg PO BID Blood Pressure 06/29/23 04/16/24 History
lisinopril 10 mg tablet 10 mg PO DAILY Blood Pressure 06/29/23 04/16/24 History
famotidine 40 mg tablet 40 mg PO HS Gastrointestinal Issue 02/04/24 04/16/24 History
polyethylene glycol 3350 17 gram 17 grams PO DAILYPRN PRN 02/04/24 04/16/24 History
oral powder packet constipation
rosuvastatin 20 mg tablet 20 mg PO HS High Cholesterol 02/04/24 04/16/24 History
metoprolol succinate 25 mg 25 mg PO HS Heart Disease/Condition 02/26/24 04/16/24 History
tablet,extended release 24 hr
ipratropium 0.5 mg-albuterol 3 mg 3 ml inhalation R BID 03/31/24 04/16/24 History
(2.5 mg base)/3 mL nebulization Lung/Breathing Issues
soln
clopidogrel 75 mg tablet 75 mg PO HS Blood Clot 04/16/24 04/16/24 History
Prevention/Tx
denosumab 60 mg/mL subcutaneous 60 mg SC [id number] OSTEOPOROSIS 04/16/24 04/16/24 History
syringe (Prolia)
furosemide 20 mg tablet 20 mg PO DAILYPRN PRN sob/weight 04/16/24 04/16/24 History
gain
ibuprofen 200 mg tablet 400 mg PO DAILYPRN PRN mild pain 04/16/24 04/16/24 History
Review of Systems
-
Unable to obtain full review of systems at this time due to: Acuity
History Source: Family
All other systems: Negative unless noted
Constitutional: Reports Fatigue
Respiratory: Reports Trouble Breathing
Cardiac: Reports Chest Pain (Back pain)
Physical Exam
Vital Signs
Temp Pulse Resp BP Pulse Ox
97.8 F 89 13 110/58 92
04/22/24 03:22 04/22/24 07:59 04/22/24 06:00 04/22/24 07:59 04/22/24 03:44
Lab Results
04/22/24 04:22
04/22/24 04:22
Troponin I 0.015 ng/ml 04/18/24 11:05
Physical Exam
General: No Apparent Distress
HEENT: Normocephalic and Atraumatic
Respiratory: Other (On high flow)
Cardiac: Negative JVD
GI: Soft, Non Tender and Non Distended
Skin: Warm
Neuro: Awake and Alert
Psych: Calm
Assessment / Plan
-
Contained rupture of the thoracic aortic aneurysm is a possibility but he is not an ideal TEVAR candidate given anatomic limitations with bilateral iliofemoral access and poor distal seal zone coupled with mesenteric occlusive disease. He is not an
open surgical candidate. It is also possible that his aneurysm is not ruptured and the fluid in his left chest is related to another pathologic process, especially given lack of chest pain or hemodynamic instability that would likely be associated
with a rupture.
Dr. Gupta had a long conversation with his [id number] who is a physician at [facility]. Recommending continued observation and no surgical intervention given high risk of stent graft intervention the associated and technical limitations
above.
She is in agreement with that plan.
Call with questions or concerns
Data Reviewed
-
CT Scan: Discussed with Patient
--- NOTE | 2024-04-22 09:23 | W.PN.NEPH.PH ---
Today's Communication / Plan
-
Follow BMP
Assessment/Plan
-
Assessment:
Likely gastroparesis secondary to scleroderma
SOLEDAD on CKD 3B-baseline cr 1.5 Dr Jain
Metabolic acidosis
Solitary functioning kidney due to scleroderma given L kidney atrophy.
Hypocalcemia
QTc prolongation secondary to hypocalcemia
Hyponatremia
Paroxysmal atrial fibrillation
Chronic HFpEF
Scleroderma
Raynaud's
Rheumatoid arthritis
CREST syndrome
Peripheral arterial disease status post left subclavian stent, recent left lower extremity stent
History of left fifth toe osteomyelitis status post amputation in February
Chronic back pain secondary to compression fracture/osteoporosis
History of fusiform aneurysm of descending aorta
Essential hypertension
Chronic dysphagia
Chronic pain/opiate dependence
COPD
Depression
Chronic anemia
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
8 cm thoracic aortic aneurysm
Plan:
Events noted overnight
No rupture of aneurysm noted on CTA, however aneurysm noted to be 8 cm
Creatinine worse, especially after contrast exposure
Certainly at this time there is no urgent indication for dialysis
May continue Lasix for now.
Would need to consider thoracentesis as this may be the best option of alleviating his shortness of breath
He does not appear to be overtly volume overloaded however.
Discussed with [id number]. The issue of dialysis will need to be decided by the family. His risks of rupture of an 8 cm thoracic aneurysm is quite high. We did discuss that from kidney failure is painless and may be a consideration.
We could also attempt a trial of dialysis to see if this may also allow for better control of volume though dialysis typically is very poor at controlling effusions.
The [id number] would speak with the family.
Critical care time spent 40 minutes
-
-
Date of Service: April 22, 2024
CC / HPI / ROS
-
Chief Complaint:
SOLEDAD, CKD
History of Present Illness:
SOLEDAD/Cr up at 4.2
Metabolic acidosis worse 18
Na low 132 stable
BP low stable
critically ill in ICU
on mid flow 10lit o2
Review of Systems:
able to tolerate po , mild nausea
more sob and feels tired
no fever
Labs
-
Labs:
WBC 21.4 10^3/uL (4.8-10.8) H 04/22/24 04:22
RBC 2.52 10^6/uL (4.70-6.10) L 04/22/24 04:22
Hgb 7.5 g/dL (13.0-18.0) L 04/22/24 04:22
Hct 23.4 % (39.0-52.0) L 04/22/24 04:22
Plt Count 168 10^3/uL (130-400) 04/22/24 04:22
Sodium 132 mmol/L (135-145) L 04/22/24 04:22
Potassium 4.7 mmol/L (3.5-5.1) 04/22/24 04:22
Chloride 95 mmol/L (98-107) L 04/22/24 04:22
Carbon Dioxide 18 mmol/L (22-30) L 04/22/24 04:22
BUN 98 mg/dl (9-20) H 04/22/24 04:22
Creatinine 4.2 mg/dL (0.7-1.3) H* 04/22/24 04:22
eGFR 14.56 04/22/24 04:22
Glucose 80 mg/dl (70-99) 04/22/24 04:22
Calcium 7.0 mg/dl (8.4-10.2) L 04/22/24 04:22
Phosphorus 6.0 mg/dl (2.5-4.5) H 04/21/24 04:29
Albumin 2.6 g/dl (3.5-5.0) L 04/18/24 11:05
Physical Exam
-
Vital Signs:
Vital Signs
Temp Pulse Resp BP Pulse Ox
97.8 F 89 13 110/58 92
04/22/24 03:22 04/22/24 07:59 04/22/24 06:00 04/22/24 07:59 04/22/24 03:44
Cardiovascular:: Regular rate and rhythm
Respiratory:: Bilateral: Coarse (Decreased left)
Lung Excursion:: Normal
Abdomen:: Nontender and Soft
Bowel Sounds:: Decreased
Extremity Edema:: None: Bilateral:
[2024-04-22] MEDS: LASIX 80 MG IV ×2 (09:25→19:16)
[2024-04-22 09:55] LABS: Glucose - Point of Care 88 mg/dl (70-99)
--- NOTE | 2024-04-22 12:00 | PTCARENOTE ---
vitals stable. remains very difficult to get an accurate pulse ox with a pleth- Dr Wynne aware. family at bedside. no further changes in assessment noted.
--- NOTE | 2024-04-22 12:34 | W.PN.UPDATE ---
Update Note
Progress Note Update
Full consult note to follow
Seen and examined with JOSE EDUARDO Martel. Chart and history reviewed. CT angiogram images reviewed.
Consulted for concern over ruptured thoracic aortic aneurysm
Patient with multiple medical comorbidities
Chronic kidney disease.
Patient without chest or back pain
Fluid left chest
Hemodynamically stable
CT angiogram shows large heavily calcified descending thoracic aortic aneurysm. Celiac artery originates from the aneurysm. Aneurysm terminates at the level of the superior mesenteric artery which appears to be occluded at its origin. Heavily
calcified renal artery disease bilaterally. Calcified infrarenal aorta. Large inferior mesenteric artery. Bilateral iliac artery stents. Calcified common femoral artery disease.
Contained rupture of the thoracic aortic aneurysm is a possibility but he is not an ideal TEVAR candidate given anatomic limitations with bilateral iliofemoral access and poor distal seal zone coupled with mesenteric occlusive disease. He is not an
open surgical candidate. It is also possible that his aneurysm is not ruptured and the fluid in his left chest is related to another pathologic process, especially given lack of chest pain or hemodynamic instability that would likely be associated
with a rupture.
I had a long conversation with his [id number] who is a physician at [facility]. I am recommending continued observation and no surgical intervention given high risk of stent graft intervention the associated and technical limitations above.
She is in agreement with that plan.
Call with questions or concerns
Papo Gupta III, MD
[facility]
[phone] (womm)
--- NOTE | 2024-04-22 13:04 | W.PN.HOSP.TC ---
Today's Communication/Plan
-
Await CT surgery input
Continue bowel regimen
Continue with IV antibiotics
Monitor creatinine
Repeat labs pending
Assessment / Plan
Assessment / Plan
General: Cachectic
HEENT: Normocephalic, Atraumatic, Moist Mucous Membranes and Oxygen
Respiratory: Decreased Breath Sounds, on high flow nasal cannula
Cardiac: S1/S2, Irregular Rhythm
GI: Soft, Nontender, Nondistended and Normal Bowel Sounds; Negative Organomegaly
Rectal: Deferred by Provider
Musculoskeletal: No Clubbing, No Cyanosis and No Edema
Skin: Negative Rash
Neuro: Awake, AO x 3, No Motor Deficits and Nonfocal/Grossly Intact
Psych: anxious
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
Has no nausea or vomiting, but no appetitie to eat. Can keep liquds down. Also found hyponatremia. Managed for worsening CKD
A/P:
# Left-sided hemothorax
# Acute descending thoracic aortic aneurysm of 7.[address] angiogram of chest abdomen pelvis noted
Was evaluated by vascular surgery and not concern for acute thoracic aortic aneurysm rupture. Plans to observe for now
CT surgery has been consulted and will await further input of VATS versus chest tube versus monitor for now
Seems this is causing patient majority of his shortness of breath
Investment Officer following
#SOLEDAD on CKD stage 4 with solitary functioning R kidney (L kidney atrophy) with hypotension on admission
#SIADH with hyponatremia
#CREST
Calcitriol
no concern for scleroderma renal crisis as BP not elevated
Nephrology for fluid and electrolyte mgmt
Patient creatinine at 4.2. Expect patient creatinine to uptrend further after receiving contrast overnight
Diuretics restarted aggressively at 80 mg twice daily. Patient may be approaching with hemodialysis
Status post HD catheter placement on 04/21/2024
HD per nephrology
# Persistent atrial fibrillation with rapid ventricular response
Patient was started on Cardizem infusion per cardiology
Status post Cardizem infusion. Restarted on Cardizem and Metoprolol. Adjust as needed if BP can tolerate it.
Patient with crest syndrome and elevated creatinine thus options were limited. Can consider IV amiodarone for short term usage only
BP holding
Monitor chest pain
Monitor heart rate
Status post Watchman device has history of GI bleeding
# Acute hypoxic respiratory failure
#COPD
#Left pleural effusion
Chest x-ray Worsening interstitial and alveolar opacity within the right mid and upper lung zones, suggestive of developing pneumonia/interstitial pneumonitis. Atypical pulmonary edema should also be considered.Moderate left pleural effusion,
layering along the left lateral chest wall, unchanged. Hazy left basilar opacity, which may represent pneumonia or subsegmental atelectasis.
Chest ultrasound and only able for dx thora 2cc fluid removed. Await fluid culture and cytology.
Wean oxygen as tolerated
Video swallow eval will need to be hold for now
Low threshold for intubation
Investment Officer following
# Abdominal pain/cramps likely secondary to heavy stool burden
Continue with bowel regimen is on chronic opioids
# Chest pain likely secondary symptomatic tachycardia
Nitroglycerin as needed
A-fib management as above
Cardiology following
# Pseudomonas UTI
DC ceftriaxone started on cefepime.
Renally dosed cefepime.
#Anemia Iron deficient
s/p 1U of PRBC. Hgb improved. Hgb 7.5
Explains possibly drop in hemoglobin secondary to hemothorax
#Hypocalcemia
-replete/monitor. Calcitriol
-check ionized calcium
#Dysphagia
VSE ordered . Will hold off for now as with tenous respiratory status
cont current diet per Speech
#Mild hyponatremia
monitor for now
#Lactic acidosis
trend for now
#Loss of appetite
#Severe protein caloric malnutrition due to acute on chronic illness
#Gastroparesis
BMI 17.6
Ensure suppl
GI consult: will need eventual EGD, most likely outpatient, but if patient will get worse - will consider inpatient
most likely 2/2 progressive CKD
#Leukocytosis
most liekly 2/2 steroids
monitor WBC and fever trend
#R lung mass
stable since 2014
supposed to be followed with pulm as outpatient as per previous notes
#Chronic pain syndrome 2/2 osteoporosis
On methadone and [place]
Bowel regimen
#PAD s/p LE stent
#Subclavian stenosis s/p stent
#HLD
#Essential HTN
#BPH
#Anxiety d/o
DVT ppx hep sc
Full code
Discussed with patient DIOGENES Melgar MD at bedside in detail for prolonged period of time on 04/21 and 04/22
Discussed with dry wall plasterer
Long-term prognosis guarded
Patient critically ill
Anticipated Discharge: > 48 hours
Subjective/Interval History
-
Date of Service: April 22, 2024
Overnight events were noted
Patient states of of shortness of breath
CT angiogram overnight
Received 80 mg of Lasix earlier today
Status post HD catheter placement yesterday
Remains on high flow nasal cannula
Objective Data
-
Labs:
Laboratory Results
04/22/24 04/22/24
04:22 15:00
WBC 21.4 H Pending
Hgb 7.5 L Pending
Hct 23.4 L Pending
Plt Count 168 Pending
Sodium 132 L Pending
Potassium 4.7 Pending
Chloride 95 L Pending
Carbon Dioxide 18 L Pending
BUN 98 H Pending
Creatinine 4.2 H* Pending
Glucose 80 Pending
Calcium 7.0 L Pending
Vital Signs:
Vital Signs
Temp Pulse Resp BP Pulse Ox
97.5 F 89 14 103/63 94
04/22/24 12:07 04/22/24 12:00 04/22/24 12:00 04/22/24 12:00 04/22/24 08:00
I&O
04/21/24 04/22/24 04/23/24
06:59 06:59 06:59
Intake Total 990 / 990 1185 / 1185 200 / 200
Output Total 50 / 50 700 / 700
Balance 940 / 940 485 / 485 200 / 200
--- NOTE | 2024-04-22 13:31 | CONSULT.CT ---
Consultation
-
Date/Time Consultation Performed: 04/22/24 13:15
Performing Provider: Brendan Singleton PA-C
Reason for Consultation: left sided hemothorax
Patient History
History of Present Illness
69 year old with h/o Scleroderma, crest syndrome, AF, history of multiple falls and DAPT for PAD. He recently developed severe SOB suspected to be from aspiration pneumonia. CT chest revealed Left hemothorax charlee ng with an 8cm descending aortic
aneurysm. CT surgery was consulted for evaluation of hemothorax. Vascular surgery was consulted for evaluation of aortic aneurysm.
Past Medical History
Past Medical History: Atrial Fib, CAD (s/p PCI), CHF, COPD, HTN and Renal Insufficiency
PAD
Past Surgical History
Past Surgical History: PCI/Stent
Social History
Drug: Other (methadone)
Allergies
Allergy/AdvReac Type Severity Reaction Status Date / Time
morphine Allergy severe Verified 04/16/24 10:55
itching/rash
Home Medications
�Medication �Instructions �Recorded �Confirmed �Type
methadone 10 mg tablet 10 mg PO QID Pain 04/05/19 04/16/24 History
tamsulosin 0.4 mg capsule 0.4 mg PO HS Urinary issue 09/29/19 04/16/24 History
pentoxifylline 400 mg 400 mg PO HS CIRCULATION 08/14/20 04/16/24 History
tablet,extended release
prednisone 10 mg tablet 10 mg PO DAILY Anti-Inflammatory 07/23/22 04/16/24 History
sertraline 50 mg tablet 50 mg PO DAILY Depression 10/09/22 04/16/24 History
hydrocodone 7.5 mg-acetaminophen 1 tab PO Q6H Pain 11/18/22 04/16/24 History
325 mg tablet
metoprolol succinate 50 mg 50 mg PO DAILY Blood Pressure 11/18/22 04/16/24 History
tablet,extended release 24 hr
aspirin 81 mg tablet,delayed 81 mg PO DAILY Blood Clot 04/22/23 04/16/24 History
release Prevention/Tx
diltiazem HCl 240 mg 240 mg PO HS Heart 04/22/23 04/16/24 History
capsule,extended release 24 hr, Disease/Condition
controlled (DILT-XR)
ondansetron 8 mg disintegrating 8 mg PO TIDPRN PRN nausea/vomiting 04/22/23 04/16/24 History
tablet
hydralazine 100 mg tablet 100 mg PO BID Blood Pressure 06/29/23 04/16/24 History
lisinopril 10 mg tablet 10 mg PO DAILY Blood Pressure 06/29/23 04/16/24 History
famotidine 40 mg tablet 40 mg PO HS Gastrointestinal Issue 02/04/24 04/16/24 History
polyethylene glycol 3350 17 gram 17 grams PO DAILYPRN PRN 02/04/24 04/16/24 History
oral powder packet constipation
rosuvastatin 20 mg tablet 20 mg PO HS High Cholesterol 02/04/24 04/16/24 History
metoprolol succinate 25 mg 25 mg PO HS Heart Disease/Condition 02/26/24 04/16/24 History
tablet,extended release 24 hr
ipratropium 0.5 mg-albuterol 3 mg 3 ml inhalation R BID 03/31/24 04/16/24 History
(2.5 mg base)/3 mL nebulization Lung/Breathing Issues
soln
clopidogrel 75 mg tablet 75 mg PO HS Blood Clot 04/16/24 04/16/24 History
Prevention/Tx
denosumab 60 mg/mL subcutaneous 60 mg SC [id number] OSTEOPOROSIS 04/16/24 04/16/24 History
syringe (Prolia)
furosemide 20 mg tablet 20 mg PO DAILYPRN PRN sob/weight 04/16/24 04/16/24 History
gain
ibuprofen 200 mg tablet 400 mg PO DAILYPRN PRN mild pain 04/16/24 04/16/24 History
Review of Systems
-
History Source: Patient and Family
General: Reports Fatigue
HEENT: Reports Hoarseness
Respiratory: Reports SOB
Cardiac: Reports CAD, Known Vascular Disease and Palpitations; Denies Chest Pain
Abdomen/GI: Reports Abdominal Pain and Constipation
Physical Exam
Vital Signs
Temp 97.5 F 04/22/24 12:07
Temp route: Axillary 04/22/24 12:07
Pulse 89 04/22/24 12:00
Rhythm: Atrial fibrillation 04/22/24 08:00
Resp Rate 14 04/22/24 12:00
Blood pressure 103/63 04/22/24 12:00
Blood pressure extremity used: Left upper arm 04/21/24 15:30
Position: Lying 04/21/24 15:30
MAP (cuff-Kylah Monitor) 73 04/22/24 12:00
SaO2 94 04/22/24 08:00
Nasal Cannula flow liters per minute 50 04/22/24 07:57
Oxygen Mode of Delivery High Flow Nasal Cannula 04/22/24 08:00
Flow liters per minute # 50 04/22/24 08:00
% Oxygen delivered 80 04/22/24 08:00
Can the patient verbally communicate their pain? Yes 04/21/24 15:30
Pain scale ratin 04/18/24 11:30
Actual Weight 116 lb 6.465 oz 04/22/24 03:48
Body Mass Index (BMI) 18.8 04/22/24 03:48
Labs
PT 14.9 Sec (11.4-14.6) H 04/18/24 11:05
APTT 28.7 Sec (23.4-35.0) 04/18/24 11:05
Hemoglobin A1c 5.0 % (4.0-5.6) 04/19/24 02:52
Troponin I 0.015 ng/ml 04/18/24 11:05
Urinalysis
Urine Color Yellow 04/17/24 12:33
Urine Clarity Clear (Clear) 04/17/24 12:33
Urine pH 5.0 (5.0-9.0) 04/17/24 12:33
Ur Specific [place] 1.020 (<1.030) 04/17/24 12:33
Urine Ketones Negative (Negative) 04/17/24 12:33
Urine Occult Blood Cancelled 04/17/24 12:33
Ur Occult Blood Reflex Negative (Negative) 04/17/24 12:33
Urine Bilirubin Negative (Negative) 04/17/24 12:33
Ur Leukocyte Esterase Cancelled 04/17/24 12:33
Leukocyte Esterase Rfl 2+ (Negative) A 04/17/24 12:33
Urine RBC 0-2 /HPF (0-2) 04/17/24 12:33
Urine WBC Cancelled 04/17/24 12:33
Urine WBC (Reflex) 40-50 /HPF (0-5) A 04/17/24 12:33
Ur Squamous Epith Cells 16-20 /LPF (Few) 04/17/24 12:33
Urine Glucose Negative (Negative) 04/17/24 12:33
Urine Albumin Cancelled 04/17/24 12:33
Urine Albumin (Reflex) 2+ (Neg - Trace) A 04/17/24 12:33
Exam
General: Poor Appetite
HEENT: PERRLA and EOMI
Respiratory: Other (decreased BS on in left base)
Cardiac: Irregular Rhythm
GI: Non Distended and Tender
Rectal: Deferred by Provider
Neuro: AO x 3
Extremities: Negative Lower Level Edema
Psych: Calm
Assessment / Plan
-
69 year old gentleman we are consulted on for hemothorax who has multiple (see above) comorbidities. D/W Dr. Lozano who feels the best treatment would be IR guided chest tube =/- tPa and dornase. Would not offer surgical intervention here and may
need transfer to tertiary care if that is the intention. Please see attendings attestation/addendum for further recommendations.
[2024-04-22 14:11] LABS: Glucose - Point of Care 89 mg/dl (70-99)
[2024-04-22 14:35] LABS: Hepatitis B Surface Antigen Negative (Negative)
[2024-04-22 14:53] LABS: Hepatitis B Surface Antibody Negative
[2024-04-22 15:14] LABS: Hematocrit 23.4 % (39.0-52.0); Hemoglobin 7.6 g/dL (13.0-18.0); Mean Corp Hgb Conc. 32.5 g/dL (33.0-37.0); Mean Corpuscular Hgb 30.3 pg (27.0-31.0); Mean Corpuscular Volume 93.2 fL (80.0-94.0); Mean Platelet Volume 9.5 fL (7.4-10.4); Platelet Count 162 10^3/uL (130-400); Red Blood Cell Count 2.51 10^6/uL (4.70-6.10); Red Cell Dist. Width 15.2 % (11.5-14.5); White Blood Cell Count 24.7 10^3/uL (4.8-10.8)
[2024-04-22 15:52] LABS: Blood Urea Nitrogen 103 mg/dl (9-20); Calcium 7.7 mg/dl (8.4-10.2); Carbon Dioxide 18 mmol/L (22-30); Chloride 95 mmol/L (98-107); Estimated Creatinine Clearance 11 ml/min; Glucose 83 mg/dl (70-99); Potassium 5.2 mmol/L (3.5-5.1); Sodium 133 mmol/L (135-145); eGFR 13.05
--- NOTE | 2024-04-22 16:04 | CM ---
CM following re: discharge planning.
Reviewed pt' chart, met with pt. Pt currently requires 50 L HFNC with FIO2 80%, CT surgery and Vascular surgery following, continue supportive care.
Pt lives with spouse in a townhouse, has a son who lives out of state. Pt reports he ambulates with a walker, has a Rollator and has been receiving outpatient home therapy with Bryn at home rehab.
D/C plan: uncertain at this time and will depend on pt's progress.
CM will follow with discharge plan updates as hospitalization progresses
--- NOTE | 2024-04-22 16:25 | W.PN.UPDATE ---
Update Note
Progress Note Update
- 18F Thalquick left chest tube placed with US/fluoro guidance
- Immediate drainage of 500 mL dark bloody fluid. Pressures became soft at this point so tube was clamped.
--- NOTE | 2024-04-22 16:29 | PTCARENOTE ---
elsa RN- left chest tube placed in procedure room, immediately drained 450ml of bloody fluid. bp 76/43 (53), 73/41 (51) clamped chest tube. dr. Hillman made aware repeat bp 83/57. dr. andrade also aware of above.
[2024-04-22] MEDS: LEVOPHED 250 IV (16:45)
[2024-04-22] MEDS: STERILE WATER FOR INJECTION IV (16:54)
[2024-04-22] MEDS: MAXIPIME IV (16:54)
--- NOTE | 2024-04-22 17:00 | PTCARENOTE ---
pt back from IR. chest tube clamped at this time per md. levophed started to keep map>65. bladder scanned for [address] velasquez notified, order received for corea catheter. unable to place 14 czech, unable to place coude, finally able to insert 12
czech corea, 450 ml.
--- NOTE | 2024-04-22 17:29 | W.PN.UPDATE ---
Update Note
Progress Note Update
RTSP
I had a discussion with the family (, son, [id number]). We discussed dialysis. Most recent blood work shows progressive acute kidney injury. He will likely require dialysis tomorrow. They are willing to try dialysis to see if this will
by more time for them to talk to them more. The patient currently has no knowledge of his 8 cm thoracic aneurysm. Previously he was aware that he may require dialysis.
Blood pressure did fall after placement of chest tube for his large left fluid collection and was then clamped. Levophed will be started to maintain blood pressures and mean arterial pressures greater than 65.
I did reiterate to the and the son that long-term dialysis likely would not offer significant improvement or any long-term goals for them.
Gupta catheter will be placed given bladder scan of 500 cc.
Critical care time 40 minutes
--- NOTE | 2024-04-22 18:30 | PTCARENOTE ---
per md unclamped chest tube and put to -20 suction. additional 250 ml bloody drainage from chest tube. (500 initially from IR for total of 750ml)
--- NOTE | 2024-04-22 21:00 | PTCARENOTE ---
Assumed care of pt at 1900. Pt drowsy but arousable to voice/tactile stimuli, oriented x4. Able to take po meds once woken up. Received pt on Levophed at 6mcg/min. AFib 80s on monitor. SpO2 does not always hop picker despite trying multiple sites
(ears, fingers, etc), but when able to get a read pt has been satting in mid to high 90s on HFNC 80% 50LPM. Left lateral chest tube to -20cm suction with sanguinous drainage noted. See chest tube flowsheet. Physical assessment as documented in
nursing shift assessment flowsheet. in room, staying the night.
[2024-04-22] MEDS: NORCO 7.5/325 PO (21:19)
[2024-04-22] MEDS: FLOMAX 0.4 MG PO (21:23)
[2024-04-22] MEDS: TRENTAL 400 MG PO (21:24)
[2024-04-22] MEDS: CRESTOR 20 MG PO (21:24)
[2024-04-22] MEDS: SENOKOT-S 1 TABLET PO (21:25)
[2024-04-22] MEDS: PEPCID 10 MG PO (21:25)
[2024-04-22] MEDS: PLAVIX 75 MG PO (21:26)
[2024-04-22] MEDS: DULCOLAX 10 MG PO (21:26)
[2024-04-22] MEDS: TOPROL XL 25 MG PO (21:26)
[2024-04-22 21:57] LABS: Glucose - Point of Care 108 mg/dl (70-99)
[2024-04-23] VITALS (88 sets, daily range): BP systolic 73–138; BP diastolic 26–119; BMI 18.1
--- NOTE | 2024-04-23 00:37 | PTCARENOTE ---
Midnight assessment unchanged from previous. AFib 80s on monitor. Pt has been resting with eyes closed most of the shift. Remains on Levophed.
[2024-04-23] MEDS: LEVOPHED 250 IV ×2 (03:53→18:07)
[2024-04-23] MEDS: MAXIPIME 1000 MG IV (03:54)
[2024-04-23] MEDS: STERILE WATER FOR INJECTION 10 ML IV (03:54)
[2024-04-23 04:00] LABS: % Basophils 0.1 % (0-2); % Lymphocytes 0.4 % (20.5-51.1); % Monocytes 4.6 % (1.7-9.3); % Neutrophils 93.9 % (42.2-75.2); Absolute Immature Granulocytes 0.3 10^3/uL (0-0.05); Absolute Lymphocytes 0.1 10^3/uL (1.2-3.4); Absolute Monocytes 1.1 10^3/uL (0.1-0.6); Absolute Neutrophils 22.7 10^3/uL (1.4-6.5); Hematocrit 23.3 % (39.0-52.0); Hemoglobin 7.7 g/dL (13.0-18.0); Mean Corpuscular Hgb 30.1 pg (27.0-31.0); Mean Platelet Volume 9.9 fL (7.4-10.4); Nucleated Red Blood Cells % 0.1 % (-); Platelet Count 200 10^3/uL (130-400); Red Blood Cell Count 2.56 10^6/uL (4.70-6.10); Red Cell Dist. Width 15.1 % (11.5-14.5); White Blood Cell Count 24.2 10^3/uL (4.8-10.8)
[2024-04-23 04:08] LABS: Blood Urea Nitrogen 107 mg/dl (9-20); Calcium 7.3 mg/dl (8.4-10.2); Carbon Dioxide 19 mmol/L (22-30); Chloride 98 mmol/L (98-107); Estimated Creatinine Clearance 10 ml/min; Glucose 95 mg/dl (70-99); Potassium 5.1 mmol/L (3.5-5.1); Sodium 134 mmol/L (135-145)
--- NOTE | 2024-04-23 05:27 | PTCARENOTE ---
Assessment unchanged. Remains on Levophed at 6mcg/min. CHG cloth bath done, linens changed.
[2024-04-23] MEDS: DUONEB 3 ML INH ×3 (07:38→19:47)
--- NOTE | 2024-04-23 07:38 | W.PN.CD ---
Today's Communication / Plan
-
Critically ill patient with respiratory failure, renal failure and large descending thoracic aortic aneurysm. This is all on top of his baseline complex medical issues including systemic sclerosis sclerosis, CAD and A-fib. Remains on high flow O2.
-A-fib is currently stable and rate controlled
-Blood pressure currently stable.
-Patient's situation is quite tenuous considering all the issues above. Under nephrology's had discussions with the family regarding dialysis. This may not impact long-term prognosis considering all the issues above. Patient will need to be
monitored closely to see how well he tolerates this. Considering severe anemia would consider PRBCs at the time of HD.
.
I spoke to who is understandably stressed regarding the complex decisions that she is need to help make for this patient.. Of note her [id number] is a physician at [facility]) who is also been involved in the decision
making process.
Impression / Plan
-
69-year-old male with complex medical history including coronary artery disease, LAD stent 2019, HFpEF, CKD, systemic sclerosis, PAD, left subclavian stent , hiatal hernia and COPD patient presented because he had inability to take p.o. for
approximately 1 week prior to admission. Cardiology is consulted for afib w RVR.
AFIB with RVR:
-Remains rate controlled on current medical therapy. Continue diltiazem and metoprolol
-not on OAC. Watchman in place. No plans for anticoagulation considering patient's current medical conditions
Descending thoracic aorta aneurysm aneurysm measuring 7.9 cm on multiplanar reformatted and greater than 10 cm on axial imaging. No clear extravasation of contrast
-Patient seen by both vascular surgery and CT surgery please see notes.
-Plans for conservative management as outlined.
Acute hypoxic respiratory failure: Remains on high flow
-known L pleural effusion,
-Chest tube intact
HFpEF:
-chronic versus [id number]
-TTE 04/18/2024: small LV, LVEF >75%, normal RV, aortic sclerosis, mild/mod TR, PASP 25-30 mmHg, trivial effusion
-Now likely will be receiving HD per nephro
CAD with hx stenting:
-most recent cath as below
-on ASA, Plavix, statin
Anemia: -Severe.
-PRBC if patient to receive HD
-management per primary
SOLEDAD on CKD, solitary functioning kidney, hyponatremia:
-nephrology on the case
-See Dr. Jain's notes multiple discussions with patient/family regarding dialysis. Possible HD today
Poor appetite:
-GI following
Poss UTI:
-on abx
PAD
CREST
Subjective: tired today HFNC in place
Data:
Echo 06/22/23: Normal biventricular size and systolic function without regional wall motion abnormality. Mild concentric left ventricular hypertrophy. Biatrial enlargement.No significant valvular disease. Mild pulmonary hypertension.
Cath 06/29/23: 1. Right dominant circulation with a densely calcified, 30% proximal RCA lesion, luminal irregularities in the LAD, a 30% tapering of the ostial left main and a nonocclusive 70% ostial/proximal circumflex lesion (IFR = 0.95). 2.
Moderately elevated filling pressures (LVEDP = 21 mmHg, PCWP = 22 mmHg at 49.8 kg). 3. Mild postcapillary pulmonary hypertension (mean PAP = 32 mmHg, PCWP = 22 mmHg, PVR = 1.90 Kim units), WHO group 2.
Subjective: Had some difficulty overnight due to persistent shortness of breath. No chest pain. Does have some palpitations.
Physical Exam
Vital Signs/Labs
Vital Signs
Temp Pulse Resp BP Pulse Ox
98.4 F 87 16 115/69 81
04/23/24 07:17 04/23/24 07:15 04/23/24 07:15 04/23/24 07:15 04/23/24 04:30
04/22/24 04/23/24 04/24/24
06:59 06:59 06:59
Actual Weight 52.8 kg 50.9 kg
04/23/24 03:23
04/23/24 03:23
PT 14.9 Sec (11.4-14.6) H 04/18/24 11:05
INR 1.14 04/18/24 11:05
APTT 28.7 Sec (23.4-35.0) 04/18/24 11:05
Magnesium 2.0 mg/dl (1.6-2.3) 04/21/24 04:29
Physical Exam
Constitutional: Other (Appears tired on high flow)
EENT: Anicteric
Cardiovascular: Rhythm/rate is irregular
Respiratory: Other (Decreased breath sounds at bases. Chest tube intact no wheezes)
GI: Other (Thin. Nontender)
Neuro/Psych: Alert and Other (Appears tired has some difficulty answering to questions. Falling asleep apparently patient was up a lot of the night)
Data Reviewed
-
Date of Service: April 23, 2024
Medical Decision Making: Reviewed Test Results
EKG: Report Reviewed by me
X-Ray/CT/US/MRI/NUC/PET: Report Reviewed by me
Medical Tests (PFT, Pathology etc): Image Personally Visualized and interpreted
Labs: Labs Reviewed by me
--- NOTE | 2024-04-23 07:45 | PTCARENOTE ---
Complete assessment done and documented in worklist. Pt weak, but oriented x3, follows simple commands. HR afib 80's, BP map maintained >/=65 with levophed titration, presently at 4 mcg/min. L chest tube to 20 suction, draining min to mod amt of
serous sang fluid. Drsg on L foot intact. Pt on High flow O2 80% 50L. O2 sat=97%, lobes decreased at bases bilat, insp and exp wheezes noted. Pt taking sm amts of liq diet. Pt was cleaned for mod amt of liq brown BM. New draw sheets applied. Gupta
cath in place, draining sm amts of gianna yellow urine. Pt turned and made comfortable. Pt's and son in room and updated.
[2024-04-23] MEDS: DOLOPHINE 10 MG PO ×4 (08:00→20:00)
[2024-04-23] MEDS: SENOKOT-S PO (08:00)
[2024-04-23] MEDS: SODIUM BICARBONATE 1300 MG PO (08:00)
[2024-04-23] MEDS: ROCALTROL 0.25 MCG PO (08:00)
[2024-04-23] MEDS: DELTASONE 10 MG PO (08:01)
[2024-04-23] MEDS: ZOLOFT 50 MG PO (08:01)
[2024-04-23] MEDS: NORCO 7.5/325 1 TABLET PO ×2 (08:01→20:01)
[2024-04-23] MEDS: LOW STRENGTH ASPIRIN 81 MG PO (08:01)
[2024-04-23] MEDS: HEPARIN 5000 UNITS SC ×2 (08:03→20:02)
[2024-04-23] MEDS: LASIX 80 MG IV (08:03)
[2024-04-23] MEDS: MANNITOL 25% 12.5 GRAMS IV ×2 (08:07→09:18)
[2024-04-23] MEDS: FLEXBUMIN 25% FOR HEMODIALYSIS 12.5 GRAMS IV ×2 (08:07→09:18)
--- NOTE | 2024-04-23 08:18 | W.PN.INTV ---
Today's Communication / Plan
Recommendations
Continue with left-sided chest tube placed by IR on 04/22
Maintain MAP >65 and continue with Levophed (started after chest tube was inserted)
HD started this morning without ultrafiltration
For now, continue with ASA + Plavix and trental while trending CBC
Transfuse for Hb >7 g/dL and keep platelets >50k
Patient is not a candidate for open surgical treatment of possible ruptured descending aortic aneurysm and he is not an ideal TEVAR candidate either as per vascular surgery
Continue high flow nasal cannula and titrate FiO2 + flow rate to maintain SpO2 88-95%
Continue aspiration precautions
Continue antibiotics
Palliative care consulted per the family's request; goals of care discussion held this morning and they would like him to be DNR/DNI but continue with full medical management otherwise
Poor prognosis
Continue ICU level care for this critically ill patient
Assessment
-
Impression:
#Rapid A-fib likely due to sepsis from left lower lobe pneumonia with suspected parapneumonic effusion --> now rate controlled and off cardizem gtt since 04/19
#Left sided hemothorax - likely traumatic after multiple falls per the family (last fall in June 2023) --> s/p 18 Fr chest tube by IR on 04/22/2024
#Circulatory shock on vasopressors (BP dropped after chest tube was placed on 04/22/2024)
#Sepsis from UTI and multifocal PNA --> involving LLL and now RUL
#Lactic acidosis - normalized as of 04/18
#Metabolic acidosis with increased anion gap due to SOLEDAD
#Acute on chronic anemia (baseline Hb 9.5-11 g/dL) s/p 1 unit PRBC transfused on 04/18 - suspected to be from left-sided hemothorax, with suspicion for acute on chronic process in setting of uremia
#Hypoalbuminemia
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
#SOLEDAD on CKD with suspected uremia
#Hypoglycemia
#Iron deficiency anemia
#Suspected UTI with urine culture from 04/17/2024 growing Pseudomonas aeruginosa
#GOLD Class II COPD via PFTs from 03/01/2024 with severe gas exchange capacity defect (DLco: 31%)
#Former tobacco smoker (72-[id number] history, quit 2012)
#PAD with history of left subclavian stent
#History of C. difficile colitis
#Chronic methadone use
#History of paroxysmal A-fib previously on Eliquis complicated by recurrent melena/GI bleed now s/p watchman ROSIE occlusion device (implanted 12/11/2020)
Plan:
-Patient was doing well on 04/20/2024, weaned off of Cardizem drip on 04/19 and was downgraded to IMU level of care
-Unfortunately on 04/21, patient developed sudden shortness of breath and CXR showed opacification in the right upper lobe with CT chest showing evidence for pneumonia with a LLL hemothorax
-There also was concern for a descending aortic aneurysm with rupture on initial CT chest from 04/21, however subsequent CTA chest on 04/22 did not show any evidence of rupture. 8 cm aortic aneurysm. Vascular on board who reviewed imaging and a
thoracic aortic aneurysm rupture is a possibility but he is not an ideal TEVAR candidate given anatomical limitations, and that he is not an open surgical candidate. Vascular surgery recommended to continue observation with no surgical intervention
at this time
-Concern for L-sided hemothorax --> cardiothoracic surgery consulted and he is not a surgical candidate
- IR placed chest tube on 04/22 --> continue to monitor output
- Will defer to vascular surgery if his plavix, ASA and pentoxifylline are still required in the setting of suspected left-sided hemothorax and acute anemia with recent transfusion on 04/18
- Given that his H&H has been stable since 04/21/2024, we will opt to continue with antiplatelet medications for now and continue to trend H&H
-Continue aspiration precautions
-Maintain SpO2 88-95% using high flow nasal cannula and wean down FiO2 as tolerated --> currently on high flow nasal cannula and there seems to be a discrepancy between his oxygen requirements and the pulse oximetry reading --> ABG from 04/23/2024
shows pO2 of 78 with SaO2 of 97%
-Continue DuoNebs TID
-prn nebulized bronchodilators - not currently bronchospastic
- Once less lethargic, then will encourage him to use incentive spirometer 10x per hour for at least 4 hrs a day
-For his pneumonia, given that he has been hospitalized for >48 hrs, on 04/21 we started IV vanco; MRSA swab now negative --> IV vanco DC'd; he remains on cefepime since 04/18
-Continue high flow nasal cannula; given the high concern for aspiration, would try to avoid CPAP/BiPAP as this will surely increase his risk of aspiration and worsen his hypoxia--> he is now DNR/DNI as of 04/23/2024
-Continue heart rate control
-Patient has been off Cardizem drip since 04/19/2024 evening
-Continue with Cardizem CD and prn Cardizem (unfortunately Cardizem was held this morning due to hypotension)
-Cardiology on board - recs appreciated
-Maintain MAP>65
-Hold antihypertensives and give Cardizem if tolerated; will resume as BP improved and SOLEDAD resolves as he takes lisinopril + hydralazine at home
-Given that patient's BP is improved on 04/19, we stopped hydrocortisone on 04/19 and resumed patient's home dose of prednisone 10 mg on 04/20; random cortisol was WNL at 39.6 on 04/19/2024
-Replete electrolytes with K>4, Mg>2
-Echo performed on 04/18/2024 showed moderate to severe concentric LVH with LVEF >75%, with normal RV size/function with severely dilated LA + severely dilated RA, with mild as moderate TR and normal PASP at 25-30 mmHg
-Continue to trend sCr and I/O/UOP
-PO bicarb DC'd given he is now on HD; continue to trend sHCO3 levels
-HD started this morning per nephrology
-Continue Abx with cefepime given that Pseudomonas is seen on patient's urine culture from 04/17/2024
-CT chest from 04/21/2024 shows severe right upper lobe pneumonia as well as a right lower lobe pneumonia
-Trend WBC and monitor fever curve
-Left-sided chest ultrasound showed a moderate sized left-sided pleural effusion --> thoracentesis attempted by IR on 04/19 but only 2cc of bloody fluid was removed and sent for analysis; not enough for cultures or any other fluid studies. Fluid WBC
elevated at 545 and was PMN predominant. Empyema initially ruled out as fluid was not purulent - continue with antibiotics as stated above. Ultimately he will need repeat imaging as an outpatient with a CT chest if he survives this hospitalization
-Continue DAPT with ASA + plavix while trending CBC
-Trend H/H and transfuse if needed to keep Hb>7g/dL; keep plt>50k (given his L-sided hemothorax)
-Maintain euglycemia with goal BG 140-180 --> - given that we are stopped hydrocortisone on 04/19 and since he has been hypoglycemic, lantus DC'd; continue ISS and monitor BG; can always resume lantus if BG starts to rise again into the 160-170s
-Nutrition - Diet as per PIPEMAN (currently on a cholesterol-lowering diet); GI has been following given concern for gastroparesis, and a gastric emptying study was pending --> deferred given chronic methadone use. Of note, this can be done as an
outpatient. As stated above, EGD with biopsy was also going to be performed, but this was deferred as patient is on DAPT
-DVT ppx: Continue HSQ 5000 units q12hr for now given his low Hb and required 1 U PRBC on 04/18; Hb has remained >7.3 since that transfusion was given and no signs of bleeding currently
Continue ICU level care for this critically ill patient.
Critical care statement: A total of 39 minutes of critical care time was provided for this patient today. This includes management of unstable vital signs, evaluation of the patient at bedside, reviewing the patient's pertinent medical records
including radiographs, microbiology, laboratory evaluations, and discussion with primary team, consultants, pharmacy, nutrition, physical therapy, case management, charge nurse, critical care nursing, and respiratory therapy.
Subjective Dataa
Subjective Data
Date of Service:
Date of Service: April 23, 2024
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
Subjective:
Patient seen and evaluated today at bedside. Started HD this morning, tolerating well. No ultrafiltration. Current BP 117/60 on Levophed at 6 mcg/min; unable to get an accurate O2 saturation. Heart rate 90. Currently on high flow nasal cannula
at 80% FiO2, 50 L/min. He is lethargic today although easily arousable to voice and tactile stimulation. Family at bedside and they would like to make his code status to DNR/DNI. All questions were answered and emotional support was provided.
Review of Systems
General: Other (Unobtainable (lethargic/AMS))
Objective Data
Data Reviewed
Vital Signs / I&O / Oxygen:
Vital Signs
Temp Pulse Resp BP Pulse Ox
98.4 F 89 20 73/47 81
04/23/24 07:17 04/23/24 08:21 04/23/24 07:40 04/23/24 08:21 04/23/24 04:30
Intake and Output
04/22/24 04/23/24 04/24/24
06:59 06:59 06:59
Intake Total 1185 / 1185 570.0 / 585.0 133.8 / 133.8
Output Total 700 / 700 1507 / 1517
Balance 485 / 485 -937.0 / -932.0 118.8 / 118.8
SaO2 81
Nasal Cannula flow liters per 50
minute
Physical Exam
General: Respiratory Distress (negative), Comfortable, Chills (negative) and Sweats (negative)
HEENT: Normocephalic and Anicteric
Cardiovascular: Irregular Rhythm (Irregularly irregular) and Peripheral Edema (negative)
Respiratory: Wheeze (negative), Crackles (Left base), Rhonchi (negative), Stridor (negative), Chest Tube (Left-sided chest tube in place with 160 cc of serosanguineous fluid in canister and no airleak) and Other (Diminished breath sounds bilaterally)
GI: Soft, Non Distended, Non Tender and Normal Bowel Sounds
Neurology: Tremors (negative) and Lethargic (Arousable to voice and tactile stimulation)
Skin: Warm, Dry, Cyanosis (negative) and Jaundice (negative)
Labs/Micro/Reports
Lab Data
04/23/24 03:23
04/23/24 03:23
Microbiology
04/19/24 17:22 Pleural Fluid Body Fluid Culture - Final
No Growth After 72 Hours
04/19/24 17:22 Pleural Fluid Gram Stain - Final
04/21/24 17:25 Nose Nasal Screen MRSA (PCR) - Final
MRSA not detected - performed by PCR methodology.
[2024-04-23] MEDS: TOPROL XL PO (08:21)
[2024-04-23] MEDS: CARDIZEM CD PO (08:21)
--- NOTE | 2024-04-23 08:30 | PTCARENOTE ---
HD was started at bedside at 0800. Metoprolol and cardizem were held (Dr Robertson updated). Levophed was increased to 5 mcg/min.
--- NOTE | 2024-04-23 08:44 | W.PN.NEPH.PH ---
Today's Communication / Plan
-
HD
Assessment/Plan
-
Assessment:
Likely gastroparesis secondary to scleroderma
SOLEDAD on CKD 3B-baseline cr 1.5 Dr Jain
Metabolic acidosis
Solitary functioning kidney due to scleroderma given L kidney atrophy.
Hypocalcemia
QTc prolongation secondary to hypocalcemia
Hyponatremia
Paroxysmal atrial fibrillation
Chronic HFpEF
Scleroderma
Raynaud's
Rheumatoid arthritis
CREST syndrome
Peripheral arterial disease status post left subclavian stent, recent left lower extremity stent
History of left fifth toe osteomyelitis status post amputation in February
Chronic back pain secondary to compression fracture/osteoporosis
History of fusiform aneurysm of descending aorta
Essential hypertension
Chronic dysphagia
Chronic pain/opiate dependence
COPD
Depression
Chronic anemia
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
8 cm thoracic aortic aneurysm
Plan:
HD today
HD tomorrow
keep MAP>65 with levophed
Gupta in place for retention, but oliguric
can stop lasix
CTube management per pulmonary
d/w family (/son)
critical care time 33 minutes
-
-
Date of Service: April 23, 2024
CC / HPI / ROS
-
Chief Complaint:
SOLEDAD, CKD
History of Present Illness:
SOLEDAD/Cr up at 4.8
BUN up to 107
Metabolic acidosis stable 19
Na low 134 stable
BP low stable on levophed
critically ill in ICU
on mid flow 10lit o2
CT in place, unclamped
Review of Systems:
able to tolerate po , mild nausea
sob and feels tired
no fever
Labs
-
Labs:
WBC 24.2 10^3/uL (4.8-10.8) H 04/23/24 03:23
RBC 2.56 10^6/uL (4.70-6.10) L 04/23/24 03:23
Hgb 7.7 g/dL (13.0-18.0) L 04/23/24 03:23
Hct 23.3 % (39.0-52.0) L 04/23/24 03:23
Plt Count 200 10^3/uL (130-400) D 04/23/24 03:23
Sodium 134 mmol/L (135-145) L 04/23/24 03:23
Potassium 5.1 mmol/L (3.5-5.1) 04/23/24 03:23
Chloride 98 mmol/L (98-107) 04/23/24 03:23
Carbon Dioxide 19 mmol/L (22-30) L 04/23/24 03:23
BUN 107 mg/dl (9-20) H* 04/23/24 03:23
Creatinine 4.8 mg/dL (0.7-1.3) H* 04/23/24 03:23
eGFR 12.40 04/23/24 03:23
Glucose 95 mg/dl (70-99) 04/23/24 03:23
Calcium 7.3 mg/dl (8.4-10.2) L 04/23/24 03:23
Phosphorus 6.0 mg/dl (2.5-4.5) H 04/21/24 04:29
Albumin 2.6 g/dl (3.5-5.0) L 04/18/24 11:05
Physical Exam
-
Vital Signs:
Vital Signs
Temp Pulse Resp BP Pulse Ox
98.4 F 89 20 73/47 81
04/23/24 07:17 04/23/24 08:21 04/23/24 07:40 04/23/24 08:21 04/23/24 04:30
Cardiovascular:: Regular rate and rhythm
Respiratory:: Bilateral: Coarse (no BS left) and Left: Coarse (no BS left)
Lung Excursion:: Normal
Abdomen:: Nontender and Soft
Bowel Sounds:: Normal
Extremity Edema:: None: Bilateral:
--- NOTE | 2024-04-23 08:48 | W.PN.NEPH.HD ---
Assessment
-
Seen on HD. no new complaints. VSS, access temp CVC
Progress Note - Hemodialysis
-
Date of Service: April 23, 2024
Duration: 30 minutes and 2 hours
Potassium Bath: 2
Calcium Bath: 2.5
Opti-Dialyzer: 160
Ultrafiltration: Other (no)
Blood Flow: 250
Dialysate Flow: 600
Heparin: 0
EPO: 0
[2024-04-23 08:59] LABS: Glucose - Point of Care 97 mg/dl (70-99)
--- NOTE | 2024-04-23 09:24 | W.PN.UPDATE ---
Update Note
Progress Note Update
Spoke with the , Ted, and son, Balbir this AM. They want Yaniv to be a DNR/DNI. All questions were answered. He is starting HD this AM, remains on levophed at 6mcg/min. He is awake and alert but still confused. All questions were
answered, order changed in [facility].
[2024-04-23] MEDS: HEPARIN 2200 UNITS INTRACATH (10:29)
--- NOTE | 2024-04-23 10:39 | W.PN.UPDATE ---
Update Note
Progress Note Update
I had a detailed conversation with Mr. Salgado and his at bedside this morning. I explained the difficult nature of his thoracic aortic aneurysm. Explained that he is not an open surgical candidate. Explained technical challenges associated
with endovascular repair. My recommendation is for no surgical intervention. Patient and expressed understanding.
Papo Gupta III, MD
[facility] Vascular Surgery
[phone] (ninn)
--- NOTE | 2024-04-23 11:00 | PTCARENOTE ---
HD completed now, no fluid was removed. Levophed remains at 6 mcg/min. Spoke with pt's and son, answering all their questions. They spoke with pt, and together they wanted to change pt's status to DNR. Dr Wynne came to room and also spoke
with family and pt. Pt was then made a DNR. Pt remains of High flow 50L, 80%.
[2024-04-23 11:52] LABS: B.E. 2.9 mmol/L; HCO3 27.9 mmol/L (21-28); O2 Saturation % 97.9 % (94-98); PCO2 44 mmHg (35-48); PO2 78 mmHg (83-108); pH 7.41 (7.35-7.45)
[2024-04-23 12:27] LABS: Glucose - Point of Care 84 mg/dl (70-99)
--- NOTE | 2024-04-23 13:10 | W.PN.HOSP.TC ---
Today's Communication/Plan
-
DC diuretic
Monitor blood pressure
Wean Levophed as tolerated
Continue with antibiotic
Monitor oral intake
Prognosis remains guarded
Assessment / Plan
Assessment / Plan
General: Cachectic, chronically ill appearing
HEENT: Normocephalic, Atraumatic, Moist Mucous Membranes and Oxygen
Respiratory: Decreased Breath Sounds, on high flow nasal cannula, RIJ HD catheter noted
Cardiac: S1/S2,
GI: Soft, Nontender, Nondistended and Normal Bowel Sounds; Negative Organomegaly
Rectal: Deferred by Provider
Musculoskeletal: No Clubbing, No Cyanosis and No Edema
Skin: Negative Rash
Neuro: Awake, AO x 3, No Motor Deficits and Nonfocal/Grossly Intact
Psych: anxious
69yo M wiht CREST on chronic prednisone managed by , Hx of SIADH, pulmonary nodule, Afib s/p watchman, osteoarthritis, gastroparesis, HTN, chronic pain, BPH and anxiety d/o came with poor oral intake for past week and progressive weakness.
Has no nausea or vomiting, but no appetitie to eat. Can keep liquds down. Also found hyponatremia. Managed for worsening CKD
A/P:
# Left-sided hemothorax
# Acute descending thoracic aortic aneurysm of 7.[address] angiogram of chest abdomen pelvis noted
Was evaluated by vascular surgery and not concern for acute thoracic aortic aneurysm rupture and not a surgical candidate. Plan is to observe. Surgery did discussed with patient and spouse in details.
CT surgery has been consulted and did not recommend surgery currently
Status post left-sided chest tube placement with 860cc output
#SOLEDAD on CKD stage 4 with solitary functioning R kidney (L kidney atrophy) with hypotension on admission
#SIADH with hyponatremia
#CREST
Calcitriol
no concern for scleroderma renal crisis as BP not elevated
Nephrology for fluid and electrolyte mgmt
Significant elevation BUN/creatinine.
Patient with hypotension and on hemodialysis DC further diuretics
Status post HD catheter placement on 04/21/2024
Started on hemodialysis today. Patient was significantly hypotension and gout developed plan for any volume removal.
Moving forward if requires hemodialysis to be extremely difficult as with hypotension.
# Persistent atrial fibrillation with rapid ventricular response
Patient was started on Cardizem infusion per cardiology
Status post Cardizem infusion. Restarted on Cardizem and Metoprolol-medication held as with hypotension
Patient with crest syndrome and elevated creatinine thus options were limited. Can consider IV amiodarone for short term usage only
BP holding
Monitor chest pain
Monitor heart rate
Status post Watchman device has history of GI bleeding
# Acute hypoxic respiratory failure
#COPD
#Left pleural effusion/hemothorax
Chest ultrasound and only able for dx thora 2cc fluid removed. Await fluid culture remains negative and cytology.
Wean oxygen as tolerated
Remains on high flow nasal cannula. Continue with antibiotics. Monitor chest tube drainage. Plan as above.
Video swallow eval will need to be hold for now
Tape Recorder Repairer following
# Abdominal pain/cramps likely secondary to heavy stool burden
Continue with bowel regimen is on chronic opioids
# Chest pain likely secondary symptomatic tachycardia
Nitroglycerin as needed
A-fib management as above
Cardiology following
# Pseudomonas UTI
DC ceftriaxone started on cefepime.
Renally dosed cefepime.
#Anemia Iron deficient
s/p 1U of PRBC. Hgb improved. Hgb 7.7
Explains possibly drop in hemoglobin secondary to hemothorax
#Hypocalcemia
-replete/monitor. Calcitriol
-check ionized calcium
#Dysphagia
VSE ordered . Will hold off for now as with tenous respiratory status
cont current diet per Speech
#Mild hyponatremia
monitor for now
#Lactic acidosis
trend for now
#Loss of appetite
#Severe protein caloric malnutrition due to acute on chronic illness
#Gastroparesis
BMI 17.6
Ensure suppl
GI consult: will need eventual EGD, most likely outpatient, but if patient will get worse - will consider inpatient
most likely 2/2 progressive CKD
#Leukocytosis
most likely 2/2 steroids
monitor WBC and fever trend
#R lung mass
stable since 2014
supposed to be followed with pulm as outpatient as per previous notes
#Chronic pain syndrome 2/2 osteoporosis
On methadone and [place]
Bowel regimen
#PAD s/p LE stent
#Subclavian stenosis s/p stent
#HLD
#Essential HTN
#BPH
#Anxiety d/o
DVT ppx hep sc
Full code
Discussed with patient DIOGENES Melgar MD at bedside in detail for prolonged period of time on 04/21 and 04/22
Discussed with analytical scientist
Discussed with patient's son at bedside in detail-explained extremely guarded and poor prognosis. Recommended hospice.
Long-term prognosis guarded
Patient critically ill
Anticipated Discharge: > 48 hours
Subjective/Interval History
-
Date of Service: April 23, 2024
Remains with shortness of breath
Seen on hemodialysis blood pressure was found to be soft
Remains on 6 mcg of Levophed
Remains on high flow nasal cannula
Status post left-sided chest tube with significant drainage
CODE STATUS has been changed to DNR/DNI
Objective Data
-
Labs:
Laboratory Results
04/23/24 04/23/24
03:23 11:37
WBC 24.2 H
Hgb 7.7 L
Hct 23.3 L
Plt Count 200 D
HCO3 27.9
Sodium 134 L
Potassium 5.1
Chloride 98
Carbon Dioxide 19 L
BUN 107 H*
Creatinine 4.8 H*
Glucose 95
Calcium 7.3 L
Vital Signs:
Vital Signs
Temp Pulse Resp BP Pulse Ox
98.1 F 94 22 116/63 76
04/23/24 11:00 04/23/24 12:30 04/23/24 12:30 04/23/24 12:30 04/23/24 11:15
I&O
04/22/24 04/23/24 04/24/24
06:59 06:59 06:59
Intake Total 1185 / 1185 570.0 / 585.0 220.1 / 220.1
Output Total 700 / 700 1507 / 1517
Balance 485 / 485 -937.0 / -932.0 190.1 / 190.1
Data Reviewed
-
Total Time Spent with Patient (in minutes): 56
--- NOTE | 2024-04-23 13:34 | PTCARENOTE ---
Pt given mouth care/ teeth brushed, face shaved, corea care done. Cleaned for small to mod amt of brown diarrhea, new draw sheet and pad placed. ABG was drawn, pt to stay on present high flow settings, 50L 80% O2. Levophed now down to 3 mcg/min.
Pt's , son, and Daughter in law in room, and updated. Pt's very thankful for care. Palliative care request placed to talk with family at their request, by Dr Mix.
--- NOTE | 2024-04-23 14:34 | PTCARENOTE ---
Wound care done on pt's L 5th toe inc. Old drsg removed, wound cleaned with NSS, clean 4x4 drsg and nikki wrap applied.
--- NOTE | 2024-04-23 15:30 | PTCARENOTE ---
Assumed care of pt. Assessment as noted and unchanged. BP supported with levophed. at bedside, plan of care discussed.
[2024-04-23 17:46] LABS: Glucose - Point of Care 85 mg/dl (70-99)
[2024-04-23] MEDS: ATIVAN 0.5 MG PO (20:01)
[2024-04-23] MEDS: DULCOLAX 10 MG PO (20:01)
[2024-04-23] MEDS: PLAVIX 75 MG PO (20:01)
[2024-04-23] MEDS: SENOKOT-S 1 TABLET PO (20:02)
[2024-04-23] MEDS: CRESTOR 20 MG PO (20:02)
[2024-04-23] MEDS: TRENTAL 400 MG PO (20:02)
[2024-04-23] MEDS: FLOMAX 0.4 MG PO (20:02)
[2024-04-23] MEDS: TOPROL XL 25 MG PO (20:02)
[2024-04-24] VITALS: BP 101/63
--- NOTE | 2024-04-24 00:04 | PTCARENOTE ---
pt reassessed, remains on HFNC, multiple BMs so far this shift. denies pain at this time. call gutierrez in reach. son at bedside. care continues
[2024-04-24] MEDS: DILAUDID 0.5 MG IV (00:25)
[2024-04-24 00:30] VITALS: BP 116/67
--- NOTE | 2024-04-24 00:30 | PTCARENOTE ---
son at bedside, pt ripping off oxygen stating that he 'wants to '. c/o generalized pain. ICU SYSTEMS TECHNICIAN made aware, stat dilaudid dose given, son updating family at this time. conversations about pursuing comfort care tonight ongoing
[2024-04-24 01:00] VITALS: BP 101/54
--- NOTE | 2024-04-24 01:53 | W.PN.UPDATE ---
Update Note
Progress Note Update
Spoke with family and the decision was made to transition to comfort care.
[2024-04-24] MEDS: SUBLIMAZE 50 MCG IV ×5 (02:02→05:46)
[2024-04-24] MEDS: ATIVAN 1 MG IV ×3 (02:02→04:27)
--- NOTE | 2024-04-24 02:10 | PTCARENOTE ---
Addendum entered by Abigail Hills RN 04/24/24 02:39:
retirement administrator contacted per family request
Original Note:
at bedside with son, pt transitioned to comfort care at this time. PRN ativan and fentanyl given. will wean O2 as tolerated
--- NOTE | 2024-04-24 02:30 | CHAP ---
Emotional and spiritual support provided for Mr. Salgado and family at bedside. Prayers of commendation shared.
[2024-04-24] MEDS: MAXIPIME IV (03:57)
[2024-04-24] MEDS: STERILE WATER FOR INJECTION IV (03:57)
[2024-04-24 06:00] VITALS: BMI 18.3
[2024-04-24 07:08] VITALS: BP 0/0
--- NOTE | 2024-04-24 07:20 | PTCARENOTE ---
0708 pt with no pulse or respirations and No BP. Monitor Asystole. Dr. Cruz notified and in to pronounce pt. Family at the bedside and support given. Will notify [facility].
--- NOTE | 2024-04-24 08:05 | W.PN.UPDATE ---
Update Note
Progress Note Update
Patient transition to comfort care overnight. No additional recommendations at this time. Radar Repairer/Pulmonary service will now sign off. Thank you for allowing us to be involved in the care of this patient. Please reconsult if there are any
additional questions/concerns, or if patient's respiratory status deteriorates.
--- NOTE | 2024-04-24 08:08 | W.PN.DEATH ---
Pronouncement of
-
Called to see patient to pronounce.
No spontaneous heart tones or respirations noted.
Patient not responsive to verbal stimuli.
Patient is pronounced .
Time of : 07:08
Date of : 04/24/24
Cause of : Acute hypoxic respiratory failure
Left sided Hemothorax
Sepsis from urinary tract infection and pneumonia multifocal
Circulatory shock
SOLEDAD on CKD with suspected uremia
Family Notified: Yes (spuse and son at bedside )
--- NOTE | 2024-04-24 08:10 | W.DCSUMMARY ---
Discharge Summary
Discharge Data
Date of Admission: 04/16/24
Date of Discharge: 04/24/24
-
Pending Results: No
Hospital Course
69yo M with CREST on chronic prednisone managed by , Hx of SIADH, pulmonary nodule, Afib s/p watchman, osteoarthritis, gastroparesis, HTN, chronic pain, chronic opioid dependent, CKD, iron deficiency anemia, COPD, history of GI bleeding BPH
and anxiety d/o came with poor oral intake for past week and progressive weakness. Has no nausea or vomiting, but no appetitie to eat. Patient with prolonged hospitalization. Patient with elevated creatinine on admission nephrology was consulted.
Patient received some IV fluids with mild stabilization of creatinine. Patient was soft blood pressure on admission and blood pressure medication were placed on hold. Subsequently patient started complaining of shortness of breath associated with
nausea vomiting and chest pain. Rapid response was called. Patient was found to be in atrial fibrillation with rapid ventricular response which patient was symptomatic. Patient was transferred to medical ICU. Cardiology was consulted. Patient
was started on Cardizem infusion in the ICU. Patient was weaned off Cardizem infusion to p.o. Cardizem. Metoprolol was also started however with blood pressure hypotension it was difficult at times. Patient complain of persistent shortness of
breath. Ultrasound of the chest showed left pleural effusion and underwent thoracentesis however only 2 cc of bloody fluid was removed and sent for analysis which was not enough for cultures or any other fluid studies. Patient creatinine continued
to trend up. Further imaging showed that patient had left-sided hemothorax. Patient underwent CT angiogram of the chest abdomen pelvis which was negative for acute aortic thoracic aneurysm rupture. However patient was found to have a 7.9 cm
thoracic aneurysm. Patient was eval by vascular surgery and CT surgery and deemed not to be a surgical candidate. Patient persistent hypoxemia and was remaining shortness of breath on high flow nasal cannula. Patient creatinine was also
uptrending and patient received urgent hemodialysis catheter placement. After discussion with pulmonary critical care and CT surgery patient underwent chest tube placement on the left side by interventional radiology. CODE STATUS was changed to
DNR/DNI. Patient has significant output from left CTA upon placement with 860 cc. Patient creatinine continued to worsen and patient also with suspected uremic symptoms. Patient was started on hemodialysis however volume removal was not possible
as patient with severe hypotension. Patient was shock and was requiring Levophed. Patient remained in persistent shock. personal property appraiser on 04/24 patient decided he does not want any aggressive measures. Spouse and son were at bedside and decision
was made to transition patient to comfort care. Subsequently aggressive measures were stopped and patient on 04/24/2024 at 7:08 AM. Condolences were expressed with patient's spouse and son at bedside in detail.
Discharge Plan
-
Patient Disposition:
Date/Time
Date/Time: 04/24/24 07:08
Discharge Date and Time
Discharge Date/Time: 04/24/24 10:11
Print Language: THAI
--- NOTE | 2024-04-24 09:15 | PTCARENOTE ---
[facility] notified and post mortem care given. Pt taken to the morgue with 1 bag of belongings sent with pt
== END 2024-04-24 10:11 | disposition expired | DRG 545 ==
LOC: ICU 16:15
PROVIDERS: Internal Medicine; Physician Assistant; Radiology Diagnostic Radiology; Radiology Vascular & Interventional Radiology; Specialist; ADMITTING PHYSICIAN Hospitalist; ATTENDING PHYSICIAN Hospitalist; CONSULT PHYSICIAN Internal Medicine; CONSULT PHYSICIAN Internal Medicine Critical Care Medicine; CONSULT PHYSICIAN Thoracic Surgery (Cardiothoracic Vascular Surgery); EMERGENCY PHYSICIAN Emergency Medicine; FAMILY PHYSICIAN Family Medicine; OTHER PHYSICIAN Internal Medicine Cardiovascular Disease
PROC: 30233N1 Transfusion of Nonautologous Red Blood Cells into Peripheral Vein, Percutaneous Approach (ICD-10-PCS; 2024-04-18)
PROC: 0W9B3ZZ Drainage of Left Pleural Cavity, Percutaneous Approach (ICD-10-PCS; 2024-04-19)
PROC: 02HV33Z Insertion of Infusion Device into Superior Vena Cava, Percutaneous Approach (ICD-10-PCS; 2024-04-22)
PROC: B548ZZA Ultrasonography of Superior Vena Cava, Guidance (ICD-10-PCS; 2024-04-22)
PROC: 0W9930Z Drainage of Right Pleural Cavity with Drainage Device, Percutaneous Approach (ICD-10-PCS; 2024-04-22)
PROC: 5A1D70Z Performance of Urinary Filtration, Intermittent, Less than 6 Hours Per Day (ICD-10-PCS; 2024-04-23)
DX: M34.1 CR(E)ST syndrome (principal); A41.9 Sepsis, unspecified organism; J96.01 Acute respiratory failure with hypoxia; J69.0 Pneumonitis due to inhalation of food and vomit; E43 Unspecified severe protein-calorie malnutrition; J94.2 Hemothorax; N39.0 Urinary tract infection, site not specified; R57.9 Shock, unspecified; N17.9 Acute kidney failure, unspecified; I13.0 Hypertensive heart and chronic kidney disease with heart failure and stage 1 through stage 4 chronic kidney disease, or unspecified chronic kidney disease; I50.32 Chronic diastolic (congestive) heart failure; F11.20 Opioid dependence, uncomplicated; E87.20 Acidosis, unspecified; E22.2 Syndrome of inappropriate secretion of antidiuretic hormone; I48.19 Other persistent atrial fibrillation; Z68.1 Body mass index [BMI] 19.9 or less, adult; M06.9 Rheumatoid arthritis, unspecified; N18.32 Chronic kidney disease, stage 3b; R13.10 Dysphagia, unspecified; K21.9 Gastro-esophageal reflux disease without esophagitis; Z95.818 Presence of other cardiac implants and grafts; I71.23 Aneurysm of the descending thoracic aorta, without rupture; Z87.891 Personal history of nicotine dependence; Z88.5 Allergy status to narcotic agent; Z79.82 Long term (current) use of aspirin; Z79.899 Other long term (current) drug therapy; Z79.52 Long term (current) use of systemic steroids; Z66 Do not resuscitate; Z51.5 Encounter for palliative care; T38.0X5A Adverse effect of glucocorticoids and synthetic analogues, initial encounter; K31.84 Gastroparesis; N40.0 Benign prostatic hyperplasia without lower urinary tract symptoms; E78.00 Pure hypercholesterolemia, unspecified; F32.A Depression, unspecified; I25.10 Atherosclerotic heart disease of native coronary artery without angina pectoris; Z95.5 Presence of coronary angioplasty implant and graft; K59.00 Constipation, unspecified; N26.1 Atrophy of kidney (terminal); E83.51 Hypocalcemia; M48.50XS Collapsed vertebra, not elsewhere classified, site unspecified, sequela of fracture; G89.21 Chronic pain due to trauma; J44.9 Chronic obstructive pulmonary disease, unspecified; Z91.81 History of falling; D50.9 Iron deficiency anemia, unspecified; F41.9 Anxiety disorder, unspecified; E88.09 Other disorders of plasma-protein metabolism, not elsewhere classified; Z86.19 Personal history of other infectious and parasitic diseases
CPT/HCPCS: 32555; 32557; 36556; 36600; 71045; 71046; 71250; 71275; 74174; 74176; 76604; 76775; 76937; 77001; 80048; 80053; 80202; 81003; 81015; 82306; 82330; 82533; 82570; 82607; 82728; 82746; 82805; 82962; 83036; 83540; 83550; 83605; 83615; 83735; 83935; 84100; 84300; 84484; 85014; 85018; 85025; 85027; 85045; 85610; 85730; 86706; 86850; 86900; 86901; 86920; 87015; 87070; 87077; 87086; 87102; 87186; 87205; 87340; 87641; 88112; 89051; 92526; 92610; 93005; 93306; 94640; 96361; 96374; 99285; C1729; C1752; C1769; G0257; J1205; J7030; P9016; P9047; Q9967